=== PATIENT | female | born 1990 | race African-American/Black ===

== ENCOUNTER 2017-10-13 10:03 | Inpatient (IN) | payer OTHER ==
--- NOTE | 2017-10-13 10:44 | RAD ---
CHEST ONE VIEW: History: Dyspnea. Comparison: 03-21-17 FINDINGS: Tracheostomy tube tip is in good position. Heart size is enlarged. Mild pulmonary venous congestion. No acute osseous abnormality. IMPRESSION: Cardiomegaly and mild pulmonary venous congestion. POS: [facility]
[2017-10-13 11:48] LABS: Mean Corpuscular Hemoglobin 28.3 pg (27.0-31.0); Mean Corpuscular Volume 95.9 fl (81.0-99.0); Red Blood Cell (RBC) Count 4.93 mill/uL (4.20-5.40); White Blood Cell (WBC) Count 5.1 thou/uL (4.8-10.8)
[2017-10-13 12:05] LABS: CKMB 1.3 ng/mL (0-6.6); Troponin I 0.022 ng/mL (< 0.028)
[2017-10-13 12:10] LABS: Band 4 % (5-11); Eosinophils 5 % (0-10); Lymphocytes 18 % (21-51); MDiff Complete? YES; Mean Corpuscular HGB CONC 29.5 g/dL (32.0-36.0); Mean Platelet Volume 7.7 fL (7.4-10.4); Monocytes 10 % (0-10); Neutrophil 63 % (42-75); Platelet Count 248 thou/uL (130-400); RBC Distribution Width 16.1 % (11.5-14.5)
[2017-10-13 12:29] LABS: ALT (SGPT) 11 U/L (8-55); AST (SGOT) 26 U/L (5-34); Albumin 2.4 g/dL (3.5-5.0); Alkaline Phosphatase 65 U/L (40-150); Anion Gap 12 mmol/L (10-20); BUN (Urea Nitrogen) 15 mg/dL (7.0-18.7); Bilirubin, Total 0.2 mg/dL (0.2-1.2); CK (CPK) 171 U/L (29-168); Calc. Creatinine Clearance 0 mL/min (70-130); Calcium 8.2 mg/dL (7.8-10.44); Carbon Dioxide 27 mmol/L (22-29); Chloride 104 mmol/L (98-107); Estimated GFR-MDRD 81; Globulin 6.2 g/dL (2.4-3.5); Glucose 97 mg/dL (70-105); Lipase 16 U/L (8-78); Potassium 4.5 mmol/L (3.5-5.1); Protein, Total 8.6 g/dL (6.0-8.3); Sodium 138 mmol/L (136-145)
[2017-10-13 12:53] LABS: Bilirubin Small (Negative); Blood, Urine Trace (Negative); Clarity CLOUDY (Clear); Glucose, Urine (Dipstick) Negative (Negative); Leukocyte Negative (Negative); Nitrite Negative (Negative); Protein, Urine (Dipstick) 300 mg/dL (Neg-Trace); Specific Gravity, Urine 1.031 (1.002-1.036); pH, Urine 5.5 (5.0-9.0)
[2017-10-13 12:58] LABS: Bacteria/HPF None Seen HPF (None Seen); Pathc Cast-AUWi Flag 0.81 (0-2.49); RBC/HPF 0-3 HPF (0-3)
[2017-10-13] MEDS ORDERED: Labetalol HCl 100 MG/20 ML VIAL ONE (13:06)
[2017-10-13] MEDS ORDERED: Furosemide 40 MG/4 ML VIAL ONE (13:07)
[2017-10-13 13:10] LABS: Crystals/HPF 3+ AMORPH URATES HPF (Negative); Hyaline Casts/LPF 0-3 HYALINE CAST LPF (0-3 Hyaline); Other Casts/LPF 0-3 FINELY GRAN LPF (0-3 Hyaline); Renal Epithelial None Seen HPF (0-3); Transitional Epithelial NONE SEEN HPF (0-3)
[2017-10-13 13:20] LABS: pH, Arterial 7.25 (7.35-7.45)
[2017-10-13 13:21] LABS: Actual Bicarbonate (HCO3a) 35.9 mEq/L (22-26); Base Excess (BEa) 5.9 mEq/L (0 (+/-) 2.5); Hematocrit-ABG 45.9 % (36.0-47.0); Hemoglobin (Hb) 12.7 g/dL (12.0-16.0); O2 Tension (PaO2) 52.1 mmHg (80.0-100.0)
[2017-10-13 13:22] LABS: Analyzer IN Cardio ER; Calcium, Ionized 1.2 mmol/L (1.12-1.30); Puncture Site RRA
[2017-10-13] MEDS ORDERED: hydrALAZINE 20 MG/ML VIAL ONE ×2 (13:44→14:39)
--- NOTE | 2017-10-13 14:04 | PDOC.FPRHP ---
- History of Present Illness Chief Complaint: Headache, Abd Pain History of Present Illness: This is a 27 y/o F with a PMHx of morbid obesity, Pickwickian syndrome s/p trach placement, HTN, and medication non-compliance who presented to the ED complaining of a headache and felt that "her body was getting swollen." She says the swelling started about a month ago getting progressively worse and is in her legs and abdomen. She states that she wears CPAP vs BiPAP on her trach at night while she sleeps. She denies SOB. The headache is what pushed her to come into the ED. The pain is on the right side of the skull, it has been constant since last night. She describes it as being "punched in the head." She tried tylenol, but this did not help. Abdominal pain started about 1 week ago. She says she has not been eating well as of late. She denies nausea, vomiting, fevers, vision changes. The patient states she was in the hospital in [place] in July for a week for a "silent seizure." She isn't sure what they found or what they treated her with. She has not been to see a doctor between her last admission here in April and now due to not having insurance anymore. She has been unable to get any of her medications refilled except she has still been able to take her carvedilol she thinks. ED Course: The patient was seen in the ED by Dr. Webb and was treated with 80mg IV lasix, 20mg IV labetalol, and 20mg IV hydralazine. - Allergies/Adverse Reactions Allergies Allergy/AdvReac Type Severity Reaction Status Date / Time tomato Allergy Intermediate Rash Verified 03/17/16 14:09 No Known Drug Allergies Allergy Verified 03/17/16 14:09 - Home Medications Medication Instructions Recorded Confirmed Type Carvedilol [Coreg] 25 mg PO BID 09/06/14 10/13/17 History Amlodipine [Norvasc] 5 mg PO DAILY #0 tab 08/28/15 10/13/17 Rx Etravirine [Intelence] 200 mg PO BID-PC 02/07/17 10/13/17 History Pantoprazole [Protonix] 40 mg PO HS 02/07/17 10/13/17 History Sertraline HCl [Zoloft] 50 mg PO DAILY 02/07/17 10/13/17 History Fluconazole [Diflucan] 100 mg PO DAILY #30 tab 02/09/17 10/13/17 Rx Levothyroxine Sodium [Synthroid] 37.5 mcg PO 0600 #30 tab 02/09/17 10/13/17 Rx AcetaZOLAMIDE [Diamox] 250 mg PO TID #90 tab 03/23/17 10/13/17 Rx Aspirin [Ecotrin Low Strength] 81 mg PO DAILY tab 03/23/17 10/13/17 Rx Atorvastatin Calcium [Lipitor] 40 mg PO HS tab 03/23/17 10/13/17 Rx Ipratropium/Albuterol Sulfate 3 ml NEB [id number] PRN #0 neb 03/23/17 10/13/17 Rx [DuoNeb] Lisinopril [Zestril] 40 mg PO DAILY tab 03/23/17 10/13/17 Rx Lopinavir/Ritonavir [Kaletra Oral 400 mg PO BID ml 03/23/17 10/13/17 Rx Solution] Magnesium Oxide 400 mg PO BID tab 03/23/17 10/13/17 Rx Multivitamin W/ Minerals 1 tab PER TUBE DAILY tab 03/23/17 10/13/17 Rx [Theragran M] Nystatin [Mycostatin Powder] 1 gm TOP BID PRN #0 bot 03/23/17 10/13/17 Rx guaiFENesin ER [Mucinex] 600 mg PO Q12HR tab 03/23/17 10/13/17 Rx lamiVUDine [Epivir] 150 mg PO BID tab 03/23/17 10/13/17 Rx Comments: The patient reports that she has not actually taken any of her medications except Carvedilol since her last hospitalization. - History PMHx: 1. HIV 2. HTN 3. Hypothyroidism 4. JOSE DE JESUS 5. Morbid obesity 6. Obesity hypoventilation syndrome 7. CHF (EF 35-40% in 02/2017) PSHx: Cath, tracheostomy FHx: non-contributory Social: denies tobacco, alcohol, or drug use, lives with her cousin. - Review of Systems General: reports: fever/chills, fatigue Eyes: denies: vision changes ENT: denies: nasal congestion, rhinorrhea Respiratory: denies: cough, shortness of breath Cardiovascular: reports: edema. denies: chest pain Gastrointestinal: reports: abdominal pain. denies: nausea, vomiting, diarrhea, constipation Genitourinary: denies: dysuria, polyuria Skin: denies: rashes, lesions Musculoskeletal: reports: swelling, arthritis/arthralgias Neurological: reports: seizure ("silent seizure" 2/2 pain meds taken care of at OSH). denies: numbness - Vital signs BP: 208/148 HR: 99 RR: 18 Tmax: 99.3 Pox: 99% on BiPAP, was 83% on non- rebreather Wt: 265.22 kg - Physical Exam Constitutional: NAD (resting comfortably on BiPAP via trach), awake, alert and oriented, other (morbidly obese) HEENT: normocephalic and atraumatic, PERRLA, EOMI, conjunctiva clear, grossly normal vision, grossly normal hearing, normal nasal mucosa, MMM Neck: supple, trachea midline (tracheostomy in place), no LAD Heart: RRR, normal S1/S2, no murmurs/rubs/gallops, pulses present, other Lungs: CTAB (distant breath sounds), no respiratory distress, no wheezing Abdomen: soft, non-tender, bowel sounds present, no masses/distention, other Musculoskeletal: normal structure, normal tone Neurological: no focal deficit, CN II-XII intact Skin: good turgor, capillary refill <2 seconds Psychiatric: normal mood and affect, good judgment and insight, intact recent and remote memory FMR H&P: Results - Labs Result Diagrams: 10/14/17 05:50 10/14/17 05:51 Lab results: WBC 5.1 thou/uL (4.8-10.8) 10/13/17 11:31 Hgb 14.0 g/dL (12.0-16.0) 10/13/17 11:31 Hct 47.3 % (36.0-47.0) H 10/13/17 11:31 MCV 95.9 fl (81.0-99.0) 10/13/17 11:31 Plt Count 248 thou/uL (130-400) 10/13/17 11:31 Band Neuts % (Manual) 4 % (5-11) L 10/13/17 11:31 ABG pH 7.25 (7.35-7.45) L* 10/13/17 13:17 ABG pCO2 84.0 mmHg (35.0-45.0) H* 10/13/17 13:17 ABG pO2 52.1 mmHg (80.0-100.0) L 10/13/17 13:17 Sodium 138 mmol/L (136-145) 10/13/17 11:31 Potassium 4.5 mmol/L (3.5-5.1) 10/13/17 11:31 Chloride 104 mmol/L (98-107) 10/13/17 11:31 Carbon Dioxide 27 mmol/L (22-29) 10/13/17 11:31 BUN 15 mg/dL (7.0-18.7) 10/13/17 11:31 Creatinine 1.00 mg/dL (0.6-1.1) 10/13/17 11:31 Glucose 97 mg/dL (70-105) 10/13/17 11:31 Calcium 8.2 mg/dL (7.8-10.44) 10/13/17 11:31 Total Bilirubin 0.2 mg/dL (0.2-1.2) 10/13/17 11:31 AST 26 U/L (5-34) 10/13/17 11:31 ALT 11 U/L (8-55) 10/13/17 11:31 Alkaline Phosphatase 65 U/L (40-150) 10/13/17 11:31 Creatine Kinase 171 U/L (29-168) H 10/13/17 11:31 CK-MB (CK-2) 1.3 ng/mL (0-6.6) 10/13/17 11:31 B-Natriuretic Peptide 195.9 pg/mL (0-100) H 10/13/17 11:31 Serum Total Protein 8.6 g/dL (6.0-8.3) H 10/13/17 11:31 Albumin 2.4 g/dL (3.5-5.0) L 10/13/17 11:31 Lipase 16 U/L (8-78) 10/13/17 11:31 Urine Ketones Negative mg/dL (Negative) 10/13/17 12:34 Urine Blood Trace (Negative) H 10/13/17 12:34 Urine Nitrite Negative (Negative) 03/09/18 12:34 Ur Leukocyte Esterase Negative (Negative) 10/13/17 12:34 Urine RBC 0-3 HPF (0-3) 10/13/17 12:34 Urine WBC 4-6 HPF (0-3) H 10/13/17 12:34 Ur Squamous Epith Cells 7-10 HPF (0-3) H 10/13/17 12:34 Urine Bacteria None Seen HPF (None Seen) 10/13/17 12:34 - Radiology Interpretation Chest x-ray Status: image reviewed by me, report reviewed by me Additional comment: cardiomegaly, mild pulmonary vascular congestion FMR H&P: A/P - Problem List (1) Acute on chronic respiratory failure with hypoxia and hypercapnia Current Visit: Yes Status: Acute Code(s): J96.21 - ACUTE AND CHRONIC RESPIRATORY FAILURE WITH HYPOXIA; J96.22 - ACUTE AND CHRONIC RESPIRATORY FAILURE WITH HYPERCAPNIA (2) Hypertensive urgency Current Visit: Yes Status: Acute Code(s): I16.0 - HYPERTENSIVE URGENCY (3) Heart failure with reduced ejection fraction Current Visit: Yes Status: Acute Code(s): I50.20 - UNSPECIFIED SYSTOLIC ( CONGESTIVE) HEART FAILURE Qualifiers: Heart failure chronicity: unspecified Qualified Code(s): I50.20 - Unspecified systolic (congestive) heart failure (4) Obesity hypoventilation syndrome Current Visit: Yes Status: Chronic Code(s): E66.2 - MORBID (SEVERE) OBESITY WITH ALVEOLAR HYPOVENTILATION (5) HIV disease Current Visit: No Status: Chronic Code(s): B20 - HUMAN IMMUNODEFICIENCY VIRUS [HIV] DISEASE (6) Hypertension Current Visit: No Status: Chronic Code(s): I10 - ESSENTIAL (PRIMARY) HYPERTENSION Qualifiers: Hypertension type: essential hypertension Qualified Code(s): I10 - Essential (primary) hypertension (7) Hypothyroidism Current Visit: No Status: Chronic Code(s): E03.9 - HYPOTHYROIDISM, UNSPECIFIED Qualifiers: Hypothyroidism type: acquired Qualified Code(s): E03.9 - Hypothyroidism, unspecified (8) Obesity, morbid, BMI 50 or higher Current Visit: No Status: Chronic Code(s): E66.01 - MORBID (SEVERE) OBESITY DUE TO EXCESS CALORIES - Plan Acute on Chronic Hypoxic Hypercapnic Respiratory Failure The patient was initially not hypoxic on presentation, but slowly desatted and had to be put on nasal cannula and then non-rebreather, until she was found to by hypoxic to 83% on non-rebreather. She was started on BiPAP at this point via her trach. Her ABG showed pH of 7.25, pCO2 84, pO2 of 52.1. The patient improved significantly on BiPAP. Her [id number] respiratory failure was likely 2/2 her obesity hypoventilation syndrome. There is no signs of infections at this time. Her CXR showed cardiomegaly and mild pulmonary vascular congestion, so she could be a little fluid overloaded with a BNP of 196 , however it is unlikely that acute CHF exacerbation was the only source of her respiratory failure. She is s/p 80mg IV lasix by the ED. -Admit to [facility] -Dr. Hernandez with Pulmonology has been consulted, appreciate recs -Continue BiPAP to keep O2 between 88-90% Hypertensive Urgency The patient was initially normotensive, but had elevated BP as high as 216/109 and 208/148. The patient is s/p 20mg IV hydralazine and 20mg IV labetalol in the ED. She reports non-compliance to her home BP regimen. The patient's BP is difficult to accurately assess due to her morbid obesity, so the cuff has to be on her forearm. This could contribute to inaccurate BP measurements. -Will monitor BP closely -Will start on enalaprilat overnight with a plan to restart home BP meds in the AM -PRN BP meds for BP > 180/110 Headache This could be 2/2 hypoxia vs hypertensive urgency. -Will attempt to control BP and improve hypoxia and if this does not improve her H/A then will give her prn meds HTN -Will control BP with IV meds overnight with a plan to switch to home BP regimen in the AM. Hypothyroidism -Will continue home meds JOSE DE JESUS -Continue BiPAP at night Morbid obesity The patient is currently 265 kg. -Will intellectual property counsel on weight loss as this is contributing to many of her problems. Obesity Hypoventilation Syndrome The patient is a chronic hypoventilator 2/2 her weight. -Continue BiPAP at night CHF (EF 35-40% in 02/2017) The patient had a BNP of 196 and reports increased swelling. There was not any edema appreciated on exam, but due to the patient's weight, this could be difficult to assess. CXR showed cardiomegaly and mild pulmonary vascular congestion. -Will continue lasix 40mg IV for now -Astudillo in place -Strict I/O's -Monitor closely for signs of fluid overload HIV -Continue home meds MDD -Continue home meds Disposition/LOS: Admit to IMCU Length of stay, likely greater than 2 days FMR H&P: Upper Level - Pertinent history 27 year old female with a past medical history of obesity hypoventilation syndrome, HIV, hypertension, and hypothyroidism presents to ED for headache starting 1 day ago. She also reports some general abdominal pain, cough, and shortness of breath. When I evaluated her, she specifically denies fevers, chills, chest pain, nausea, vomiting, and diarrhea. - Pertinent findings Vital signs as listed above Exam: General: Morbidly obesity. Alert, oriented x4. Eyes: PERRLA, EOMI, nonicteric ENT: MMM, oropharynx clear. Tracheostomy in place - on BIPAP CV: Slightly tachycardic. No murmurs, rubs, or gallops. Resp: Lungs clear. Breath sounds distant. Abd: NT, ND, no guarding or rebound Ext: Movements equal bilaterally Skin: No rash or ulcer; no palpable lesions Neuro: CNII - XII intact; no focal deficits Psych: Mood and affect appropriate. Judgement and insight intact - Plan Date/Time: 10/13/17 1402 I, Vimal Cha DO, have evaluated this patient and agree with findings/plan as outlined by chemical engineering intern resident. Pertinent changes/additions are listed here. 1) Acute on chronic hypoxic hypercapneic respiratory failure - Likely 2/2 to obesity hypoventilation syndrome. Admit to [facility]. Dr. Hernandez consulted. Continue BIPAP. Lasix given in ED. No evidence of infection at this time. Flash pulmonary edema mertis consideration in patient with hypertensive urgency but lungs clear and CXR not showing a large amount of fluid. Patient given 80 mg Lasix iv in ED. Monitor strict I&Os - Astudillo catheter in place 2) Hypertensive urgency - While on BIPAP, will attempt to manage with iv meds. Start on Vasotec with hydralazine and labetalol for prn meds. CXR showed mild pulmonary vascular prominence. Chest x-ray and lung exam not consistent with severe pulmonary edema but that merits consideration in a patient with hypoxia. BP up to 208/148 in ED 3) sCHF - Strict I&Os. Reastart home meds 4) HTN - Plan as lsited for HTNive emergency 5) HIV - Would benefit from reestablishing with ID 6) Hypothyroidism - Restart home meds 7) Depression - Restart home meds Attending Addendum - Attending Addendum Date/Time: 10/14/17 7450 I personally evaluated the patient and discussed the management with Dr. Proctor on 10/13/17 at 1600. I agree with the History, Examination, Assessment and Plan documented above with any addition or exceptions noted below. Patient somewhat somnolent on my exam but not hypoxic on BiPap through trach. States she is tired because everyone keeps waking her up. States headache and abd pain resolved. Will treat as mild CHF exacerbation with gentle diuresis and strict I/Os. BP markedly improved after Vasotec - some concerns about the accuracy of her BPs given the need for a wrist cuff in her due to her morbid obesity. However, headache is resolved. Continue IV meds until PO can be resumed once she is fully awake.
[2017-10-13 15:19] LABS: Troponin I 0.032 ng/mL (< 0.028)
[2017-10-13] MEDS ORDERED: Ondansetron HCl/PF 4 MG/2 ML Vial IVP PRN (15:35)
[2017-10-13] MEDS ORDERED: Ondansetron ODT 4 MG TAB SL PRN (15:35)
[2017-10-13] MEDS ORDERED: Ondansetron ODT 4 MG TAB PO PRN (15:40)
[2017-10-13] MEDS ORDERED: Enalaprilat Dihydrate 1.25 MG/ML VIAL SLOW IVP SCH ×2 (16:00→22:00)
[2017-10-13] MEDS: Enalaprilat Dihydrate 1.25 MG/ML VIAL SLOW IVP SCH (18:17)
[2017-10-13 18:35] LABS: Troponin I 0.028 ng/mL (< 0.028)
--- NOTE | 2017-10-13 21:05 | CON ---
DATE OF CONSULTATION: 10/13/2017 HISTORY OF PRESENT ILLNESS: Ms. Bonilla is a 27-year-old female is well known to most of the doctors at this hospital. She presented with complaints of shortness of breath. She has chronic respiratory failure secondary to obesity hypoventilation syndrome. She appears to be gaining weight every time I see her. She is in the hospital March of last year. She had a long hospitalization in March and required nocturnal ventilation. She was discharged on the surprisingly had been back in the hospital, she did have tracheostomy placement. It sounded unclear whether or not she has been seen in the clinic. She still has stitches in her neck, adjacent to her tracheostomy tube. She has a Bivona trach in whi ch is fairly discolored. There is also no cuff bulb. She says that it "broke off." She has now been mechanically ventilated with pressure support without an air leak surprisingly. I d oubt, she was discharged home with inflated cuff, so it may be just her obesity is providing a seal w ith exhalation. In any event, she appears to be stable and she is actually laughing and joking in the emergency room, which is always her personality. PAST MEDICAL HISTORY: Remarkable for: 1. Being HIV positive. 2. Hypertension. 3. Hypothyroidism. 4. Anemia of chronic disease. 5. Lipid disorder. 6. ? Asthma. MEDICATIONS: She is supposed to be on aspirin, Lipitor, nebulizer treatments, lisinopril, magnesium, Mucinex, Diamox, Kaletra, Epivir, Coreg, Norvasc, etravirine, Protonix, Zoloft, Synthroid, and fluco nazole. FAMILY HISTORY: Negative for lung disease in early age. SOCIAL HISTORY: She is nonsmoker, nondrinker. ALLERGIES: She has no drug allergies. REVIEW OF SYSTEMS: Twelve-point review of systems, otherwise negative. PHYSICAL EXAMINATION: GENERAL: She is examined and ventilated in the emergency department. VITAL SIGNS: She is afebrile, heart rate 92, respiratory rates in the 20s, oximetry is 90%. It woul d have risen to 100% with ventilation, I have asked him to turn down her FIO2 with a goal of 88%-90%. HEENT: Her pupils are equal. Sclerae anicteric. NECK: Supple. As mentioned, her tracheostomy is discolored. There is still [address] LUNGS: Remarkable for coarse equal breath sounds. HEART: Regular rhythm. S1 and S2 were distant. ABDOMEN: Soft and massive. EXTREMITIES: Without asymmetry. Her last recorded weight in March of last year was 475. I would guess to make that she weighs at le ast that now. IMPRESSION: 1. Obesity hypoventilation. 2. Underlying cardiomyopathy by last echocardiogram. 3. Human immunodeficiency virus positive. 4. Life-threatening obesity. PLAN: Nebulized treatments, gentle diuresis as tolerated. Chest radiograph suggestive of pulmonary edema, but given her size is probably not an accurate way to assess whether or not she has any volume overload. We will follow along with other physicians caring for her. Critical care time 30 minutes.
[2017-10-14] MEDS: Enalaprilat Dihydrate 1.25 MG/ML VIAL SLOW IVP SCH ×4 (00:07→17:45)
--- NOTE | 2017-10-14 06:19 | PDOC.FM ---
- Subjective Subjective: Pt seen at bedside in NAD, resting comfortably. MIAH overnight. Pt has been tolerating bipap via trach well. - Objective MAR Reviewed: Yes Vital Signs & Weight: Vital Signs (12 hours) Temp Pulse Resp BP BP Pulse Ox 10/14/17 05:41 172/103 H 10/14/17 04:32 96.4 F L 104 H 21 H 114/75 92 L 10/14/17 03:00 99 10/14/17 00:09 107 H 22 H 164/109 H 98 10/14/17 00:07 171/109 H 10/13/17 19:24 96.3 F L 98 17 149/93 H 97 10/13/17 19:00 96.3 F L 98 17 97 I&O: 10/12/17 10/13/17 10/14/17 06:59 06:59 06:59 Intake Total 0.5 Output Total 1525 Balance -1524.5 Result Diagrams: 10/14/17 05:50 10/14/17 05:51 <Nacho Alaniz - Last Filed: 10/14/17 07:46> - Objective Vital Signs & Weight: Vital Signs (12 hours) Temp Pulse Resp BP BP Pulse Ox 10/14/17 11:40 80 18 100 10/14/17 11:39 82 14 99 10/14/17 11:35 96.9 F L 10/14/17 11:00 82 17 90/55 L 94 L 10/14/17 10:40 89 26 H 98/64 10/14/17 09:00 90 108/63 10/14/17 08:11 99 20 97 10/14/17 08:00 99 20 97 10/14/17 07:58 101 H 151/91 H 10/14/17 07:33 98.4 F 112 H 24 H 92 L 10/14/17 07:00 98.4 F 100 17 139/81 90 L 10/14/17 06:00 112 H 133/77 10/14/17 05:41 172/103 H 10/14/17 04:32 96.4 F L 104 H 21 H 114/75 92 L 10/14/17 03:00 99 10/14/17 00:09 107 H 22 H 164/109 H 98 10/14/17 00:07 171/109 H Weight Weight 261.904 kg I&O: 10/13/17 10/14/17 10/15/17 06:59 06:59 07:59 Intake Total 600.5 604 Output Total 2425 Balance -1824.5 604 Result Diagrams: 10/14/17 05:50 10/14/17 05:51 <René Calderon - Last Filed: 10/14/17 11:46> Phys Exam - Physical Examination Constitutional: NAD morbidly obese HEENT: PERRLA, sclera anicteric Neck: supple tracheostomy in place Respiratory: no rales, no rhonchi coarse breath sounds BL Cardiovascular: RRR, no significant murmur Gastrointestinal: soft, positive bowel sounds Neurological: non-focal, moves all 4 limbs Psychiatric: normal affect, A&O x 3 Skin: cap refill <2 seconds <Nacho Alaniz - Last Filed: 10/14/17 07:46> Dx/Plan (1) Acute on chronic respiratory failure with hypoxia and hypercapnia Code(s): J96.21 - ACUTE AND CHRONIC RESPIRATORY FAILURE WITH HYPOXIA; J96.22 - ACUTE AND CHRONIC RESPIRATORY FAILURE WITH HYPERCAPNIA Status: Acute Plan: -pt presented with RENTERIA and found to be hypoxic with pH on abg of 7.25 -long standing hx of chronic hypoxic hypercapneic respiratory failure 2/2 obesity hypoventilation -responding well to bipap via trach in place -pulmonology recommendations greatly appreciated -continue with duonebs (2) Hypertensive urgency Code(s): I16.0 - HYPERTENSIVE URGENCY Status: Acute Plan: -pt has hx of noncompliance with medication and presented with elevated BPs -responding to IV medications as pt initially NPO with bipap -restart home medications with tolerating of PO and continue to monitor (3) Heart failure with reduced ejection fraction Code(s): I50.20 - UNSPECIFIED SYSTOLIC (CONGESTIVE) HEART FAILURE Status: Acute QualifierTitle: Heart failure chronicity: unspecified Qualified Code(s): I50.20 - Unspecified systolic (congestive) heart failure Plan: -CXR with suggestion of pulmonary congestion -does not appear to be in acute exacerbation -pt received IV lasix in ED and has UOP of 1525 since admission -continue with gentle diuresis and monitor output closely -restart home medications (4) HIV disease Code(s): B20 - HUMAN IMMUNODEFICIENCY VIRUS [HIV] DISEASE Status: Chronic Plan: -unclear if pt has been taking medications -will consult ID, recs greatly appreciated (5) Obesity hypoventilation syndrome Code(s): E66.2 - MORBID (SEVERE) OBESITY WITH ALVEOLAR HYPOVENTILATION Status : Chronic - Plan Plan: disposition: Pt stable and doing well. Continue with breathing treatments and gentle diuresis. Specialist recommendations greatly appreciated. Continue to monitor closely. <Nacho Alaniz - Last Filed: 10/14/17 07:46> Attending Addendum - Attending Addendum Date/Time: 10/14/17 1146 I personally evaluated the patient and discussed the management with Dr. Alaniz. I agree with the History, Examination, Assessment and Plan documented above with any addition or exceptions noted below. <René Calderon - Last Filed: 10/14/17 11:46>
[2017-10-14 06:32] LABS: Anion Gap 10 mmol/L (10-20); BUN (Urea Nitrogen) 15 mg/dL (7.0-18.7); Calc. Creatinine Clearance 0 mL/min (70-130); Carbon Dioxide 30 mmol/L (22-29); Chloride 103 mmol/L (98-107); Estimated GFR-MDRD Greater than 90; Glucose 92 mg/dL (70-105); Potassium 5.1 mmol/L (3.5-5.1); Sodium 138 mmol/L (136-145)
[2017-10-14 06:39] LABS: Hemoglobin 13.7 g/dL (12.0-16.0); Mean Corpuscular HGB CONC 29.3 g/dL (32.0-36.0); Mean Corpuscular Hemoglobin 28.7 pg (27.0-31.0); Mean Corpuscular Volume 97.7 fl (81.0-99.0); Mean Platelet Volume 8.5 fL (7.4-10.4); Platelet Count 153 thou/uL (130-400); Red Blood Cell (RBC) Count 4.77 mill/uL (4.20-5.40); White Blood Cell (WBC) Count 4.7 thou/uL (4.8-10.8)
[2017-10-14 06:40] LABS: Band 1 % (5-11); Lymphocytes 24 % (21-51); MDiff Complete? YES; Monocytes 11 % (0-10); Neutrophil 64 % (42-75); Nucleated RBC 1 % (0); PLT Morphology Comment Appears Adequate
[2017-10-14] MEDS: Levothyroxine Sodium 25 MCG TAB PO SCH (07:25)
[2017-10-14] MEDS: Lisinopril 20 MG TAB PO SCH (07:58)
[2017-10-14] MEDS: Amlodipine 5 MG TAB PO SCH (07:58)
[2017-10-14] MEDS: Carvedilol 25 MG TAB PO SCH ×2 (08:00→20:18)
[2017-10-14] MEDS: Enoxaparin Sodium 40 MG/0.4 ML SYRINGE SC SCH (08:01)
[2017-10-14] MEDS ORDERED: Furosemide 40 MG/4 ML VIAL SLOW IVP SCH ×2 (09:00→10:20)
[2017-10-14 10:30] VITALS: BMI 99.1
[2017-10-14] MEDS ORDERED: Furosemide 20 MG/2 ML VIAL SLOW IVP SCH (10:45)
[2017-10-14] MEDS ORDERED: Nystatin Powder 15 GM BOT TOP PRN (11:06)
[2017-10-14] MEDS ORDERED: Acetaminophen 325 MG TAB PO PRN (14:16)
--- NOTE | 2017-10-14 14:52 | PRG ---
DATE OF SERVICE: 10/14/2017 SUBJECTIVE: Merle Bonilla says she is feeling better. Somehow the nurses were able to weigh her. Her weight is 577 pounds. PHYSICAL EXAMINATION: LUNGS: Clear today. HEART: Regular rhythm. ABDOMEN: Soft. IMPRESSION: 1. Acute on chronic respiratory failure. 2. Status post tracheostomy. 3. Life threatening obesity. 4. Systolic heart failure which is most likely the cause of her decompensation combined with her miguelangel ctivity and massive obesity. She continues to take herself on and off pressure support noninvasive v entilation using a tracheostomy. PLAN: Continue current care.
[2017-10-15 05:10] LABS: Anion Gap 8 mmol/L (10-20); BUN (Urea Nitrogen) 17 mg/dL (7.0-18.7); Calc. Creatinine Clearance 375 mL/min (70-130); Carbon Dioxide 34 mmol/L (22-29); Chloride 102 mmol/L (98-107); Estimated GFR-MDRD 87; Glucose 88 mg/dL (70-105); Sodium 139 mmol/L (136-145)
[2017-10-15 05:36] LABS: Band 5 % (5-11); Hemoglobin 13.1 g/dL (12.0-16.0); Lymphocytes 25 % (21-51); MDiff Complete? YES; Mean Corpuscular HGB CONC 29.8 g/dL (32.0-36.0); Mean Corpuscular Hemoglobin 28.7 pg (27.0-31.0); Mean Corpuscular Volume 96.1 fl (81.0-99.0); Monocytes 13 % (0-10); Neutrophil 56 % (42-75); PLT Morphology Comment Appears Adequate; Platelet Count 205 thou/uL (130-400); RBC Distribution Width 15.9 % (11.5-14.5); RBC Morphology Normal; Reactive Lymphocytes 1 % (0-10); Red Blood Cell (RBC) Count 4.57 mill/uL (4.20-5.40); White Blood Cell (WBC) Count 6.5 thou/uL (4.8-10.8)
[2017-10-15] MEDS: Levothyroxine Sodium 25 MCG TAB PO SCH (05:55)
--- NOTE | 2017-10-15 06:28 | PDOC.FM ---
- Subjective Subjective: CC: feels better HPI: Pt seen at bedside in NAD, resting comfortably. MIAH overnight. Pt has been tolerating bipap via trach well and able to ambulate around room without assistance. - Objective MAR Reviewed: Yes Vital Signs & Weight: Vital Signs (12 hours) Temp Pulse Resp BP Pulse Ox 10/15/17 05:06 97.6 F 75 132/89 98 10/15/17 03:24 77 15 97 10/15/17 00:47 97.7 F 77 88 L 10/14/17 21:00 97.8 F 85 135/85 95 10/14/17 19:45 97.8 F 85 16 95 Weight Weight 261.904 kg I&O: 10/13/17 10/14/17 10/15/17 06:59 06:59 07:59 Intake Total 600.5 1084 Output Total 2425 875 Balance -1824.5 209 Result Diagrams: 10/15/17 03:39 10/15/17 03:39 <Nacho Alaniz - Last Filed: 10/15/17 07:27> - Objective Vital Signs & Weight: Vital Signs (12 hours) Temp Pulse Resp BP Pulse Ox 10/15/17 07:58 78 10/15/17 07:42 97.9 F 78 22 H 136/88 99 10/15/17 07:11 97.6 F 72 12 94 L 10/15/17 06:39 72 12 94 L 10/15/17 06:38 72 12 94 L 10/15/17 05:06 97.6 F 75 132/89 98 10/15/17 03:24 77 15 97 10/15/17 00:47 97.7 F 77 88 L Weight Weight 261.723 kg I&O: 10/14/17 10/15/17 10/16/17 05:59 06:59 06:59 Intake Total 364 Output Total Balance 364 Result Diagrams: 10/15/17 03:39 10/15/17 03:39 <René Calderon - Last Filed: 10/15/17 10:12> Phys Exam - Physical Examination Constitutional: NAD morbid obesity HEENT: PERRLA, sclera anicteric Neck: supple trach in place Respiratory: no wheezing, clear to auscultation bilateral Cardiovascular: RRR, no significant murmur Gastrointestinal: soft, positive bowel sounds Neurological: non-focal, moves all 4 limbs Psychiatric: normal affect, A&O x 3 Skin: cap refill <2 seconds <Nacho Alaniz - Last Filed: 10/15/17 07:27> Dx/Plan (1) Acute on chronic respiratory failure with hypoxia and hypercapnia Code(s): J96.21 - ACUTE AND CHRONIC RESPIRATORY FAILURE WITH HYPOXIA; J96.22 - ACUTE AND CHRONIC RESPIRATORY FAILURE WITH HYPERCAPNIA Status: Acute Plan: -pt presented with RENTERIA and found to be hypoxic with pH on abg of 7.25 -long standing hx of chronic hypoxic hypercapneic respiratory failure 2/2 obesity hypoventilation -responding well to bipap via trach in place -pulmonology recommendations greatly appreciated -continue with dujeannie (2) Hypertensive urgency Code(s): I16.0 - HYPERTENSIVE URGENCY Status: Acute Plan: -pt has hx of noncompliance with medication and presented with elevated BPs -responded to IV medications as pt initially NPO with bipap -home medications restarted with good control of BP at goal (3) Heart failure with reduced ejection fraction Code(s): I50.20 - UNSPECIFIED SYSTOLIC (CONGESTIVE) HEART FAILURE Status: Acute QualifierTitle: Heart failure chronicity: unspecified Qualified Code(s): I50.20 - Unspecified systolic (congestive) heart failure Plan: -CXR with suggestion of pulmonary congestion -does not appear to be in acute exacerbation -continue with gentle diuresis and monitor output closely -restart home medications (4) HIV disease Code(s): B20 - HUMAN IMMUNODEFICIENCY VIRUS [HIV] DISEASE Status: Chronic Plan: -unclear if pt has been taking medications -will consult ID, recs greatly appreciated (5) Obesity hypoventilation syndrome Code(s): E66.2 - MORBID (SEVERE) OBESITY WITH ALVEOLAR HYPOVENTILATION Status : Chronic - Plan Plan: disposition: Pt stable and doing well. Continue with breathing treatments and gentle diuresis. Specialist recommendations greatly appreciated. Continue to monitor closely. Pt likely stable for discharge with bipap while sleeping and resumption of home medications, will consider possibility of placement. <Nacho Alaniz - Last Filed: 10/15/17 07:27> Attending Addendum - Attending Addendum Date/Time: 10/15/17 1011 I personally evaluated the patient and discussed the management with Dr. Alaniz. I agree with the History, Examination, Assessment and Plan documented above with any addition or exceptions noted below. Patient is back to clinical baseline. She geovanna like to go home. She is moving to [place] this week. She Declines consideration for inpt rehab placement. <René Calderon - Last Filed: 10/15/17 10:12>
[2017-10-15] MEDS ORDERED: Furosemide 40 MG/4 ML VIAL SLOW IVP SCH (07:30)
[2017-10-15] MEDS: Lisinopril 20 MG TAB PO SCH (07:58)
[2017-10-15] MEDS: Amlodipine 5 MG TAB PO SCH (07:58)
[2017-10-15] MEDS: Enoxaparin Sodium 40 MG/0.4 ML SYRINGE SC SCH (07:58)
[2017-10-15] MEDS: Carvedilol 25 MG TAB PO SCH (07:58)
[2017-10-15] MEDS ORDERED: Furosemide 20 MG/2 ML VIAL SLOW IVP SCH (09:00)
[2017-10-15 11:48] VITALS: BP 115/70; TEMP 98.2
--- NOTE | 2017-10-15 14:49 | CON ---
DATE OF CONSULTATION: 10/14/2017 REASON FOR CONSULTATION: Chronic HIV infection, morbid obesity, respiratory insufficiency, and cardiomyopathy. HISTORY OF PRESENT ILLNESS: Ms. Bonilla is a patient whom I had seen in 2015. At that time, she presented with cough, hemoptysis and purulent sputum associated with fever and newly identified HIV infection positive status. I saw her again in 02/2017 when she presented with a CD4 cell count above 200 and hypoventilation syndrome associated with morbid obesity and cardiomyopathy. Her last CD4 cell count was 220 on 02/2017 and a viral load then was 110,000 copies per mL. At this time, she presents with a previous tracheostomy placement and severe headache and what she described as perception of swelling in her body starting about 4 weeks before admission concentrated in legs and abdomen. She claims that wearing her CPAP/BiPAP at nighttime and denied any dyspnea. The headache is what really forced her to come to the emergency room, localized in the right side of her head. She had some abdominal pain as well. No visual symptoms, sore throat, odynophagia, dysphagia, no vomiting, hematemesis, melena, hematochezia, no diarrhea, no genitourinary symptoms. Apparently, she had been in the hospital in [place] in July because of her seizure activity and since then has not been treated anywhere. She had appointments scheduled in my clinic, but never made to any of those and has not taking any of her medications. The initial findings, blood pressure was 208/148 , heart rate 99, respiratory rate 18, T-max 99.3, pulse ox 99 on BiPAP, 83% on nonrebreathing mask. Weight was 265 kilograms. She appeared comfortable on BiPAP, awake, alert, and oriented. The HEENT exam was not remarkable. Heart exam showed normal findings. Her lungs with distant lung sounds, but no wheezing. Abdomen was soft and nontender. Bowel sounds are present. She was voiding spontaneously. White cell count 5.1, hemoglobin 14, platelets 248. PH of 7.25, pCO2 of 84, pO2 of 52. Sodium 138, creatinine 1.0, bilirubin 0.2, AST 26, ALT 11, alkaline phosphatase 65. CK 171, BNP 195, albumin 2.4, lipase 16. Urinalysis with 4 to 6 wbc's. Chest x-ray demonstrated cardiomegaly and congestion, but no infiltrates. Thus far, microbiology studies include influenza A and B test negative and urine culture no growth at 24 hours. Initial impression was hypoventilation syndrome, CHF, obesity, HIV and hypertension with hypertensive urgency and hypoxic/hypercapnic respiratory failure. Currently, Ms. Bonilla is quite somnolent. She can barely speak and she is attached to the BiPAP machine, seems to be quite sleepy. The headache has resolved. REVIEW OF SYSTEMS: Ten point review of systems is as above. PAST MEDICAL HISTORY: Obesity; HIV infection with last CD4 of 220 a few months ago, not on antiretroviral therapy; hypertension; cardiomyopathy; tracheostomy placement; hypothyroidism; hypoventilation syndrome. FAMILY HISTORY: Noncontributory. SOCIAL HISTORY: Never a smoker. Lives with cousin in town. No alcoholic beverage use. PHYSICAL EXAMINATION: VITAL SIGNS: T-max 98.6, blood pressure 136/88, pulse 78, respirations 12 to 22 , O2 sat 99%. SKIN: She has peripheral IV access. She has a Astudillo catheter in place. She has areas of maceration of the skin in the groin and abdominal fold area. I could not identify any enlarged lymph nodes. HEENT: Ocular movements conjugate. Sclerae are white. Pupils are 2 mm and reactive. Oral cavity: Quite a few teeth in place. Oral mucosa is moist. No thrush. NECK: Hard to examine neck. LUNGS: With distant breath sounds, but no obvious wheezing or crackles. CARDIOVASCULAR: S1, S2. Diminished heart sounds. No obvious murmurs, regular rate. ABDOMEN: Very protuberant, very prominent panniculus. No tenderness on palpation. No obvious organomegaly. The exam is very difficult because of the obesity. No evidence of bladder distention. EXTREMITIES: She has no joint inflammatory activity noted. Pulses are 1+ in dorsalis pedis. She has evidence of lymphedema of lower extremities with stasis dermatitis. She is able to move extremities on command, but she is diffusely weak. She is still very drowsy. She knows her name. She knows where she is. It takes a lot of effort to obtain information from her because of her drowsiness. LABORATORY DATA: White cell count is 4.7, hemoglobin 13, platelets 153 with a fairly normal differential except for lymphocytopenia, total lymphocyte count is about 1200. Chemistry with sodium 139, creatinine 0.94 and the liver profile has been discussed above. Albumin 2.4, globulin 6.2. ASSESSMENT AND PLAN: Morbid obesity with hypoventilation syndrome on admission for carbon dioxide retention due to hypoventilation, possible improper use of BiPAP in the home setting or just inadequacy of the support for maintenance of her needed gas exchange with evidence of headaches, probably secondary to hypercapnia, and vasodilatation of the brain vasculature associated with hypertensive urgency. The patient has improved markedly after admission with measures started, which include inhalers, resumption of Coreg, Lovenox, and Lasix. The poor adherence to the medications for management of hypertension, edema, and hypothyroidism must have an effect in the patient's symptoms as well. Regarding her HIV infection, we will restage the HIV infection, again the initiation of antiretroviral therapy will be essential control for her immunosuppression. Evidently, prognosis seems to be poor and medium term in view of her other problems and then the likely progression of immunosuppression. If her CD4 is less than 200, she will have to be started on pneumocystis prophylaxis. At this point; however, there is no obvious evidence of unfortunate sick process to warrant initiation workup in that regard. MTDD
--- NOTE | 2017-10-15 14:50 | DIS-2 ---
DATE OF ADMISSION: 10/13/2017 DATE OF DISCHARGE: 10/15/2017 RESIDENT: aNcho Alaniz M.D. ADMITTING ATTENDING: Taylor Perez D.O. DISCHARGE ATTENDING: René Calderon M.D. CONSULTATIONS: 1. Pulmonology, Jef Hernandez M.D. 2. Infectious Disease, Vu Villalobos M.D. PROCEDURE PERFORMED: Chest x-ray performed on 10/13/2017 showed mild venous congestion. PRIMARY DIAGNOSES: 1. Acute on chronic hypoxic hypercapnic respiratory failure secondary to obesity hypoventilation syndrome. 2. Hypertensive urgency, resolved. 3. Medication noncompliance. 4. Systolic congestive heart failure with an ejection fraction of 40%. 5. Morbid obesity. 6. Depression. 7. Hypertension. 8. Human immunodeficiency virus. 9. Hypothyroidism. DISCHARGE MEDICATIONS: 1. Carvedilol 25 mg p.o. b.i.d. 2. Amlodipine 5 mg p.o. daily. 3. Intelence 200 mg p.o. b.i.d. 4. Pantoprazole 40 mg p.o. at bedtime. 5. Sertraline 50 mg p.o. daily. 6. Fluconazole 100 mg p.o. daily. 7. Levothyroxine 75 mcg p.o. q.a.m. 8. Aspirin 81 mg p.o. daily. 9. Atorvastatin 40 mg p.o. at bedtime. 10. DuoNebs q.2 hours p.r.n. 11. Lisinopril 40 mg p.o. daily. 12. Magnesium oxide 400 mg p.o. b.i.d. 13. Multivitamin p.o. daily. 14. Nystatin topical p.r.n. 15. Lopinavir/ritonavir 400 mg p.o. b.i.d. 16. Lamivudine 150 mg p.o. b.i.d. HISTORY OF PRESENT ILLNESS AND HOSPITAL COURSE: The patient is a 27-year-old female with a history of morbid obesity and chronic respiratory failure, who initially presented with headache and medication noncompliance and was found to have an acute on chronic hypoxic hypercapnic respiratory failure. The patient was placed on BiPAP via her tracheostomy and responded extremely well. The patient was admitted to the [facility] for further observation. With restarting of her home medications, the patient's blood pressure responded extremely well, ranging in the 110s-130s on the morning of discharge. The patient's laboratory workup revealed a chronic hypercapnia; however, otherwise within normal limits. It is likely that all of the patient's admitting diagnoses were due to medication noncompliance. Prior to discharge, a conversation was had with the patient regarding discharge planning and possible placement in order to ensure continued compliance and ensure good followup. The patient, however, was not interested in any type of placement and then she is soon moving to the [place] area and so would like no further workup here. The patient's hospital course otherwise uncomplicated. DISPOSITION: Guarded. DISCHARGE INSTRUCTIONS: 1. Location: Home. 2. Diet: Heart healthy and calorie restricted diet. 3. Activity: As tolerated. 4. Followup: The patient was instructed to follow up with her primary care physician in [place] for her chronic medical conditions. RHODA
== END 2017-10-15 13:18 | disposition home or self-care (01) | DRG 208 ==
LOC: ERS 10:03 → IMCU/EMU 13:51
PROVIDERS: ADMIT Family Medicine; ATTEND Family Medicine
PROC: 5A1935Z Respiratory Ventilation, Less than 24 Consecutive Hours (ICD-10-PCS; principal; 2017-10-13)
DX: J96.22 Acute and chronic respiratory failure with hypercapnia (principal); B20 Human immunodeficiency virus [HIV] disease; I42.9 Cardiomyopathy, unspecified; Z93.0 Tracheostomy status; E66.2 Morbid (severe) obesity with alveolar hypoventilation; Z68.45 Body mass index [BMI] 70 or greater, adult; I50.20 Unspecified systolic (congestive) heart failure; F32.9 Major depressive disorder, single episode, unspecified; I11.0 Hypertensive heart disease with heart failure; I16.0 Hypertensive urgency; E03.9 Hypothyroidism, unspecified; Z91.14 Patient's other noncompliance with medication regimen; Z91.018 Allergy to other foods; Z79.82 Long term (current) use of aspirin; Z79.899 Other long term (current) drug therapy
CPT/HCPCS: 36415; 36416; 51702; 71045; 80048; 80053; 81003; 81015; 82553; 82805; 83690; 83880; 84484; 85025; 87086; 87804; 93005; 94640; 94660; 96374; 96375; 96376; A4353; G8978-GP-CN; G8979-GP-CL; J0360; J1940; J7620

== ENCOUNTER 2017-10-23 08:26 | Emergency (ER) | payer OTHER ==
[2017-10-23] MEDS ORDERED: Lisinopril 10 MG TAB ONE (09:04)
[2017-10-23] MEDS ORDERED: Furosemide 40 MG TAB ONE (09:27)
[2017-10-23] MEDS ORDERED: Carvedilol 25 MG TAB PO SCH (09:30)
== END 2017-10-23 09:22 | disposition home or self-care (01) ==
LOC: ERS 08:26
DX: R60.1 Generalized edema (principal); Z76.0 Encounter for issue of repeat prescription; B20 Human immunodeficiency virus [HIV] disease; I10 Essential (primary) hypertension; E66.01 Morbid (severe) obesity due to excess calories; Z79.899 Other long term (current) drug therapy
CPT/HCPCS: 99284

== ENCOUNTER 2017-10-28 05:55 | Emergency (ER) | payer OTHER ==
[2017-10-28 07:06] LABS: ALT (SGPT) 13 U/L (8-55); AST (SGOT) 26 U/L (5-34); Albumin 2.6 g/dL (3.5-5.0); Alkaline Phosphatase 57 U/L (40-150); Anion Gap 7 mmol/L (10-20); BUN (Urea Nitrogen) 16 mg/dL (7.0-18.7); Bilirubin, Total 0.3 mg/dL (0.2-1.2); Calc. Creatinine Clearance 0 mL/min (70-130); Calcium 8.4 mg/dL (7.8-10.44); Carbon Dioxide 34 mmol/L (22-29); Chloride 102 mmol/L (98-107); Estimated GFR-MDRD 70; Globulin 6.7 g/dL (2.4-3.5); Glucose 95 mg/dL (70-105); Potassium 4.7 mmol/L (3.5-5.1); Protein, Total 9.3 g/dL (6.0-8.3); Sodium 138 mmol/L (136-145)
[2017-10-28 07:11] LABS: Troponin I 0.012 ng/mL (< 0.028)
[2017-10-28 07:40] LABS: #Eosinphils 0.1 thou/uL (0.0-0.7); #Lymphocytes 1.1 thou/uL (1.20-3.40); #Monocytes 0.7 thou/uL (0.11-0.59); #Neutrophils 3.7 thou/uL (1.40-6.50); %Basophils 0.4 % (0.0-1.0); %Eosinophils 1.5 % (0.0-10.0); %Monocytes 12.4 % (0.0-10.0); %Neutrophils 65.6 % (42.0-75.0); Hemoglobin 13.2 g/dL (12.0-16.0); MDiff Complete? YES; Mean Corpuscular HGB CONC 29.6 g/dL (32.0-36.0); Mean Corpuscular Hemoglobin 28.7 pg (27.0-31.0); Mean Corpuscular Volume 96.7 fl (81.0-99.0); Mean Platelet Volume 7.6 fL (7.4-10.4); PLT Morphology Comment Appears Adequate; Platelet Count 228 thou/uL (130-400); Polychromasia SLIGHT = 2-3 cells (100X) (0-2/hpf); RBC Distribution Width 15.8 % (11.5-14.5); Red Blood Cell (RBC) Count 4.61 mill/uL (4.20-5.40); White Blood Cell (WBC) Count 5.6 thou/uL (4.8-10.8)
[2017-10-28] MEDS ORDERED: Nitroglycerin 0.4 MG TAB (25 Tab Bottle) ONE (08:09)
--- NOTE | 2017-10-28 08:22 | RAD ---
PORTABLE CHEST: Date: 10/28/17 PROVIDED CLINICAL HISTORY: Dyspnea. FINDINGS: Comparison with 10/13/17. Evaluation is limited by patient body habitus. Cardiac silhouette remains enlarged. Tracheostomy appliance is again seen in similar position. No def inite focal consolidation, pleural fluid, or pneumothorax. IMPRESSION: No evidence for an acute cardiopulmonary process with limitations as above. POS: JOHN
[2017-10-28] MEDS ORDERED: Furosemide 40 MG TAB ONE (08:26)
--- NOTE | 2017-11-11 22:58 | EKG ---
Test Reason : Blood Pressure : / mmHG Vent. Rate : 107 BPM Atrial Rate : 107 BPM P-R Int : 142 ms QRS Dur : 086 ms QT Int : 298 ms P-R-T Axes : 055 029 063 degrees QTc Int : 397 ms Sinus tachycardia with occasional Premature ventricular complexes Possible Left atrial enlargement Nonspecific T wave abnormality Abnormal ECG Confirmed by AMENA KEANE, CHELSIE ([id number]), society editor PERLA QURESHI ([id number] on 11/11/2017 10:57:47 PM Referred By: Confirmed By:CHELSIE BECKWITH MD
== END 2017-10-28 10:10 | disposition home or self-care (01) ==
LOC: ERS 05:55
DX: I11.0 Hypertensive heart disease with heart failure (principal); I50.9 Heart failure, unspecified; E03.9 Hypothyroidism, unspecified; B20 Human immunodeficiency virus [HIV] disease; D64.9 Anemia, unspecified; E66.9 Obesity, unspecified; G47.30 Sleep apnea, unspecified; Z79.899 Other long term (current) drug therapy
CPT/HCPCS: 36415; 71045; 80053; 82553; 83880; 84484; 85025; 93005

== ENCOUNTER 2017-11-02 17:00 | Emergency (ER) | payer OTHER ==
[2017-11-02 17:58] LABS: Hemoglobin 13.7 g/dL (12.0-16.0); Mean Corpuscular HGB CONC 29.5 g/dL (32.0-36.0); Mean Corpuscular Hemoglobin 28.3 pg (27.0-31.0); Mean Corpuscular Volume 95.9 fl (81.0-99.0); Mean Platelet Volume 7.6 fL (7.4-10.4); Platelet Count 238 thou/uL (130-400); RBC Distribution Width 15.8 % (11.5-14.5); Red Blood Cell (RBC) Count 4.84 mill/uL (4.20-5.40); White Blood Cell (WBC) Count 4.3 thou/uL (4.8-10.8)
[2017-11-02 18:03] LABS: INR-International Normal Ratio 1.2; PTT 31.8 SEC (22.9-36.1); Prothrombin Time 15.6 SEC (12.0-14.7)
[2017-11-02 18:17] LABS: ALT (SGPT) 10 U/L (8-55); AST (SGOT) 22 U/L (5-34); Albumin 2.5 g/dL (3.5-5.0); Alkaline Phosphatase 51 U/L (40-150); Anion Gap 6 mmol/L (10-20); BUN (Urea Nitrogen) 15 mg/dL (7.0-18.7); Bilirubin, Total 0.4 mg/dL (0.2-1.2); Calc. Creatinine Clearance 0 mL/min (70-130); Calcium 8.2 mg/dL (7.8-10.44); Carbon Dioxide 36 mmol/L (22-29); Chloride 101 mmol/L (98-107); Estimated GFR-MDRD 74; Globulin 6.4 g/dL (2.4-3.5); Glucose 78 mg/dL (70-105); Potassium 4.6 mmol/L (3.5-5.1); Protein, Total 8.9 g/dL (6.0-8.3); Sodium 138 mmol/L (136-145)
[2017-11-02 18:21] LABS: CKMB 1.2 ng/mL (0-6.6); Troponin I 0.013 ng/mL (< 0.028)
[2017-11-02 18:24] LABS: Anisocytosis SLIGHT = 6-15 cells (100X) (0-5/hpf); Band 7 % (5-11); Eosinophils 1 % (0-10); Lymphocytes 27 % (21-51); MDiff Complete? YES; Monocytes 5 % (0-10); Neutrophil 60 % (42-75); Nucleated RBC 2 % (0); PLT Morphology Comment Appears Adequate
[2017-11-02] MEDS ORDERED: Furosemide 40 MG/4 ML VIAL ONE (18:42)
--- NOTE | 2017-11-02 19:27 | RAD ---
SINGLE VIEW OF THE CHEST: 11/02/17 COMPARISON: 10/28/17 HISTORY: Shortness of breath for two days. Edema in her abdomen and chest without relief from Lasix. FINDINGS: Single view of the chest shows an enlarged but stable cardiomediastinal silhouette. The tracheostomy is unchanged in position. There is no evidence of consolidation, mass, or pleural effusion. This exam is limited secondary to the patient's large body habitus. IMPRESSION: Cardiomegaly. POS: JOHN
== END 2017-11-02 23:55 | disposition home or self-care (01) ==
LOC: ERS 17:00
DX: I11.0 Hypertensive heart disease with heart failure (principal); I50.9 Heart failure, unspecified; E66.01 Morbid (severe) obesity due to excess calories; E03.9 Hypothyroidism, unspecified; B20 Human immunodeficiency virus [HIV] disease; G47.30 Sleep apnea, unspecified; Z79.899 Other long term (current) drug therapy
CPT/HCPCS: 36415; 71045; 80053; 82553; 83605; 83880; 84484; 85025; 85610; 85730; 94760; 96374; J1940

== ENCOUNTER 2017-11-13 21:46 | Inpatient (IN) | payer OTHER ==
[2017-11-14] LABS: ALT (SGPT) 11 U/L (8-55); AST (SGOT) 26 U/L (5-34); Albumin 2.4 g/dL (3.5-5.0); Alkaline Phosphatase 55 U/L (40-150); Anion Gap 9 mmol/L (10-20); BUN (Urea Nitrogen) 22 mg/dL (7.0-18.7); Bilirubin, Total 0.6 mg/dL (0.2-1.2); CK (CPK) 104 U/L (29-168); Calc. Creatinine Clearance 0 mL/min (70-130); Calcium 8.4 mg/dL (7.8-10.44); Carbon Dioxide 32 mmol/L (22-29); Chloride 101 mmol/L (98-107); Estimated GFR-MDRD 59; Globulin 6.5 g/dL (2.4-3.5); Glucose 77 mg/dL (70-105); Lipase 7 U/L (8-78); Potassium 5.6 mmol/L (3.5-5.1); Protein, Total 8.9 g/dL (6.0-8.3); Sodium 136 mmol/L (136-145)
[2017-11-14 00:01] LABS: Band 1 % (5-11); Hemoglobin 13.4 g/dL (12.0-16.0); Hypochromia SLIGHT = 6-15 cells (100X) (0-5/hpf); Lymphocytes 29 % (21-51); MDiff Complete? YES; Mean Corpuscular HGB CONC 29.8 g/dL (32.0-36.0); Mean Corpuscular Hemoglobin 28.7 pg (27.0-31.0); Mean Corpuscular Volume 96.3 fl (81.0-99.0); Mean Platelet Volume 8.2 fL (7.4-10.4); Monocytes 15 % (0-10); Neutrophil 54 % (42-75); PLT Morphology Comment Appears Adequate; Platelet Count 184 thou/uL (130-400); RBC Distribution Width 15.7 % (11.5-14.5); Reactive Lymphocytes 1 % (0-10); Red Blood Cell (RBC) Count 4.68 mill/uL (4.20-5.40); White Blood Cell (WBC) Count 4.5 thou/uL (4.8-10.8)
--- NOTE | 2017-11-14 00:01 | RAD ---
FRONTAL VIEW CHEST: INDICATIONS: Dyspnea. Pain. COMPARISON: 11/02/2017 FINDINGS: There is marked enlargement of the cardiac silhouette. There is redemonstration of the tracheostomy. Motion artifact limits detail. The majority of the left lung is obscured by the enlarged cardiac s ilhouette, as well as the medial aspect of the right hemithorax. IMPRESSION: Marked cardiomegaly is redemonstrated. Correlate clinically. POS: [facility]
[2017-11-14 00:04] LABS: CKMB 1.3 ng/mL (0-6.6)
[2017-11-14] MEDS ORDERED: Furosemide 40 MG/4 ML VIAL ONE (00:18)
[2017-11-14] MEDS ORDERED: Nitroglycerin 2% Ointment 1 INCH/1 GM Packet ONE (00:18)
[2017-11-14 00:22] LABS: BHCG - Serum Negative (NEGATIVE); Pregs Control Background? CLEAR/WHITE (CLR/WHITE); Pregs Control Bar Appear? YES (CONTROL BAR)
[2017-11-14] MEDS ORDERED: Nitroglycerin 0.4 MG TAB (25 Tab Bottle) ONE (00:47)
--- NOTE | 2017-11-14 03:33 | PDOC.FPRHP ---
- History of Present Illness Chief Complaint: Leg and abdominal edema History of Present Illness: 27 yo F w/hx of sCHF, chronic hypoxic hypercapnic respiratory failure, morbid obesity, HIV, hypothyroid here with complaint of worsening swelling in her legs and abdomen for the past month. She states that she has been seen multiple times in multiple ERs during this time and has been treated with lasix. This time, however she is requiring more than her normal home O2 of 5 L to maintain oxygenation over 90. She denies symptoms such as chest pain, heart palpitation, fever, abdominal pain. - Allergies/Adverse Reactions Allergies Allergy/AdvReac Type Severity Reaction Status Date / Time tomato Allergy Intermediate Rash Verified 03/17/16 14:09 No Known Drug Allergies Allergy Verified 03/17/16 14:09 - Home Medications Medication Instructions Recorded Confirmed Type Carvedilol [Coreg] 25 mg PO BID 09/06/14 11/14/17 History Amlodipine [Norvasc] 5 mg PO DAILY #0 tab 08/28/15 11/14/17 Rx Etravirine [Intelence] 200 mg PO BID-PC 02/07/17 11/14/17 History Pantoprazole [Protonix] 40 mg PO HS 02/07/17 11/14/17 History Sertraline HCl [Zoloft] 50 mg PO DAILY 02/07/17 11/14/17 History Fluconazole [Diflucan] 100 mg PO DAILY #30 tab 02/09/17 11/14/17 Rx Levothyroxine Sodium [Synthroid] 37.5 mcg PO 0600 #30 tab 02/09/17 11/14/17 Rx AcetaZOLAMIDE [Diamox] 250 mg PO TID #90 tab 03/23/17 11/14/17 Rx Aspirin [Ecotrin Low Strength] 81 mg PO DAILY tab 03/23/17 11/14/17 Rx Atorvastatin Calcium [Lipitor] 40 mg PO HS tab 03/23/17 11/14/17 Rx Ipratropium/Albuterol Sulfate 3 ml NEB [id number] PRN #0 neb 03/23/17 11/14/17 Rx [DuoNeb] Lisinopril [Zestril] 40 mg PO DAILY tab 03/23/17 11/14/17 Rx Lopinavir/Ritonavir [Kaletra Oral 400 mg PO BID ml 03/23/17 11/14/17 Rx Solution] Magnesium Oxide 400 mg PO BID tab 03/23/17 11/14/17 Rx Multivitamin W/ Minerals 1 tab PER TUBE DAILY tab 03/23/17 11/14/17 Rx [Theragran M] Nystatin [Mycostatin Powder] 1 gm TOP BID PRN #0 bot 03/23/17 11/14/17 Rx guaiFENesin ER [Mucinex] 600 mg PO Q12HR tab 03/23/17 11/14/17 Rx lamiVUDine [Epivir] 150 mg PO BID tab 03/23/17 11/14/17 Rx - History PMHx: sCHF chronic hypoxic hypercapnic respiratory failure s/p trach morbid obesity HIV hypothyroid PSHx: Tonsillectomy FHx: Social: Denies etoh, tobacco, recreational drugs - Review of Systems General: denies: fever/chills, weight/appetite/sleep changes Eyes: denies: vision changes ENT: denies: nasal congestion Respiratory: reports: cough, shortness of breath Cardiovascular: reports: edema. denies: chest pain Gastrointestinal: denies: nausea, vomiting, diarrhea, constipation Genitourinary: denies: incontinence, dysuria, polyuria Skin: denies: rashes, lesions Musculoskeletal: denies: pain, tenderness, stiffness Neurological: denies: numbness, syncope, seizure Psychological: denies: anxiety, depression - Vital signs BP: 148/107 HR: 101 RR: 21 Tmax: Pox: 94% on 4L Wt: 260 kg - Physical Exam Constitutional: NAD, awake, alert and oriented, other (Morbid obesity) HEENT: normocephalic and atraumatic, PERRLA FMR H&P: Results - Labs Result Diagrams: 11/13/17 23:26 11/14/17 18:55 Lab results: WBC 4.5 thou/uL (4.8-10.8) L 11/13/17 23:26 Hgb 13.4 g/dL (12.0-16.0) 11/13/17 23:26 Hct 45.0 % (36.0-47.0) 11/13/17 23:26 MCV 96.3 fl (81.0-99.0) 11/13/17 23:26 Plt Count 184 thou/uL (130-400) 11/13/17 23:26 Band Neuts % (Manual) 1 % (5-11) L 11/13/17 23:26 Sodium 136 mmol/L (136-145) 11/13/17 23:26 Potassium 5.6 mmol/L (3.5-5.1) H 11/13/17 23:26 Chloride 101 mmol/L (98-107) 11/13/17 23:26 Carbon Dioxide 32 mmol/L (22-29) H 11/13/17 23:26 BUN 22 mg/dL (7.0-18.7) H 11/13/17 23:26 Creatinine 1.32 mg/dL (0.6-1.1) H 11/13/17 23:26 Glucose 77 mg/dL (70-105) 11/13/17 23:26 Calcium 8.4 mg/dL (7.8-10.44) 11/13/17 23:26 Total Bilirubin 0.6 mg/dL (0.2-1.2) 11/13/17 23:26 AST 26 U/L (5-34) 11/13/17 23:26 ALT 11 U/L (8-55) 11/13/17 23:26 Alkaline Phosphatase 55 U/L (40-150) 11/13/17 23:26 Creatine Kinase 104 U/L (29-168) 11/13/17 23:26 CK-MB (CK-2) 1.3 ng/mL (0-6.6) 11/13/17 23:26 B-Natriuretic Peptide 663.7 pg/mL (0-100) H 11/13/17 23:26 Serum Total Protein 8.9 g/dL (6.0-8.3) H 11/13/17 23:26 Albumin 2.4 g/dL (3.5-5.0) L 11/13/17 23:26 Lipase 7 U/L (8-78) L 11/13/17 23:26 - EKG Interpretation EKG: NSR, No ST or T wave abnormalities - Radiology Interpretation CT scan - chest Status: report reviewed by me (Marked cardiomegally) FMR H&P: A/P - Problem List (1) Acute on chronic respiratory failure with hypoxia and hypercapnia Current Visit: No Status: Acute Code(s): J96.21 - ACUTE AND CHRONIC RESPIRATORY FAILURE WITH HYPOXIA; J96.22 - ACUTE AND CHRONIC RESPIRATORY FAILURE WITH HYPERCAPNIA (2) Obesity Current Visit: No Status: Acute Code(s): E66.9 - OBESITY, UNSPECIFIED (3) Systolic CHF Current Visit: No Status: Acute Code(s): I50.20 - UNSPECIFIED SYSTOLIC ( CONGESTIVE) HEART FAILURE Qualifiers: Heart failure chronicity: chronic Qualified Code(s): I50.22 - Chronic systolic (congestive) heart failure (4) HIV disease Current Visit: No Status: Chronic Code(s): B20 - HUMAN IMMUNODEFICIENCY VIRUS [HIV] DISEASE (5) Hypertension Current Visit: No Status: Chronic Code(s): I10 - ESSENTIAL (PRIMARY) HYPERTENSION Qualifiers: Hypertension type: essential hypertension Qualified Code(s): I10 - Essential (primary) hypertension (6) Hypothyroidism Current Visit: No Status: Chronic Code(s): E03.9 - HYPOTHYROIDISM, UNSPECIFIED Qualifiers: Hypothyroidism type: acquired Qualified Code(s): E03.9 - Hypothyroidism, unspecified (7) MDD (major depressive disorder) Current Visit: Yes Status: Acute Code(s): F32.9 - MAJOR DEPRESSIVE DISORDER , SINGLE EPISODE, UNSPECIFIED (8) Hyperkalemia Current Visit: Yes Status: Acute Code(s): E87.5 - HYPERKALEMIA (9) JESSIE (acute kidney injury) Current Visit: Yes Status: Acute Code(s): N17.9 - ACUTE KIDNEY FAILURE, UNSPECIFIED - Plan Acute hypoxic respiratory failure 2/2 acute CHF exacerbation - Admit to telemetry - IV Lasix - Strict I&Os - O2 supplementation PRN, baseline is 5L Obesity hypoventilation - contributor to hypoxia - counseling case manager on the importance of weight loss Elevated troponin - Indeterminate range, secondary to demand - trend until downward trend Hyperkalemia - lasix as above, repeat bmp in am JESSIE - 2/2 to poor profusion related to poor cardiac output - Repeat BMP in the morning, this should improve as cardiac fxn improves Hypothyroidism - Home meds Hypertension - Home meds HIV - unclear if pt is taking meds, restart known home meds Depression - home meds PPx - SCD Code Full Diet heart healthy Dispo: pt is stable and needs diuresis. Monitor respiratory status and maximize cardiac fxn. Likely LOS 48- 72 hours. FMR H&P: Upper Level - Pertinent history Merle Chad is a 27 year old female with a past medical history of HIV and CHF presented to ED for generalized pain and swelling as well as shortness of breath. She reports increasing dyspnea and orthopnea over the last month. She also reports orthopnea, PND, and cough. She uses 5L O2 at home. She denies fevers, chills, nausea, vomiting, and diarrhea. The patient and her cousin say she has more or less been bouncing from hospital to hospital due to fluid overload lately. - Pertinent findings Vital Signs Temp 99.4 RR 13 HR 101 BP 147/109 Wt ~147 kg Gen: Morbidly obese. NAD. AAOx4. Eyes: EOMI, PERRLA, nonicteric ENT: MMM. Oropharynx clear. Tracheostomy in place CV: RRR, no m/r/g. Pulses equal. Resp: Thao rales. Breathing not labored Abdomen: NT, ND, no guarding or rebound. 2+ pitting edema to diaphragm Ext: No edema. Equal movements bilaterally. Skin: No rash or ulcer. No palpable lesions Neuro: CN II XII intact. No focal deficits Psych: Mood and affect appropriate. Judgement and insight intact - Plan Date/Time: 11/14/17 8325 IVimal DO, have evaluated this patient and agree with findings/plan as outlined by art gallery internship resident. Pertinent changes/additions are listed here. A/P: 27 year old female presents: 1) Acute hypoxic respiratory failure 2/2 acute CHF exacerbation - Admit to telemetry. IV Lasix. Strict I&Os. O2 supplementation. Obesity hypoventilation is certainly a contributing factor. 2) Elevated troponin - Indeterminate range. Likely 2/2 #1. Will trend 3) Hyperkalemia - Continue Lasix. Repeat BMP in the morning 4) JESSIE - Likely due to poor renal perfusion and may improve with diuresis to maximize cardiac function. Repeat BMP in the morning 5) Hypothyroidism - Home meds 6) Hypertension - Home meds 7) HIV - Untreated. Outpatient follow up 8) Depression - Home meds Attending Addendum - Attending Addendum Date/Time: 11/14/17 9142 I personally evaluated the patient and discussed the management with Dr. Machuca and Dr. Cope. I agree with the History, Examination, Assessment and Plan documented above with any addition or exceptions noted below. Merle Bonilla is a 27 year old female who presented to ED for shortness of breath, generalized pain and swelling. She reports increasing dyspnea and orthopnea over the last month, as well as endorsing orthopnea, PND, and non- productive cough. She has been using up to 5L oxygen per nasal canula at home. She denies fever, chills, sweats, nausea, vomiting, or diarrhea. She told the resident team that she has been going from hospital to hospital emrgency room to get treatment for fluid overload lately. Apparently given IV Lasix and released multiple ERs. Her PMHx is positive for HTN, HIV/Aids not on therapy, Depression, and Morbid Obesity with systolic CHF, and JOSE DE JESUS. Her PSHx is positive for Tonsillectomy and Tracheostomy. - Pertinent findings Vital Signs Temp 99.4 RR 13 HR 101 BP 147/109 Wt ~147 kg (324 lbs) Gen: Morbidly obese female with tracheostomy who awakens from sleep to converse normally and appears in no distress. She is alert and oriented x 4. Eyes: PERRLA, nonicteric ENT: MMM. Oropharynx clear. Tracheostomy in place CV: RRR, no murmur, gallop, click or rub.. Pulses difficult to palpate due to obesity. Resp: Shallow respirations. Faint breath sounds. No rales. Breathing not labored Abdomen: Morbidly obese. Malodorous intergrigenous rash beneath the breasts and panniculus. Soft non-tender. no guarding or rebound. 2+ pitting edema up to the level of the diaphragm. Ext: 2+ edema. Equal movements bilaterally. Skin: Chronic venous stasis changes of both lower extremities. No ulcers or palpable lesions. Neuro: CN II XII intact. No focal deficits Psych: Mood and affect appropriate. Judgement and insight intact A; Acute exacerbation of systolc CHF, BNP 663 Obstructive Sleep Apnea, Obesity Hypoventilation Syndrome Acute Hypoxic & Hypercapneic Respiratory Failure Morbid obesity Acute Kidney Injury - Creat 1.32 Hyperkalemia, K+ 5.6 Intertrigo Elevated Total serum protein and Globulins Hypoalbuminemia Hypothyroidism Untreated HIV/Aids, CD4 count pending. Elevated Troponins. History of medical self neglect and non-compliance. Plan as per orders. MD Shavonne
[2017-11-14] MEDS ORDERED: Ondansetron ODT 4 MG TAB SL PRN (04:19)
[2017-11-14] MEDS ORDERED: Ondansetron HCl/PF 4 MG/2 ML Vial IVP PRN (04:19)
[2017-11-14] MEDS: Nitroglycerin 2% Ointment 1 INCH/1 GM Packet TOP SCH ×2 (05:26→12:16)
[2017-11-14 05:53] LABS: CKMB 1.4 ng/mL (0-6.6); Troponin I 0.088 ng/mL (< 0.028)
[2017-11-14 08:49] LABS: CKMB 1.5 ng/mL (0-6.6)
[2017-11-14] MEDS: Furosemide 100 MG/10 ML VIAL SLOW IVP SCH (09:41)
[2017-11-14 12:06] LABS: Reference Lab Name LABCORP
[2017-11-14 12:07] LABS: Ref Lab Test Ordered HELPER T-LYMPH CD4
[2017-11-14] MEDS: AcetaZOLAMIDE 250 MG TAB PO SCH ×2 (18:34→20:45)
[2017-11-14 19:23] LABS: Anion Gap 12 mmol/L (10-20); BUN (Urea Nitrogen) 24 mg/dL (7.0-18.7); Calc. Creatinine Clearance 270 mL/min (70-130); Calcium 8.4 mg/dL (7.8-10.44); Carbon Dioxide 32 mmol/L (22-29); Chloride 101 mmol/L (98-107); Estimated GFR-MDRD 60; Glucose 77 mg/dL (70-105); Potassium 5.9 mmol/L (3.5-5.1); Sodium 139 mmol/L (136-145)
[2017-11-14] MEDS ORDERED: Furosemide 40 MG/4 ML VIAL SLOW IVP SCH (19:30)
[2017-11-14] MEDS: Carvedilol 25 MG TAB PO SCH (20:45)
[2017-11-14] MEDS: Enoxaparin Sodium 40 MG/0.4 ML SYRINGE SC SCH (20:46)
[2017-11-14] MEDS: guaiFENesin ER 600 MG TAB PO SCH (20:46)
[2017-11-14] MEDS: Magnesium Oxide 400 MG TAB PO SCH (20:47)
[2017-11-14] MEDS: Lopinavir/Ritonavir 80 MG/20 MG per ML Oral Solution PO SCH (22:27)
[2017-11-14 23:59] LABS: BUN (Urea Nitrogen) 24 mg/dL (7.0-18.7); Calc. Creatinine Clearance 267 mL/min (70-130); Calcium 8.4 mg/dL (7.8-10.44); Estimated GFR-MDRD 59; Glucose 116 mg/dL (70-105)
[2017-11-15 00:09] LABS: Anion Gap 11 mmol/L (10-20); Carbon Dioxide 35 mmol/L (22-29); Chloride 100 mmol/L (98-107); Potassium 5.6 mmol/L (3.5-5.1); Sodium 140 mmol/L (136-145)
[2017-11-15] MEDS: Levothyroxine Sodium 25 MCG TAB PO SCH (06:35)
[2017-11-15] MEDS ORDERED: Lisinopril 20 MG TAB PO SCH (09:00)
[2017-11-15 09:38] LABS: Anion Gap 5 mmol/L (10-20); BUN (Urea Nitrogen) 24 mg/dL (7.0-18.7); Calc. Creatinine Clearance 263 mL/min (70-130); Calcium 8.5 mg/dL (7.8-10.44); Carbon Dioxide 37 mmol/L (22-29); Chloride 100 mmol/L (98-107); Estimated GFR-MDRD 58; Glucose 101 mg/dL (70-105); Potassium 5.6 mmol/L (3.5-5.1); Sodium 136 mmol/L (136-145)
[2017-11-15] MEDS: Furosemide 100 MG/10 ML VIAL SLOW IVP SCH (09:57)
--- NOTE | 2017-11-15 10:24 | PDOC.FM ---
- Subjective Subjective: MIAH overnight, family in room this AM. No improvement in resp function since admission per patient. Down approx. 2L. Unable to get daily weights 2/2 bed being broken. - Objective MAR Reviewed: Yes Vital Signs & Weight: Vital Signs (12 hours) Temp Pulse Resp BP BP Pulse Ox 11/15/17 08:00 97.4 F L 75 20 118/58 L 95 11/15/17 07:52 74 18 11/15/17 05:48 82 20 94 L 11/15/17 05:45 18 94 L 11/15/17 04:10 85 L 11/15/17 04:00 97.4 F L 76 16 123/68 11/15/17 00:00 97.7 F 77 20 97/56 L 90 L Weight Weight 260.362 kg I&O: 11/14/17 11/15/17 11/16/17 06:59 06:59 06:59 Intake Total 480 Output Total 2550 Balance Result Diagrams: 11/13/17 23:26 11/15/17 09:12 <José Miguel Ashby - Last Filed: 11/15/17 10:44> - Objective Vital Signs & Weight: Vital Signs (12 hours) Temp Pulse Resp BP BP Pulse Ox 11/15/17 11:02 80 18 11/15/17 08:00 97.4 F L 75 20 118/58 L 95 11/15/17 07:52 74 18 11/15/17 05:48 82 20 94 L 11/15/17 05:45 18 94 L 11/15/17 04:10 85 L 11/15/17 04:00 97.4 F L 76 16 123/68 11/15/17 00:00 97.7 F 77 20 97/56 L 90 L Weight Weight 260.362 kg I&O: 11/14/17 11/15/17 11/16/17 06:59 06:59 06:59 Intake Total 480 Output Total 2550 Balance Result Diagrams: 11/13/17 23:26 11/15/17 09:12 <Manish Aguirre - Last Filed: 11/15/17 11:14> Phys Exam - Physical Examination Constitutional: NAD HEENT: PERRLA, moist MMs trach in place faint wheezes b/l Cardiovascular: RRR, no significant murmur Gastrointestinal: soft, non-tender, no distention, positive bowel sounds Musculoskeletal: pulses present 1+ edema LE b/l Neurological: moves all 4 limbs Psychiatric: A&O x 3 Skin: cap refill <2 seconds <José Miguel Ashby - Last Filed: 11/15/17 10:44> Dx/Plan (1) Chronic respiratory failure with hypoxia Code(s): J96.11 - CHRONIC RESPIRATORY FAILURE WITH HYPOXIA Status: Chronic Plan: Pt w/ desaturations to mid 80's while asleep Will resolve to low 90's on trach collar when awake Plan to consult pulm this Am for further reccomendations Pt w/ coughing episodes upon bedside evaluations w/ improvement in O2 sats afterwards W/ patient having high nursing utilization and trach care feel she would be better candidate for IMCU (2) Heart failure with reduced ejection fraction Code(s): I50.20 - UNSPECIFIED SYSTOLIC (CONGESTIVE) HEART FAILURE Status: Acute QualifierTitle: Heart failure chronicity: acute on chronic Qualified Code (s): I50.23 - Acute on chronic systolic (congestive) heart failure Plan: Elevated BNP Cont. w/ IV lasix for diuresis w/ strict I/O's and daily weights (3) Hyperkalemia Code(s): E87.5 - HYPERKALEMIA Status: Acute Plan: S/p insulin administration x2 Repeat still >5 Will give kayexalate this AM W/ repeat bmp this afternoon (4) Sleep apnea Code(s): G47.30 - SLEEP APNEA, UNSPECIFIED Status: Acute Plan: Pt w/ desaturations to mid 80's while asleep Will resolve to low 90's on trach collar when awake Plan to consult pulm this Am for further reccomendations W/ patient having high nursing utilization and trach care feel she would be better candidate for IMCU (5) HIV disease Code(s): B20 - HUMAN IMMUNODEFICIENCY VIRUS [HIV] DISEASE Status: Chronic Plan: Cont. w/ outpatient regimen (6) Hypertension Code(s): I10 - ESSENTIAL (PRIMARY) HYPERTENSION Status: Chronic QualifierTitle: Hypertension type: essential hypertension Qualified Code( s): I10 - Essential (primary) hypertension Plan: Stable on home BP meds Will hold lisinpril in the setting of hyperkalemia and switch to metolazone to aid w/ diuresis (7) Obesity hypoventilation syndrome Code(s): E66.2 - MORBID (SEVERE) OBESITY WITH ALVEOLAR HYPOVENTILATION Status : Chronic Plan: See sleep apnea and chronic hypoxic resp failure above (8) Systolic CHF, acute on chronic Code(s): I50.23 - ACUTE ON CHRONIC SYSTOLIC (CONGESTIVE) HEART FAILURE Status : Chronic Plan: Cont. IV diuresis Down approx. 2L Resp issues likely multifactorial w/ CHF exacerbation and underlying pickwickian disease Will cont. to diuresis w/ strict I/O's and daily weights <José Miguel Ashby - Last Filed: 11/15/17 10:44> (1) Acute on chronic respiratory failure with hypoxia and hypercapnia Code(s): J96.21 - ACUTE AND CHRONIC RESPIRATORY FAILURE WITH HYPOXIA; J96.22 - ACUTE AND CHRONIC RESPIRATORY FAILURE WITH HYPERCAPNIA Status: Acute (2) Obesity Code(s): E66.9 - OBESITY, UNSPECIFIED Status: Acute (3) Systolic CHF Code(s): I50.20 - UNSPECIFIED SYSTOLIC (CONGESTIVE) HEART FAILURE Status: Acute Qualifiers: Heart failure chronicity: chronic Qualified Code(s): I50.22 - Chronic systolic (congestive) heart failure (4) HIV disease Code(s): B20 - HUMAN IMMUNODEFICIENCY VIRUS [HIV] DISEASE Status: Chronic (5) Hypertension Code(s): I10 - ESSENTIAL (PRIMARY) HYPERTENSION Status: Chronic Qualifiers: Hypertension type: essential hypertension Qualified Code(s): I10 - Essential (primary) hypertension (6) Hypothyroidism Code(s): E03.9 - HYPOTHYROIDISM, UNSPECIFIED Status: Chronic Qualifiers: Hypothyroidism type: acquired Qualified Code(s): E03.9 - Hypothyroidism, unspecified (7) MDD (major depressive disorder) Code(s): F32.9 - MAJOR DEPRESSIVE DISORDER, SINGLE EPISODE, UNSPECIFIED Status : Acute (8) Hyperkalemia Code(s): E87.5 - HYPERKALEMIA Status: Acute (9) JESSIE (acute kidney injury) Code(s): N17.9 - ACUTE KIDNEY FAILURE, UNSPECIFIED Status: Acute <Manish Aguirre - Last Filed: 11/15/17 11:14> Attending Addendum - Attending Addendum Date/Time: 11/15/17 1111 I personally evaluated the patient and discussed the management with Dr. Claudy Ashby. I agree with the History, Examination, Assessment and Plan documented above with any addition or exceptions noted below. Drifts of to sleep after awakened. SaO2 88% when asleep during my exam. States she's about the same. Hyperkalemia >5, so we will D/C lisinopril and add Metolazone 3 times a week to promote diuresis. Prognosis is guarded. <Manish Aguirre - Last Filed: 11/15/17 11:14>
[2017-11-15] MEDS: Carvedilol 25 MG TAB PO SCH ×2 (11:55→22:48)
[2017-11-15] MEDS: Fluconazole 100 MG TAB PO SCH ×2 (11:55→15:26)
[2017-11-15] MEDS: guaiFENesin ER 600 MG TAB PO SCH ×2 (11:55→22:48)
[2017-11-15] MEDS: AcetaZOLAMIDE 250 MG TAB PO SCH ×3 (11:55→22:48)
[2017-11-15] MEDS: Aspirin 81 mg Enteric Coated Tablet PO SCH ×2 (11:55→15:26)
[2017-11-15] MEDS: Amlodipine 5 MG TAB PO SCH ×2 (11:55→15:27)
[2017-11-15] MEDS: Magnesium Oxide 400 MG TAB PO SCH ×2 (11:56→22:48)
[2017-11-15] MEDS: Multivitamin W/ Minerals 1 TAB PER TUBE SCH ×2 (11:56→15:25)
[2017-11-15] MEDS: Lopinavir/Ritonavir 80 MG/20 MG per ML Oral Solution PO SCH ×2 (11:56→22:49)
[2017-11-15 19:31] LABS: Anion Gap 8 mmol/L (10-20); BUN (Urea Nitrogen) 26 mg/dL (7.0-18.7); Calc. Creatinine Clearance 276 mL/min (70-130); Calcium 8.6 mg/dL (7.8-10.44); Carbon Dioxide 36 mmol/L (22-29); Chloride 101 mmol/L (98-107); Estimated GFR-MDRD 62; Glucose 106 mg/dL (70-105); Potassium 6.1 mmol/L (3.5-5.1); Sodium 139 mmol/L (136-145)
[2017-11-15] MEDS ORDERED: Furosemide 40 MG/4 ML VIAL SLOW IVP SCH (20:30)
--- NOTE | 2017-11-15 20:31 | PDOC.EVN ---
Event Note - Event Note Event Note: Called to bedside to answer family questions, all questions answered family satisfied Potassium up to 6.1 ordered mag, EKG repeat BMP in 4 hours Kayexalate 15mg q6 hours, lasix 40mg IVP x1 <Gustavo Ceron - Last Filed: 11/15/17 20:28> Attending Addendum - Attending Addendum Date/Time: 11/15/17 7375 Case reviewed. Recheck in 4 hours. Consider pulm consult in AM. <José Miguel Robert - Last Filed: 11/15/17 23:30>
[2017-11-15] MEDS: Enoxaparin Sodium 40 MG/0.4 ML SYRINGE SC SCH (22:49)
--- NOTE | 2017-11-15 23:32 | PDOC.EVN ---
Event Note - Event Note Event Note: Paged for episode of hypoxia to high 60s Boyfriend had fed her diced peaches earlier in the night RT came and suctioned patient, satting back to normal in high 80s NPO, CXR, ST consult
[2017-11-16 00:24] LABS: BUN (Urea Nitrogen) 25 mg/dL (7.0-18.7); Calc. Creatinine Clearance 299 mL/min (70-130); Calcium 8.3 mg/dL (7.8-10.44); Estimated GFR-MDRD 68; Glucose 101 mg/dL (70-105)
[2017-11-16 00:34] LABS: Anion Gap 13 mmol/L (10-20); Carbon Dioxide 31 mmol/L (22-29); Chloride 100 mmol/L (98-107); Potassium 4.7 mmol/L (3.5-5.1); Sodium 139 mmol/L (136-145)
[2017-11-16] MEDS: Levothyroxine Sodium 25 MCG TAB PO SCH (06:04)
--- NOTE | 2017-11-16 06:23 | EKG ---
Test Reason : Blood Pressure : / mmHG Vent. Rate : 098 BPM Atrial Rate : 098 BPM P-R Int : 148 ms QRS Dur : 074 ms QT Int : 312 ms P-R-T Axes : 061 036 006 degrees QTc Int : 398 ms Normal sinus rhythm Low voltage QRS Nonspecific T wave abnormality Abnormal ECG When compared with ECG of 13-NOV-2017 23:25, (Unconfirmed) Criteria for Septal infarct are no longer Present QT has shortened Confirmed by GIDEON HILL ([id number]) on 11/16/2017 6:15:19 AM Referred By: Confirmed By:GIDEON HILL
--- NOTE | 2017-11-16 07:37 | RAD ---
SINGLE VIE WOF THE CHEST: COMPARISON: 11/13/17. HISTORY: Hypoxia and possible aspiration. FINDINGS: A single view of the chest shows an enlarged but stable cardiomediastinal silhouette. Low lung volum es are seen. The tracheostomy is unchanged in position. No obvious consolidation, or mass are seen o n this limited exam. IMPRESSION: Cardiomegaly. POS: [facility]
[2017-11-16 07:59] LABS: Magnesium 1.8 mg/dL (1.6-2.6); Phosphorus 4.9 mg/dL (2.3-4.7)
[2017-11-16] MEDS: Furosemide 100 MG/10 ML VIAL SLOW IVP SCH (08:50)
--- NOTE | 2017-11-16 09:11 | PRG ---
DATE OF SERVICE: 11/16/2017 Merle is somnolent most of the time. She was able to wake up and she did recognize me. She does no t appear to be in any acute respiratory distress, but she has been chronically hypoxemic. PHYSICAL EXAMINATION: VITAL SIGNS: Temperature 97.3, pulse 75, respirations 20, O2 sat 85% on room air via trach collar, b lood pressure 129/74. GENERAL: She is morbidly obese, weighing 574 pounds. This is much larger than I can ever remember h er being. HEENT: Remarkable for a cushingoid appearance. NECK: Trach in place. LUNGS: Diminished breath sounds throughout. CARDIAC: S1 and S2 regular. ABDOMEN: Soft, obese, nontender. EXTREMITIES: Edematous throughout. LABORATORY DATA: No new labs were done today. ASSESSMENT: 1. Obesity hypoventilation syndrome. 2. Obstructive sleep apnea. 3. Morbid obesity. 4. Human immunodeficiency virus. 5. Systolic heart failure. PLAN: 1. Try her on a T-piece. 2. Needs to continue aggressive diuresis. 3. Would recommend monitoring her electrolytes daily while she is on high dose diuretics. 4. Prognosis in her case is quite poor given her HIV, morbid obesity, noncompliance with medical the rapy.
[2017-11-16] MEDS: Metolazone 5 MG TAB PO SCH (09:18)
[2017-11-16] MEDS: Amlodipine 5 MG TAB PO SCH (09:18)
[2017-11-16] MEDS: AcetaZOLAMIDE 250 MG TAB PO SCH ×2 (09:18→21:17)
[2017-11-16] MEDS: Aspirin 81 mg Enteric Coated Tablet PO SCH (09:18)
[2017-11-16] MEDS: Fluconazole 100 MG TAB PO SCH (09:19)
[2017-11-16] MEDS: Multivitamin W/ Minerals 1 TAB PER TUBE SCH (09:19)
[2017-11-16] MEDS: Magnesium Oxide 400 MG TAB PO SCH ×2 (09:19→21:18)
[2017-11-16] MEDS: Lopinavir/Ritonavir 80 MG/20 MG per ML Oral Solution PO SCH ×2 (09:19→21:18)
[2017-11-16] MEDS: Carvedilol 25 MG TAB PO SCH ×2 (09:19→21:17)
[2017-11-16] MEDS: guaiFENesin ER 600 MG TAB PO SCH ×2 (09:19→21:17)
--- NOTE | 2017-11-16 09:37 | PDOC.FM ---
- Subjective Subjective: Pt w/ episode of hypoxia overnight s/p boyfriend feeding her some fruit. Pt w/ return of baseline O2 saturation after difficulty w/ swallowing. Otherwise MIAH overnight and stable vitals. No change in resp status according to patient this AM. Being seen by pulm who changed her over to a T-peice to aid in trach care/ suction. - Objective MAR Reviewed: Yes Vital Signs & Weight: Vital Signs (12 hours) Temp Pulse Resp BP Pulse Ox 11/16/17 09:18 75 11/16/17 07:45 97.3 F L 75 20 129/74 85 L 11/16/17 06:00 88 L 11/15/17 23:31 98.4 F 79 16 131/73 90 L Weight Weight 260.362 kg I&O: 11/15/17 11/16/17 11/17/17 06:59 06:59 06:59 Intake Total 480 1107 Output Total 2550 1025 Balance -2069 82 Result Diagrams: 11/13/17 23:26 11/15/17 23:59 <José Miguel Ashby - Last Filed: 11/16/17 09:35> - Objective Vital Signs & Weight: Vital Signs (12 hours) Temp Pulse Pulse Resp BP BP Pulse Ox 11/16/17 09:18 75 11/16/17 08:56 65 119/51 L 11/16/17 07:45 97.3 F L 75 20 129/74 85 L 11/16/17 06:00 88 L 11/15/17 23:31 98.4 F 79 16 131/73 90 L Pulse Ox Pulse Ox 11/16/17 09:18 11/16/17 08:56 90 L 92 L 11/16/17 07:45 11/16/17 06:00 11/15/17 23:31 Weight Weight 260.362 kg I&O: 11/15/17 11/16/17 11/17/17 06:59 06:59 06:59 Intake Total 480 1107 Output Total 2550 1025 Balance -2069 82 Result Diagrams: 11/13/17 23:26 11/16/17 06:30 <Manish Aguirre - Last Filed: 11/16/17 10:36> Phys Exam - Physical Examination Constitutional: NAD trach in place w/ T-peice Respiratory: clear to auscultation bilateral Cardiovascular: RRR, no significant murmur Gastrointestinal: soft, non-tender Musculoskeletal: edema present 2+ LE b/l Neurological: non-focal, moves all 4 limbs Psychiatric: normal affect, A&O x 3 Skin: cap refill <2 seconds <José Miguel Ashby - Last Filed: 11/16/17 09:35> Dx/Plan (1) Chronic respiratory failure with hypoxia Code(s): J96.11 - CHRONIC RESPIRATORY FAILURE WITH HYPOXIA Status: Chronic Plan: Pt w/ desaturations overnight after attempting PO Speech to eval today as this may be confounded by dysphagia Will resolve to low 90's on trach collar when awake and swallow of food bolus per nursing staff Pulm on board, appreciate recs Cont. w/ aggressive diuresis Dietary consulted to aid in daily calorie goal for aggressive weight loss to improve overall pulmonary status 2/2 pickwickian syndrome (2) Heart failure with reduced ejection fraction Code(s): I50.20 - UNSPECIFIED SYSTOLIC (CONGESTIVE) HEART FAILURE Status: Acute QualifierTitle: Heart failure chronicity: acute on chronic Qualified Code (s): I50.23 - Acute on chronic systolic (congestive) heart failure Plan: Elevated BNP Cont. w/ IV lasix for diuresis w/ strict I/O's and daily weights Will monitor electrolytes daily (3) Hyperkalemia Code(s): E87.5 - HYPERKALEMIA Status: Resolved Plan: Resolved s/p administration of kayexalate Will cont. to monitor daily (4) Sleep apnea Code(s): G47.30 - SLEEP APNEA, UNSPECIFIED Status: Acute Plan: Pt w/ desaturations to mid-upper 80's while asleep Will resolve to low 90's on trach collar when awake Pulm on board, appreciate reccomendations Cont. w/ T-peice and supplemental O2 (5) HIV disease Code(s): B20 - HUMAN IMMUNODEFICIENCY VIRUS [HIV] DISEASE Status: Chronic Plan: Cont. w/ outpatient regimen (6) Hypertension Code(s): I10 - ESSENTIAL (PRIMARY) HYPERTENSION Status: Chronic QualifierTitle: Hypertension type: essential hypertension Qualified Code( s): I10 - Essential (primary) hypertension Plan: Stable on home BP meds Will hold lisinpril in the setting of hyperkalemia and switch to metolazone to aid w/ diuresis (7) Obesity hypoventilation syndrome Code(s): E66.2 - MORBID (SEVERE) OBESITY WITH ALVEOLAR HYPOVENTILATION Status : Chronic Plan: See sleep apnea and chronic hypoxic resp failure above Pending dietary recs for aggressive weight loss daily calorie goal (8) Systolic CHF, acute on chronic Code(s): I50.23 - ACUTE ON CHRONIC SYSTOLIC (CONGESTIVE) HEART FAILURE Status : Chronic Plan: Cont. IV diuresis Down approx. 4L since admission Resp issues likely multifactorial w/ CHF exacerbation and underlying pickwickian disease Will cont. to diuresis w/ strict I/O's and daily weights Will attempt aggressive weight loss w/ dietary consulted to aid w/ daily calorie goals <José Miguel Ashby - Last Filed: 11/16/17 09:35> (1) Acute on chronic respiratory failure with hypoxia and hypercapnia Code(s): J96.21 - ACUTE AND CHRONIC RESPIRATORY FAILURE WITH HYPOXIA; J96.22 - ACUTE AND CHRONIC RESPIRATORY FAILURE WITH HYPERCAPNIA Status: Acute (2) Obesity Code(s): E66.9 - OBESITY, UNSPECIFIED Status: Acute (3) Systolic CHF Code(s): I50.20 - UNSPECIFIED SYSTOLIC (CONGESTIVE) HEART FAILURE Status: Acute Qualifiers: Heart failure chronicity: chronic Qualified Code(s): I50.22 - Chronic systolic (congestive) heart failure (4) HIV disease Code(s): B20 - HUMAN IMMUNODEFICIENCY VIRUS [HIV] DISEASE Status: Chronic (5) Hypertension Code(s): I10 - ESSENTIAL (PRIMARY) HYPERTENSION Status: Chronic Qualifiers: Hypertension type: essential hypertension Qualified Code(s): I10 - Essential (primary) hypertension (6) Hypothyroidism Code(s): E03.9 - HYPOTHYROIDISM, UNSPECIFIED Status: Chronic Qualifiers: Hypothyroidism type: acquired Qualified Code(s): E03.9 - Hypothyroidism, unspecified (7) MDD (major depressive disorder) Code(s): F32.9 - MAJOR DEPRESSIVE DISORDER, SINGLE EPISODE, UNSPECIFIED Status : Acute (8) Hyperkalemia Code(s): E87.5 - HYPERKALEMIA Status: Resolved (9) JESSIE (acute kidney injury) Code(s): N17.9 - ACUTE KIDNEY FAILURE, UNSPECIFIED Status: Acute <Manish Aguirre - Last Filed: 11/16/17 10:36> Attending Addendum - Attending Addendum Date/Time: 11/16/17 1026 I personally evaluated the patient and discussed the management with Dr. SHANICE Ashby. I agree with the History, Examination, Assessment and Plan documented above with any addition or exceptions noted below. Somnolent. Does not appear motivated to wake up and interact. T-piece has been placed. O2 Sats have ranged 85%-92%. Last night had an episode of desaturating into the low 60's after boyfriend fed her peaches. Lungs: distant breath sounds and scattered rhonchi. Heart sounds muffled. K+ down to 4.7 from 6.1 after Kayexelate last evening. Creat down to 1.17. from 1.32 A: Obstructive Sleep Apnea, Morbid obesity Obesity Hypoventilation Syndrome Acute Hypoxic & Hypercapneic Respiratory Failure Acute Kidney Injury - improving Hyperkalemia, resolved Intertrigo Elevated Total serum protein and Globulins Hypoalbuminemia Hypothyroidism Untreated HIV/Aids, CD4 -486. Elevated Troponins. History of medical self-neglect and non-compliance. Concern for probable aspiration. P: Speech Swallow consult Bar Welder consult. <Manish Aguirre - Last Filed: 11/16/17 10:36>
[2017-11-16 09:43] LABS: Anion Gap 9 mmol/L (10-20); BUN (Urea Nitrogen) 25 mg/dL (7.0-18.7); Calc. Creatinine Clearance 299 mL/min (70-130); Calcium 8.6 mg/dL (7.8-10.44); Carbon Dioxide 37 mmol/L (22-29); Chloride 99 mmol/L (98-107); Estimated GFR-MDRD 68; Glucose 95 mg/dL (70-105); Potassium 4.7 mmol/L (3.5-5.1); Sodium 140 mmol/L (136-145)
--- NOTE | 2017-11-16 13:15 | PRG ---
DATE OF SERVICE: 11/16/2017 This is 35 minutes critical care time. In essence, the patient was transferred to the CCU earlier because the floor she was on did not feel that they can take care of her. She is continuing to display intermittent hypoxemia which is probabl y not different from baseline. In the CCU I noticed that her tracheostomy still had sutures in place, indicating this is probably th e original tracheostomy that was placed in March. I took the suture out and changed out the trach f or cuffless 7.0 Biv[place] tracheostomy without difficulty. I then placed her on mechanical ventilation. She will need to undergo mechanical ventilation for a couple of days and hopefully this will help p otentiate the effects of the diuretics. The patient's prognosis is quite poor for the aforementioned reasons in my previous note today.
--- NOTE | 2017-11-16 14:48 | CON ---
DATE OF CONSULTATION: 11/15/2017 SERVICE: Pulmonary Medicine. REASON FOR CONSULTATION: Respiratory failure. HISTORY OF PRESENT ILLNESS: The patient is a 27-year-old morbidly obese female with past medical history significant for tracheostomy and morbid obesity. She has chronic respiratory failure. She has severe medical noncompliance. Over the last couple of months, she has managed to put on a little bit more weight. She had increasing work of breathing and episodes of confusion and sleepiness. Ultimately, she was brought to the emergency department. She was found to be a little volume overloaded. She got a dose of Lasix and this improved some of her oxygen requirements. That being said, whenever she would go to bed, she would have saturations that dip down to the 70s. On waking her up, she did fairly well. Her breathing would improve, she would breathe comfortably, and her saturations would pop up to the low 90s. During her hypoxemic events, however, staff was turning up oxygen. This resulted in increasing episodes of sleepiness. We have subsequently backed off from that and allowed the patient to be mildly hypoxemic. With this, she is having increasing alertness. She denies any current shortness of breath, nausea, vomiting, or chest discomfort. She is coughing. She is not bringing up any significant sputum. She is diuresing well and is not having any conservational dyspnea. PAST MEDICAL HISTORY: 1. Chronic hypoxic and hypercapnic respiratory failure. 2. Morbid obesity. 3. Obesity hypoventilation syndrome. 4. Obstructive sleep apnea, status post tracheostomy. 5. Hypothyroidism. 6. HIV. 7. Medical noncompliance, severe. PAST SURGICAL HISTORY: 1. Tonsillectomy. 2. Tracheostomy. FAMILY HISTORY: Noncontributory. SOCIAL HISTORY: The patient denies alcohol, tobacco, or illicit drug use, but does have a history of these things. She is currently in a relationship with her boyfriend. They are planning on moving into with each other. She has no exposure to chemicals, asbestos, or tuberculosis. ALLERGIES: TOMATO. MEDICATIONS: List of her inpatient medications were reviewed. Multiple small updates were made. REVIEW OF SYSTEMS: General, head, ears, eyes, nose, throat, cardiovascular, respiratory, GI, , musculoskeletal, neurologic, and skin is negative except as mentioned in the HPI. PHYSICAL EXAMINATION: VITAL SIGNS: Afebrile, pulse 80, blood pressure 111/72, respirations 18, saturation 92% on 28% FiO2. This is being delivered via trach collar. GENERAL: The patient is awake and alert. She is in no apparent distress. The room smells of yeast. HEENT: Normocephalic, atraumatic. Sclerae white. Conjunctivae pink. Oral and nasal mucosa is moist without lesions. The tracheostomy site is foul smelling. That being said, there is no overt purulence noted. LUNGS: Decent air entry. There is no prolonged expiratory phase. I cannot hear enough air movement or appreciate whether or not adventitious sounds are present. HEART: Normal rate and regular. ABDOMEN: Soft, nontender, nondistended. Bowel sounds are positive. MUSCULOSKELETAL: No cyanosis or clubbing. There is 1+ pitting in the bilateral lower extremities. NEUROLOGIC: Grossly nonfocal. She has minimal asterixis of the bilateral upper extremities. LABORATORY DATA: WBC 4.5, hemoglobin 13.4, platelets 184,000. Monocyte count is 15. Neutrophil count falls within the normal limits. INR 1.2. PH 7.25, pCO2 of 84, pO2 of 52 on 10/07. She was breathing 100% FiO2 at that time. Creatinine 1.33 and at baseline, BUN 24, potassium 5.6, bicarb 37. Urine culture is negative. Influenza A and B is unremarkable. IMAGING: Chest x-ray demonstrates significant soft tissue attenuation. There are low lung volumes. Tracheostomy is in good position. Cardiomegaly is evident. This is an AP film, however. ASSESSMENT: 1. Acute on chronic hypoxic and hypercapnic respiratory failure. 2. Obesity hypoventilation syndrome, exacerbated by too much oxygen. 3. Acute on chronic systolic heart failure. 4. Acute kidney injury. 5. Status post tracheostomy. DISCUSSION AND PLAN: We will do routine tracheostomy care. At this point, the patient does not require transition to the ICU or the IMCU. We are going to allow for oxygen saturations when she is awake to drop down between 84% and 86% . We want to make certain that we do not give her too much oxygen. We do not want to treat her sleeping hypoxemia. If she wakes up comfortably, when she is hypoxemic to the mid 80s, that is OK. If she perks up to the mid 80s, that low oxygen saturation while sleeping does not need to be treated. She might be a candidate for noninvasive ventilation in the outpatient setting, as I do think that she is getting to the point where she is not strong enough to breathe anymore. We have counseled her many times throughout the years. She does understand that if she continues to gain weight, she will likely be placed on a ventilator and will never be able to wean without weight loss in time. I will restrict her calories moving forward. Pulmonary critical care will continue to follow, but Dr. Ramirez will assume care in the morning. 70 minutes have been devoted to this patient in various activities. I personally reviewed all imaging studies and laboratory data noted within this document. For fifty percent of this time, I was interacting with the patient at the bedside or coordinating care with the care team. For the remainder of the time I was immediately available to the patient in the hospital unit. RHODA
[2017-11-16] MEDS: Enoxaparin Sodium 40 MG/0.4 ML SYRINGE SC SCH (21:17)
[2017-11-17 05:32] LABS: Anion Gap 13 mmol/L (10-20); BUN (Urea Nitrogen) 26 mg/dL (7.0-18.7); Calc. Creatinine Clearance 340 mL/min (70-130); Calcium 8.6 mg/dL (7.8-10.44); Carbon Dioxide 33 mmol/L (22-29); Chloride 103 mmol/L (98-107); Estimated GFR-MDRD 78; Glucose 67 mg/dL (70-105); Magnesium 1.7 mg/dL (1.6-2.6); Phosphorus 4.5 mg/dL (2.3-4.7); Potassium 5.6 mmol/L (3.5-5.1); Sodium 143 mmol/L (136-145)
--- NOTE | 2017-11-17 05:59 | PDOC.FM ---
- Subjective Subjective: Comfortable on ventilator this morning. She denies any chest or abdominal pain. She does not respond when asked if she has seen a doctor or picked up prescriptions outpatient. - Objective MAR Reviewed: Yes Vital Signs & Weight: Vital Signs (12 hours) Temp Pulse Resp Pulse Ox 11/17/17 03:00 10 L 90 L 11/17/17 02:45 69 11/17/17 02:00 10 L 91 L 11/17/17 01:00 97.6 F 10 L 93 L 11/17/17 00:30 97.6 F 68 10 L 92 L 11/17/17 00:00 12 93 L 11/16/17 23:00 10 L 91 L 11/16/17 22:39 64 11/16/17 22:00 12 96 11/16/17 21:00 12 92 L 11/16/17 20:00 97.7 F 67 12 93 L 11/16/17 19:00 10 L 89 L 11/16/17 18:38 71 11/16/17 18:00 10 L Weight Weight 260.362 kg Most Recent Monitor Data Heart Rate from ECG 70 NIBP 124/48 NIBP BP-Mean 83 Respiration from ECG 12 SpO2 91 I&O: 11/15/17 11/16/17 11/17/17 06:59 06:59 06:59 Intake Total 480 1107 Output Total 2550 1025 2370 Balance -2070 82 -2370 Result Diagrams: 11/13/17 23:26 11/17/17 04:07 <Sarai Cope - Last Filed: 11/17/17 09:24> - Objective Vital Signs & Weight: Vital Signs (12 hours) Temp Pulse Resp BP Pulse Ox 11/17/17 16:00 97.7 F 10 L 91 L 11/17/17 15:03 62 104/55 L 11/17/17 15:00 13 98 11/17/17 14:00 15 89 L 11/17/17 13:00 97.8 F 16 91 L 11/17/17 12:00 14 93 L 11/17/17 11:00 16 94 L 11/17/17 10:00 12 11/17/17 09:47 75 145/68 H 11/17/17 09:00 10 L 93 L 11/17/17 08:00 97.8 F 75 17 96 11/17/17 07:00 14 95 11/17/17 06:41 75 145/68 H 11/17/17 06:00 12 89 L 11/17/17 05:00 97.8 F 10 L 88 L Weight Admit Weight 260.362 kg Weight 260.362 kg Most Recent Monitor Data Heart Rate from ECG 61 NIBP 113/58 NIBP BP-Mean 81 Respiration from ECG 0 SpO2 92 I&O: 11/16/17 11/17/17 11/18/17 06:59 06:59 06:59 Intake Total 1107 570 Output Total 1025 2595 2525 Balance 82 -2595 -1955 Result Diagrams: 11/13/17 23:26 11/17/17 12:02 <Manish Aguirre - Last Filed: 11/17/17 16:25> Phys Exam - Physical Examination Constitutional: NAD HEENT: PERRLA, sclera anicteric new tracheostomy in place Respiratory: no wheezing, clear to auscultation bilateral breath sounds distant Cardiovascular: RRR, no significant murmur Gastrointestinal: soft, non-tender Musculoskeletal: no edema Neurological: non-focal, moves all 4 limbs Psychiatric: normal affect, A&O x 3 Deviation from normal: chronic venous stasis changes in BLE and intertrigo in abdominal folds <Sarai Cope - Last Filed: 11/17/17 09:24> Dx/Plan (1) Acute on chronic respiratory failure with hypoxia and hypercapnia Code(s): J96.21 - ACUTE AND CHRONIC RESPIRATORY FAILURE WITH HYPOXIA; J96.22 - ACUTE AND CHRONIC RESPIRATORY FAILURE WITH HYPERCAPNIA Status: Acute (2) Sleep apnea Code(s): G47.30 - SLEEP APNEA, UNSPECIFIED Status: Acute (3) Chronic respiratory failure with hypoxia Code(s): J96.11 - CHRONIC RESPIRATORY FAILURE WITH HYPOXIA Status: Chronic (4) Systolic CHF, acute on chronic Code(s): I50.23 - ACUTE ON CHRONIC SYSTOLIC (CONGESTIVE) HEART FAILURE Status : Chronic - Plan Plan: 1. Acute on Chronic Respiratory Failure 2/2 Obesity Hypoventilation Syndrome and sCHF - Greatly appreciate Dr. Ramirez's assistance - Patient on ventilator for 1-2 days with hopes it will aid in diuresis - Per Dr. Ramirez, may require longer term ventilation - Appreciate ST recs - PT/OT 2. Acute on Chronic sCHF - BNP elevated on admission - Lasix, metalozone and diamox - Continue agressive diuresis, down 4.5L since admission - Coreg - Atorvastatin - ASA 3. Sleep apnea - Will need OP follow-up if willing to be compliant 4. HIV - Continue HAART: lamivudine, etravirine, kaletra - PPX fluconazole - Multivitamin, magnesium - We have stressed importance of follow-up with Dr. Villalobos OP - Will try to determine if she is taking medications OP as she is not responding to questions this morning - If non-compliant outpatient, likely not indicated to continue HAART while inpatient 5. Morbid Obesity - Dietary consulted to aid in daily calorie goal for aggressive weight loss to improve overall pulmonary status 6. Acute Kidney Injury - Resolved 7. Hyperkalemia - s/p Kayexelate 2d ago - Will treat again today with lasix, repeat BMP at noon if still elevated will need repeat dose Kayexelate - Asked pharmacy to review medications and consider d/c of any that may be contributing to this if patient noncompliant outpatient 8. HTN - Home: amlodipine, diamox 9. Intertrigo - Nystatin poweder 10. Hypothyroidism - Levothyroxine 11. Depression - Sertraline PPX: Lovenox, protonix Dispo: Appreciate palliative and pulm assistance in determining patients goals of care. Per stepfather, patient lives with boyfriend who is primary caregiver but no one can get in touch with him. If patient is non-compliant by choice, need to consider discontinuing medications she will not plan to take outpatient. <Sarai Cope - Last Filed: 11/17/17 09:24> (1) Acute on chronic respiratory failure with hypoxia and hypercapnia Code(s): J96.21 - ACUTE AND CHRONIC RESPIRATORY FAILURE WITH HYPOXIA; J96.22 - ACUTE AND CHRONIC RESPIRATORY FAILURE WITH HYPERCAPNIA Status: Acute (2) Obesity Code(s): E66.9 - OBESITY, UNSPECIFIED Status: Acute (3) Systolic CHF Code(s): I50.20 - UNSPECIFIED SYSTOLIC (CONGESTIVE) HEART FAILURE Status: Acute Qualifiers: Heart failure chronicity: chronic Qualified Code(s): I50.22 - Chronic systolic (congestive) heart failure (4) HIV disease Code(s): B20 - HUMAN IMMUNODEFICIENCY VIRUS [HIV] DISEASE Status: Chronic (5) Hypertension Code(s): I10 - ESSENTIAL (PRIMARY) HYPERTENSION Status: Chronic Qualifiers: Hypertension type: essential hypertension Qualified Code(s): I10 - Essential (primary) hypertension (6) Hypothyroidism Code(s): E03.9 - HYPOTHYROIDISM, UNSPECIFIED Status: Chronic Qualifiers: Hypothyroidism type: acquired Qualified Code(s): E03.9 - Hypothyroidism, unspecified (7) MDD (major depressive disorder) Code(s): F32.9 - MAJOR DEPRESSIVE DISORDER, SINGLE EPISODE, UNSPECIFIED Status : Acute (8) Hyperkalemia Code(s): E87.5 - HYPERKALEMIA Status: Resolved (9) JESSIE (acute kidney injury) Code(s): N17.9 - ACUTE KIDNEY FAILURE, UNSPECIFIED Status: Acute <Manish Aguirre - Last Filed: 11/17/17 16:25> Attending Addendum - Attending Addendum Date/Time: 11/17/17 0490 I personally evaluated the patient and discussed the management with Dr. Cope. I agree with the History, Examination, Assessment and Plan documented above with any addition or exceptions noted below. She feels ok and denies pain. O2 sats in the 88-92 range on SIMV Vent. Coarse breath sounds and Cor: rrr, no murmur. Abdomen soft obese. Ext 2+ edema. Urine clear yellow in harrison. A: CHF exacerbation. Morbid obesity with hypoventilation syndrome, JOSE DE JESUS and hypoxic, hypercapneic resp. failure. P: Continue vent, diuresis. Appreciate construction area manager, pulmonary medicine and palliative medicine inputs. Shavonne <Manish Aguirre - Last Filed: 11/17/17 16:25>
--- NOTE | 2017-11-17 07:07 | EKG ---
Test Reason : Blood Pressure : / mmHG Vent. Rate : 086 BPM Atrial Rate : 086 BPM P-R Int : 148 ms QRS Dur : 082 ms QT Int : 320 ms P-R-T Axes : 074 038 065 degrees QTc Int : 382 ms Normal sinus rhythm Low voltage QRS Septal infarct , age undetermined /Doubtful Abnormal ECG When compared with ECG of 14-NOV-2017 19:56, Septal infarct is now Present Confirmed by GIDEON HILL ([id number]) on 11/17/2017 7:07:16 AM Referred By: Confirmed By:GIDEON HILL
--- NOTE | 2017-11-17 07:42 | PRG ---
DATE OF SERVICE: 11/17/2017 Thirty five minutes critical care time. The patient remains on mechanical ventilation. She will wake up. PHYSICAL EXAMINATION: VITAL SIGNS: Temperature is 97.8, pulse 70, blood pressure 145/68. Total intake for 24 hours 1107, output 1095. The last weight was 574 pounds. HEENT: Unremarkable. NECK: No JVD. LUNGS: Distant breath sounds. CARDIAC: Barely audible secondary to her weight. ABDOMEN: Soft, nontender. EXTREMITIES: Edematous throughout. LABORATORY DATA: Sodium 143, potassium 5.6, chloride 103, CO2 33, BUN 26, creatinine 1.0, glucose 67 . ASSESSMENT: 1. Obesity hypoventilation syndrome - the patient is probably gained 100 pounds of weight since last time I saw her several months ago. 2. Morbid obesity. 3. Human immunodeficiency virus. 4. Chronic respiratory failure. 5. Systolic heart failure. PLAN: Continue mechanical ventilation - hopefully she will continue to diuresis over the weekend. I am not sure what the endpoint is in her situation. She may end up requiring chronic mechanical vent ilation as an outpatient. I agree with palliative care consult. I would be interested to see if the y make any headway with the patient and her family.
[2017-11-17] MEDS: Levothyroxine Sodium 25 MCG TAB PO SCH (08:15)
[2017-11-17] MEDS: Furosemide 100 MG/10 ML VIAL SLOW IVP SCH (09:12)
[2017-11-17] MEDS: Metolazone 5 MG TAB PO SCH ×2 (09:19→10:32)
[2017-11-17] MEDS: Fluconazole 100 MG TAB PO SCH (09:19)
[2017-11-17] MEDS: AcetaZOLAMIDE 250 MG TAB PO SCH ×2 (09:46→20:06)
[2017-11-17] MEDS: Amlodipine 5 MG TAB PO SCH (09:47)
[2017-11-17] MEDS: Aspirin 81 mg Enteric Coated Tablet PO SCH (09:47)
[2017-11-17] MEDS: Carvedilol 25 MG TAB PO SCH ×2 (09:47→20:07)
[2017-11-17] MEDS: guaiFENesin ER 600 MG TAB PO SCH ×2 (10:23→20:09)
[2017-11-17] MEDS: Multivitamin W/ Minerals 1 TAB PER TUBE SCH (11:06)
[2017-11-17] MEDS: Lopinavir/Ritonavir 80 MG/20 MG per ML Oral Solution PO SCH ×2 (11:06→20:04)
[2017-11-17] MEDS: Magnesium Oxide 400 MG TAB PO SCH ×2 (11:06→20:09)
[2017-11-17 12:22] LABS: Anion Gap 9 mmol/L (10-20); BUN (Urea Nitrogen) 23 mg/dL (7.0-18.7); Calc. Creatinine Clearance 354 mL/min (70-130); Calcium 8.3 mg/dL (7.8-10.44); Carbon Dioxide 35 mmol/L (22-29); Chloride 104 mmol/L (98-107); Estimated GFR-MDRD 82; Potassium 5.1 mmol/L (3.5-5.1); Sodium 143 mmol/L (136-145)
[2017-11-17 12:25] LABS: Glucose 54 mg/dL (70-105)
[2017-11-17] MEDS: Nystatin Powder 15 GM BOT TOP PRN (15:03)
[2017-11-17] MEDS: Aquaphor 30 GM 99 GM, Cholestyramine/Aspartame 4 GM TOP SCH ×2 (15:04→20:11)
[2017-11-17] MEDS: Enoxaparin Sodium 40 MG/0.4 ML SYRINGE SC SCH (20:03)
[2017-11-18 05:56] LABS: BUN (Urea Nitrogen) 21 mg/dL (7.0-18.7); Calc. Creatinine Clearance 381 mL/min (70-130); Calcium 8.2 mg/dL (7.8-10.44); Estimated GFR-MDRD 89; Glucose 76 mg/dL (70-105); Magnesium 1.6 mg/dL (1.6-2.6)
[2017-11-18 06:04] LABS: Anion Gap 11 mmol/L (10-20); Carbon Dioxide 36 mmol/L (22-29); Chloride 98 mmol/L (98-107); Potassium 3.8 mmol/L (3.5-5.1); Sodium 141 mmol/L (136-145)
--- NOTE | 2017-11-18 06:29 | PDOC.FM ---
- Subjective Subjective: Patient did well overnight. She continues to produce a lot of secretions and required suctioning multiple times last night. Otherwise, no adverse events. - Objective MAR Reviewed: Yes Vital Signs & Weight: Vital Signs (12 hours) Temp Pulse Resp BP Pulse Ox 11/18/17 04:00 97.7 F 10 L 90 L 11/18/17 03:00 10 L 91 L 11/18/17 02:00 10 L 94 L 11/18/17 01:00 10 L 95 11/18/17 00:50 63 113/53 L 11/18/17 00:00 97.8 F 12 94 L 11/17/17 23:00 12 93 L 11/17/17 22:00 12 92 L 11/17/17 21:38 97.6 F 66 12 93 L 11/17/17 21:00 12 93 L 11/17/17 20:00 97.6 F 11 L 92 L 11/17/17 19:49 61 11/17/17 19:00 12 93 L 11/17/17 18:40 97.7 F 62 14 90 L Weight Admit Weight 260.362 kg Weight 260.362 kg Most Recent Monitor Data Heart Rate from ECG 61 NIBP 111/56 NIBP BP-Mean 70 Respiration from ECG 10 SpO2 93 I&O: 11/16/17 11/17/17 11/18/17 06:59 06:59 06:59 Intake Total 1107 570 Output Total 1026 6896 3775 Balance 82 -4254 -7508 Result Diagrams: 11/13/17 23:26 11/18/17 05:00 <Barbara Emery - Last Filed: 11/18/17 07:49> - Objective Vital Signs & Weight: Vital Signs (12 hours) Temp Pulse Resp BP Pulse Ox 11/18/17 15:00 14 89 L 11/18/17 14:00 18 90 L 11/18/17 13:00 98.2 F 16 91 L 11/18/17 12:00 19 94 L 11/18/17 11:00 14 93 L 11/18/17 10:00 13 11/18/17 09:46 98.8 F 66 12 92 L 11/18/17 09:00 98.8 F 12 93 L 11/18/17 08:44 63 119/56 L 11/18/17 08:00 12 90 L 11/18/17 07:19 93 118/59 L 11/18/17 07:00 12 95 11/18/17 06:00 12 93 L 11/18/17 05:00 12 94 L 11/18/17 04:00 97.7 F 10 L 90 L Weight Admit Weight 260.362 kg Weight 260.362 kg Most Recent Monitor Data Heart Rate from ECG 65 NIBP 112/52 NIBP BP-Mean 67 Respiration from ECG 16 SpO2 89 I&O: 11/17/17 11/18/17 11/19/17 06:59 06:59 06:59 Intake Total 570 200 Output Total 4082 2659 7711 Balance -7507 -6464 -8860 Result Diagrams: 11/13/17 23:26 11/18/17 05:00 <Manish Aguirre - Last Filed: 11/18/17 15:48> Phys Exam - Physical Examination Constitutional: NAD HEENT: PERRLA Respiratory: clear to auscultation bilateral Cardiovascular: RRR Gastrointestinal: soft, non-tender Musculoskeletal: edema present Neurological: moves all 4 limbs Psychiatric: normal affect <Barbara Emery - Last Filed: 11/18/17 07:49> Dx/Plan (1) Acute on chronic respiratory failure with hypoxia and hypercapnia Code(s): J96.21 - ACUTE AND CHRONIC RESPIRATORY FAILURE WITH HYPOXIA; J96.22 - ACUTE AND CHRONIC RESPIRATORY FAILURE WITH HYPERCAPNIA Status: Acute (2) Sleep apnea Code(s): G47.30 - SLEEP APNEA, UNSPECIFIED Status: Acute (3) Chronic respiratory failure with hypoxia Code(s): J96.11 - CHRONIC RESPIRATORY FAILURE WITH HYPOXIA Status: Chronic (4) Obesity hypoventilation syndrome Code(s): E66.2 - MORBID (SEVERE) OBESITY WITH ALVEOLAR HYPOVENTILATION Status : Chronic (5) HIV disease Code(s): B20 - HUMAN IMMUNODEFICIENCY VIRUS [HIV] DISEASE Status: Chronic - Plan Plan: 1. Acute on chronic respiratory failure secondary to obesity hypoventilation syndrome and HF with reduced EF. - Pt currently on ventilator to aid with diuresis. Vent management per Pulm. - outpatient vent discussed. - PT/OT 2. Acute on chronic HF with reduced EF - Continue Diuresis with daily Lasix, Metalozone MWF, and Acetazolamide - HH diet with 1800 ml/day fluid restriction, 8L down since admission. - continue betablocker therapy. LAWRENCE held for hyperkalemia 3. Sleep Apnea - pt will need outpatient workup 4. HIV - continue antiretroviral therapy with Epivir and Kaletra - daily Fluconazole for prophylaxis 5. Hypertension - continue Carvedilol - Lisinopril held for hyperkalemia, consider restarting outpatient 6. Morbid Obesity 7. Hyperkalemia - resolved 8. Intertrigo - topical Nystatin 9. Depression - continue Sertraline 10. Hypothyroidism - continue Levothyroxine <YulyBarbara C - Last Filed: 11/18/17 07:49> (1) Acute on chronic respiratory failure with hypoxia and hypercapnia Code(s): J96.21 - ACUTE AND CHRONIC RESPIRATORY FAILURE WITH HYPOXIA; J96.22 - ACUTE AND CHRONIC RESPIRATORY FAILURE WITH HYPERCAPNIA Status: Acute (2) Obesity Code(s): E66.9 - OBESITY, UNSPECIFIED Status: Acute (3) Systolic CHF Code(s): I50.20 - UNSPECIFIED SYSTOLIC (CONGESTIVE) HEART FAILURE Status: Acute Qualifiers: Heart failure chronicity: chronic Qualified Code(s): I50.22 - Chronic systolic (congestive) heart failure (4) HIV disease Code(s): B20 - HUMAN IMMUNODEFICIENCY VIRUS [HIV] DISEASE Status: Chronic (5) Hypertension Code(s): I10 - ESSENTIAL (PRIMARY) HYPERTENSION Status: Chronic Qualifiers: Hypertension type: essential hypertension Qualified Code(s): I10 - Essential (primary) hypertension (6) Hypothyroidism Code(s): E03.9 - HYPOTHYROIDISM, UNSPECIFIED Status: Chronic Qualifiers: Hypothyroidism type: acquired Qualified Code(s): E03.9 - Hypothyroidism, unspecified (7) MDD (major depressive disorder) Code(s): F32.9 - MAJOR DEPRESSIVE DISORDER, SINGLE EPISODE, UNSPECIFIED Status : Acute (8) Hyperkalemia Code(s): E87.5 - HYPERKALEMIA Status: Resolved (9) JESSIE (acute kidney injury) Code(s): N17.9 - ACUTE KIDNEY FAILURE, UNSPECIFIED Status: Acute <Manish Aguirre - Last Filed: 11/18/17 15:48> Attending Addendum - Attending Addendum Date/Time: 11/18/17 7930 I personally evaluated the patient and discussed the management with Dr. Hebert Emery. I agree with the History, Examination, Assessment and Plan documented above with any addition or exceptions noted below. Somnolent. Awakens to answer by mouthing, noding. Weight 260.3 Kg (572 lbs). On Vent SIMV. V/S: Stable. T97.7, P63, R 10 on vent, SaO2 90 (at desired for resp drive), BP 113/53. Lungs: coarse breath sounds. Clear. Cor: distant RRR, no murmur. Edema still present. I/O net loss of 60 ml. A: Diagnoses as listed above by Dr. Emery. P: Continue Vent or as recommended by Pulmonary medicine and diuresis . MD Shavonne <Manish Aguirre - Last Filed: 11/18/17 15:48>
[2017-11-18] MEDS: Levothyroxine Sodium 25 MCG TAB PO SCH (06:31)
[2017-11-18] MEDS: Furosemide 100 MG/10 ML VIAL SLOW IVP SCH (08:43)
[2017-11-18] MEDS: Magnesium Oxide 400 MG TAB PO SCH ×2 (08:44→20:46)
[2017-11-18] MEDS: Fluconazole 100 MG TAB PO SCH (08:44)
[2017-11-18] MEDS: AcetaZOLAMIDE 250 MG TAB PO SCH ×2 (08:44→20:46)
[2017-11-18] MEDS: guaiFENesin ER 600 MG TAB PO SCH ×2 (08:44→20:46)
[2017-11-18] MEDS: Carvedilol 25 MG TAB PO SCH ×2 (08:44→20:46)
[2017-11-18] MEDS: Amlodipine 5 MG TAB PO SCH (08:44)
[2017-11-18] MEDS: Multivitamin W/ Minerals 1 TAB PER TUBE SCH (08:44)
[2017-11-18] MEDS: Aspirin 81 mg Enteric Coated Tablet PO SCH (08:44)
[2017-11-18] MEDS: Lopinavir/Ritonavir 80 MG/20 MG per ML Oral Solution PO SCH ×2 (09:15→20:46)
[2017-11-18] MEDS: Aquaphor 30 GM 99 GM, Cholestyramine/Aspartame 4 GM TOP SCH ×2 (09:15→20:48)
[2017-11-18] MEDS: Scopolamine 1.5 mg/72 hour Patch TD SCH (11:44)
[2017-11-18] MEDS: Aquaphor 30 GM 99 GM, Cholestyramine/Aspartame 4 GM TOP PRN (14:39)
[2017-11-18] MEDS: Nystatin Powder 15 GM BOT TOP PRN (14:39)
[2017-11-18] MEDS: Enoxaparin Sodium 40 MG/0.4 ML SYRINGE SC SCH (20:46)
--- NOTE | 2017-11-18 20:53 | PRG ---
DATE OF SERVICE: 11/18/2017 SUBJECTIVE: Ms. Bonilla is afebrile. OBJECTIVE: VITAL SIGNS: Blood pressure 130/69, heart rate is in the 70s. She has taken off ventilation today a nd placed on trach collar, sats were 89% which is perfect. LUNGS: Clear. HEART: Regular rhythm. ABDOMEN: Soft. LABORATORY DATA: No new labs except for electrolytes, sodium 141, potassium 3.8, chloride 98, bicarb natalio 36, BUN 21, creatinine 0.9. IMPRESSION: 1. Acute on chronic respiratory failure. 2. Massive obesity with respiratory failure secondary to her size. 3. Noncompliance with medical followup. 4. Human immunodeficiency virus positive. PLAN: I am told that the consult was placed for home ventilation. I really have serious reservation s about the idea of her having being managed with ventilator in her house. If she requires home vent ilation superintendent terminal, this would probably be better done in a fulltime care environment, but ultimately this fluid will need to be discussed with Dr. Ramirez, who is more familiar with her. Her massive we ight gain over the last year will increase her mortality significantly. We will attempt to ventilator at night and deliberately wear off the ventilator during the day. CRITICAL CARE TIME: Thirty minutes.
[2017-11-19 05:07] LABS: BUN (Urea Nitrogen) 18 mg/dL (7.0-18.7); Calc. Creatinine Clearance 422 mL/min (70-130); Calcium 8.4 mg/dL (7.8-10.44); Estimated GFR-MDRD Greater than 90; Glucose 81 mg/dL (70-105); Magnesium 1.7 mg/dL (1.6-2.6); Phosphorus 4.5 mg/dL (2.3-4.7)
[2017-11-19 05:19] LABS: Chloride 96 mmol/L (98-107); Potassium 3.7 mmol/L (3.5-5.1); Sodium 142 mmol/L (136-145)
[2017-11-19 05:22] LABS: Anion Gap 9 mmol/L (10-20)
[2017-11-19 05:26] LABS: Carbon Dioxide 41 mmol/L (22-29)
[2017-11-19] MEDS: Levothyroxine Sodium 25 MCG TAB PO SCH (05:32)
--- NOTE | 2017-11-19 07:15 | PDOC.FM ---
- Subjective Subjective: Patient was extubated yesterday. No events overnight per Nurse. Pt has no complaints this morning. - Objective MAR Reviewed: Yes Vital Signs & Weight: Vital Signs (12 hours) Temp Pulse Resp Pulse Ox 11/19/17 06:54 91 L 11/19/17 04:00 97.6 F 11/19/17 00:00 97.7 F 11/18/17 23:00 10 L 92 L 11/18/17 22:00 12 92 L 11/18/17 21:00 17 92 L 11/18/17 20:00 14 90 L 11/18/17 19:30 97.6 F 61 12 88 L Weight Admit Weight 260.362 kg Weight 260.362 kg Most Recent Monitor Data Heart Rate from ECG 61 NIBP 93/56 NIBP BP-Mean 76 Respiration from ECG 12 SpO2 89 I&O: 11/18/17 11/19/17 11/20/17 06:59 06:59 06:59 Intake Total 570 1160 Output Total 3995 4105 [id number] Result Diagrams: 11/13/17 23:26 11/19/17 03:19 <Barbara Emery - Last Filed: 11/19/17 10:30> - Objective Vital Signs & Weight: Vital Signs (12 hours) Temp Pulse Pulse Ox 11/19/17 12:00 97.9 F 11/19/17 09:41 61 11/19/17 08:00 98.0 F 11/19/17 06:54 91 L 11/19/17 04:00 97.6 F Weight Admit Weight 260.362 kg Weight 260.362 kg Most Recent Monitor Data Heart Rate from ECG 58 NIBP 101/43 NIBP BP-Mean 79 Respiration from ECG 11 SpO2 88 I&O: 11/18/17 11/19/17 11/20/17 06:59 06:59 06:59 Intake Total 570 1160 510 Output Total 3995 410 605 [facility] [employer] -0920 -4775 -95 Result Diagrams: 11/13/17 23:26 11/19/17 12:13 <Manish Aguirre - Last Filed: 11/19/17 15:07> Phys Exam - Physical Examination Constitutional: NAD Respiratory: clear to auscultation bilateral Gastrointestinal: soft, non-tender Musculoskeletal: edema present Neurological: moves all 4 limbs Psychiatric: normal affect, A&O x 3 <Barbara Emery - Last Filed: 11/19/17 10:30> Dx/Plan (1) Acute on chronic respiratory failure with hypoxia and hypercapnia Code(s): J96.21 - ACUTE AND CHRONIC RESPIRATORY FAILURE WITH HYPOXIA; J96.22 - ACUTE AND CHRONIC RESPIRATORY FAILURE WITH HYPERCAPNIA Status: Acute (2) Sleep apnea Code(s): G47.30 - SLEEP APNEA, UNSPECIFIED Status: Acute (3) Chronic respiratory failure with hypoxia Code(s): J96.11 - CHRONIC RESPIRATORY FAILURE WITH HYPOXIA Status: Chronic (4) Obesity hypoventilation syndrome Code(s): E66.2 - MORBID (SEVERE) OBESITY WITH ALVEOLAR HYPOVENTILATION Status : Chronic (5) HIV disease Code(s): B20 - HUMAN IMMUNODEFICIENCY VIRUS [HIV] DISEASE Status: Chronic - Plan Plan: Acute on chronic respiratory failure secondary to obesity hypoventilation syndrome vs. CHF exacerbation - Pt now currently on Trach collar. - Will discuss with Dr. Ramirez Home Vent vs. eventual placement at skilled nursing vent care facility. Metabolic Alkalosis - likely compensation from respiratory acidosis 2/2 to Obesity hypoventilation - will repeat BMP @ noon Acute on heart failure with reduced EF - continue diuresis, fluid restriction. - negative fluid balance of almost 3 L. Sleep apnea - May benefit from CPAP at night HIV - continue HAART therapy Hypertension - BP stable. c Morbid Obesity - Dietary consult Intertrigo - Continue topical nystatin Depression - Continue Sertraline Hypothyroidism - Continue Levothyroxine <Barbara Emery - Last Filed: 11/19/17 10:30> (1) Acute on chronic respiratory failure with hypoxia and hypercapnia Code(s): J96.21 - ACUTE AND CHRONIC RESPIRATORY FAILURE WITH HYPOXIA; J96.22 - ACUTE AND CHRONIC RESPIRATORY FAILURE WITH HYPERCAPNIA Status: Acute (2) Obesity Code(s): E66.9 - OBESITY, UNSPECIFIED Status: Acute (3) Systolic CHF Code(s): I50.20 - UNSPECIFIED SYSTOLIC (CONGESTIVE) HEART FAILURE Status: Acute Qualifiers: Heart failure chronicity: chronic Qualified Code(s): I50.22 - Chronic systolic (congestive) heart failure (4) HIV disease Code(s): B20 - HUMAN IMMUNODEFICIENCY VIRUS [HIV] DISEASE Status: Chronic (5) Hypertension Code(s): I10 - ESSENTIAL (PRIMARY) HYPERTENSION Status: Chronic Qualifiers: Hypertension type: essential hypertension Qualified Code(s): I10 - Essential (primary) hypertension (6) Hypothyroidism Code(s): E03.9 - HYPOTHYROIDISM, UNSPECIFIED Status: Chronic Qualifiers: Hypothyroidism type: acquired Qualified Code(s): E03.9 - Hypothyroidism, unspecified (7) MDD (major depressive disorder) Code(s): F32.9 - MAJOR DEPRESSIVE DISORDER, SINGLE EPISODE, UNSPECIFIED Status : Acute (8) Hyperkalemia Code(s): E87.5 - HYPERKALEMIA Status: Resolved (9) JESSIE (acute kidney injury) Code(s): N17.9 - ACUTE KIDNEY FAILURE, UNSPECIFIED Status: Acute <Manish Aguirre - Last Filed: 11/19/17 15:07> Attending Addendum - Attending Addendum Date/Time: 11/19/17 6380 I personally evaluated the patient and discussed the management with Dr. Hebert Emery. I agree with the History, Examination, Assessment and Plan documented above with any addition or exceptions noted below. She was not extubated (still has tracheostomy), but was taken off vent yesterday and on Trach Collar overnight. SaO2 91%. Denies pain. Breathing is "ok." Lungs: Upper airway sounds. Distant breath sounds. Cor: Distant heart sounds, no murmur. Diuresed 3 Liters over last 24 hours. A: CHF, JOSE DE JESUS, Obesity hypoventilation syndrome. Improving with diuresis. Needs significant wt loss if there is any hope for improving her prognosis. P: Observe in ICU until pulmonary feels she is stable for transfer to floor. Change Lasix from IV to oral at 80 mg /day. Shavonne< <Manish Aguirre - Last Filed: 11/19/17 15:07>
[2017-11-19] MEDS: Fluconazole 100 MG TAB PO SCH (08:38)
[2017-11-19] MEDS: Multivitamin W/ Minerals 1 TAB PER TUBE SCH (08:39)
[2017-11-19] MEDS: Aspirin 81 mg Enteric Coated Tablet PO SCH (08:39)
[2017-11-19] MEDS: Carvedilol 25 MG TAB PO SCH ×2 (08:39→20:02)
[2017-11-19] MEDS: Magnesium Oxide 400 MG TAB PO SCH ×2 (08:39→20:01)
[2017-11-19] MEDS: guaiFENesin ER 600 MG TAB PO SCH ×2 (08:40→20:00)
[2017-11-19] MEDS: Furosemide 100 MG/10 ML VIAL SLOW IVP SCH (08:57)
[2017-11-19] MEDS: AcetaZOLAMIDE 250 MG TAB PO SCH ×2 (09:06→20:01)
[2017-11-19] MEDS: Amlodipine 5 MG TAB PO SCH (09:41)
[2017-11-19] MEDS: Lopinavir/Ritonavir 80 MG/20 MG per ML Oral Solution PO SCH ×2 (10:24→20:00)
[2017-11-19 12:44] LABS: BUN (Urea Nitrogen) 17 mg/dL (7.0-18.7); Calc. Creatinine Clearance 422 mL/min (70-130); Calcium 8.5 mg/dL (7.8-10.44); Estimated GFR-MDRD Greater than 90; Glucose 83 mg/dL (70-105)
[2017-11-19 12:53] LABS: Anion Gap 10 mmol/L (10-20); Carbon Dioxide 38 mmol/L (22-29); Chloride 97 mmol/L (98-107); Potassium 3.8 mmol/L (3.5-5.1); Sodium 141 mmol/L (136-145)
--- NOTE | 2017-11-19 14:55 | PRG ---
DATE OF SERVICE: 11/19/2017 SUBJECTIVE: Ms. Bonilla is off the ventilator. She is still sleeping on mechanical ventilator. OBJECTIVE: VITAL SIGNS: Blood pressure is 118/55, heart rate is 62, respiratory rate is 14, oximetry is 92. LUNGS: Clear. CARDIOVASCULAR: Heart regular rhythm. ABDOMEN: Soft. EXTREMITIES: Without any change. LABORATORY DATA: There is no new lab other than electrolytes, which are remarkable for bicarbonate o f 41. IMPRESSION: Elevated bicarbonate from Lasix combined with her hypoventilation. PLAN: Her Lasix should be held. She can continue on Diamox, although sometimes people develop Diamo x tolerance after 3 days. Her weight is almost 600 pounds and it has reached the life threatening point. As I have explained t o her, she says she is willing to undergo calorie restriction. I placed on 800 calorie diet and see if she really tolerate the calorie restriction. If she does not start losing 2-5 pounds a week, she is not going to be alive much longer. Home ventilation I do not think is a very good alternative. She has never documented that she can be compliant with any type of medical followup. If she is unable to wean from mechanical ventilation, a long-term [facility] hospital or a long-term acute care center may be the best option, although long-term acute care hospitals [place] do not take Medicaid.
[2017-11-19] MEDS: Aquaphor 30 GM 99 GM, Cholestyramine/Aspartame 4 GM TOP SCH ×2 (15:08→20:01)
[2017-11-19] MEDS: Enoxaparin Sodium 40 MG/0.4 ML SYRINGE SC SCH (20:00)
[2017-11-20 05:00] LABS: BUN (Urea Nitrogen) 15 mg/dL (7.0-18.7); Calc. Creatinine Clearance 438 mL/min (70-130); Calcium 8.7 mg/dL (7.8-10.44); Estimated GFR-MDRD Greater than 90; Glucose 92 mg/dL (70-105); Magnesium 1.8 mg/dL (1.6-2.6); Phosphorus 4.5 mg/dL (2.3-4.7)
[2017-11-20 05:09] LABS: Anion Gap 12 mmol/L (10-20); Carbon Dioxide 33 mmol/L (22-29); Chloride 97 mmol/L (98-107); Potassium 4.1 mmol/L (3.5-5.1); Sodium 138 mmol/L (136-145)
[2017-11-20] MEDS: Levothyroxine Sodium 25 MCG TAB PO SCH (05:26)
--- NOTE | 2017-11-20 06:43 | PDOC.FM ---
- Subjective Subjective: No adverse events overnight. She continues to produces copious thick secretions. Pt has no complaints. - Objective MAR Reviewed: Yes Vital Signs & Weight: Vital Signs (12 hours) Temp Pulse Resp Pulse Ox 11/20/17 05:00 91 L 11/20/17 04:00 97.5 F L 11/20/17 03:00 93 L 11/20/17 02:00 94 L 11/20/17 01:00 93 L 11/20/17 00:00 97.4 F L 11/19/17 20:00 98.0 F 57 L 18 92 L 11/19/17 19:00 92 L 11/19/17 18:59 89 L Weight Admit Weight 260.362 kg Weight 260.362 kg Most Recent Monitor Data Heart Rate from ECG 58 NIBP 111/58 NIBP BP-Mean 78 Respiration from ECG 14 SpO2 94 I&O: 11/18/17 11/19/17 11/20/17 06:59 06:59 06:59 Intake Total 570 1160 806 Output Total 3995 4105 1786 Balance -1775 -2945 -980 Result Diagrams: 11/13/17 23:26 11/20/17 04:21 <Barbara Emery - Last Filed: 11/20/17 10:46> - Objective Vital Signs & Weight: Vital Signs (12 hours) Temp Pulse Resp Pulse Ox 11/20/17 11:00 92 L 11/20/17 10:00 93 L 11/20/17 09:00 94 L 11/20/17 08:08 57 L 11/20/17 08:00 97.9 F 57 L 20 94 L 11/20/17 05:00 91 L 11/20/17 04:00 97.5 F L 11/20/17 03:00 93 L 11/20/17 02:00 94 L 11/20/17 01:00 93 L 11/20/17 00:00 97.4 F L Weight Admit Weight 260.362 kg Weight 260.362 kg Most Recent Monitor Data Heart Rate from ECG 56 NIBP 126/61 NIBP BP-Mean 93 Respiration from ECG 16 SpO2 92 I&O: 11/19/17 11/20/17 11/21/17 06:59 06:59 06:59 Intake Total 1160 806 350 Output Total 4105 1786 210 Balance -2940 -980 140 Result Diagrams: 11/13/17 23:26 11/20/17 04:21 <James Myers - Last Filed: 11/20/17 11:50> Phys Exam - Physical Examination Constitutional: NAD Respiratory: clear to auscultation bilateral Cardiovascular: RRR Gastrointestinal: soft, non-tender Musculoskeletal: edema present Psychiatric: normal affect, A&O x 3 <Barbara Emery - Last Filed: 11/20/17 10:46> Dx/Plan (1) Chronic respiratory failure with hypoxia Code(s): J96.11 - CHRONIC RESPIRATORY FAILURE WITH HYPOXIA Status: Chronic (2) Sleep apnea Code(s): G47.30 - SLEEP APNEA, UNSPECIFIED Status: Acute (3) Obesity hypoventilation syndrome Code(s): E66.2 - MORBID (SEVERE) OBESITY WITH ALVEOLAR HYPOVENTILATION Status : Chronic (4) HIV disease Code(s): B20 - HUMAN IMMUNODEFICIENCY VIRUS [HIV] DISEASE Status: Chronic - Plan Plan: Chronic Hypoxic Respiratory failure - pt currently on trach collar. - continues to produce thick secretions. - Pt has scopolamine patch, and Augmentin added today Acute on chronic heart failure with reduced EF - Lasix held yesterday due to alkalosis. - Will consider restarting tomorrow. - fluid restriction, I/O HIV - continue home medications. Hypertension - BP stable. Morbid obesity - Pt currently on calorie restricted diet. - awaiting dietary recommendations. Depression - continue Sertraline Hypothyroidism - continue Levothyroxine Disposition: stable, will transfer out of ICU. Will discuss with pt and family goals of care/placement when family is available. <Barbara Emery - Last Filed: 11/20/17 10:46> Attending Addendum - Attending Addendum Date/Time: 11/20/17 6064 I personally evaluated the patient and discussed the management with Dr. Emery. I agree with the History, Examination, Assessment and Plan documented above with any addition or exceptions noted below. Patient improved. Will transition to IMCU today. Continue trach collar as needed , and will need to discuss with patient and family the potential for canine service teacher placement due to her medical conditions and noncompliance. Will resume baseline diuresis tomorrow. Labs stable. <James Myers - Last Filed: 11/20/17 11:50>
[2017-11-20] MEDS ORDERED: Furosemide 80 MG TAB PO SCH (07:30)
[2017-11-20] MEDS: Fluconazole 100 MG TAB PO SCH (08:07)
[2017-11-20] MEDS: Multivitamin W/ Minerals 1 TAB PER TUBE SCH (08:07)
[2017-11-20] MEDS: guaiFENesin ER 600 MG TAB PO SCH ×2 (08:07→21:58)
[2017-11-20] MEDS: Metolazone 5 MG TAB PO SCH (08:07)
[2017-11-20] MEDS: Carvedilol 25 MG TAB PO SCH ×2 (08:08→21:59)
[2017-11-20] MEDS: Aspirin 81 mg Enteric Coated Tablet PO SCH (08:08)
[2017-11-20] MEDS: Amoxicillin/Potassium Clav 875 MG TAB PO SCH ×2 (08:08→21:59)
[2017-11-20] MEDS: Magnesium Oxide 400 MG TAB PO SCH ×2 (08:08→21:59)
[2017-11-20] MEDS: Amlodipine 5 MG TAB PO SCH (08:08)
--- NOTE | 2017-11-20 08:14 | PRG ---
DATE OF SERVICE: 11/20/2017 She was weaned off mechanical ventilation this weekend. PHYSICAL EXAMINATION: VITAL SIGNS: She is currently on a T-piece with O2 sats about 97%, pulse 55, blood pressure 120/57, respiratory rate 22. HEENT: Unremarkable. NECK: She has a T-piece in place with dirty tracheal secretions. LUNGS: Distant breath sounds. CARDIAC: S1 and S2 regular. ABDOMEN: Soft. EXTREMITIES: Brawny edema. LABORATORY: Sodium 138, potassium 4.1, chloride 97, CO2 33, BUN 15, creatinine 0.8, glucose 92. ASSESSMENT: 1. Obesity hypoventilation syndrome. 2. Status post tracheostomy placement. 3. Status post acute respiratory failure. 4. Likely some component of tracheitis. 5. Human immunodeficiency virus. PLAN: 1. Continue diuresis. 2. Add Augmentin to see if that will help with secretions. 3. Can likely transfer at the very least to the [facility]. 4. Placement.
[2017-11-20] MEDS: AcetaZOLAMIDE 250 MG TAB PO SCH ×2 (09:01→21:59)
[2017-11-20] MEDS: Aquaphor 30 GM 99 GM, Cholestyramine/Aspartame 4 GM TOP PRN ×2 (09:02→09:27)
[2017-11-20] MEDS: Lopinavir/Ritonavir 80 MG/20 MG per ML Oral Solution PO SCH ×2 (09:19→21:58)
[2017-11-20] MEDS: Aquaphor 30 GM 99 GM, Cholestyramine/Aspartame 4 GM TOP SCH ×2 (09:27→21:57)
[2017-11-20] MEDS: Enoxaparin Sodium 40 MG/0.4 ML SYRINGE SC SCH (21:59)
[2017-11-21 05:12] LABS: BUN (Urea Nitrogen) 15 mg/dL (7.0-18.7); Calc. Creatinine Clearance 449 mL/min (70-130); Calcium 8.7 mg/dL (7.8-10.44); Estimated GFR-MDRD Greater than 90; Glucose 82 mg/dL (70-105); Magnesium 1.9 mg/dL (1.6-2.6); Phosphorus 4.3 mg/dL (2.3-4.7)
[2017-11-21 05:22] LABS: Anion Gap 12 mmol/L (10-20); Carbon Dioxide 35 mmol/L (22-29); Chloride 96 mmol/L (98-107); Potassium 4.1 mmol/L (3.5-5.1); Sodium 139 mmol/L (136-145)
[2017-11-21] MEDS: Levothyroxine Sodium 25 MCG TAB PO SCH (06:01)
[2017-11-21] MEDS: AcetaZOLAMIDE 250 MG TAB PO SCH ×2 (08:27→20:40)
[2017-11-21] MEDS: Furosemide 40 MG TAB PO SCH ×2 (08:27→15:13)
[2017-11-21] MEDS: Amlodipine 5 MG TAB PO SCH (08:27)
[2017-11-21] MEDS: Magnesium Oxide 400 MG TAB PO SCH ×2 (08:28→20:40)
[2017-11-21] MEDS: Multivitamin W/ Minerals 1 TAB PER TUBE SCH (08:28)
[2017-11-21] MEDS: Aspirin 81 mg Enteric Coated Tablet PO SCH (08:28)
[2017-11-21] MEDS: Fluconazole 100 MG TAB PO SCH (08:28)
[2017-11-21] MEDS: guaiFENesin ER 600 MG TAB PO SCH ×2 (08:28→20:40)
[2017-11-21] MEDS: Amoxicillin/Potassium Clav 875 MG TAB PO SCH ×2 (08:28→20:40)
[2017-11-21] MEDS: Carvedilol 25 MG TAB PO SCH ×2 (08:28→20:40)
[2017-11-21] MEDS: Lopinavir/Ritonavir 80 MG/20 MG per ML Oral Solution PO SCH ×2 (08:38→20:40)
[2017-11-21] MEDS: Aquaphor 30 GM 99 GM, Cholestyramine/Aspartame 4 GM TOP SCH ×2 (08:55→20:39)
[2017-11-21] MEDS ORDERED: Furosemide 20 MG TAB PO SCH (09:00)
--- NOTE | 2017-11-21 09:06 | PRG ---
DATE OF SERVICE: 11/21/2017 She appears stable. She did not get up yesterday. PHYSICAL EXAMINATION: VITAL SIGNS: Temperature 96.3, pulse 68, blood pressure 110/61, O2 sat 92% on trach collar. HEENT: Unremarkable. NECK: Trach in good position. LUNGS: Clear with distant breath sounds. CARDIAC: S1 and S2 regular. ABDOMEN: Morbidly obese. LABORATORY DATA: Sodium 139, potassium 4.1, chloride 96, CO2 35, BUN 15, creatinine 0.7, glucose 82. ASSESSMENT: 1. Obesity hypoventilation syndrome. 2. Status post mechanical ventilation. 3. Acute on chronic respiratory failure. 4. Human immunodeficiency virus. PLAN: 1. If we can locate a cuffless trach I will replace that today. 2. Discharge planning.
--- NOTE | 2017-11-21 11:17 | PDOC.FM ---
- Subjective Subjective: Patient doing well this morning with no complaints. No adverse events overnight. - Objective MAR Reviewed: Yes Vital Signs & Weight: Vital Signs (12 hours) Temp Pulse Resp BP BP Pulse Ox 11/21/17 09:30 96.3 F L 68 11 L 92 L 11/21/17 08:27 68 125/61 11/21/17 07:21 96.3 F L 68 11 L 101/62 92 L 11/21/17 00:00 97.1 F L 56 L 16 94/64 93 L Weight Admit Weight 260.362 kg Weight 260.362 kg Most Recent Monitor Data Heart Rate from ECG 56 NIBP 126/61 NIBP BP-Mean 93 Respiration from ECG 16 SpO2 92 I&O: 11/20/17 11/21/17 11/22/17 06:59 06:59 06:59 Intake Total 806 350 120 Output Total 1786 560 Balance -980 -210 120 Result Diagrams: 11/13/17 23:26 11/21/17 04:25 <Barbara Emery - Last Filed: 11/21/17 11:12> - Objective Vital Signs & Weight: Vital Signs (12 hours) Temp Pulse Pulse Pulse Pulse Resp BP 11/21/17 11:29 96.3 F L 60 7 L 11/21/17 11:13 61 56 L 59 L 11/21/17 09:30 96.3 F L 68 11 L 11/21/17 08:27 68 125/61 11/21/17 07:21 96.3 F L 68 11 L BP BP BP BP Pulse Ox Pulse Ox 11/21/17 11:29 110/48 L 90 L 11/21/17 11:13 101/61 113/56 L 93/58 L 94 L 11/21/17 09:30 92 L 11/21/17 08:27 11/21/17 07:21 101/62 92 L Weight Admit Weight 260.362 kg Weight 260.362 kg Most Recent Monitor Data Heart Rate from ECG 56 NIBP 126/61 NIBP BP-Mean 93 Respiration from ECG 16 SpO2 92 I&O: 11/20/17 11/21/17 11/22/17 06:59 06:59 06:59 Intake Total 806 350 120 Output Total 1786 560 Balance -980 -210 120 Result Diagrams: 11/13/17 23:26 11/21/17 04:25 <James Myers R - Last Filed: 11/21/17 13:49> Phys Exam - Physical Examination Constitutional: NAD Respiratory: clear to auscultation bilateral Cardiovascular: RRR Gastrointestinal: soft, non-tender Musculoskeletal: edema present Neurological: moves all 4 limbs Psychiatric: normal affect <Barbara Emery - Last Filed: 11/21/17 11:12> Dx/Plan (1) Chronic respiratory failure with hypoxia Code(s): J96.11 - CHRONIC RESPIRATORY FAILURE WITH HYPOXIA Status: Chronic (2) Sleep apnea Code(s): G47.30 - SLEEP APNEA, UNSPECIFIED Status: Acute (3) Obesity hypoventilation syndrome Code(s): E66.2 - MORBID (SEVERE) OBESITY WITH ALVEOLAR HYPOVENTILATION Status : Chronic (4) HIV disease Code(s): B20 - HUMAN IMMUNODEFICIENCY VIRUS [HIV] DISEASE Status: Chronic - Plan Plan: Chronic Hypoxic Respiratory Failure - Changed to cuffless trach today - will consult speech today Obesity Hypoventilation Syndrome - Same as above. Morbid Obesity - Pt on 800 kcal diet - PT ordered to assist pt with deconditioning Heart Failure with Reduced EF - Lasix restarted today. Will continue to monitor electrolytes. - I/Os, fluid restriction HIV - Continue HAART Depression - continue Sertraline Hypothyroidism - continue Synthroid Disposition: - Stable, Palliative care to arrange family discussion to address long-term goals of care. Pt will most likely benefit from long-term care at [facility]. <Barbara Emery C - Last Filed: 11/21/17 11:12> Attending Addendum - Attending Addendum Date/Time: 11/21/17 5436 I personally evaluated the patient and discussed the management with Dr. Emery. I agree with the History, Examination, Assessment and Plan documented above with any addition or exceptions noted below. Patient with no changes in health status. She underwent trach exchange successfully this morning and we will consult speech to see if they can train patient for PM speaking valve. Resuming mild diuretic due to her history of sCHF. Continue to monitor I/O. On calorie restriction. 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 <James Myers R - Last Filed: 11/21/17 13:49>
[2017-11-21] MEDS: Scopolamine 1.5 mg/72 hour Patch TD SCH (12:30)
[2017-11-21] MEDS: Nystatin Powder 15 GM BOT TOP PRN (20:39)
[2017-11-21] MEDS: Enoxaparin Sodium 40 MG/0.4 ML SYRINGE SC SCH (20:40)
[2017-11-22 04:26] LABS: BUN (Urea Nitrogen) 15 mg/dL (7.0-18.7); Calc. Creatinine Clearance 444 mL/min (70-130); Calcium 9.2 mg/dL (7.8-10.44); Estimated GFR-MDRD Greater than 90; Glucose 75 mg/dL (70-105); Magnesium 1.9 mg/dL (1.6-2.6); Phosphorus 4.1 mg/dL (2.3-4.7)
[2017-11-22 04:35] LABS: Anion Gap 10 mmol/L (10-20); Carbon Dioxide 37 mmol/L (22-29); Chloride 96 mmol/L (98-107); Potassium 3.8 mmol/L (3.5-5.1); Sodium 139 mmol/L (136-145)
[2017-11-22] MEDS: Levothyroxine Sodium 25 MCG TAB PO SCH (05:32)
--- NOTE | 2017-11-22 06:39 | PDOC.FM ---
- Subjective Subjective: Patient doing well this morning with no complaints. No adverse events overnight. - Objective MAR Reviewed: Yes Vital Signs & Weight: Vital Signs (12 hours) Temp Pulse Resp BP Pulse Ox 11/22/17 03:45 97.3 F L 69 18 130/63 93 L 11/22/17 00:02 97.4 F L 60 17 122/56 L 94 L 11/21/17 20:00 97.7 F 61 16 94 L 11/21/17 19:26 97.7 F 61 16 121/59 L 94 L Weight Admit Weight 260.362 kg Weight 260.362 kg Most Recent Monitor Data Heart Rate from ECG 56 NIBP 126/61 NIBP BP-Mean 93 Respiration from ECG 16 SpO2 92 I&O: 11/20/17 11/21/17 11/22/17 06:59 06:59 06:59 Intake Total 806 350 780 Output Total 9416 643 9101 Balance -980 210 0 Result Diagrams: 11/13/17 23:26 11/22/17 03:33 <Barbara Emery C - Last Filed: 11/22/17 08:41> - Objective Vital Signs & Weight: Vital Signs (12 hours) Temp Pulse Resp BP BP Pulse Ox 11/22/17 08:57 102/54 L 11/22/17 07:45 97 11/22/17 07:20 96.4 F L 57 L 7 L 106/43 L 92 L 11/22/17 03:45 97.3 F L 69 18 130/63 93 L 11/22/17 00:02 97.4 F L 60 17 122/56 L 94 L Weight Admit Weight 260.362 kg Weight 260.362 kg Most Recent Monitor Data Heart Rate from ECG 56 NIBP 126/61 NIBP BP-Mean 93 Respiration from ECG 16 SpO2 92 I&O: 11/21/17 11/22/17 11/23/17 06:59 06:59 06:59 Intake Total 350 780 Output Total 560 2600 Balance -210 -1820 Result Diagrams: 11/13/17 23:26 11/22/17 03:33 <James Myers R - Last Filed: 11/22/17 10:51> Phys Exam - Physical Examination Constitutional: NAD scattered wheezes Cardiovascular: RRR Gastrointestinal: soft, non-tender, no distention Musculoskeletal: edema present Neurological: moves all 4 limbs Psychiatric: normal affect <Barbara Emery - Last Filed: 11/22/17 08:41> Dx/Plan (1) Chronic respiratory failure with hypoxia Code(s): J96.11 - CHRONIC RESPIRATORY FAILURE WITH HYPOXIA Status: Chronic (2) Sleep apnea Code(s): G47.30 - SLEEP APNEA, UNSPECIFIED Status: Acute (3) Obesity hypoventilation syndrome Code(s): E66.2 - MORBID (SEVERE) OBESITY WITH ALVEOLAR HYPOVENTILATION Status : Chronic (4) HIV disease Code(s): B20 - HUMAN IMMUNODEFICIENCY VIRUS [HIV] DISEASE Status: Chronic - Plan Plan: Chronic Hypoxic Respiratory failure 2/2 obesity hypoventilation syndrome - cuffless trach placed yesterday. - pt currently on trach collar. - passey-maldonado valve placed by speech. - duonebs - Day 3 of Augmentin for thick secretions; scopolamine patch in place as well Morbid Obesity - continue calorie restricted diet. - PT Deconditioning - PT on board Systolic Congestive Heart Failure - continue diuresis - -1820 ml fluid balance - continue strict i/o fluid restriction HIV - continue Antiretroviral therapy Hypothyroidism - continue levothyroxine Depression - Continue Sertraline Disposition: stable. Pt is profoundly deconditioned. Family failed to show up for family meeting yesterday. CM spoke with pt and pt's mother over the phone and both decline NH placement, and would like pt to return home. We will continue PT with the goal of pt being able to ambulate with assistance. We will revisit NH conversation if pt does not make improvements in reasonable amount of time. <Barbara Emery - Last Filed: 11/22/17 08:41> Attending Addendum - Attending Addendum Date/Time: 11/22/17 3168 I personally evaluated the patient and discussed the management with Dr. Emery. I agree with the History, Examination, Assessment and Plan documented above with any addition or exceptions noted below. Patient without complaint this morning. She has been able to use PM speaking valve now that cuff has been exchanged. She is severely deconditioned and not safe to return home at the moment. Will have therapy work with patient, but will need to continue conversations with family about at least short term placement at SNF for further therapy services. Continue abx for her tracheal secretions. Will back off diuresis today and see how she does on a once daily regimen of Lasix. <James Myers - Last Filed: 11/22/17 10:51>
--- NOTE | 2017-11-22 08:04 | PRG ---
DATE OF SERVICE: 11/22/2017 The patient is somnolent, but easily arousable. Appears to be in no distress. PHYSICAL EXAMINATION: VITAL SIGNS: Temperature 96.4, pulse 57, respirations 18, O2 sat 97% on trach collar, blood pressure 106/43. HEENT: Unremarkable. NECK: Trach in good position. LUNGS: Clear. CARDIOVASCULAR: S1, S2 regular. ABDOMEN: Obese, soft. EXTREMITIES: Edematous. LABORATORY DATA: Sodium 139, potassium 3.8, chloride 96, CO2 37, BUN 15, creatinine 0.7, glucose 75. ASSESSMENT: 1. Obesity hypoventilation syndrome. 2. Chronic respiratory failure. PLAN: This is essentially her baseline. It is clear that she is not getting good care at home. She is also incapable of making good decisions regarding her health. My bias would be to try to get her in a senior care, but apparently the patient and the patient's family is not agreeable. Based on t hat, I think we have done just about everything that we can and would anticipate her being discharged to home soon.
[2017-11-22] MEDS: Amoxicillin/Potassium Clav 875 MG TAB PO SCH ×2 (08:55→20:51)
[2017-11-22] MEDS: Fluconazole 100 MG TAB PO SCH (08:55)
[2017-11-22] MEDS: Magnesium Oxide 400 MG TAB PO SCH ×2 (08:56→20:52)
[2017-11-22] MEDS: Aspirin 81 mg Enteric Coated Tablet PO SCH (08:56)
[2017-11-22] MEDS: Metolazone 5 MG TAB PO SCH (08:56)
[2017-11-22] MEDS: AcetaZOLAMIDE 250 MG TAB PO SCH ×2 (08:56→20:51)
[2017-11-22] MEDS: guaiFENesin ER 600 MG TAB PO SCH ×2 (08:56→20:52)
[2017-11-22] MEDS: Carvedilol 25 MG TAB PO SCH ×2 (08:56→20:51)
[2017-11-22] MEDS: Furosemide 40 MG TAB PO SCH (08:56)
[2017-11-22] MEDS: Aquaphor 30 GM 99 GM, Cholestyramine/Aspartame 4 GM TOP SCH ×2 (08:57→20:55)
[2017-11-22] MEDS: Multivitamin W/ Minerals 1 TAB PER TUBE SCH (08:57)
[2017-11-22] MEDS: Amlodipine 5 MG TAB PO SCH (08:57)
--- NOTE | 2017-11-22 10:22 | PDOC.EVN ---
Event Note - Event Note Event Note: I spoke with patient's Mom (Venice Meyer [phone]) and informed her of patient's current status. She is very weak and may not progress in a reasonable amount with PT in the hospital. Pt's Mom is still adamantly opposed to long- term NH care, however she would like to discuss the possibility of SNF with her other daughters.
[2017-11-22] MEDS: Lopinavir/Ritonavir 80 MG/20 MG per ML Oral Solution PO SCH ×2 (16:59→20:52)
[2017-11-22] MEDS: Enoxaparin Sodium 40 MG/0.4 ML SYRINGE SC SCH (20:52)
[2017-11-23 04:09] LABS: BUN (Urea Nitrogen) 16 mg/dL (7.0-18.7); Calc. Creatinine Clearance 438 mL/min (70-130); Calcium 9.2 mg/dL (7.8-10.44); Estimated GFR-MDRD Greater than 90; Glucose 76 mg/dL (70-105); Magnesium 2.1 mg/dL (1.6-2.6); Phosphorus 4.6 mg/dL (2.3-4.7)
[2017-11-23 04:11] LABS: Anion Gap 8 mmol/L (10-20); Carbon Dioxide 39 mmol/L (22-29); Chloride 94 mmol/L (98-107); Potassium 4.4 mmol/L (3.5-5.1); Sodium 137 mmol/L (136-145)
[2017-11-23] MEDS: Levothyroxine Sodium 25 MCG TAB PO SCH (05:54)
[2017-11-23] MEDS: Fluconazole 100 MG TAB PO SCH (07:58)
[2017-11-23] MEDS: Aspirin 81 mg Enteric Coated Tablet PO SCH (07:58)
[2017-11-23] MEDS: AcetaZOLAMIDE 250 MG TAB PO SCH ×2 (07:58→23:01)
[2017-11-23] MEDS: Magnesium Oxide 400 MG TAB PO SCH ×2 (07:59→23:02)
[2017-11-23] MEDS: guaiFENesin ER 600 MG TAB PO SCH ×2 (07:59→23:02)
[2017-11-23] MEDS: Amlodipine 5 MG TAB PO SCH (07:59)
[2017-11-23] MEDS: Multivitamin W/ Minerals 1 TAB PER TUBE SCH (07:59)
[2017-11-23] MEDS: Metolazone 5 MG TAB PO SCH (07:59)
[2017-11-23] MEDS: Carvedilol 25 MG TAB PO SCH ×2 (08:00→23:02)
[2017-11-23] MEDS: Lopinavir/Ritonavir 80 MG/20 MG per ML Oral Solution PO SCH ×2 (08:00→23:02)
[2017-11-23] MEDS: Amoxicillin/Potassium Clav 875 MG TAB PO SCH ×2 (08:03→23:01)
[2017-11-23] MEDS: Aquaphor 30 GM 99 GM, Cholestyramine/Aspartame 4 GM TOP SCH ×2 (08:03→23:02)
--- NOTE | 2017-11-23 08:11 | PDOC.FM ---
- Subjective Subjective: Patient doing well this morning with no adverse events overnight. - Objective MAR Reviewed: Yes Vital Signs & Weight: Vital Signs (12 hours) Temp Pulse Resp BP BP Pulse Ox 11/23/17 07:59 67 119/59 L 11/23/17 07:00 97.7 F 67 22 H 119/59 L 90 L 11/23/17 05:16 93 L 11/23/17 04:02 97.6 F 72 20 124/55 L 90 L 11/23/17 00:02 97.7 F 57 L 19 109/50 L 90 L Weight Admit Weight 260.362 kg Weight 260.362 kg Most Recent Monitor Data Heart Rate from ECG 56 NIBP 126/61 NIBP BP-Mean 93 Respiration from ECG 16 SpO2 92 I&O: 11/22/17 11/23/17 11/24/17 06:59 06:59 06:59 Intake Total 780 725 Output Total 2600 2300 Balance -1820 -1575 Result Diagrams: 11/13/17 23:26 11/23/17 03:34 <Barbara Emery C - Last Filed: 11/23/17 08:10> - Objective Vital Signs & Weight: Vital Signs (12 hours) Temp Pulse Resp BP BP Pulse Ox 11/23/17 07:59 67 119/59 L 11/23/17 07:00 97.7 F 67 22 H 119/59 L 90 L 11/23/17 05:16 93 L 11/23/17 04:02 97.6 F 72 20 124/55 L 90 L 11/23/17 00:02 97.7 F 57 L 19 109/50 L 90 L Weight Admit Weight 260.362 kg Weight 260.362 kg Most Recent Monitor Data Heart Rate from ECG 56 NIBP 126/61 NIBP BP-Mean 93 Respiration from ECG 16 SpO2 92 I&O: 11/22/17 11/23/17 11/24/17 06:59 06:59 06:59 Intake Total 780 725 Output Total 2600 2300 Balance -1820 -1575 Result Diagrams: 11/13/17 23:26 11/23/17 03:34 <James Myers R - Last Filed: 11/23/17 10:47> Phys Exam - Physical Examination Constitutional: NAD scattered wheezes and rhonchi Cardiovascular: RRR Gastrointestinal: soft, non-tender Musculoskeletal: edema present Neurological: moves all 4 limbs Psychiatric: normal affect <Barbara Emery - Last Filed: 11/23/17 08:10> Dx/Plan (1) Chronic respiratory failure with hypoxia Code(s): J96.11 - CHRONIC RESPIRATORY FAILURE WITH HYPOXIA Status: Chronic (2) Sleep apnea Code(s): G47.30 - SLEEP APNEA, UNSPECIFIED Status: Acute (3) Obesity hypoventilation syndrome Code(s): E66.2 - MORBID (SEVERE) OBESITY WITH ALVEOLAR HYPOVENTILATION Status : Chronic (4) HIV disease Code(s): B20 - HUMAN IMMUNODEFICIENCY VIRUS [HIV] DISEASE Status: Chronic - Plan Plan: Chronic hypoxic respiratory failure 2/2 obesity hypoventilation syndrome - trach collar. Heart failure with reduced EF - Diuresis with Lasix - I/O, fluid restriction Morbid Obesity - calorie restricted diet. HIV - continue HAART Depression - continue sertraline Hypothyroidism - continue Levothyroxine Disposition: Pt is stable; will attempt to work with pt's family and CM regarding possible placement to SNF. <Barbara Emery - Last Filed: 11/23/17 08:10> Attending Addendum - Attending Addendum Date/Time: 11/23/17 1045 I personally evaluated the patient and discussed the management with Dr. Emery. I agree with the History, Examination, Assessment and Plan documented above with any addition or exceptions noted below. Patient stable. We have got her back to her baseline and she is doing well. She is overall stable for discharge from a medical standpoint. She still requires max assist to do any activity, and will discuss with family again today about sending her to SNF as this would be beneficial to her. However, if family does not want to pursue this, she can be discharged home, though I highly doubt the family has the capability to care for her. <James Myers - Last Filed: 11/23/17 10:47>
[2017-11-23] MEDS ORDERED: Furosemide 40 MG TAB PO SCH (09:00)
--- NOTE | 2017-11-23 10:17 | PRG ---
DATE OF SERVICE: 11/23/2017 The patient is about the same. PHYSICAL EXAMINATION: VITAL SIGNS: Temperature 97.7, pulse 87, blood pressure 119/59, O2 sat 90% on trach collar. HEENT: Unremarkable. NECK: Copious tracheal secretions. CARDIAC: S1 and S2 regular. ABDOMEN: Soft, nontender. EXTREMITIES: Edematous. LABORATORY DATA: Sodium 137, potassium 3.4, chloride 94, CO2 39, BUN 16, creatinine 0.8, glucose 76. ASSESSMENT: 1. Obesity hypoventilation syndrome. 2. Thick tracheal secretions. PLAN: 1. Stop the scopolamine as this is probably thickening secretions. 2. Continue the Mucinex. 3. Continue antibiotics. 4. Placement.
--- NOTE | 2017-11-23 15:26 | RAD ---
CHEST 1 VIEW: HISTORY: Hypoxia. Aspiration, cough. COMPARISON: Chest radiograph dated 11/16/17. FINDINGS: Tracheostomy tube tip at the level of the clavicles. Heart size is markedly enlarged. Marked dilata tion of the pulmonary arteries. There appears to be motion through the hilum bilaterally. IMPRESSION: 1. Marked cardiomegaly and pulmonary arterial hypertension. 2. Likely motion and less likely consolidation along the hilum bilaterally. POS: C
[2017-11-23] MEDS: Enoxaparin Sodium 40 MG/0.4 ML SYRINGE SC SCH (23:02)
[2017-11-24 04:27] LABS: BUN (Urea Nitrogen) 16 mg/dL (7.0-18.7); Calc. Creatinine Clearance 438 mL/min (70-130); Calcium 9.2 mg/dL (7.8-10.44); Estimated GFR-MDRD Greater than 90; Glucose 69 mg/dL (70-105); Magnesium 1.9 mg/dL (1.6-2.6); Phosphorus 4.1 mg/dL (2.3-4.7)
[2017-11-24 04:37] LABS: Anion Gap 11 mmol/L (10-20); Carbon Dioxide 39 mmol/L (22-29); Chloride 94 mmol/L (98-107); Potassium 3.9 mmol/L (3.5-5.1); Sodium 140 mmol/L (136-145)
[2017-11-24] MEDS: Levothyroxine Sodium 25 MCG TAB PO SCH (07:22)
--- NOTE | 2017-11-24 08:22 | PDOC.FM ---
- Subjective Subjective: Patient continues to refuse to eat most of her food because of the taste. She refuses to answer questions this morning. - Objective MAR Reviewed: Yes Vital Signs & Weight: Vital Signs (12 hours) Temp Pulse Resp BP Pulse Ox 11/24/17 07:00 97.0 F L 68 24 H 116/71 90 L 11/24/17 04:00 98.4 F 70 20 122/62 90 L 11/24/17 00:00 97.4 F L 74 18 120/66 92 L Weight Admit Weight 260.362 kg Weight 260.362 kg Most Recent Monitor Data Heart Rate from ECG 56 NIBP 126/61 NIBP BP-Mean 93 Respiration from ECG 16 SpO2 92 I&O: 11/23/17 11/24/17 11/25/17 06:59 06:59 06:59 Intake Total 725 150 Output Total 2300 2950 Balance -1573 -9747 Result Diagrams: 11/13/17 23:26 11/24/17 03:44 <Barbara Emery C - Last Filed: 11/24/17 11:19> - Objective Vital Signs & Weight: Vital Signs (12 hours) Temp Pulse Resp BP BP Pulse Ox 11/24/17 11:00 97.1 F L 64 22 H 116/56 L 92 L 11/24/17 08:48 68 133/64 11/24/17 07:00 97.0 F L 68 24 H 116/71 90 L 11/24/17 04:00 98.4 F 70 20 122/62 90 L 11/24/17 00:00 97.4 F L 74 18 120/66 92 L Weight Admit Weight 260.362 kg Weight 260.362 kg Most Recent Monitor Data Heart Rate from ECG 56 NIBP 126/61 NIBP BP-Mean 93 Respiration from ECG 16 SpO2 92 I&O: 11/23/17 11/24/17 11/25/17 06:59 06:59 06:59 Intake Total 725 150 Output Total 2300 2950 Balance -1575 -2800 Result Diagrams: 11/13/17 23:26 11/24/17 03:44 <James Myers R - Last Filed: 11/24/17 11:39> Phys Exam - Physical Examination Constitutional: NAD Respiratory: clear to auscultation bilateral Cardiovascular: RRR Gastrointestinal: soft, non-tender Musculoskeletal: edema present Neurological: moves all 4 limbs Psychiatric: A&O x 3 <Barbara Emery - Last Filed: 11/24/17 11:19> Dx/Plan (1) Chronic respiratory failure with hypoxia Code(s): J96.11 - CHRONIC RESPIRATORY FAILURE WITH HYPOXIA Status: Chronic (2) Sleep apnea Code(s): G47.30 - SLEEP APNEA, UNSPECIFIED Status: Acute (3) Obesity hypoventilation syndrome Code(s): E66.2 - MORBID (SEVERE) OBESITY WITH ALVEOLAR HYPOVENTILATION Status : Chronic (4) HIV disease Code(s): B20 - HUMAN IMMUNODEFICIENCY VIRUS [HIV] DISEASE Status: Chronic - Plan Plan: Chronic hypoxic respiratory failure secondary to obesity hypoventilation syndrome - stable on trach collar Chronic metabolic alkalosis - chronically elevated; continue Diamox HIV - continue HAART Morbid obesity - continue PT Depression - continue Sertraline Disposition: stable, placement pending. [facility] evaluating pt' s case today. <Barbara Emery - Last Filed: 11/24/17 11:19> Attending Addendum - Attending Addendum Date/Time: 11/24/17 7739 I personally evaluated the patient and discussed the management with Dr. Emery. I agree with the History, Examination, Assessment and Plan documented above with any addition or exceptions noted below. Patient with no active issues. She is stable for discharge and is awaiting potential NH placement. If denied, will move to discharge home. <James Myers - Last Filed: 11/24/17 11:39>
[2017-11-24] MEDS: Amoxicillin/Potassium Clav 875 MG TAB PO SCH ×2 (08:47→22:51)
[2017-11-24] MEDS: Fluconazole 100 MG TAB PO SCH (08:47)
[2017-11-24] MEDS: AcetaZOLAMIDE 250 MG TAB PO SCH ×2 (08:48→22:52)
[2017-11-24] MEDS: Furosemide 20 MG TAB PO SCH (08:48)
[2017-11-24] MEDS: Amlodipine 5 MG TAB PO SCH (08:48)
[2017-11-24] MEDS: Carvedilol 25 MG TAB PO SCH ×2 (08:48→22:52)
[2017-11-24] MEDS: Multivitamin W/ Minerals 1 TAB PER TUBE SCH (08:48)
[2017-11-24] MEDS: Aspirin 81 mg Enteric Coated Tablet PO SCH (08:49)
[2017-11-24] MEDS: guaiFENesin ER 600 MG TAB PO SCH ×2 (08:49→22:52)
[2017-11-24] MEDS: Lopinavir/Ritonavir 80 MG/20 MG per ML Oral Solution PO SCH ×2 (08:49→22:52)
[2017-11-24] MEDS: Magnesium Oxide 400 MG TAB PO SCH ×2 (08:49→22:52)
[2017-11-24] MEDS: Aquaphor 30 GM 99 GM, Cholestyramine/Aspartame 4 GM TOP SCH ×2 (08:50→22:53)
--- NOTE | 2017-11-24 09:06 | PRG ---
DATE OF SERVICE: 11/24/2017 Merle remains in Intermediate Care. Does not look much different from yesterday. PHYSICAL EXAMINATION: VITAL SIGNS: Temperature 97.0, pulse 68, respirations 24, O2 sat 90% on a trach collar, blood pressu re 116/71. HEENT: Unremarkable. NECK: Tracheostomy continues to have copious secretions. LUNGS: Distant breath sounds. CARDIAC: S1 and S2 regular. ABDOMEN: Soft, obese. EXTREMITIES: Edematous. LABORATORY DATA: Sodium 140, potassium 3.9, chloride 94, CO2 39, BUN 16, creatinine 0.8, glucose 69. ASSESSMENT: 1. Obesity hypoventilation syndrome. 2. Status post acute on chronic respiratory failure. 3. Morbid obesity. 4. Human immunodeficiency virus. PLAN: The patient is probably near her baseline. I do not think she will do well at home for reason s that have been discussed previously. Yesterday her scopolamine patch was stopped because she was h aving too thick secretions. She is continuing on antibiotics, though it does not look like they have had much effect up to this point. Prognosis is extremely poor.
--- NOTE | 2017-11-24 17:26 | PDOC.FM ---
- Subjective Subjective: This is a Transition of Care document Reflecting - Objective Vital Signs & Weight: Vital Signs (12 hours) Temp Pulse Pulse Pulse Resp BP BP 11/24/17 15:00 97.2 F L 64 22 H 11/24/17 13:22 59 L 67 127/64 11/24/17 11:00 97.1 F L 64 22 H 11/24/17 08:48 68 133/64 11/24/17 08:00 97.1 F L 64 22 H 11/24/17 07:00 97.0 F L 68 24 H BP BP Pulse Ox Pulse Ox Pulse Ox 11/24/17 15:00 125/62 93 L 11/24/17 13:22 130/64 92 L 95 11/24/17 11:00 116/56 L 92 L 11/24/17 08:48 11/24/17 08:00 92 L 11/24/17 07:00 116/71 90 L Weight Admit Weight 260.362 kg Weight 260.362 kg Most Recent Monitor Data Heart Rate from ECG 56 NIBP 126/61 NIBP BP-Mean 93 Respiration from ECG 16 SpO2 92 I&O: 11/23/17 11/24/17 11/25/17 06:59 06:59 06:59 Intake Total 725 150 Output Total 2300 2950 Balance -1575 -2800 Result Diagrams: 11/13/17 23:26 11/24/17 03:44 Dx/Plan (1) Chronic respiratory failure with hypoxia Code(s): J96.11 - CHRONIC RESPIRATORY FAILURE WITH HYPOXIA Status: Chronic (2) Sleep apnea Code(s): G47.30 - SLEEP APNEA, UNSPECIFIED Status: Acute (3) Obesity hypoventilation syndrome Code(s): E66.2 - MORBID (SEVERE) OBESITY WITH ALVEOLAR HYPOVENTILATION Status : Chronic (4) HIV disease Code(s): B20 - HUMAN IMMUNODEFICIENCY VIRUS [HIV] DISEASE Status: Chronic
--- NOTE | 2017-11-24 17:28 | PDOC.EVN ---
Event Note - Event Note Event Note: This is a transition of care document reflecting patient's hospitalization from 11/14 - 11/24. Admission date: 11/14/2017 Resident: Barbara Emery MD PGY-2 Admitting Attending: José Miguel Robert MD Consults: Brandon Ramirez MD Procedures: Mechanical Ventilation (11/16-11/18) Primary Diagnoses: 1. Chronic Hypoxic Respiratory failure secondary to obesity hypoventilation syndrome 2. Exacerbation of heart failure with reduced ejection fraction Secondary Diagnoses: 1. Morbid Obesity 2. HIV 3. Depression 4. Hypothyroidism 5. Chronically elevated bicarbonate 6. Hyperkalemia, resolved 7. Medication noncompliance Hospital Course: Patient is a 27 year female with the above history who presented to the ED with a chief complaint of abdominal swelling and bilateral lower extremity edema. Patient was initially admitted to telemetry. Diuresis with Lasix was initiated. Pt was transferred to the ICU due to concerns for hypoxia. She was placed on mechanical ventilation to potentiate the effects of diuresis. She was weaned off of mechanical ventilation after about 48 hours and placed back on trach collar. She has been able to maintain saturations. Patient became hyperkalemic. She received appropriate treatment for this. Her Lisinopril has been held in order to prevent future episodes. During this hospitalization, she has been profoundly deconditioned and has had a difficult time working with physical therapy. It was recommended to her and her family that they consider placement at a fpc, at least temporarily , because at this point in time it would not be safe for her to return directly home. She needs further assistance. Case management is working to assist with placement.
[2017-11-24] MEDS: Enoxaparin Sodium 40 MG/0.4 ML SYRINGE SC SCH (22:52)
[2017-11-25 05:16] LABS: BUN (Urea Nitrogen) 13 mg/dL (7.0-18.7); Calc. Creatinine Clearance 474 mL/min (70-130); Calcium 8.8 mg/dL (7.8-10.44); Estimated GFR-MDRD Greater than 90; Glucose 77 mg/dL (70-105); Magnesium 1.7 mg/dL (1.6-2.6); Phosphorus 3.8 mg/dL (2.3-4.7)
[2017-11-25 05:26] LABS: Anion Gap 10 mmol/L (10-20); Carbon Dioxide 40 mmol/L (22-29); Chloride 92 mmol/L (98-107); Potassium 3.8 mmol/L (3.5-5.1); Sodium 138 mmol/L (136-145)
[2017-11-25] MEDS: Levothyroxine Sodium 25 MCG TAB PO SCH (06:04)
--- NOTE | 2017-11-25 07:54 | PDOC.FM ---
- Subjective Subjective: This morning the patient states that she is not in any pain. She is feeling thirsty this morning. Patient nods that she understands why she needs to go to [place] although she would prefer to be at home. - Objective Vital Signs & Weight: Vital Signs (12 hours) Temp Pulse Resp BP Pulse Ox 11/25/17 06:00 98.4 F 65 20 104/57 L 95 11/25/17 00:11 91 L 11/24/17 21:10 98.7 F 65 24 H 98 Weight Admit Weight 260.362 kg Weight 260.362 kg Most Recent Monitor Data Heart Rate from ECG 56 NIBP 126/61 NIBP BP-Mean 93 Respiration from ECG 16 SpO2 92 I&O: 11/24/17 11/25/17 11/26/17 06:59 06:59 06:59 Intake Total 150 200 Output Total 2950 2500 Balance -2800 -2300 Result Diagrams: 11/13/17 23:26 11/25/17 04:37 <Gustavo Ceron - Last Filed: 11/25/17 07:54> - Objective Vital Signs & Weight: Vital Signs (12 hours) Temp Pulse Resp BP Pulse Ox 11/25/17 08:55 68 11/25/17 08:00 98.8 F 68 22 H 95/38 L 88 L 11/25/17 07:54 90 L 11/25/17 06:00 98.4 F 65 20 104/57 L 95 11/25/17 00:11 91 L Weight Admit Weight 260.362 kg Weight 260.362 kg Most Recent Monitor Data Heart Rate from ECG 56 NIBP 126/61 NIBP BP-Mean 93 Respiration from ECG 16 SpO2 92 I&O: 11/24/17 11/25/17 11/26/17 06:59 06:59 06:59 Intake Total 150 200 Output Total 2950 2500 Balance -2800 -2300 Result Diagrams: 11/13/17 23:26 11/25/17 04:37 <Saskia Chung - Last Filed: 11/25/17 10:40> Phys Exam - Physical Examination Constitutional: NAD Neck: no nodes, full ROM expiratory wheeze, air movement improving Cardiovascular: RRR, no significant murmur Gastrointestinal: soft, non-tender, no distention, positive bowel sounds morbid obesity Musculoskeletal: no edema Neurological: non-focal, moves all 4 limbs Psychiatric: A&O x 3 Deviation from normal: depressed Skin: no rash, cap refill <2 seconds <Gustavo Ceron - Last Filed: 11/25/17 07:54> Dx/Plan (1) MDD (major depressive disorder) Code(s): F32.9 - MAJOR DEPRESSIVE DISORDER, SINGLE EPISODE, UNSPECIFIED Status : Acute (2) Hyperkalemia Code(s): E87.5 - HYPERKALEMIA Status: Resolved (3) Acute on chronic respiratory failure with hypoxia and hypercapnia Code(s): J96.21 - ACUTE AND CHRONIC RESPIRATORY FAILURE WITH HYPOXIA; J96.22 - ACUTE AND CHRONIC RESPIRATORY FAILURE WITH HYPERCAPNIA Status: Acute (4) Acute respiratory failure with hypercapnia Code(s): J96.02 - ACUTE RESPIRATORY FAILURE WITH HYPERCAPNIA Status: Acute (5) Metabolic alkalosis Code(s): E87.3 - ALKALOSIS Status: Acute (6) Obesity Code(s): E66.9 - OBESITY, UNSPECIFIED Status: Acute (7) Sleep apnea Code(s): G47.30 - SLEEP APNEA, UNSPECIFIED Status: Acute (8) Chronic respiratory failure with hypoxia Code(s): J96.11 - CHRONIC RESPIRATORY FAILURE WITH HYPOXIA Status: Chronic (9) HIV disease Code(s): B20 - HUMAN IMMUNODEFICIENCY VIRUS [HIV] DISEASE Status: Chronic - Plan Plan: # Chronic hypoxic respiratory failure 2/2 obesity hypoventilation syndrome - stable on trach collar ovenright # Chronic metabolic alkalosis - chronically elevated; continue Diamox - bicarb 40 today # HIV - continue HAART # Morbid obesity - continue PT # Depression - continue Sertraline Disposition: stable, guarded prognosis, awaiting placement, may need to expand search radius if [facility] does not accept, following closely along with CM <Gustavo Ceron - Last Filed: 11/25/17 07:54> Attending Addendum - Attending Addendum Date/Time: 11/25/17 1039 I personally evaluated the patient and discussed the management with Dr. Ceron I agree with the History, Examination, Assessment and Plan documented above with any addition or exceptions noted below. The patient is back to baseline. Waiting on placement at a SNF. <Saskia Chung - Last Filed: 11/25/17 10:40>
[2017-11-25] MEDS: Multivitamin W/ Minerals 1 TAB PER TUBE SCH (08:55)
[2017-11-25] MEDS: AcetaZOLAMIDE 250 MG TAB PO SCH ×2 (08:55→13:11)
[2017-11-25] MEDS: Fluconazole 100 MG TAB PO SCH (08:55)
[2017-11-25] MEDS: Aspirin 81 mg Enteric Coated Tablet PO SCH (08:55)
[2017-11-25] MEDS: guaiFENesin ER 600 MG TAB PO SCH ×2 (08:55→20:49)
[2017-11-25] MEDS: Amlodipine 5 MG TAB PO SCH (08:55)
[2017-11-25] MEDS: Carvedilol 25 MG TAB PO SCH ×3 (08:55→21:01)
[2017-11-25] MEDS: Amoxicillin/Potassium Clav 875 MG TAB PO SCH ×2 (08:55→20:51)
[2017-11-25] MEDS: Furosemide 20 MG TAB PO SCH (08:55)
[2017-11-25] MEDS: Magnesium Oxide 400 MG TAB PO SCH ×2 (08:55→20:50)
[2017-11-25] MEDS: Nystatin Powder 15 GM BOT TOP PRN ×2 (08:56→20:53)
[2017-11-25] MEDS: Aquaphor 30 GM 99 GM, Cholestyramine/Aspartame 4 GM TOP SCH ×2 (08:57→20:53)
[2017-11-25] MEDS: Lopinavir/Ritonavir 80 MG/20 MG per ML Oral Solution PO SCH ×2 (11:02→21:36)
--- NOTE | 2017-11-25 11:17 | PRG ---
DATE OF SERVICE: 11/25/2017 SUBJECTIVE: The patient is sleeping. She will wake up with stimulation. OBJECTIVE: VITAL SIGNS: Temperature is 98.8, pulse 68, respirations 22, O2 sat 88%, blood pressure 95/38. GENERAL: She is in no acute distress. HEENT: Unremarkable. NECK: Trach in good position. LUNGS: Distant breath sounds. CARDIAC: S1 and S2 regular. ABDOMEN: Morbidly obese. LABORATORY DATA: Sodium 138, potassium 3.8, chloride 92, CO2 of 40, BUN 13, creatinine 0.7, glucose 77. ASSESSMENT: 1. Obesity hypoventilation syndrome. 2. Sleep apnea. 3. Morbid obesity. RECOMMENDATIONS: I would go ahead and stop the Lasix and just continue with the Diamox, but increase the dose to 500 twice a day. She needs to continue on calorie restriction. intermediate placement.
[2017-11-25] MEDS: Enoxaparin Sodium 40 MG/0.4 ML SYRINGE SC SCH (20:51)
[2017-11-26] MEDS: AcetaZOLAMIDE 250 MG TAB PO SCH ×3 (00:41→23:22)
--- NOTE | 2017-11-26 05:22 | PDOC.FM ---
- Subjective Subjective: This morning the patient states she is feeling about the same as yesterday. She denies any shortness of breath or cough. She denies any pain at the time of exam. She states she has no questions and would like to sleep now and visit later in the day. - Objective Vital Signs & Weight: Vital Signs (12 hours) Temp Pulse Resp BP Pulse Ox 11/26/17 04:01 97.6 F 74 22 H 118/72 90 L 11/26/17 00:31 97.4 F L 72 21 H 106/41 L 91 L 11/25/17 20:00 97.4 F L 64 22 H 90 L 11/25/17 19:29 97.4 F L 64 22 H 110/54 L 90 L Weight Admit Weight 260.362 kg Weight 260.362 kg Most Recent Monitor Data Heart Rate from ECG 56 NIBP 126/61 NIBP BP-Mean 93 Respiration from ECG 16 SpO2 92 I&O: 11/24/17 11/25/17 11/26/17 06:59 06:59 06:59 Intake Total 150 200 Output Total 2950 2500 950 Balance -2800 -2300 -950 Result Diagrams: 11/13/17 23:26 11/26/17 04:51 <Gustavo Ceron - Last Filed: 11/26/17 07:01> - Objective Vital Signs & Weight: Vital Signs (12 hours) Temp Pulse Resp BP Pulse Ox 11/26/17 11:06 97.5 F L 78 22 H 124/62 98 11/26/17 10:19 73 11/26/17 07:48 97.8 F 73 24 H 92 L 11/26/17 07:20 97.8 F 73 24 H 118/72 96 11/26/17 04:01 97.6 F 74 22 H 118/72 90 L Weight Admit Weight 260.362 kg Weight 260.362 kg Most Recent Monitor Data Heart Rate from ECG 56 NIBP 126/61 NIBP BP-Mean 93 Respiration from ECG 16 SpO2 92 I&O: 11/25/17 11/26/17 11/27/17 06:59 06:59 06:59 Intake Total 200 150 Output Total 2500 1950 Balance -2300 -1800 Result Diagrams: 11/13/17 23:26 11/26/17 04:51 <Saskia Chung - Last Filed: 11/26/17 12:32> Phys Exam - Physical Examination Constitutional: NAD HEENT: moist MMs Respiratory: wheezing present (expiratory wheezes bilaterally) distant breath sounds, moving air at her baseline Cardiovascular: RRR, no significant murmur Gastrointestinal: soft, non-tender, positive bowel sounds morbidly obese Musculoskeletal: edema present trace edema Neurological: non-focal, moves all 4 limbs Psychiatric: A&O x 3 Deviation from normal: flat affect Skin: no rash, cap refill <2 seconds <Gustavo Ceron - Last Filed: 11/26/17 07:01> Dx/Plan (1) MDD (major depressive disorder) Code(s): F32.9 - MAJOR DEPRESSIVE DISORDER, SINGLE EPISODE, UNSPECIFIED Status : Acute (2) Hyperkalemia Code(s): E87.5 - HYPERKALEMIA Status: Resolved (3) Acute on chronic respiratory failure with hypoxia and hypercapnia Code(s): J96.21 - ACUTE AND CHRONIC RESPIRATORY FAILURE WITH HYPOXIA; J96.22 - ACUTE AND CHRONIC RESPIRATORY FAILURE WITH HYPERCAPNIA Status: Acute (4) Acute respiratory failure with hypercapnia Code(s): J96.02 - ACUTE RESPIRATORY FAILURE WITH HYPERCAPNIA Status: Acute (5) Metabolic alkalosis Code(s): E87.3 - ALKALOSIS Status: Acute (6) Obesity Code(s): E66.9 - OBESITY, UNSPECIFIED Status: Acute (7) Sleep apnea Code(s): G47.30 - SLEEP APNEA, UNSPECIFIED Status: Acute (8) Chronic respiratory failure with hypoxia Code(s): J96.11 - CHRONIC RESPIRATORY FAILURE WITH HYPOXIA Status: Chronic (9) HIV disease Code(s): B20 - HUMAN IMMUNODEFICIENCY VIRUS [HIV] DISEASE Status: Chronic - Plan Plan: # Chronic hypoxic respiratory failure 2/2 obesity hypoventilation syndrome - stable on trach collar ovenright - sats in mid 90s on exam # Chronic metabolic alkalosis - chronically elevated; Diamox increased to 500 BID - continue to monitor bicarb # Chronic CHF - Diamox - lasix held # HIV - continue HAART # Morbid obesity - continue PT # Depression - continue Sertraline # Hyperkalemia - resolved - conitinue to monitor Disposition: stable, guarded prognosis, awaiting placement, may need to expand search radius if [place] does not accept, following closely along with CM <Gustavo Ceron - Last Filed: 11/26/17 07:01> Attending Addendum - Attending Addendum Date/Time: 11/26/17 1232 I personally evaluated the patient and discussed the management with Dr. Ceron. I agree with the History, Examination, Assessment and Plan documented above with any addition or exceptions noted below. The patient is stable with trach. She is waiting on acceptance at a snf. <Saskia Chung - Last Filed: 11/26/17 12:32>
[2017-11-26 05:24] LABS: BUN (Urea Nitrogen) 12 mg/dL (7.0-18.7); Calc. Creatinine Clearance 487 mL/min (70-130); Calcium 9.3 mg/dL (7.8-10.44); Estimated GFR-MDRD Greater than 90; Glucose 70 mg/dL (70-105); Magnesium 1.8 mg/dL (1.6-2.6); Phosphorus 4.1 mg/dL (2.3-4.7)
[2017-11-26] MEDS: Levothyroxine Sodium 25 MCG TAB PO SCH (05:51)
[2017-11-26 05:53] LABS: Anion Gap 11 mmol/L (10-20); Carbon Dioxide 38 mmol/L (22-29); Chloride 93 mmol/L (98-107); Potassium 3.9 mmol/L (3.5-5.1); Sodium 138 mmol/L (136-145)
[2017-11-26] MEDS: Multivitamin W/ Minerals 1 TAB PER TUBE SCH (10:18)
[2017-11-26] MEDS: Lopinavir/Ritonavir 80 MG/20 MG per ML Oral Solution PO SCH ×2 (10:19→22:00)
[2017-11-26] MEDS: guaiFENesin ER 600 MG TAB PO SCH ×2 (10:19→22:00)
[2017-11-26] MEDS: Magnesium Oxide 400 MG TAB PO SCH ×2 (10:19→22:00)
[2017-11-26] MEDS: Amlodipine 5 MG TAB PO SCH (10:19)
[2017-11-26] MEDS: Amoxicillin/Potassium Clav 875 MG TAB PO SCH ×2 (10:19→21:59)
[2017-11-26] MEDS: Aspirin 81 mg Enteric Coated Tablet PO SCH (10:19)
[2017-11-26] MEDS: Carvedilol 25 MG TAB PO SCH ×2 (10:19→21:59)
[2017-11-26] MEDS: Aquaphor 30 GM 99 GM, Cholestyramine/Aspartame 4 GM TOP SCH ×2 (10:20→22:01)
--- NOTE | 2017-11-26 12:38 | PRG ---
DATE OF SERVICE: 11/26/2017 SUBJECTIVE: The patient seems to be doing well, had no acute complaints. OBJECTIVE: VITAL SIGNS: Temperature 97.8, pulse 73, respiration 24, O2 sat 92% trach collar, blood pressure 118 /72. HEENT: Unremarkable. NECK: Tracheostomy with copious secretions. CARDIAC: S1 and S2 regular. LUNGS: Distant but clear breath sounds. ABDOMEN: Soft. EXTREMITIES: No edema. LABORATORY DATA: Sodium 130, potassium 3.8, chloride 93, CO2 38, BUN 12, creatinine 0.7, glucose 70. ASSESSMENT: 1. Obstructive sleep apnea/pickwickian syndrome. 2. Human immunodeficiency virus. 3. Chronic respiratory failure, requiring tracheostomy. PLAN: The main issue now is placement. I adjusted her diuretics yesterday. HIV care per Dr. Villalobos.
--- NOTE | 2017-11-26 21:49 | PDOC.EVN ---
Event Note - Event Note Event Note: Residents were paged at approximately 21:30 for patient desaturation. Nurses report she has been acting more lethargic and having desaturations down to as low as 80%. Nurses report copious secretions that she was able to clear through coughing previously, but has since become tired. She has had increasing oxygen requirements from FIO2 and flow rates. S: Patient is laying in bed. Patient responds and arousable, but not conversing. O: Gen: Morbidly obese patient in no acute distress HEENT: Trach in place CV: RRR, no murmurs Resp: Diminished breath sounds throughout, Wheezing present throughout. A/P: 1. Acute Hypoxic Respiratory Failure 2/2 Pickwickian Syndrome vs. Bacterial Pneumonia - Will transfer to CCU and place on ventilator support - Will schedule nebulizer treatments - Continue mucolytics - CXR pending - Will initiate antibiotic therapy. Disposition: Guarded, Will transfer to CCU <Michael Hand - Last Filed: 11/26/17 21:44> - Event Note Event Note: Patient seen and examined with Dr. Yen and Dr. Barbosa on 11/26/17. On initial exam, patient was plethoric, hypoxic, and hypercapnic, with poor air movement on auscultation and poor cough reflex. ABG pH 7.1, pCO2 149, pO2 51. Had been slowly decompensating for past 2-3 hours. Discussed with family and care team, decided to move to ICU for ventilation. Once in ICU, CXR shows possible mild increase in interstitial markings c/w CHF exacerbation. After a few minutes on ventilation patient appeared markedly improved and hypoxia resolved. Single dose of Lasix IV ordered once nursing staff able to place IV. Likely caused by obesity hypoventilation syndrome and severe sleep apnea, but will treat for possible fluid overload. If she decompensates while ventilated will consider VAP or PE, but those are less likely at this time, particularly in the setting of rapid improvement with ventilation. 60 minutes critical care time spent. <Taylor Perez - Last Filed: 11/26/17 22:56>
[2017-11-26 22:30] LABS: Actual Bicarbonate (HCO3a) 52.8 mEq/L (22-26); Base Excess (BEa) 18.8 mEq/L (0 (+/-) 2.5); CO2 Tension 148.9 mmHg (35.0-45.0); Hematocrit-ABG 44.5 % (36.0-47.0); Hemoglobin (Hb) 11.5 g/dL (12.0-16.0); O2 Tension (PaO2) 51.4 mmHg (80.0-100.0); pH, Arterial 7.17 (7.35-7.45)
[2017-11-26] MEDS ORDERED: Furosemide 100 MG/10 ML VIAL SLOW IVP SCH (22:30)
[2017-11-26 22:31] LABS: Calcium, Ionized 1.2 mmol/L (1.12-1.30)
[2017-11-26 22:32] LABS: ALV-art Gradient 190.275 (0-20); Puncture Site R RADIAL
[2017-11-26] MEDS: Enoxaparin Sodium 40 MG/0.4 ML SYRINGE SC SCH (22:32)
--- NOTE | 2017-11-26 22:37 | RAD ---
PORTABLE SUPINE AP CHEST X-RAY: 11/26/2017 HISTORY: Hypoxia. COMPARISON: 11/23/2017 FINDINGS: A tracheostomy device is again noted in place. The cardiac silhouette is markedly enlarged. There d oes appear to be prominence in the region of the main pulmonary artery, which may represent pulmonary artery hypertension. While there is motion on this examination, there are increased interstitial an d alveolar opacities within the perihilar regions, which may be related to pulmonary edema. No other interval change. IMPRESSION: 1. Marked cardiomegaly with findings likely related to pulmonary edema. 2. Prominence in the region of the main pulmonary artery, stable from prior studies, and this may be due to an element of pulmonary artery hypertension. POS: JOHN
[2017-11-26 23:39] LABS: pH, Arterial 7.25 (7.35-7.45)
[2017-11-26 23:40] LABS: Actual Bicarbonate (HCO3a) 51.1 mEq/L (22-26); Base Excess (BEa) 19.1 mEq/L (0 (+/-) 2.5); CO2 Tension 119.6 mmHg (35.0-45.0); Hematocrit-ABG 43.4 % (36.0-47.0); Hemoglobin (Hb) 11.2 g/dL (12.0-16.0); O2 Tension (PaO2) 77.6 mmHg (80.0-100.0)
[2017-11-26 23:41] LABS: Calcium, Ionized 1.2 mmol/L (1.12-1.30); Puncture Site RRA
[2017-11-27 03:50] LABS: Hemoglobin 12.3 g/dL (12.0-16.0); Mean Corpuscular HGB CONC 29.8 g/dL (32.0-36.0); Mean Corpuscular Hemoglobin 29.8 pg (27.0-31.0); Mean Corpuscular Volume 99.8 fl (81.0-99.0); Mean Platelet Volume 9.9 fL (7.4-10.4); Platelet Count 103 thou/uL (130-400); RBC Distribution Width 16.2 % (11.5-14.5); Red Blood Cell (RBC) Count 4.13 mill/uL (4.20-5.40); White Blood Cell (WBC) Count 4.9 thou/uL (4.8-10.8)
[2017-11-27 04:01] LABS: BUN (Urea Nitrogen) 13 mg/dL (7.0-18.7); Calc. Creatinine Clearance 438 mL/min (70-130); Calcium 9.6 mg/dL (7.8-10.44); Estimated GFR-MDRD Greater than 90; Glucose 61 mg/dL (70-105); Phosphorus 2.9 mg/dL (2.3-4.7)
[2017-11-27 04:10] LABS: Anion Gap 13 mmol/L (10-20); Carbon Dioxide 38 mmol/L (22-29); Chloride 91 mmol/L (98-107); Potassium 4.2 mmol/L (3.5-5.1); Sodium 138 mmol/L (136-145)
[2017-11-27] MEDS: Levothyroxine Sodium 25 MCG TAB PO SCH (05:17)
--- NOTE | 2017-11-27 09:04 | PRG ---
DATE OF SERVICE: 11/27/2017 Thirty-five minutes critical care time. Merle had to be moved back to the CCU last night with severe CO2 retention. She was placed on mecha nical ventilation after tracheostomy was switched out. She is more awake and alert this morning. PHYSICAL EXAMINATION: VITAL SIGNS: Temperature is 99, pulse 71, blood pressure 154/74, 24-hour intake not quantitated well , up at 2425. HEENT: Unchanged. NECK: No JVD. CHEST: Distant breath sounds. CARDIAC: S1 and S2 regular. ABDOMEN: Morbidly obese. LABORATORY DATA: White blood cell count 4.9, hematocrit 41.2, platelet count 103. Sodium 130, potas sium 4.2, chloride 91, CO2 38, BUN 13, creatinine 0.8, glucose 61. ASSESSMENT: 1. Obesity hypoventilation syndrome. 2. Acute on chronic respiratory failure. PLAN: Changed her 6.0 trach to an 8.0 sliding [place] tracheostomy tube. I have switched her to a pr essure support ventilation. I think she needs to be ventilated for several days. This is a difficul t situation in terms of placement in the future.
--- NOTE | 2017-11-27 09:04 | PDOC.FM ---
- Subjective Subjective: Pt seen at bedside in NAD. No family in room. Pt was noted to be more somnolent overnight and was hypoxic with O2 in 80s. Therefore required transfer to CCU for mechanical ventilation. - Objective MAR Reviewed: Yes Vital Signs & Weight: Vital Signs (12 hours) Temp Pulse Resp BP Pulse Ox 11/27/17 08:01 76 165/83 H 98 11/27/17 07:00 99 F 11/27/17 06:00 20 11/27/17 04:00 98.8 F 20 11/27/17 02:37 74 158/78 H 11/27/17 00:00 98.7 F 79 20 97 11/26/17 23:14 70 133/64 11/26/17 23:00 98.7 F Weight Admit Weight 260.362 kg Weight 260.362 kg Most Recent Monitor Data Heart Rate from ECG 71 NIBP 154/74 NIBP BP-Mean 102 Respiration from ECG 18 SpO2 96 I&O: 11/26/17 11/27/17 11/28/17 06:59 06:59 06:59 Intake Total 150 Output Total 7265 5795 450 Balance -1800 -2425 -450 Result Diagrams: 11/27/17 03:24 11/27/17 03:24 <Nacho Alaniz - Last Filed: 11/27/17 09:13> - Objective Vital Signs & Weight: Vital Signs (12 hours) Temp Pulse Resp BP Pulse Ox 11/27/17 09:19 76 139/78 11/27/17 09:09 76 139/78 11/27/17 08:01 76 165/83 H 98 11/27/17 08:00 14 11/27/17 07:00 99 F 11/27/17 06:00 20 11/27/17 04:00 98.8 F 20 11/27/17 02:37 74 158/78 H 11/27/17 00:00 98.7 F 79 20 97 11/26/17 23:14 70 133/64 11/26/17 23:00 98.7 F Weight Admit Weight 260.362 kg Weight 260.362 kg Most Recent Monitor Data Heart Rate from ECG 79 NIBP 139/78 NIBP BP-Mean 93 Respiration from ECG 12 SpO2 99 I&O: 04/22/18 04/23/18 04/24/18 06:59 06:59 06:59 Intake Total 150 150 Output Total 8389 1025 720 Balance -1800 -2425 -570 Result Diagrams: 11/27/17 03:24 11/27/17 03:24 <Regla Muñoz - Last Filed: 11/27/17 10:30> Phys Exam - Physical Examination Constitutional: NAD morbidly obese HEENT: sclera anicteric trach in place distant breath sounds, good effort, mild BL wheezing Cardiovascular: RRR, no significant murmur distant Gastrointestinal: soft, non-tender morbidly obese Musculoskeletal: edema present trace edema BL LE Neurological: non-focal, moves all 4 limbs Psychiatric: normal affect <Nacho Alaniz - Last Filed: 11/27/17 09:13> Dx/Plan (1) Acute on chronic respiratory failure with hypoxia and hypercapnia Code(s): J96.21 - ACUTE AND CHRONIC RESPIRATORY FAILURE WITH HYPOXIA; J96.22 - ACUTE AND CHRONIC RESPIRATORY FAILURE WITH HYPERCAPNIA Status: Acute (2) HIV disease Code(s): B20 - HUMAN IMMUNODEFICIENCY VIRUS [HIV] DISEASE Status: Chronic (3) Hypothyroidism Code(s): E03.9 - HYPOTHYROIDISM, UNSPECIFIED Status: Chronic QualifierTitle: Hypothyroidism type: acquired Qualified Code(s): E03.9 - Hypothyroidism, unspecified - Plan Plan: 1. Acute on chronic hypoxic hypercapneic respiratory failure 2/2 obesity hypoventilation -pt required transition to CCU with need for mechanical ventilation overnight -ABG showed worsening CO2 retention and mixed acid base status -trach switched to larger trach this AM -pt transitioned to CPAP this AM and tolerating well thus far -pulmonology on board, recs greatly appreciated 2. HIV -continue meds per ID -recs greatly appreciated 3. HTN -continue amlodipine and coreg 4. MDD -continue sertraline 5. Hypothyroidism -continue levothyroxine disposition: Pt stable. Pt decompensated yesterday requiring mechanical ventilation but has been transitioned to CPAP and tolerating well. Continue ventilatory support as necessary. Pulmonology recs greatly appreciated. CM assistance greatly appreciated in finding placement. Continue to monitor closely. <Nacho Alaniz - Last Filed: 11/27/17 09:13> Attending Addendum - Attending Addendum Date/Time: 11/27/17 1028 I personally evaluated the patient and discussed the management with Dr. Alaniz I agree with the History, Examination, Assessment and Plan documented above with any addition or exceptions noted below. Chronic respiratory failure with acute hypercapnic and hypoxic resp failure- continue ventilator/CPAP per pulmonology. Obesity Hypoventilation Syndrome Morbid Obesity Continue ICU care. <Regla Muñoz - Last Filed: 11/27/17 10:30>
[2017-11-27] MEDS: Amlodipine 5 MG TAB PO SCH (09:19)
[2017-11-27] MEDS: Amoxicillin/Potassium Clav 875 MG TAB PO SCH ×2 (09:19→20:54)
[2017-11-27] MEDS: Aspirin 81 mg Enteric Coated Tablet PO SCH (09:19)
[2017-11-27] MEDS: Carvedilol 25 MG TAB PO SCH ×2 (09:19→20:54)
[2017-11-27] MEDS: Magnesium Oxide 400 MG TAB PO SCH ×2 (09:19→20:56)
[2017-11-27] MEDS: guaiFENesin ER 600 MG TAB PO SCH ×2 (09:19→20:55)
[2017-11-27] MEDS: Multivitamin W/ Minerals 1 TAB PER TUBE SCH (09:20)
[2017-11-27] MEDS: Lopinavir/Ritonavir 80 MG/20 MG per ML Oral Solution PO SCH ×2 (09:39→20:56)
[2017-11-27] MEDS: Aquaphor 30 GM 99 GM, Cholestyramine/Aspartame 4 GM TOP SCH ×2 (09:39→21:18)
[2017-11-27] MEDS: AcetaZOLAMIDE 250 MG TAB PO SCH ×2 (12:22→23:43)
[2017-11-27] MEDS ORDERED: Dextrose 50% Abboject 50 ML SYRINGE ONE (18:48)
[2017-11-27] MEDS ORDERED: Dextrose 5% in Water 1,000 ML IV PRN (19:15)
[2017-11-27] MEDS ORDERED: Dextrose 50% Abboject 50 ML SYRINGE IVP PRN (19:15)
[2017-11-27] MEDS: Enoxaparin Sodium 40 MG/0.4 ML SYRINGE SC SCH (20:54)
[2017-11-28] MEDS: Levothyroxine Sodium 25 MCG TAB PO SCH (05:29)
[2017-11-28] MEDS: Amlodipine 5 MG TAB PO SCH (08:03)
[2017-11-28] MEDS: Carvedilol 25 MG TAB PO SCH ×2 (08:04→20:53)
[2017-11-28] MEDS: guaiFENesin ER 600 MG TAB PO SCH ×2 (08:04→20:54)
[2017-11-28] MEDS: Magnesium Oxide 400 MG TAB PO SCH ×2 (08:04→20:54)
[2017-11-28] MEDS: Aspirin 81 mg Enteric Coated Tablet PO SCH (08:05)
[2017-11-28] MEDS: Multivitamin W/ Minerals 1 TAB PER TUBE SCH (08:05)
--- NOTE | 2017-11-28 08:15 | PDOC.FM ---
- Subjective Subjective: Pt seen at bedside in NADRobert DOOLEY overnight. Pt notes she feels well, denies CP, SOB, NVD. - Objective MAR Reviewed: Yes Vital Signs & Weight: Vital Signs (12 hours) Temp Pulse Resp BP 11/28/17 08:03 68 145/74 H 11/28/17 07:31 66 11/28/17 07:00 98.4 F 11/28/17 05:56 16 11/28/17 04:00 98.7 F 16 11/28/17 02:00 64 149/76 H 11/28/17 01:54 16 11/28/17 00:00 98.8 F 16 11/27/17 22:18 67 148/76 H 11/27/17 22:00 16 Weight Admit Weight 260.362 kg Weight 260.362 kg Most Recent Monitor Data Heart Rate from ECG 66 NIBP 143/68 NIBP BP-Mean 86 Respiration from ECG 8 SpO2 99 I&O: 11/27/17 11/28/17 11/29/17 06:59 06:59 06:59 Intake Total 150 Output Total 9227 4723 440 Balance -2425 -4575 -440 Result Diagrams: 11/27/17 03:24 11/27/17 03:24 <Nacho Alaniz - Last Filed: 11/28/17 08:13> - Objective Vital Signs & Weight: Vital Signs (12 hours) Temp Pulse Resp BP Pulse Ox 11/28/17 20:00 98 F 70 17 96 11/28/17 19:00 98 F 11/28/17 18:26 63 170/79 H 11/28/17 18:00 17 11/28/17 16:00 16 11/28/17 15:55 97.9 F 11/28/17 14:56 71 11/28/17 14:00 15 11/28/17 12:00 98.4 F 21 H 11/28/17 11:03 68 11/28/17 10:00 19 Weight Admit Weight 260.362 kg Weight 260.362 kg Most Recent Monitor Data Heart Rate from ECG 61 NIBP 163/73 NIBP BP-Mean 99 Respiration from ECG 23 SpO2 93 I&O: 11/27/17 11/28/17 11/29/17 06:59 06:59 06:59 Intake Total 150 120 Output Total 2422 5504 3061 Balance -1270 -1693 -2942 Result Diagrams: 11/27/17 03:24 11/27/17 03:24 <Regla Muñoz - Last Filed: 11/28/17 21:54> Phys Exam - Physical Examination Constitutional: NAD morbidly obese HEENT: PERRLA, sclera anicteric trach in place Respiratory: no rhonchi distant breath sounds, good effort, mild BL wheezing Cardiovascular: RRR, no significant murmur distant heart sounds Gastrointestinal: soft, non-tender morbidly obese Musculoskeletal: edema present trace edema BL LE Neurological: non-focal, moves all 4 limbs <Nacho Alaniz - Last Filed: 11/28/17 08:13> Dx/Plan (1) Acute on chronic respiratory failure with hypoxia and hypercapnia Code(s): J96.21 - ACUTE AND CHRONIC RESPIRATORY FAILURE WITH HYPOXIA; J96.22 - ACUTE AND CHRONIC RESPIRATORY FAILURE WITH HYPERCAPNIA Status: Acute (2) HIV disease Code(s): B20 - HUMAN IMMUNODEFICIENCY VIRUS [HIV] DISEASE Status: Chronic (3) Hypothyroidism Code(s): E03.9 - HYPOTHYROIDISM, UNSPECIFIED Status: Chronic QualifierTitle: Hypothyroidism type: acquired Qualified Code(s): E03.9 - Hypothyroidism, unspecified - Plan Plan: 1. Acute on chronic hypoxic hypercapneic respiratory failure 2/2 obesity hypoventilation -pt required transition to CCU with need for mechanical ventilation 11/27 -ABG showed worsening CO2 retention and mixed acid base status -trach switched to larger trach 11/27 -pulmonology on board, recs greatly appreciated -Augmentin discontinued this AM 2. HIV -continue meds per ID -recs greatly appreciated 3. HTN -continue amlodipine and coreg 4. MDD -continue sertraline 5. Hypothyroidism -continue levothyroxine disposition: Pt stable. Continue ventilatory support as necessary. Pulmonology recs greatly appreciated. CM assistance greatly appreciated in finding placement. Continue to monitor closely. <Nacho Alaniz - Last Filed: 11/28/17 08:13> Attending Addendum - Attending Addendum Date/Time: 11/28/17 5142 I personally evaluated the patient and discussed the management with Dr. Alaniz I agree with the History, Examination, Assessment and Plan documented above with any addition or exceptions noted below. Acute on chronic hypoxic and hypercapnic respiratory failure- continue ventilation per pulmonology [facility] HIV Morbid Obesity -Need to work on long-term placement issues. <Regla Muñoz - Last Filed: 11/28/17 21:54>
--- NOTE | 2017-11-28 08:21 | PRG ---
DATE OF SERVICE: 11/28/2017 Thirty minutes critical care time. The patient remains on mechanical ventilation through a tracheostomy tube. She is more awake and rafita rt. PHYSICAL EXAMINATION: VITAL SIGNS: Temperature is 98.7, pulse 65, blood pressure 131/67, O2 saturation 99%, 24-hour intake not quantitated, output 4725. HEENT: Unremarkable. NECK: No JVD. Trach appears clean. CARDIAC: S1 and S2 regular. LUNGS: Distant breath sounds. ABDOMEN: Soft. EXTREMITIES: No edema. ASSESSMENT: 1. Chronic respiratory failure secondary to obesity hypoventilation syndrome. 2. Morbid obesity. 3. Human immunodeficiency virus. PLAN: I will try to half her respiratory rate today. She will need to have her chemistry checked to braden. I think we can go ahead and stop antibiotics.
[2017-11-28] MEDS: Lopinavir/Ritonavir 80 MG/20 MG per ML Oral Solution PO SCH ×2 (09:34→20:54)
[2017-11-28] MEDS: Aquaphor 30 GM 99 GM, Cholestyramine/Aspartame 4 GM TOP SCH ×2 (09:36→22:02)
[2017-11-28] MEDS: AcetaZOLAMIDE 250 MG TAB PO SCH ×2 (12:18→22:02)
[2017-11-28] MEDS: Enoxaparin Sodium 40 MG/0.4 ML SYRINGE SC SCH (20:53)
[2017-11-29] MEDS: Levothyroxine Sodium 25 MCG TAB PO SCH (06:11)
[2017-11-29 06:19] LABS: Anion Gap 8 mmol/L (10-20); BUN (Urea Nitrogen) 8 mg/dL (7.0-18.7); Calc. Creatinine Clearance 531 mL/min (70-130); Calcium 8.3 mg/dL (7.8-10.44); Carbon Dioxide 34 mmol/L (22-29); Chloride 97 mmol/L (98-107); Estimated GFR-MDRD Greater than 90; Glucose 68 mg/dL (70-105); Potassium 3.4 mmol/L (3.5-5.1); Sodium 136 mmol/L (136-145)
[2017-11-29] MEDS ORDERED: Potassium Chloride 20 MEQ TAB PO SCH (07:15)
[2017-11-29] MEDS: Carvedilol 25 MG TAB PO SCH ×2 (08:01→21:29)
[2017-11-29] MEDS: guaiFENesin ER 600 MG TAB PO SCH ×2 (08:01→21:29)
[2017-11-29] MEDS: Aspirin 81 mg Enteric Coated Tablet PO SCH (08:01)
[2017-11-29] MEDS: Magnesium Oxide 400 MG TAB PO SCH ×2 (08:02→21:30)
[2017-11-29] MEDS: Multivitamin W/ Minerals 1 TAB PER TUBE SCH (08:02)
[2017-11-29] MEDS: Amlodipine 5 MG TAB PO SCH (08:02)
[2017-11-29] MEDS: Lopinavir/Ritonavir 80 MG/20 MG per ML Oral Solution PO SCH ×2 (08:03→21:40)
--- NOTE | 2017-11-29 08:03 | PRG ---
DATE OF SERVICE: 11/29/2017 A 35 minutes critical care time. SUBJECTIVE: The patient remains on mechanical ventilation through her tracheostomy. She is much mor e awake and alert. PHYSICAL EXAMINATION: VITAL SIGNS: Temperature is 98.2, pulse 69, blood pressure 144/80. A 24-hour intake 620, output 536 5. HEENT: Unremarkable. NECK: No JVD. LUNGS: Clear, but distant. CARDIAC: S1 and S2 regular. ABDOMEN: Soft, obese. EXTREMITIES: Edematous. LABORATORY DATA: Sodium 136, potassium 3.4, chloride 97, CO2 34, BUN 8, creatinine 0.6, glucose 68. White blood cell count 4.9, hematocrit 41.2, platelet count 103. ASSESSMENT: 1. Acute on chronic respiratory failure. 2. Obesity hypoventilation syndrome. 3. Human immunodeficiency virus. 4. Slowly improving metabolic alkalosis which may be helping with her ventilation. Of note, the pat ient is currently on no diuretics except Diamox. RECOMMENDATIONS: 1. Continue the Diamox. 2. Continue mechanical ventilation, we will change her CPAP. It may be that she needs nocturnal fidel tilation for a while. We will just have to see how that goes.
--- NOTE | 2017-11-29 08:06 | PDOC.FM ---
- Subjective Subjective: Pt seen at bedside in NADRobert DOOLEY overnight. Pt notes she feels well, denies CP, SOB, NVD. - Objective MAR Reviewed: Yes Vital Signs & Weight: Vital Signs (12 hours) Temp Pulse Resp BP 11/29/17 07:43 73 11/29/17 06:00 16 11/29/17 04:00 98.2 F 15 11/29/17 02:18 67 152/74 H 11/29/17 02:00 16 11/29/17 00:00 98.2 F 16 11/28/17 22:15 70 143/71 H 11/28/17 22:00 17 Weight Admit Weight 260.362 kg Weight 260.498 kg Most Recent Monitor Data Heart Rate from ECG 69 NIBP 144/80 NIBP BP-Mean 117 Respiration from ECG 16 SpO2 99 I&O: 11/28/17 11/29/17 11/30/17 06:59 06:59 06:59 Intake Total 150 620 Output Total 1272 4132 [id number] -6942 Result Diagrams: 11/27/17 03:24 11/29/17 04:30 <Nacho Alaniz - Last Filed: 11/29/17 08:05> - Objective Vital Signs & Weight: Vital Signs (12 hours) Temp Pulse Resp BP Pulse Ox 11/29/17 13:25 70 11/29/17 12:00 13 11/29/17 11:54 98.7 F 11/29/17 10:37 71 11/29/17 10:00 21 H 11/29/17 08:02 73 166/79 H 11/29/17 08:00 98.6 F 73 20 96 11/29/17 07:43 73 11/29/17 06:00 16 11/29/17 04:00 98.2 F 15 11/29/17 02:18 67 152/74 H 11/29/17 02:00 16 Weight Admit Weight 260.362 kg Weight 260.498 kg Most Recent Monitor Data Heart Rate from ECG 69 NIBP 129/61 NIBP BP-Mean 81 Respiration from ECG 18 SpO2 97 I&O: 11/28/17 11/29/17 11/30/17 06:59 06:59 06:59 Intake Total 150 620 120 Output Total 4788 6949 1475 [id number] -1605 -1355 Result Diagrams: 11/27/17 03:24 11/29/17 04:30 <René Calderon - Last Filed: 11/29/17 13:51> Phys Exam - Physical Examination Constitutional: NAD morbidly obese HEENT: PERRLA, sclera anicteric trach in place Respiratory: no rales distant breath sounds, good effort, mild BL wheezing Cardiovascular: RRR, no significant murmur distant heart sounds Gastrointestinal: soft, non-tender morbidly obese Musculoskeletal: edema present trace edema BL LE Neurological: non-focal, moves all 4 limbs Psychiatric: A&O x 3 <Nacho Alaniz - Last Filed: 11/29/17 08:05> Dx/Plan (1) Acute on chronic respiratory failure with hypoxia and hypercapnia Code(s): J96.21 - ACUTE AND CHRONIC RESPIRATORY FAILURE WITH HYPOXIA; J96.22 - ACUTE AND CHRONIC RESPIRATORY FAILURE WITH HYPERCAPNIA Status: Acute (2) HIV disease Code(s): B20 - HUMAN IMMUNODEFICIENCY VIRUS [HIV] DISEASE Status: Chronic (3) Hypothyroidism Code(s): E03.9 - HYPOTHYROIDISM, UNSPECIFIED Status: Chronic QualifierTitle: Hypothyroidism type: acquired Qualified Code(s): E03.9 - Hypothyroidism, unspecified - Plan Plan: 1. Acute on chronic hypoxic hypercapneic respiratory failure 2/2 obesity hypoventilation -pt required transition to CCU with need for mechanical ventilation 11/27 -ABG showed worsening CO2 retention and mixed acid base status -trach switched to larger trach 11/27 -pulmonology on board, recs greatly appreciated -Augmentin discontinued 11/28 -BMP shows CO2 at baseline -mild hypokalemia, replete PO 2. HIV -continue meds per ID -recs greatly appreciated 3. HTN -continue amlodipine and coreg 4. MDD -continue sertraline 5. Hypothyroidism -continue levothyroxine disposition: Pt stable. Continue ventilatory support as necessary. Pulmonology recommendations greatly appreciated. CM assistance greatly appreciated in finding placement. Continue to monitor closely. <Nacho Alaniz - Last Filed: 11/29/17 08:05> Attending Addendum - Attending Addendum Date/Time: 11/29/17 9280 I personally evaluated the patient and discussed the management with Drs. Alaniz and Karin. I agree with the History, Examination, Assessment and Plan documented above with any addition or exceptions noted below. <René Calderon - Last Filed: 11/29/17 13:51>
[2017-11-29] MEDS: Aquaphor 30 GM 99 GM, Cholestyramine/Aspartame 4 GM TOP SCH ×2 (08:10→23:51)
[2017-11-29] MEDS: AcetaZOLAMIDE 250 MG TAB PO SCH ×2 (11:54→23:57)
[2017-11-29] MEDS: Enoxaparin Sodium 40 MG/0.4 ML SYRINGE SC SCH (21:29)
[2017-11-30 05:03] LABS: Anion Gap 6 mmol/L (10-20); BUN (Urea Nitrogen) 7 mg/dL (7.0-18.7); Calc. Creatinine Clearance 494 mL/min (70-130); Calcium 8.2 mg/dL (7.8-10.44); Carbon Dioxide 32 mmol/L (22-29); Chloride 101 mmol/L (98-107); Estimated GFR-MDRD Greater than 90; Glucose 77 mg/dL (70-105); Potassium 3.6 mmol/L (3.5-5.1); Sodium 135 mmol/L (136-145)
[2017-11-30] MEDS: Levothyroxine Sodium 25 MCG TAB PO SCH (05:55)
--- NOTE | 2017-11-30 07:37 | PDOC.FM ---
- Subjective Subjective: Pt seen at bedside in NAD. MIAH overnight. Pt denies RENTERIA, CP, SOB, abd pain, NVD. - Objective MAR Reviewed: Yes Vital Signs & Weight: Vital Signs (12 hours) Temp Pulse Resp BP Pulse Ox 11/30/17 04:00 99 F 20 11/30/17 03:27 95 11/30/17 02:53 71 131/74 11/30/17 02:00 21 H 11/30/17 00:06 71 130/65 11/30/17 00:00 20 97 11/29/17 23:00 99.2 F 11/29/17 22:00 17 11/29/17 21:50 72 109/55 L 11/29/17 20:20 19 11/29/17 20:00 99 F 70 20 96 Weight Admit Weight 260.362 kg Weight 260.362 kg Most Recent Monitor Data Heart Rate from ECG 74 NIBP 158/85 NIBP BP-Mean 115 Respiration from ECG 17 SpO2 93 I&O: 11/29/17 11/30/17 12/01/17 06:59 06:59 06:59 Intake Total 620 470 Output Total 5365 3480 [employer] -3010 Result Diagrams: 11/27/17 03:24 11/30/17 04:00 <Nacho Alaniz - Last Filed: 11/30/17 07:38> - Objective Vital Signs & Weight: Vital Signs (12 hours) Temp Pulse Resp BP Pulse Ox 11/30/17 07:51 88 154/82 H 11/30/17 04:00 99 F 20 11/30/17 03:27 95 11/30/17 02:53 71 131/74 11/30/17 02:00 21 H 11/30/17 00:06 71 130/65 11/30/17 00:00 20 97 11/29/17 23:00 99.2 F Weight Admit Weight 260.362 kg Weight 260.362 kg Most Recent Monitor Data Heart Rate from ECG 74 NIBP 158/85 NIBP BP-Mean 115 Respiration from ECG 17 SpO2 93 I&O: 11/29/17 11/30/17 12/01/17 06:59 06:59 06:59 Intake Total 620 470 Output Total 5365 3480 [employer]4745 -3010 Result Diagrams: 11/27/17 03:24 11/30/17 04:00 <MartinoKd Sunita - Last Filed: 11/30/17 10:40> Phys Exam - Physical Examination Constitutional: NAD morbidly obese HEENT: PERRLA, sclera anicteric trach in place Respiratory: no rales, clear to auscultation bilateral distant, good effort Cardiovascular: RRR, no significant murmur distant heart sounds Gastrointestinal: soft, non-tender morbidly obese Musculoskeletal: edema present trace edema BL LE Neurological: non-focal, moves all 4 limbs <Nacho Alaniz - Last Filed: 11/30/17 07:38> Dx/Plan (1) Acute on chronic respiratory failure with hypoxia and hypercapnia Code(s): J96.21 - ACUTE AND CHRONIC RESPIRATORY FAILURE WITH HYPOXIA; J96.22 - ACUTE AND CHRONIC RESPIRATORY FAILURE WITH HYPERCAPNIA Status: Acute (2) HIV disease Code(s): B20 - HUMAN IMMUNODEFICIENCY VIRUS [HIV] DISEASE Status: Chronic (3) Hypothyroidism Code(s): E03.9 - HYPOTHYROIDISM, UNSPECIFIED Status: Chronic QualifierTitle: Hypothyroidism type: acquired Qualified Code(s): E03.9 - Hypothyroidism, unspecified - Plan Plan: 1. Acute on chronic hypoxic hypercapneic respiratory failure 2/2 obesity hypoventilation -pt required transition to CCU with need for mechanical ventilation 11/27 -ABG showed worsening CO2 retention -trach switched to larger trach 11/27 -pulmonology on board, recs greatly appreciated -Augmentin discontinued 11/28 -BMP shows CO2 at baseline with improving alkalosis 2. HIV -continue meds per ID -recs greatly appreciated 3. HTN -continue amlodipine and coreg 4. MDD -continue sertraline 5. Hypothyroidism -continue levothyroxine disposition: Pt stable. Continue ventilatory support as necessary. Pulmonology recommendations greatly appreciated. CM assistance greatly appreciated in finding placement. Continue to monitor closely. <Nacho Alaniz - Last Filed: 11/30/17 07:38> Attending Addendum - Attending Addendum Date/Time: 11/30/17 0644 I personally evaluated the patient and discussed the management with Dr. Alaniz. I agree with the History, Examination, Assessment and Plan documented above with any addition or exceptions noted below. 27 yo F with PMH of HIV, cardiomyopathy and obesity hypoventilation. Continue ventilatory support per pulmonology, recommendations and management greatly appreciated. CM assistance also appreciated, consider eventual transfer to facility in [facility] as patient wishes to move there. <Kd Martino - Last Filed: 11/30/17 10:40>
--- NOTE | 2017-11-30 09:54 | PRG ---
DATE OF SERVICE: 11/30/2017 Thirty-five minutes critical care time. SUBJECTIVE: The patient remains ventilated through tracheostomy tube. PHYSICAL EXAMINATION: VITAL SIGNS: On exam, temperature is 99, pulse 74, blood pressure 158/85. A 24-hour intake 470 and output 3480. HEENT EXAM: Unremarkable. NECK: No JVD. LUNGS: Clear. CARDIOVASCULAR: S1 and S2, regular. ABDOMEN: Soft, obese. EXTREMITIES: Edematous. LABORATORY DATA: Sodium 135, potassium 3.6, chloride 101, CO2 of 32, BUN 7, creatinine 0.7, glucose 77. ASSESSMENT: 1. Obesity hypoventilation syndrome. 2. Acute on chronic respiratory failure. 3. Morbid obesity. 4. Human immunodeficiency virus. 5. Improved metabolic alkalosis. PLAN: We are trying to determine an accurate weight. It is clear that the patient is not 574 pounds - this is the value that has been recorded in the chart since 11/14. I am slowly turning down the p ressure support on the ventilator. I think this makes diuresing a little easier.
[2017-11-30] MEDS: Aspirin 81 mg Enteric Coated Tablet PO SCH (10:44)
[2017-11-30] MEDS: guaiFENesin ER 600 MG TAB PO SCH ×2 (10:44→22:14)
[2017-11-30] MEDS: Carvedilol 25 MG TAB PO SCH ×2 (10:44→22:14)
[2017-11-30] MEDS: AcetaZOLAMIDE 250 MG TAB PO SCH (10:44)
[2017-11-30] MEDS: Magnesium Oxide 400 MG TAB PO SCH ×2 (10:45→22:14)
[2017-11-30] MEDS: Amlodipine 5 MG TAB PO SCH (10:46)
[2017-11-30] MEDS: Multivitamin W/ Minerals 1 TAB PER TUBE SCH (10:46)
[2017-11-30] MEDS: Aquaphor 30 GM 99 GM, Cholestyramine/Aspartame 4 GM TOP PRN ×2 (10:48→11:34)
[2017-11-30] MEDS: Lopinavir/Ritonavir 80 MG/20 MG per ML Oral Solution PO SCH ×2 (11:33→22:15)
[2017-11-30] MEDS: Aquaphor 30 GM 99 GM, Cholestyramine/Aspartame 4 GM TOP SCH ×2 (11:35→23:18)
[2017-11-30] MEDS: Enoxaparin Sodium 40 MG/0.4 ML SYRINGE SC SCH (22:13)
[2017-12-01] MEDS: AcetaZOLAMIDE 250 MG TAB PO SCH ×3 (00:06→22:11)
[2017-12-01 05:05] LABS: Anion Gap 8 mmol/L (10-20); BUN (Urea Nitrogen) 8 mg/dL (7.0-18.7); Calc. Creatinine Clearance 487 mL/min (70-130); Calcium 8.4 mg/dL (7.8-10.44); Carbon Dioxide 28 mmol/L (22-29); Chloride 103 mmol/L (98-107); Estimated GFR-MDRD Greater than 90; Glucose 80 mg/dL (70-105); Potassium 3.7 mmol/L (3.5-5.1); Sodium 135 mmol/L (136-145)
--- NOTE | 2017-12-01 07:54 | PDOC.FM ---
Addendum entered and electronically signed by Nacho Alaniz MD 12/01/17 08:03 : We are still unable to get an accurate weight on pt as bed scale is not functional. Pt has consistently had net negative output, about 3L per day. Original Note: - Subjective Subjective: Pt seen at bedside in NAD. MIAH overnight. Pt denies RENTERIA, CP, SOB, abd pain, NVD. - Objective MAR Reviewed: Yes Vital Signs & Weight: Vital Signs (12 hours) Temp Pulse Resp BP Pulse Ox 12/01/17 06:50 74 120/67 12/01/17 06:00 20 12/01/17 04:00 98.5 F 21 H 12/01/17 02:11 74 133/71 12/01/17 02:00 20 12/01/17 00:00 98.4 F 10 L 11/30/17 22:10 79 107/55 L 11/30/17 22:00 98.7 F 22 H 11/30/17 20:00 98.4 F 76 21 H 93 L Weight Admit Weight 260.362 kg Weight 260.362 kg Most Recent Monitor Data Heart Rate from ECG 74 NIBP 120/67 NIBP BP-Mean 89 Respiration from ECG 26 SpO2 72 I&O: 11/30/17 12/01/17 12/02/17 06:59 06:59 06:59 Intake Total 470 700 Output Total 3480 1750 Balance -3010 -1050 Result Diagrams: 11/27/17 03:24 12/01/17 04:22 <Nacho Alaniz - Last Filed: 12/01/17 08:01> - Objective Vital Signs & Weight: Vital Signs (12 hours) Temp Pulse Resp BP Pulse Ox 12/01/17 12:30 78 115/61 12/01/17 10:26 75 130/68 12/01/17 08:00 98.9 F 75 15 97 12/01/17 06:50 74 120/67 12/01/17 06:00 20 12/01/17 04:00 98.5 F 21 H 12/01/17 02:11 74 133/71 12/01/17 02:00 20 Weight Admit Weight 260.362 kg Weight 260.362 kg Most Recent Monitor Data Heart Rate from ECG 76 NIBP 130/68 NIBP BP-Mean 97 Respiration from ECG 15 SpO2 93 I&O: 11/30/17 12/01/17 12/02/17 06:59 06:59 06:59 Intake Total 470 700 Output Total 3480 1750 300 Balance -3010 -1050 -300 Result Diagrams: 11/27/17 03:24 12/01/17 04:22 <Regla Muñoz - Last Filed: 12/01/17 13:41> Phys Exam - Physical Examination Constitutional: NAD morbidly obese HEENT: PERRLA, sclera anicteric trach in place Respiratory: no wheezing, no rales mild rhonchi BL Cardiovascular: RRR, no significant murmur distant heart sounds Gastrointestinal: soft, non-tender Musculoskeletal: edema present trace edema BL Neurological: moves all 4 limbs Psychiatric: A&O x 3 <Nacho Alaniz - Last Filed: 12/01/17 08:01> Dx/Plan (1) Acute on chronic respiratory failure with hypoxia and hypercapnia Code(s): J96.21 - ACUTE AND CHRONIC RESPIRATORY FAILURE WITH HYPOXIA; J96.22 - ACUTE AND CHRONIC RESPIRATORY FAILURE WITH HYPERCAPNIA Status: Acute (2) HIV disease Code(s): B20 - HUMAN IMMUNODEFICIENCY VIRUS [HIV] DISEASE Status: Chronic (3) Hypothyroidism Code(s): E03.9 - HYPOTHYROIDISM, UNSPECIFIED Status: Chronic QualifierTitle: Hypothyroidism type: acquired Qualified Code(s): E03.9 - Hypothyroidism, unspecified - Plan Plan: 1. Acute on chronic hypoxic hypercapneic respiratory failure 2/2 obesity hypoventilation -pt required transition to CCU with need for mechanical ventilation 11/27 -ABG showed worsening CO2 retention -trach switched to larger trach 11/27 -pulmonology on board, recs greatly appreciated -Augmentin discontinued 11/28 -BMP shows improving alkalosis with normal CO2 2. HIV -continue meds per ID -recs greatly appreciated 3. HTN -continue amlodipine and coreg 4. MDD -continue sertraline 5. Hypothyroidism -continue levothyroxine disposition: Pt stable. Continue ventilatory support as necessary. Pulmonology recommendations greatly appreciated. CM assistance greatly appreciated in finding placement, consider broadening search to [place] area where pt wishes to move. Continue to monitor closely. <Nacho Alaniz - Last Filed: 12/01/17 08:01> Attending Addendum - Attending Addendum Date/Time: 12/01/17 0792 I personally evaluated the patient and discussed the management with Dr. Alaniz. I agree with the History, Examination, Assessment and Plan documented above with any addition or exceptions noted below. Acute on chronic hypoxic resp failure JOSE DE JESUS/OHS Morbid Obesity -Continue to wean ventilator per pulm. Patient prognosis is guarded. Will continue to look for placement either LTAC or SNF. <Regla Muñoz - Last Filed: 12/01/17 13:41>
[2017-12-01] MEDS: Levothyroxine Sodium 25 MCG TAB PO SCH (08:00)
--- NOTE | 2017-12-01 08:33 | PRG ---
DATE OF SERVICE: 12/01/2017 Merle is about the same as she has been. She is awake. She follows commands. PHYSICAL EXAMINATION: VITAL SIGNS: Temperature 98.5, pulse 84, blood pressure 120/67. 24 hour intake 700, output 1750. HEENT: Unremarkable. Trach in good position, has thin secretions. CARDIAC: S1 and S2 regular. LUNGS: Distant breath sounds. ABDOMEN: Obese. EXTREMITIES: Brawny edema. LABORATORY DATA: Sodium 135, potassium 3.7, chloride 103, CO2 28, BUN 8, creatinine 0.7, glucose 80. ASSESSMENT: 1. Obesity hypoventilation syndrome. 2. Chronic respiratory failure requiring tracheostomy. PLAN: I spoke with RT. We are trying to wean her pressure support. I think she will require nightt shabbir ventilation for some time. I have kept on the Diamox trying to induce a mild relative acidosis f or her, so that hopefully it will stimulate her respiratory rate and hopefully prevent so many episod es of hypercapnia. Continue HIV meds.
[2017-12-01] MEDS: Lopinavir/Ritonavir 80 MG/20 MG per ML Oral Solution PO SCH ×2 (09:00→21:11)
[2017-12-01] MEDS: guaiFENesin ER 600 MG TAB PO SCH ×2 (12:28→20:49)
[2017-12-01] MEDS: Carvedilol 25 MG TAB PO SCH ×2 (12:29→20:49)
[2017-12-01] MEDS: Amlodipine 5 MG TAB PO SCH (12:30)
[2017-12-01] MEDS: Multivitamin W/ Minerals 1 TAB PER TUBE SCH (12:30)
[2017-12-01] MEDS: Magnesium Oxide 400 MG TAB PO SCH ×2 (12:30→20:49)
[2017-12-01] MEDS: Aspirin 81 mg Enteric Coated Tablet PO SCH (12:30)
[2017-12-01] MEDS: Aquaphor 30 GM 99 GM, Cholestyramine/Aspartame 4 GM TOP SCH ×2 (12:33→21:11)
[2017-12-01] MEDS: Enoxaparin Sodium 40 MG/0.4 ML SYRINGE SC SCH (20:49)
[2017-12-01] MEDS: Aquaphor 30 GM 99 GM, Cholestyramine/Aspartame 4 GM TOP PRN (20:49)
[2017-12-02 05:16] LABS: Anion Gap 5 mmol/L (10-20); BUN (Urea Nitrogen) 8 mg/dL (7.0-18.7); Calc. Creatinine Clearance 474 mL/min (70-130); Calcium 8.5 mg/dL (7.8-10.44); Carbon Dioxide 32 mmol/L (22-29); Chloride 104 mmol/L (98-107); Estimated GFR-MDRD Greater than 90; Glucose 84 mg/dL (70-105); Potassium 3.6 mmol/L (3.5-5.1); Sodium 137 mmol/L (136-145)
[2017-12-02] MEDS: Levothyroxine Sodium 25 MCG TAB PO SCH (05:32)
--- NOTE | 2017-12-02 06:41 | PDOC.FM ---
- Subjective Subjective: Patient had a quiet night in the ICU but was on CPAP during the night. She had PEEP of 5 this AM. No symptoms developed overnight. she had no complaints and denied pain, NV, diarrhea. - Objective MAR Reviewed: Yes Vital Signs & Weight: Vital Signs (12 hours) Temp Pulse Resp Pulse Ox 12/02/17 06:00 16 12/02/17 04:47 70 12/02/17 04:00 18 12/02/17 03:00 98.3 F 12/02/17 02:49 74 12/02/17 02:00 18 12/02/17 00:18 74 12/02/17 00:00 16 12/01/17 23:00 98.7 F 12/01/17 22:00 23 H 12/01/17 21:18 75 12/01/17 21:17 93 L 12/01/17 20:00 99.1 F 73 20 94 L 12/01/17 19:49 73 12/01/17 19:00 99.1 F Weight Admit Weight 260.362 kg Weight 260.362 kg Most Recent Monitor Data Heart Rate from ECG 72 NIBP 120/67 NIBP BP-Mean 82 Respiration from ECG 29 SpO2 94 I&O: 11/30/17 12/01/17 12/02/17 06:59 06:59 06:59 Intake Total 470 700 670 Output Total 6667 1750 1677 [facility] -3010 -1050 -1007 Result Diagrams: 11/27/17 03:24 12/02/17 04:20 EKG Reviewed by me: Yes Radiology Reviewed by me: Yes <Mikel Rojas - Last Filed: 12/02/17 07:49> - Objective Vital Signs & Weight: Vital Signs (12 hours) Temp Pulse Resp BP Pulse Ox 12/02/17 08:33 73 125/54 L 12/02/17 07:57 98.7 F 73 18 98 12/02/17 07:00 98.7 F 12/02/17 06:00 16 12/02/17 04:47 70 12/02/17 04:00 18 12/02/17 03:00 98.3 F 12/02/17 02:49 74 12/02/17 02:00 18 12/02/17 00:18 74 Weight Admit Weight 260.362 kg Weight 226.116 kg Most Recent Monitor Data Heart Rate from ECG 71 NIBP 119/76 NIBP BP-Mean 100 Respiration from ECG 17 SpO2 99 I&O: 12/01/17 12/02/17 12/03/17 06:59 06:59 06:59 Intake Total 700 670 120 Output Total 7913 1677 355 [facility] -1050 -1007 -235 Result Diagrams: 11/27/17 03:24 12/02/17 04:20 <Waqar Carrizales - Last Filed: 12/02/17 12:08> Phys Exam - Physical Examination Constitutional: NAD Super morbidly obese, resting comfortably HEENT: PERRLA tracheostomy in place with tube ventilator tube connected. Neck: no JVD Respiratory: no rales, no rhonchi, clear to auscultation bilateral auscultation limited by mobility and body habitus Cardiovascular: RRR, no significant murmur, no rub Gastrointestinal: soft, non-tender, no distention Musculoskeletal: no edema, pulses present Neurological: non-focal, normal sensation, moves all 4 limbs Psychiatric: normal affect, A&O x 3 Skin: no rash <Mikel Rojas - Last Filed: 12/02/17 07:49> Dx/Plan (1) Acute on chronic respiratory failure with hypoxia and hypercapnia Code(s): J96.21 - ACUTE AND CHRONIC RESPIRATORY FAILURE WITH HYPOXIA; J96.22 - ACUTE AND CHRONIC RESPIRATORY FAILURE WITH HYPERCAPNIA Status: Acute (2) HIV disease Code(s): B20 - HUMAN IMMUNODEFICIENCY VIRUS [HIV] DISEASE Status: Chronic (3) Chronic respiratory acidosis Code(s): E87.2 - ACIDOSIS Status: Chronic (4) Hypothyroidism Code(s): E03.9 - HYPOTHYROIDISM, UNSPECIFIED Status: Chronic QualifierTitle: Hypothyroidism type: acquired Qualified Code(s): E03.9 - Hypothyroidism, unspecified - Plan Plan: Plan: 1. Acute on chronic hypoxic hypercapneic respiratory failure 2/2 obesity hypoventilation -pt required transition to CCU with need for mechanical ventilation 11/27 -ABG showed worsening CO2 retention -trach switched to larger trach 11/27 -pulmonology on board -BMP shows improving alkalosis with mildly elevated CO2 Overall, patient still requiring almost constant CPAP through trach and intermittent ventilation for her hypoventilation. Working on decreasing need and placement to possible LTACH, maybe early next week, but patient has not decided if she would choose to go to Ltach. 2. HIV -continue meds per Outpatient ID consultation 3. HTN -continue amlodipine and coreg 4. MDD -continue sertraline 5. Hypothyroidism -continue levothyroxine disposition: Pt stable. Continue ventilatory support as necessary. Pulmonology recommendations greatly appreciated. CM assistance greatly appreciated in finding placement, consider broadening search to [place] area where pt wishes to move. Continue to monitor closely. <Mikel Rojas - Last Filed: 12/02/17 07:49> Attending Addendum - Attending Addendum Date/Time: 12/02/17 1440 I personally evaluated the patient and discussed the management with Dr. Rojas I agree with the History, Examination, Assessment and Plan documented above with any addition or exceptions noted below. as above looking into outpatient transition options Home not a group home viable option at present would benefit from extended rehab. <Waqar Carrizales - Last Filed: 12/02/17 12:08>
[2017-12-02] MEDS: Magnesium Oxide 400 MG TAB PO SCH ×2 (08:33→20:10)
[2017-12-02] MEDS: Lopinavir/Ritonavir 80 MG/20 MG per ML Oral Solution PO SCH ×2 (08:33→20:14)
[2017-12-02] MEDS: Aspirin 81 mg Enteric Coated Tablet PO SCH (08:33)
[2017-12-02] MEDS: Carvedilol 25 MG TAB PO SCH ×2 (08:33→20:09)
[2017-12-02] MEDS: Amlodipine 5 MG TAB PO SCH (08:33)
[2017-12-02] MEDS: guaiFENesin ER 600 MG TAB PO SCH ×2 (08:33→20:09)
[2017-12-02] MEDS: Multivitamin W/ Minerals 1 TAB PER TUBE SCH (08:33)
[2017-12-02] MEDS: Aquaphor 30 GM 99 GM, Cholestyramine/Aspartame 4 GM TOP PRN (08:35)
[2017-12-02] MEDS: Aquaphor 30 GM 99 GM, Cholestyramine/Aspartame 4 GM TOP SCH ×2 (08:36→20:10)
--- NOTE | 2017-12-02 10:35 | PRG ---
DATE OF SERVICE: 12/02/2017 SERVICE: Pulmonary Medicine. INTERVAL HISTORY: Patient is doing fine from a respiratory standpoint. There has been no interval c hange to her condition. She denies any chest pain, shortness of breath, fevers, or chills. She was on mechanical ventilation last night, but has once again on T-collar. Otherwise, there has been no i nterval change to her condition. PHYSICAL EXAMINATION: VITAL SIGNS: Afebrile. Pulse 73, blood pressure 125/54, respirations 18, and saturation 98% on T-co llar. GENERAL: The patient is awake, alert, in no apparent distress. LUNGS: Decent air entry bilaterally. There is no prolonged expiratory phase. I cannot hear adventi tious sounds. HEART: Normal rate, regular. ABDOMEN: Soft, nontender, nondistended. Bowel sounds are positive. MUSCULOSKELETAL: No cyanosis or clubbing. There is no pitting in the bilateral lower extremities. NEUROLOGIC: Grossly nonfocal. LABORATORY DATA: Basic metabolic profile is essentially unremarkable except for bicarbonate of 32. ASSESSMENT: 1. Chronic hypoxic and hypercapnic respiratory failure. 2. Obesity hypoventilation syndrome. 3. Human immunodeficiency virus. PLAN: We will continue our current course of action. She will be on mechanical ventilation at night . T-collar trial as long as tolerated during the daytime. We will work with physical therapy in ord er to become more mobile. Pulmonary Critical Care will continue to follow along. Our plan for a lab oratory holiday in the morning.
[2017-12-02] MEDS: Enoxaparin Sodium 40 MG/0.4 ML SYRINGE SC SCH (20:09)
[2017-12-03 04:32] LABS: #Lymphocytes 0.9 thou/uL (1.20-3.40); #Monocytes 0.5 thou/uL (0.11-0.59); #Neutrophils 2.3 thou/uL (1.40-6.50); %Basophils 0.6 % (0.0-1.0); %Eosinophils 0.6 % (0.0-10.0); %Lymphocytes 23.5 % (21.0-51.0); %Monocytes 12.2 % (0.0-10.0); %Neutrophils 63.1 % (42.0-75.0); Hemoglobin 11.3 g/dL (12.0-16.0); Mean Corpuscular HGB CONC 30.9 g/dL (32.0-36.0); Mean Corpuscular Hemoglobin 29.4 pg (27.0-31.0); Platelet Count 127 thou/uL (130-400); RBC Distribution Width 16.9 % (11.5-14.5); Red Blood Cell (RBC) Count 3.84 mill/uL (4.20-5.40); White Blood Cell (WBC) Count 3.7 thou/uL (4.8-10.8)
[2017-12-03] MEDS: Levothyroxine Sodium 25 MCG TAB PO SCH (06:10)
[2017-12-03] MEDS: AcetaZOLAMIDE 250 MG TAB PO SCH (09:38)
[2017-12-03] MEDS: Amlodipine 5 MG TAB PO SCH (09:38)
[2017-12-03] MEDS: Aspirin 81 mg Enteric Coated Tablet PO SCH (09:39)
[2017-12-03] MEDS: guaiFENesin ER 600 MG TAB PO SCH ×2 (09:39→21:31)
[2017-12-03] MEDS: Magnesium Oxide 400 MG TAB PO SCH ×2 (09:39→21:31)
[2017-12-03] MEDS: Carvedilol 25 MG TAB PO SCH ×2 (09:40→21:32)
[2017-12-03] MEDS: Multivitamin W/ Minerals 1 TAB PER TUBE SCH (09:40)
[2017-12-03] MEDS: Aquaphor 30 GM 99 GM, Cholestyramine/Aspartame 4 GM TOP SCH ×2 (09:41→21:49)
[2017-12-03] MEDS: Lopinavir/Ritonavir 80 MG/20 MG per ML Oral Solution PO SCH ×2 (10:00→21:31)
--- NOTE | 2017-12-03 11:44 | PDOC.FM ---
- Subjective Subjective: Patient is sitting up out of bed, and talking well with trach adapter. maintaining saturations while on blow by trach collar. - Objective MAR Reviewed: Yes Vital Signs & Weight: Vital Signs (12 hours) Temp Pulse Resp BP 12/03/17 09:38 71 152/77 H 12/03/17 08:00 98.5 F 12/03/17 06:00 16 12/03/17 04:00 16 12/03/17 03:26 71 115/62 12/03/17 03:00 97.6 F 12/03/17 02:00 21 H 12/03/17 00:00 20 Weight Admit Weight 260.362 kg Weight 226.116 kg Most Recent Monitor Data Heart Rate from ECG 79 NIBP 150/84 NIBP BP-Mean 103 Respiration from ECG 20 SpO2 99 I&O: 12/02/17 12/03/17 12/04/17 06:59 06:59 06:59 Intake Total 670 460 460 Output Total 1679 1101 70 Belly Ballot -063 390 Result Diagrams: 12/03/17 04:09 12/02/17 04:20 EKG Reviewed by me: Yes Radiology Reviewed by me: Yes <Mikel Rojas - Last Filed: 12/03/17 12:12> - Objective Vital Signs & Weight: Vital Signs (12 hours) Temp Pulse Resp BP Pulse Ox 12/03/17 12:00 97.7 F 12/03/17 09:38 71 152/77 H 12/03/17 08:00 97.7 F 72 20 100 12/03/17 06:00 16 12/03/17 04:00 16 12/03/17 03:26 71 115/62 12/03/17 03:00 97.6 F Weight Admit Weight 260.362 kg Weight 226.116 kg Most Recent Monitor Data Heart Rate from ECG 71 NIBP 143/76 NIBP BP-Mean 94 Respiration from ECG 22 SpO2 100 I&O: 12/02/17 12/03/17 12/04/17 06:59 06:59 06:59 Intake Total 670 460 580 Output Total 1677 1101 179 Belly Ballot 649 401 Result Diagrams: 12/03/17 04:09 12/02/17 04:20 <Waqar Carrizales - Last Filed: 12/03/17 14:39> Phys Exam - Physical Examination Obese, sitting up in chair with trach collar, speaking easily HEENT: PERRLA, moist MMs Neck: no nodes Respiratory: no wheezing, no rales, no rhonchi, clear to auscultation bilateral distant heart sounds Cardiovascular: RRR, no significant murmur Gastrointestinal: soft, non-tender, no distention Musculoskeletal: no edema, pulses present large limbs Neurological: non-focal, normal sensation, moves all 4 limbs Psychiatric: normal affect, A&O x 3 Skin: no rash, normal turgor <Mikel Rojas - Last Filed: 12/03/17 12:12> Dx/Plan (1) Acute on chronic respiratory failure with hypoxia and hypercapnia Code(s): J96.21 - ACUTE AND CHRONIC RESPIRATORY FAILURE WITH HYPOXIA; J96.22 - ACUTE AND CHRONIC RESPIRATORY FAILURE WITH HYPERCAPNIA Status: Acute (2) HIV disease Code(s): B20 - HUMAN IMMUNODEFICIENCY VIRUS [HIV] DISEASE Status: Chronic (3) Chronic respiratory acidosis Code(s): E87.2 - ACIDOSIS Status: Chronic (4) Hypothyroidism Code(s): E03.9 - HYPOTHYROIDISM, UNSPECIFIED Status: Chronic QualifierTitle: Hypothyroidism type: acquired Qualified Code(s): E03.9 - Hypothyroidism, unspecified - Plan Plan: 1. Acute on chronic hypoxic hypercapneic respiratory failure 2/2 obesity hypoventilation -pt required transition to CCU with need for mechanical ventilation 11/27 -ABG showed worsening CO2 retention -trach switched to larger trach 11/27 -pulmonology on board -BMP shows improving alkalosis with mildly elevated CO2 Transitioned to CPAP overnight with trach collar only during the day. Will likely need CPAP at night for the foreseeable future. 2. HIV -continue meds per Outpatient ID consultation 3. HTN -continue amlodipine and coreg 4. MDD -continue sertraline 5. Hypothyroidism -continue levothyroxine disposition:Patient is starting to say that she is amenable for a SNF placement for short term rehab. she has not walked in the hospital so she needs some PT here but longer PT at SNF. She will likely need CPAP at night for at the rehab. <Mikel Rojas - Last Filed: 12/03/17 12:12> Attending Addendum - Attending Addendum Date/Time: 12/03/17 6531 I personally evaluated the patient and discussed the management with Dr. Rojas I agree with the History, Examination, Assessment and Plan documented above with any addition or exceptions noted below. Candid discussion with patient regard need for continued out patient rehab and need for continued weight loss. <Waqar Carrizales - Last Filed: 12/03/17 14:39>
[2017-12-03] MEDS: Enoxaparin Sodium 40 MG/0.4 ML SYRINGE SC SCH (21:31)
[2017-12-03] MEDS: Aquaphor 30 GM 99 GM, Cholestyramine/Aspartame 4 GM TOP PRN ×2 (21:32→21:49)
[2017-12-04] MEDS: Levothyroxine Sodium 25 MCG TAB PO SCH (05:49)
--- NOTE | 2017-12-04 08:30 | PDOC.FM ---
- Subjective Subjective: Pt seen at bedside in NAD. MIAH overnight. Pt has been out of bed last 2 days. Tolerating daytime trach collar well. No complaints this AM. - Objective MAR Reviewed: Yes Vital Signs & Weight: Vital Signs (12 hours) Temp Pulse Resp BP Pulse Ox 12/04/17 07:01 74 130/60 12/04/17 05:43 18 12/04/17 04:00 98.0 F 20 12/04/17 02:37 76 126/63 12/04/17 02:00 16 12/04/17 00:00 98.3 F 18 94 L 12/03/17 22:35 71 128/59 L 12/03/17 22:00 17 12/03/17 21:20 75 95/59 L Weight Admit Weight 260.362 kg Weight 234.054 kg Most Recent Monitor Data Heart Rate from ECG 74 NIBP 130/60 NIBP BP-Mean 88 Respiration from ECG 20 SpO2 97 I&O: 12/03/17 12/04/17 12/05/17 06:59 06:59 06:59 Intake Total 460 630 Output Total 1101 869 135 Balance -641 -239 -135 Result Diagrams: 12/03/17 04:09 12/02/17 04:20 <Nacho Alaniz - Last Filed: 12/04/17 08:27> - Objective Vital Signs & Weight: Vital Signs (12 hours) Temp Pulse Resp BP Pulse Ox 12/04/17 09:06 74 137/76 12/04/17 08:00 98.9 F 79 18 100 12/04/17 07:01 74 130/60 12/04/17 05:43 18 12/04/17 04:00 98.0 F 20 12/04/17 02:37 76 126/63 12/04/17 02:00 16 12/04/17 00:00 98.3 F 18 94 L Weight Admit Weight 260.362 kg Weight 233.345 kg Most Recent Monitor Data Heart Rate from ECG 77 NIBP 136/80 NIBP BP-Mean 100 Respiration from ECG 15 SpO2 100 I&O: 12/03/17 12/04/17 12/05/17 06:59 06:59 06:59 Intake Total 460 630 Output Total 1101 869 415 Balance -641 -239 -415 Result Diagrams: 12/03/17 04:09 12/02/17 04:20 <YoelTaylor cook - Last Filed: 12/04/17 11:28> Phys Exam - Physical Examination Constitutional: NAD morbidly obese HEENT: PERRLA, sclera anicteric trach in place Respiratory: no wheezing, clear to auscultation bilateral Cardiovascular: RRR distant heart sounds Gastrointestinal: soft, non-tender Musculoskeletal: edema present trace edema BL LE Neurological: moves all 4 limbs Skin: cap refill <2 seconds <Nacho Alaniz - Last Filed: 12/04/17 08:27> Dx/Plan (1) Acute on chronic respiratory failure with hypoxia and hypercapnia Code(s): J96.21 - ACUTE AND CHRONIC RESPIRATORY FAILURE WITH HYPOXIA; J96.22 - ACUTE AND CHRONIC RESPIRATORY FAILURE WITH HYPERCAPNIA Status: Acute (2) HIV disease Code(s): B20 - HUMAN IMMUNODEFICIENCY VIRUS [HIV] DISEASE Status: Chronic (3) Hypothyroidism Code(s): E03.9 - HYPOTHYROIDISM, UNSPECIFIED Status: Chronic QualifierTitle: Hypothyroidism type: acquired Qualified Code(s): E03.9 - Hypothyroidism, unspecified - Plan Plan: 1. Acute on chronic hypoxic hypercapneic respiratory failure 2/2 obesity hypoventilation -pt required transition to CCU with need for mechanical ventilation 11/27 -ABG showed worsening CO2 retention -trach switched to larger trach 11/27 -pulmonology on board -BMP shows improving alkalosis with mildly elevated CO2 -transitioned to trach collar during day with CPAP overnight 2. HIV -continue meds per Outpatient ID consultation 3. HTN -continue amlodipine and coreg 4. MDD -continue sertraline 5. Hypothyroidism -continue levothyroxine disposition: Pt able to get out of bed and tolerate trach collar well. Pulmonary recommendations greatly appreciated. CM assistance appreciated, consider SNF vs NH placement for continued rehab. Continue to monitor. <Nacho Alaniz - Last Filed: 12/04/17 08:27> Attending Addendum - Attending Addendum Date/Time: 12/04/17 1127 I personally evaluated the patient and discussed the management with Dr. Alaniz on 12/04/17. I agree with the History, Examination, Assessment and Plan documented above with any addition or exceptions noted below. Patient up in chair next to bed, appearing well, smiling. Able to speak with PMV. Working with PT. Continue CPAP at night. CM continues to work on SNF placement. <Taylor Perez - Last Filed: 12/04/17 11:28>
[2017-12-04] MEDS: Aspirin 81 mg Enteric Coated Tablet PO SCH (09:05)
[2017-12-04] MEDS: Magnesium Oxide 400 MG TAB PO SCH ×2 (09:06→21:58)
[2017-12-04] MEDS: Multivitamin W/ Minerals 1 TAB PER TUBE SCH (09:06)
[2017-12-04] MEDS: guaiFENesin ER 600 MG TAB PO SCH ×2 (09:06→21:58)
[2017-12-04] MEDS: Amlodipine 5 MG TAB PO SCH (09:06)
[2017-12-04] MEDS: Carvedilol 25 MG TAB PO SCH ×2 (09:06→22:03)
[2017-12-04] MEDS: AcetaZOLAMIDE 250 MG TAB PO SCH (09:07)
[2017-12-04] MEDS: Lopinavir/Ritonavir 80 MG/20 MG per ML Oral Solution PO SCH ×2 (09:08→22:00)
[2017-12-04] MEDS: Aquaphor 30 GM 99 GM, Cholestyramine/Aspartame 4 GM TOP SCH ×2 (09:08→22:06)
--- NOTE | 2017-12-04 12:44 | PRG ---
DATE OF SERVICE: 12/04/2017. SUBJECTIVE: She is sleeping in bed, had an uneventful weekend and actually has been able to get up a nd get to a scale. PHYSICAL EXAMINATION: VITAL SIGNS: Temperature 98.0, pulse 80, blood pressure 128/69, O2 sat 97%. A 24-hour intake 630, o utput 869, weight 516 pounds. HEENT: Unremarkable. NECK: Trach in good position. LUNGS: Distant, but clear breath sounds. CARDIOVASCULAR: S1, S2 regular. ABDOMEN: Soft. EXTREMITIES: No edema. LABORATORY DATA: No labs were obtained today. ASSESSMENT: 1. Obesity hypoventilation syndrome. 2. Chronic respiratory failure. 3. Human immunodeficiency virus. PLAN: 1. Continue nocturnal ventilation. 2. Up in the day as tolerated. 3. May have to think about home BiPAP versus BiPAP in a [facility] at night.
[2017-12-04] MEDS: Enoxaparin Sodium 40 MG/0.4 ML SYRINGE SC SCH (21:40)
[2017-12-04] MEDS: Aquaphor 30 GM 99 GM, Cholestyramine/Aspartame 4 GM TOP PRN (22:04)
--- NOTE | 2017-12-05 02:25 | PRG ---
DATE OF SERVICE: 12/03/2017 SERVICE: Pulmonary Medicine. INTERVAL HISTORY: The patient is doing fantastic from a cardiovascular respiratory standpoint. She denies any current chest pain. This morning, she is . She is very excited. She has a very positive outlook on how things are going. Otherwise, there has been no interval change to her condition. PHYSICAL EXAMINATION: VITAL SIGNS: Afebrile. Pulse 74, blood pressure 126/69, respirations 21, saturation 99% on 28% FiO2. GENERAL: Patient is awake and alert, in no apparent distress. LUNGS: Decent air entry. There is no prolonged expiratory phase. I do not appreciate crackles today. HEART: Normal rate, regular. ABDOMEN: Soft, nontender, nondistended. Bowel sounds are positive. MUSCULOSKELETAL: No cyanosis or clubbing. There is trace pitting in the bilateral lower extremities, but there is drastically improved. GENITOURINARY: No [place]. NEUROLOGIC: Grossly nonfocal. LABORATORY AND DIAGNOSTIC DATA: WBC 3.7, hemoglobin 11.3, platelets 127,000. Previous basic metabolic profile was unremarkable. Respiratory culture is negative to date. ASSESSMENT 1. Acute on chronic hypoxic and hypercapnic respiratory failure, resolved to baseline. 2. Obesity hypoventilation syndrome. 3. Human immunodeficiency virus. PLAN: We will continue supportive care. I will give her another lab holiday. Pulmonary critical care will continue to follow along while she remains in the ICU. From my perspective,it would be reasonable to transition out of the hospital if we had a safe environment for her to go to. RHODA
[2017-12-05] MEDS: Levothyroxine Sodium 25 MCG TAB PO SCH (05:43)
[2017-12-05 05:46] LABS: Anion Gap 8 mmol/L (10-20); BUN (Urea Nitrogen) 10 mg/dL (7.0-18.7); Calc. Creatinine Clearance 476 mL/min (70-130); Calcium 8.5 mg/dL (7.8-10.44); Carbon Dioxide 25 mmol/L (22-29); Chloride 106 mmol/L (98-107); Estimated GFR-MDRD Greater than 90; Glucose 78 mg/dL (70-105); Sodium 135 mmol/L (136-145)
--- NOTE | 2017-12-05 07:47 | PDOC.FM ---
- Subjective Subjective: Pt seen at bedside in NAD. MIAH overnight. Pt spent most of yesterday out of bed in bedside chair and tolerated well. - Objective MAR Reviewed: Yes Vital Signs & Weight: Vital Signs (12 hours) Temp Pulse Resp BP Pulse Ox 12/05/17 05:44 22 H 12/05/17 04:00 98.3 F 12 12/05/17 02:44 73 113/54 L 12/05/17 02:00 12 12/05/17 00:03 68 111/59 L 12/05/17 00:00 98.0 F 16 12/04/17 22:11 69 117/63 12/04/17 22:00 24 H 12/04/17 20:00 98.1 F 68 14 100 Weight Admit Weight 260.362 kg Weight 233.345 kg Most Recent Monitor Data Heart Rate from ECG 73 NIBP 123/65 NIBP BP-Mean 98 Respiration from ECG 21 SpO2 93 I&O: 12/04/17 12/05/17 12/06/17 06:59 06:59 06:59 Intake Total 630 650 Output Total 869 1370 Balance -239 -476 Result Diagrams: 12/03/17 04:09 12/05/17 04:50 <Nacho Alaniz - Last Filed: 12/05/17 07:47> - Objective Vital Signs & Weight: Vital Signs (12 hours) Temp Pulse Resp BP Pulse Ox 12/06/17 06:58 67 113/67 12/06/17 06:00 23 H 12/06/17 04:00 98.6 F 23 H 12/06/17 02:16 68 12/06/17 02:00 23 H 12/06/17 00:00 98.6 F 23 H 12/05/17 22:31 68 126/69 12/05/17 22:00 23 H 12/05/17 19:52 98.6 F 158 H 15 92 L Weight Admit Weight 260.362 kg Weight 231.814 kg Most Recent Monitor Data Heart Rate from ECG 67 NIBP 113/67 NIBP BP-Mean 82 Respiration from ECG 23 SpO2 93 I&O: 12/05/17 12/06/17 12/07/17 06:59 06:59 06:59 Intake Total 650 480 Output Total 1370 1137 Balance -720 -567 Result Diagrams: 12/03/17 04:09 05/01/18 04:50 <Taylor Perez - Last Filed: 12/06/17 07:23> Phys Exam - Physical Examination Constitutional: NAD morbidly obese HEENT: sclera anicteric trach in place Respiratory: no wheezing Cardiovascular: RRR distant heart sounds Gastrointestinal: soft, non-tender Neurological: moves all 4 limbs Psychiatric: normal affect, A&O x 3 <Nacho Alaniz - Last Filed: 12/05/17 07:47> Dx/Plan (1) Acute on chronic respiratory failure with hypoxia and hypercapnia Code(s): J96.21 - ACUTE AND CHRONIC RESPIRATORY FAILURE WITH HYPOXIA; J96.22 - ACUTE AND CHRONIC RESPIRATORY FAILURE WITH HYPERCAPNIA Status: Acute (2) HIV disease Code(s): B20 - HUMAN IMMUNODEFICIENCY VIRUS [HIV] DISEASE Status: Chronic (3) Hypothyroidism Code(s): E03.9 - HYPOTHYROIDISM, UNSPECIFIED Status: Chronic QualifierTitle: Hypothyroidism type: acquired Qualified Code(s): E03.9 - Hypothyroidism, unspecified - Plan Plan: 1. Acute on chronic hypoxic hypercapneic respiratory failure 2/2 obesity hypoventilation -pt required transition to CCU with need for mechanical ventilation 11/27 -ABG showed worsening CO2 retention -trach switched to larger trach 11/27 -pulmonology on board -BMP shows improving alkalosis with mildly elevated CO2 -transitioned to trach collar during day with CPAP overnight -tolerating out of bed well during day with trach collar 2. HIV -continue meds per Outpatient ID consultation 3. HTN -continue amlodipine and coreg 4. MDD -continue sertraline 5. Hypothyroidism -continue levothyroxine disposition: Pt able to get out of bed and tolerate trach collar well. Pulmonary recommendations greatly appreciated. CM assistance appreciated in finding placement for continued rehab. Continue to monitor. <Nacho Alaniz - Last Filed: 12/05/17 07:47> Attending Addendum - Attending Addendum I personally evaluated the patient and discussed the management with Dr. Alaniz on 12/05/17. I agree with the History, Examination, Assessment and Plan documented above with any addition or exceptions noted below. Patient up in chair, speaking with valve. Speech present during our exam, would like to try a more advanced diet. Continue with dispo plan per Dr. Ramirez. <Taylor Perez - Last Filed: 12/06/17 07:23>
--- NOTE | 2017-12-05 08:19 | PRG ---
DATE OF SERVICE: 12/05/2017 Thirty-five minutes critical care time. Merle is still requiring nocturnal mechanical ventilation. PHYSICAL EXAMINATION: VITAL SIGNS: Temperature is 98.5, pulse 78, blood pressure 114/68, 24 intake 650, output 1370. HEENT: Unremarkable. NECK: Trach in good position. LUNGS: Clear with distant breath sounds. CARDIOVASCULAR: S1, S2 regular. ABDOMEN: Soft, obese. EXTREMITIES: Edematous. LABORATORY DATA: Sodium 135, potassium 4.0, chloride 106, CO2 25, BUN 10, creatinine 0.6, glucose 78 . ASSESSMENT: 1. Obesity hypoventilation syndrome. 2. Chronic respiratory failure requiring mechanical ventilation. 3. Underlying severe obstructive sleep apnea. PLAN: I want to go ahead and see if we can get a Trilogy ventilator ordered for her, so that she can continue nocturnal ventilation at home. I would like to initiate that kind of treatment while she i s still in the hospital to see how she does. This may be difficult with her being on Medicaid, but i t is worth a try.
[2017-12-05] MEDS: Magnesium Oxide 400 MG TAB PO SCH ×2 (10:15→21:35)
[2017-12-05] MEDS: guaiFENesin ER 600 MG TAB PO SCH ×2 (10:15→21:35)
[2017-12-05] MEDS: Aspirin 81 mg Enteric Coated Tablet PO SCH (10:15)
[2017-12-05] MEDS: Carvedilol 25 MG TAB PO SCH ×2 (10:15→21:35)
[2017-12-05] MEDS: Amlodipine 5 MG TAB PO SCH (10:16)
[2017-12-05] MEDS: Multivitamin W/ Minerals 1 TAB PER TUBE SCH (10:17)
[2017-12-05] MEDS: Aquaphor 30 GM 99 GM, Cholestyramine/Aspartame 4 GM TOP SCH ×2 (10:18→21:36)
[2017-12-05] MEDS: AcetaZOLAMIDE 250 MG TAB PO SCH (10:20)
[2017-12-05] MEDS: Lopinavir/Ritonavir 80 MG/20 MG per ML Oral Solution PO SCH ×2 (11:07→21:36)
[2017-12-05] MEDS: Enoxaparin Sodium 40 MG/0.4 ML SYRINGE SC SCH (21:36)
[2017-12-06] MEDS: Levothyroxine Sodium 25 MCG TAB PO SCH (06:00)
--- NOTE | 2017-12-06 07:33 | PDOC.FM ---
- Subjective Subjective: Pt seen at bedside in NAD. MIAH overnight. Pt spent most of yesterday out of bed in bedside chair and tolerated well. - Objective MAR Reviewed: Yes Vital Signs & Weight: Vital Signs (12 hours) Temp Pulse Resp BP Pulse Ox 12/06/17 06:58 67 113/67 12/06/17 06:00 23 H 12/06/17 04:00 98.6 F 23 H 12/06/17 02:16 68 12/06/17 02:00 23 H 12/06/17 00:00 98.6 F 23 H 12/05/17 22:31 68 126/69 12/05/17 22:00 23 H 12/05/17 19:52 98.6 F 158 H 15 92 L Weight Admit Weight 260.362 kg Weight 231.814 kg Most Recent Monitor Data Heart Rate from ECG 67 NIBP 113/67 NIBP BP-Mean 82 Respiration from ECG 23 SpO2 93 I&O: 12/05/17 12/06/17 12/07/17 06:59 06:59 06:59 Intake Total 650 480 Output Total 1370 1137 Balance -720 -657 Result Diagrams: 12/03/17 04:09 12/05/17 04:50 <Nacho Alaniz - Last Filed: 12/06/17 07:31> - Objective Vital Signs & Weight: Vital Signs (12 hours) Temp Pulse Resp BP Pulse Ox 12/06/17 09:29 69 137/79 12/06/17 08:00 97.8 F 69 13 94 L 12/06/17 07:00 97.8 F 12/06/17 06:58 67 113/67 12/06/17 06:00 23 H 12/06/17 04:00 98.6 F 23 H 12/06/17 02:16 68 12/06/17 02:00 23 H 12/06/17 00:00 98.6 F 23 H 12/05/17 22:31 68 126/69 Weight Admit Weight 260.362 kg Weight 231.814 kg Most Recent Monitor Data Heart Rate from ECG 72 NIBP 123/73 NIBP BP-Mean 92 Respiration from ECG 22 SpO2 77 I&O: 12/05/17 12/06/17 12/07/17 06:59 06:59 06:59 Intake Total 650 480 0 Output Total 1370 1137 45 Balance -720 -657 -45 Result Diagrams: 12/03/17 04:09 12/05/17 04:50 <Taylor Perez - Last Filed: 12/06/17 10:17> Phys Exam - Physical Examination Constitutional: NAD morbidly obese HEENT: sclera anicteric Respiratory: no wheezing, no rales distant breath sounds Cardiovascular: RRR, no significant murmur distant heart sounds Gastrointestinal: soft, non-tender Musculoskeletal: edema present trace edema BL LE Neurological: non-focal, moves all 4 limbs Psychiatric: A&O x 3 <Nacho Alaniz - Last Filed: 12/06/17 07:31> Dx/Plan (1) Acute on chronic respiratory failure with hypoxia and hypercapnia Code(s): J96.21 - ACUTE AND CHRONIC RESPIRATORY FAILURE WITH HYPOXIA; J96.22 - ACUTE AND CHRONIC RESPIRATORY FAILURE WITH HYPERCAPNIA Status: Acute (2) HIV disease Code(s): B20 - HUMAN IMMUNODEFICIENCY VIRUS [HIV] DISEASE Status: Chronic (3) Hypothyroidism Code(s): E03.9 - HYPOTHYROIDISM, UNSPECIFIED Status: Chronic QualifierTitle: Hypothyroidism type: acquired Qualified Code(s): E03.9 - Hypothyroidism, unspecified - Plan Plan: 1. Acute on chronic hypoxic hypercapneic respiratory failure 2/2 obesity hypoventilation -pt required transition to CCU with need for mechanical ventilation 11/27 -ABG showed worsening CO2 retention -trach switched to larger trach 11/27 -pulmonology on board -BMP shows improving alkalosis with mildly elevated CO2 -transitioned to trach collar during day with CPAP overnight -tolerating out of bed well during day with trach collar 2. HIV -continue meds per Outpatient ID consultation 3. HTN -continue amlodipine and coreg 4. MDD -continue sertraline 5. Hypothyroidism -continue levothyroxine disposition: Pt able to get out of bed and tolerate trach collar well. Pulmonary recommendations greatly appreciated. CM assistance appreciated in finding placement for continued rehab. Continue to monitor. <Nacho Alaniz - Last Filed: 12/06/17 07:31> Attending Addendum - Attending Addendum Date/Time: 12/06/17 1017 I personally evaluated the patient and discussed the management with Dr. Alaniz on 12/06/17. I agree with the History, Examination, Assessment and Plan documented above with any addition or exceptions noted below. Patient up in chair. Working with PT. Doing well with advanced diet. Continue working with PT. CM working on placement. <Taylor Perez - Last Filed: 12/06/17 10:17>
--- NOTE | 2017-12-06 07:51 | PRG ---
DATE OF SERVICE: 12/06/2017 She is just waking up this morning. She was on the ventilator last night as was prescribed. She has no complaints. PHYSICAL EXAMINATION: VITAL SIGNS: Temperature is 98.6, pulse 67, blood pressure 113/67, O2 sat 93%. Total intake 480, ou tput 1137, weight measured 511 pounds. HEENT: Unremarkable. NECK: Trach clean. LUNGS: Coarse breath sounds. CARDIAC: S1 and S2 regular. ABDOMEN: Soft, obese. EXTREMITIES: Edematous. LABORATORY DATA: No new labs were done today. ASSESSMENT: 1. Obesity hypoventilation syndrome with chronic respiratory failure. 2. Morbid obesity. PLAN: The plan is to continue nocturnal ventilation. We are trying to arrange a Trilogy ventilator or BiPAP that she can use through the trach. Would anticipate this being a protracted process given she has Medicaid. I have reviewed her orders. She is currently off all antibiotics and is on a low dose of Diamox daily. We will check a chemistry tomorrow.
[2017-12-06] MEDS: guaiFENesin ER 600 MG TAB PO SCH ×2 (09:29→20:56)
[2017-12-06] MEDS: AcetaZOLAMIDE 250 MG TAB PO SCH (09:29)
[2017-12-06] MEDS: Amlodipine 5 MG TAB PO SCH (09:29)
[2017-12-06] MEDS: Carvedilol 25 MG TAB PO SCH ×2 (09:29→20:56)
[2017-12-06] MEDS: Aspirin 81 mg Enteric Coated Tablet PO SCH (09:29)
[2017-12-06] MEDS: Magnesium Oxide 400 MG TAB PO SCH ×2 (09:30→20:56)
[2017-12-06] MEDS: Multivitamin W/ Minerals 1 TAB PER TUBE SCH (09:30)
[2017-12-06] MEDS: Lopinavir/Ritonavir 80 MG/20 MG per ML Oral Solution PO SCH ×2 (09:30→20:56)
[2017-12-06] MEDS: Aquaphor 30 GM 99 GM, Cholestyramine/Aspartame 4 GM TOP SCH (10:56)
[2017-12-06] MEDS: Enoxaparin Sodium 40 MG/0.4 ML SYRINGE SC SCH (20:56)
[2017-12-07] MEDS: Aquaphor 30 GM 99 GM, Cholestyramine/Aspartame 4 GM TOP SCH ×3 (00:13→21:02)
[2017-12-07] MEDS: Levothyroxine Sodium 25 MCG TAB PO SCH (05:49)
[2017-12-07 06:14] LABS: Anion Gap 3 mmol/L (10-20); BUN (Urea Nitrogen) 10 mg/dL (7.0-18.7); Calc. Creatinine Clearance 466 mL/min (70-130); Calcium 8.5 mg/dL (7.8-10.44); Carbon Dioxide 31 mmol/L (22-29); Chloride 106 mmol/L (98-107); Estimated GFR-MDRD Greater than 90; Glucose 90 mg/dL (70-105); Potassium 3.7 mmol/L (3.5-5.1); Sodium 136 mmol/L (136-145)
--- NOTE | 2017-12-07 08:01 | PRG ---
DATE OF SERVICE: 12/07/2017 The patient continues on nocturnal mechanical ventilation. She seems to be doing well, relatively sp eaking. PHYSICAL EXAMINATION: VITAL SIGNS: Temperature is 98, pulse 80, blood pressure 106/53, O2 sat 91% on a trach collar. Tota l intake 2416, output 855, weight last measured at 511.. HEENT: Unremarkable. NECK: No JVD. Trach in good position with clear mucoid secretions. LUNGS: Distant but clear breath sounds. CARDIOVASCULAR: S1, S2 regular. ABDOMEN: Morbidly obese. EXTREMITIES: Edematous throughout. LABORATORY DATA: Sodium 136, potassium 3.7, chloride 106, CO2 31, BUN 10, creatinine 0.6, glucose 90 . ASSESSMENT: No change in status. RECOMMENDATIONS: 1. Still waiting a home ventilator that we can do mechanical ventilation with at night, whether it be a Trilogy or BiPAP, still have not heard back from the patient's insurance company as to what they will allow. 2. Continue getting up in chair during the day and trach collar trials during the day.
--- NOTE | 2017-12-07 08:22 | PDOC.FM ---
- Subjective Subjective: Pt seen at bedside in NAD. MIAH overnight. Pt spent most of yesterday out of bed in bedside chair and tolerated well. - Objective MAR Reviewed: Yes Vital Signs & Weight: Vital Signs (12 hours) Temp Pulse Resp Pulse Ox 12/07/17 07:48 98 F 83 16 92 L 12/07/17 06:00 16 12/07/17 04:00 98 F 18 12/07/17 02:00 18 12/07/17 00:10 19 12/07/17 00:00 98.6 F 99 Weight Admit Weight 260.362 kg Weight 232.1 kg Most Recent Monitor Data Heart Rate from ECG 73 NIBP 106/53 NIBP BP-Mean 71 Respiration from ECG 20 SpO2 91 I&O: 12/06/17 12/07/17 12/08/17 06:59 06:59 06:59 Intake Total 480 610 Output Total 1137 855 Balance -657 -154 Result Diagrams: 12/03/17 04:09 12/07/17 05:56 <Nacho Alaniz - Last Filed: 12/07/17 08:19> - Objective Vital Signs & Weight: Vital Signs (12 hours) Temp Pulse Resp BP Pulse Ox 12/07/17 08:31 83 125/77 12/07/17 08:00 91 L 12/07/17 07:48 98 F 83 16 92 L 12/07/17 07:00 98 F 12/07/17 06:00 16 12/07/17 04:00 98 F 18 12/07/17 02:00 18 12/07/17 00:10 19 12/07/17 00:00 98.6 F 99 Weight Admit Weight 260.362 kg Weight 232.1 kg Most Recent Monitor Data Heart Rate from ECG 76 NIBP 147/84 NIBP BP-Mean 108 Respiration from ECG 20 SpO2 92 I&O: 12/06/17 12/07/17 12/08/17 06:59 06:59 06:59 Intake Total 480 610 250 Output Total 1137 855 98 Balance -657 -183 152 Result Diagrams: 12/03/17 04:09 12/07/17 05:56 <Taylor Perez - Last Filed: 12/07/17 10:22> Phys Exam - Physical Examination Constitutional: NAD morbidly obese HEENT: sclera anicteric trach in place Respiratory: no wheezing, no rales, clear to auscultation bilateral distant breath sounds Cardiovascular: RRR, no significant murmur distant heart sounds Gastrointestinal: soft, non-tender Musculoskeletal: edema present Neurological: moves all 4 limbs Psychiatric: A&O x 3 <Nacho Alaniz - Last Filed: 12/07/17 08:19> Dx/Plan (1) Acute on chronic respiratory failure with hypoxia and hypercapnia Code(s): J96.21 - ACUTE AND CHRONIC RESPIRATORY FAILURE WITH HYPOXIA; J96.22 - ACUTE AND CHRONIC RESPIRATORY FAILURE WITH HYPERCAPNIA Status: Acute (2) HIV disease Code(s): B20 - HUMAN IMMUNODEFICIENCY VIRUS [HIV] DISEASE Status: Chronic (3) Hypothyroidism Code(s): E03.9 - HYPOTHYROIDISM, UNSPECIFIED Status: Chronic QualifierTitle: Hypothyroidism type: acquired Qualified Code(s): E03.9 - Hypothyroidism, unspecified - Plan Plan: 1. Acute on chronic hypoxic hypercapneic respiratory failure 2/2 obesity hypoventilation -pt required transition to CCU with need for mechanical ventilation 11/27 -trach switched to larger trach 11/27 -pulmonology on board -transitioned to trach collar during day with CPAP overnight -tolerating out of bed well during day with trach collar 2. HIV -continue meds per Outpatient ID consultation 3. HTN -continue amlodipine and coreg 4. MDD -continue sertraline 5. Hypothyroidism -continue levothyroxine disposition: Pt able to get out of bed and tolerate trach collar well. Pulmonary recommendations greatly appreciated. CM assistance appreciated in finding placement for continued rehab and/or home ventilator equipment. Continue to monitor. <Nacho Alaniz - Last Filed: 12/07/17 08:19> Attending Addendum - Attending Addendum Date/Time: 12/07/17 1020 I personally evaluated the patient and discussed the management with Dr. Alaniz on 12/07/17. I agree with the History, Examination, Assessment and Plan documented above with any addition or exceptions noted below. Patient continues to do well. Continue aggressive PT, dietary restrictions to help with weight loss. Waiting on insurance to approve a home vent/BiPap before dispo can be arranged. <Taylor Perez - Last Filed: 12/07/17 10:22>
[2017-12-07] MEDS: Amlodipine 5 MG TAB PO SCH (08:31)
[2017-12-07] MEDS: Aspirin 81 mg Enteric Coated Tablet PO SCH (08:32)
[2017-12-07] MEDS: Multivitamin W/ Minerals 1 TAB PER TUBE SCH (08:32)
[2017-12-07] MEDS: Carvedilol 25 MG TAB PO SCH ×2 (08:32→21:00)
[2017-12-07] MEDS: guaiFENesin ER 600 MG TAB PO SCH ×2 (08:32→21:00)
[2017-12-07] MEDS: Magnesium Oxide 400 MG TAB PO SCH ×2 (08:32→21:00)
[2017-12-07] MEDS: AcetaZOLAMIDE 250 MG TAB PO SCH (08:40)
[2017-12-07] MEDS: Lopinavir/Ritonavir 80 MG/20 MG per ML Oral Solution PO SCH ×2 (08:40→21:22)
[2017-12-07] MEDS: Enoxaparin Sodium 40 MG/0.4 ML SYRINGE SC SCH (21:00)
[2017-12-07] MEDS: Aquaphor 30 GM 99 GM, Cholestyramine/Aspartame 4 GM TOP PRN (21:02)
[2017-12-08] MEDS: Levothyroxine Sodium 25 MCG TAB PO SCH (08:31)
[2017-12-08] MEDS: Aquaphor 30 GM 99 GM, Cholestyramine/Aspartame 4 GM TOP SCH ×2 (08:32→21:18)
[2017-12-08] MEDS: Aspirin 81 mg Enteric Coated Tablet PO SCH (08:32)
[2017-12-08] MEDS: Multivitamin W/ Minerals 1 TAB PER TUBE SCH (08:32)
[2017-12-08] MEDS: Magnesium Oxide 400 MG TAB PO SCH ×2 (08:32→21:14)
[2017-12-08] MEDS: guaiFENesin ER 600 MG TAB PO SCH ×2 (08:32→21:13)
[2017-12-08] MEDS: Amlodipine 5 MG TAB PO SCH (08:32)
[2017-12-08] MEDS: Carvedilol 25 MG TAB PO SCH ×2 (08:32→21:12)
--- NOTE | 2017-12-08 08:34 | PDOC.FM ---
- Subjective Subjective: Pt seen at bedside in NAD. MIAH overnight. Pt spent most of yesterday out of bed in bedside chair and tolerated well. Pt denies RENTERIA, CP, SOB, NVD. - Objective MAR Reviewed: Yes Vital Signs & Weight: Vital Signs (12 hours) Temp Pulse Resp Pulse Ox 12/08/17 07:26 98.3 F 70 20 93 L 12/08/17 06:00 14 12/08/17 04:00 16 12/08/17 02:00 16 12/08/17 00:00 98.0 F 18 90 L 12/07/17 22:00 16 Weight Admit Weight 260.362 kg Weight 230.5 kg Most Recent Monitor Data Heart Rate from ECG 71 NIBP 127/75 NIBP BP-Mean 93 Respiration from ECG 21 SpO2 92 I&O: 12/07/17 12/08/17 12/09/17 06:59 06:59 06:59 Intake Total 610 715 Output Total 855 1016 100 Balance -245 -301 -100 Result Diagrams: 12/03/17 04:09 12/07/17 05:56 <Nacho Alaniz - Last Filed: 12/08/17 08:35> - Objective Vital Signs & Weight: Vital Signs (12 hours) Temp Pulse Resp BP Pulse Ox 12/08/17 08:32 70 127/75 12/08/17 07:26 98.3 F 70 20 93 L 12/08/17 06:00 14 12/08/17 04:00 16 12/08/17 02:00 16 12/08/17 00:00 98.0 F 18 90 L Weight Admit Weight 260.362 kg Weight 230.5 kg Most Recent Monitor Data Heart Rate from ECG 75 NIBP 134/82 NIBP BP-Mean 107 Respiration from ECG 20 SpO2 90 I&O: 12/07/17 12/08/17 12/09/17 06:59 06:59 06:59 Intake Total 610 715 240 Output Total 855 1016 150 Balance -245 -301 90 Result Diagrams: 12/03/17 04:09 12/07/17 05:56 <Taylor Perez - Last Filed: 12/08/17 10:38> Phys Exam - Physical Examination Constitutional: NAD morbidly obese HEENT: sclera anicteric trach in place Respiratory: no wheezing, clear to auscultation bilateral distant breath sounds Cardiovascular: RRR, no significant murmur distant heart sounds Gastrointestinal: soft, non-tender Musculoskeletal: edema present Neurological: moves all 4 limbs Psychiatric: A&O x 3 <Nacho Alaniz - Last Filed: 12/08/17 08:35> Dx/Plan (1) Acute on chronic respiratory failure with hypoxia and hypercapnia Code(s): J96.21 - ACUTE AND CHRONIC RESPIRATORY FAILURE WITH HYPOXIA; J96.22 - ACUTE AND CHRONIC RESPIRATORY FAILURE WITH HYPERCAPNIA Status: Acute (2) HIV disease Code(s): B20 - HUMAN IMMUNODEFICIENCY VIRUS [HIV] DISEASE Status: Chronic (3) Hypothyroidism Code(s): E03.9 - HYPOTHYROIDISM, UNSPECIFIED Status: Chronic QualifierTitle: Hypothyroidism type: acquired Qualified Code(s): E03.9 - Hypothyroidism, unspecified - Plan Plan: 1. Acute on chronic hypoxic hypercapneic respiratory failure 2/2 obesity hypoventilation -pt required transition to CCU with need for mechanical ventilation 11/27 -trach switched to larger trach 11/27 -pulmonology on board -transitioned to trach collar during day with CPAP overnight -tolerating out of bed well during day with trach collar 2. HIV -continue meds per Outpatient ID consultation 3. HTN -continue amlodipine and coreg 4. MDD -continue sertraline 5. Hypothyroidism -continue levothyroxine disposition: Pt able to get out of bed and tolerate trach collar well. Pulmonary recommendations greatly appreciated. CM assistance appreciated in finding placement for continued rehab and/or home ventilator equipment. Continue to monitor. <Nacho Alaniz - Last Filed: 12/08/17 08:35> Attending Addendum - Attending Addendum Date/Time: 12/08/17 1038 I personally evaluated the patient and discussed the management with Dr. Alaniz on 12/08/17. I agree with the History, Examination, Assessment and Plan documented above with any addition or exceptions noted below. Patient comfortable, stable. Awaiting insurance approval of home vent/Bipap. Continue working with PT/ST. Needs to stay in ICU as she is ventilator dependent at night. <Taylor Perez - Last Filed: 12/08/17 10:38>
--- NOTE | 2017-12-08 08:34 | PRG ---
DATE OF SERVICE: 12/08/2017 The patient is doing fairly well. She slept on the ventilator last night. She will be taken off and put on trach collar today. PHYSICAL EXAMINATION: VITAL SIGNS: Temperature is 98.3, pulse 80, blood pressure 139/81, 24 hour intake 715, output 1016. HEENT: Unremarkable. NECK: No JVD. CHEST: Clear. CARDIAC: S1 and S2 regular. ABDOMEN: Soft. EXTREMITIES: No edema. LABORATORY DATA: No new labs were obtained today. ASSESSMENT: 1. Obesity hypoventilation syndrome. 2. Morbid obesity. PLAN: 1. We are trying to acquire a Trilogy or BiPAP for use at night with her trach. I will check with c ase design project manager to see where they are on that. 2. Continue getting up in a chair during the day and trach collar trials during the day.
[2017-12-08] MEDS: AcetaZOLAMIDE 250 MG TAB PO SCH (08:39)
[2017-12-08] MEDS: Lopinavir/Ritonavir 80 MG/20 MG per ML Oral Solution PO SCH ×2 (08:40→21:13)
[2017-12-08 18:58] LABS: Actual Bicarbonate (HCO3a) 26.5 mEq/L (22-26); CO2 Tension 67.8 mmHg (35.0-45.0); O2 Tension (PaO2) 343.4 mmHg (80.0-100.0); pH, Arterial 7.21 (7.35-7.45)
[2017-12-08 18:59] LABS: Base Excess (BEa) -2.6 mEq/L (0 (+/-) 2.5); Hematocrit-ABG 47.2 % (36.0-47.0); Hemoglobin (Hb) 12.5 g/dL (12.0-16.0)
[2017-12-08 19:00] LABS: Calcium, Ionized 1.4 mmol/L (1.12-1.30); Puncture Site LR
[2017-12-08] MEDS ORDERED: Ventilator Sedation Protocol FS SCH (19:30)
[2017-12-08] MEDS: Propofol 1,000 MG/100 ML VIAL IV PRN ×2 (19:30→22:12)
[2017-12-08] MEDS ORDERED: Fentanyl BOLUS 250 ML IVPB PRN (19:36)
[2017-12-08] MEDS ORDERED: fentaNYL Citrate/PF 2,000 MCG in Sodium Chloride 0.9% 60 ML IV SCH (19:36)
[2017-12-08] MEDS ORDERED: Propofol BOLUS 1,000 MG/100 ML VIAL IV PRN (19:36)
[2017-12-08] MEDS ORDERED: Lorazepam 2 MG/ML VIAL SLOW IVP PRN (19:36)
[2017-12-08] MEDS ORDERED: DISCONTINUE PREVIOUS NARCOTIC PAIN MEDICATIONS AND BENZODIAZEPINES FS SCH (19:36)
[2017-12-08] MEDS ORDERED: Morphine 4 MG/ML VIAL SLOW IVP PRN (19:36)
[2017-12-08 20:02] LABS: ALT (SGPT) 8 U/L (8-55); AST (SGOT) 17 U/L (5-34); Albumin 3.1 g/dL (3.5-5.0); Alkaline Phosphatase 49 U/L (40-150); Anion Gap 9 mmol/L (10-20); BUN (Urea Nitrogen) 10 mg/dL (7.0-18.7); Bilirubin, Total 0.7 mg/dL (0.2-1.2); Calc. Creatinine Clearance 378 mL/min (70-130); Calcium 9.9 mg/dL (7.8-10.44); Carbon Dioxide 24 mmol/L (22-29); Chloride 105 mmol/L (98-107); Estimated GFR-MDRD Greater than 90; Globulin 7.6 g/dL (2.4-3.5); Glucose 148 mg/dL (70-105); Potassium 4.3 mmol/L (3.5-5.1); Protein, Total 10.7 g/dL (6.0-8.3); Sodium 134 mmol/L (136-145)
[2017-12-08] MEDS ORDERED: Lorazepam 2 MG/ML VIAL SLOW IVP SCH (20:45)
[2017-12-08] MEDS: levETIRAcetam In NaCl (Iso-Os) 1,500 MG in Premix Bag 1 BAG IVPB SCH (21:13)
[2017-12-08] MEDS: Aquaphor 30 GM 99 GM, Cholestyramine/Aspartame 4 GM TOP PRN (21:14)
[2017-12-08] MEDS: Enoxaparin Sodium 40 MG/0.4 ML SYRINGE SC SCH (21:17)
[2017-12-09] MEDS: Propofol 1,000 MG/100 ML VIAL IV PRN (02:16)
[2017-12-09] MEDS ORDERED: Calcium Chloride 1 GM/10 ML Abboject SYRINGE ONE (04:00)
[2017-12-09] MEDS ORDERED: EPINEPHrine 1 MG/10 ML Abboject SYRINGE ONE (04:00)
--- NOTE | 2017-12-09 06:55 | PDOC.FM ---
- Subjective Subjective: Pt seen at bedside in NAD. Late yesterday afternoon, code zulma called with pt lost pulse and stopped breathing. CPR initiated and pt achieved ROSC after 1 round of epinephrine. Most likely cause of arrest thought to be mucus plug of tracheostomy. Pt also reported to have seizure like activity and family reports history of seizures. Pt was subsequently placed back on mechanical ventilation and sedation overnight. - Objective MAR Reviewed: Yes Vital Signs & Weight: Vital Signs (12 hours) Temp Pulse Resp Pulse Ox 12/09/17 04:00 98.3 F 12/09/17 02:00 98.1 F 12/09/17 00:00 18 12/08/17 22:00 21 H 12/08/17 20:00 99.1 F 79 20 97 Weight Admit Weight 260.362 kg Weight 230.056 kg Most Recent Monitor Data Heart Rate from ECG 73 NIBP 131/66 NIBP BP-Mean 83 Respiration from ECG 18 SpO2 95 I&O: 12/07/17 12/08/17 12/09/17 06:59 06:59 06:59 Intake Total 267 716 7957 Output Total 856 1016 1565 Balance -245 -301 -198 Result Diagrams: 12/03/17 04:09 12/08/17 18:49 <Nacho Alaniz - Last Filed: 12/09/17 07:33> - Objective Vital Signs & Weight: Vital Signs (12 hours) Temp Pulse Pulse Pulse Resp BP BP 12/09/17 10:00 21 H 12/09/17 09:42 81 78 131/73 12/09/17 08:00 98.7 F 75 27 H 12/09/17 06:56 74 131/66 12/09/17 06:00 18 12/09/17 04:00 98.3 F 18 12/09/17 02:00 98.1 F 18 12/09/17 00:00 98.1 F 74 18 BP Pulse Ox Pulse Ox 12/09/17 10:00 12/09/17 09:42 120/65 98 12/09/17 08:00 95 12/09/17 06:56 12/09/17 06:00 12/09/17 04:00 12/09/17 02:00 12/09/17 00:00 94 L Weight Admit Weight 574 lb Weight 507 lb 3 oz Most Recent Monitor Data Heart Rate from ECG 79 NIBP 135/66 NIBP BP-Mean 86 Respiration from ECG 21 SpO2 96 I&O: 12/08/17 12/09/17 12/10/17 06:59 06:59 06:59 Intake Total 715 1367 28.2 Output Total 1016 1565 410 Balance -301 -198 -381.8 Result Diagrams: 12/03/17 04:09 12/08/17 18:49 <Alex Morales - Last Filed: 12/09/17 10:19> Phys Exam - Physical Examination Constitutional: NAD intubated and sedated, morbidly obese HEENT: PERRLA trach in place Respiratory: no wheezing, clear to auscultation bilateral Cardiovascular: RRR, no significant murmur Gastrointestinal: soft, non-tender morbidly obese Musculoskeletal: pulses present Neurological: moves all 4 limbs opens eyes and follows commands <Nacho Alaniz - Last Filed: 12/09/17 07:33> Dx/Plan (1) Acute on chronic respiratory failure with hypoxia and hypercapnia Code(s): J96.21 - ACUTE AND CHRONIC RESPIRATORY FAILURE WITH HYPOXIA; J96.22 - ACUTE AND CHRONIC RESPIRATORY FAILURE WITH HYPERCAPNIA Status: Acute (2) Seizure Code(s): R56.9 - UNSPECIFIED CONVULSIONS Status: Acute (3) HIV disease Code(s): B20 - HUMAN IMMUNODEFICIENCY VIRUS [HIV] DISEASE Status: Chronic (4) Hypothyroidism Code(s): E03.9 - HYPOTHYROIDISM, UNSPECIFIED Status: Chronic QualifierTitle: Hypothyroidism type: acquired Qualified Code(s): E03.9 - Hypothyroidism, unspecified - Plan Plan: 1. Acute on chronic hypoxic hypercapneic respiratory failure 2/2 obesity hypoventilation -pt required transition to CCU with need for mechanical ventilation 11/27 -trach switched to larger trach 11/27 -pulmonology on board, recommendations greatly appreciated -code blue called 12/08 evening. thought to be secondary to mucus plug of tracheostomy. 2. Seizure activity -pt reportedly had seizure activity during/after code event. family reports history of seizure disorder but pt was not on any medication. -pt loaded with keppra with ativan PRN, no further seizure like activity -elevated prolactin and seizure acitivity possibly secondary to code event, but with pt's multiple comorbidities, will consult neurology this AM 3. HIV -continue meds per Outpatient ID consultation when pt able to take PO 4. HTN -continue amlodipine and coreg when pt able 5. MDD -continue sertraline when pt able 6. Hypothyroidism -continue levothyroxine when pt able disposition: Pt now stable s/p code blue and 1 round of compressions and epinephrine on 12/08. Specialist recommendations greatly appreciated. Consult neurology for seizure activity. Wean sedation and ventilation as tolerated. Continue to monitor closely. <Nacho Alaniz - Last Filed: 12/09/17 07:33> Attending Addendum - Attending Addendum Date/Time: 12/09/17 1018 I personally evaluated the patient and discussed the management with Dr. Alaniz. I agree with the History, Examination, Assessment and Plan documented above with any addition or exceptions noted below. Follow pulmonology recommendations regarding respiratory status. Neurology input appreciated regarding seizure activity. Continue to monitor. <Alex Morales - Last Filed: 12/09/17 10:19>
[2017-12-09 07:14] LABS: Actual Bicarbonate (HCO3a) 29.9 mEq/L (22-26); Base Excess (BEa) 4.6 mEq/L (0 (+/-) 2.5); Hematocrit-ABG 33.2 % (36.0-47.0); Hemoglobin (Hb) 8.8 g/dL (12.0-16.0); O2 Tension (PaO2) 67.7 mmHg (80.0-100.0); pH, Arterial 7.41 (7.35-7.45)
[2017-12-09 07:15] LABS: Calcium, Ionized 1.2 mmol/L (1.12-1.30); Puncture Site RRA
[2017-12-09] MEDS: Levothyroxine Sodium 25 MCG TAB PO SCH (07:47)
[2017-12-09] MEDS: Amlodipine 5 MG TAB PO SCH (09:23)
[2017-12-09] MEDS: AcetaZOLAMIDE 250 MG TAB PO SCH (09:23)
[2017-12-09] MEDS: Magnesium Oxide 400 MG TAB PO SCH ×2 (09:24→20:33)
[2017-12-09] MEDS: Lopinavir/Ritonavir 80 MG/20 MG per ML Oral Solution PO SCH ×2 (09:24→20:33)
[2017-12-09] MEDS: Carvedilol 25 MG TAB PO SCH ×2 (09:24→20:33)
[2017-12-09] MEDS: Aspirin 81 mg Enteric Coated Tablet PO SCH (09:24)
[2017-12-09] MEDS: guaiFENesin ER 600 MG TAB PO SCH ×2 (09:24→20:34)
[2017-12-09] MEDS: Multivitamin W/ Minerals 1 TAB PER TUBE SCH (09:25)
--- NOTE | 2017-12-09 09:36 | PRG ---
DATE OF SERVICE: 12/09/2017 SUBJECTIVE: Morbidly obese female, BMI 84, 507 pounds, 5 feet 4. Yesterday about 6:00 or so, as per the nurse's notes, she does have asystole. She was resuscitated right away. CPAP was initiated. A pparently, her trach got plugged. Prior to that, she was doing well. She is only on nocturnal venti lation. This morning, she is sedated on Diprivan with a respiratory rate of 18. Otherwise, this morning, she is intubated, unresponsive, sedated. OBJECTIVE: VITAL SIGNS: Blood pressure 131/67, sats are 98%, pulse 74, respiration rate 18. She is afebrile. CHEST: Reveals decreased breath sounds, no wheezing. CARDIAC: Normal S1, S2, no gallops. ABDOMEN: Massive. EXTREMITIES: No edema. NEUROLOGIC: She is sedated. LABORATORY DATA: PO2 is 67, pCO2 of , pH 7.41, on 31% FIO2, rate of 18. At the time of her car diac arrest where she was placed back on the vent, her pO2 was 343, pCO2 of 67, pH 7.21. Electrolyte s are normal. Bicarbonate is 24. IMPRESSION: 1. Acute on chronic respiratory failure. 2. Recent mucous plugging of the trach causing asystole. 3. Possibly seizure disorder. PLAN: Patient apparently was started on Keppra for seizure disorders. My suggestion at this time is to try and discontinue the sedation and go back on nocturnal ventilatio n, aggressive PT, supportive care. Still on multiple medications including Diamox and neb treatments. We will follow. One-half hour critical care time.
[2017-12-09] MEDS: levETIRAcetam In NaCl (Iso-Os) 1,500 MG in Premix Bag 1 BAG IVPB SCH ×2 (09:43→20:34)
[2017-12-09] MEDS: Aquaphor 30 GM 99 GM, Cholestyramine/Aspartame 4 GM TOP PRN (09:44)
[2017-12-09] MEDS: Aquaphor 30 GM 99 GM, Cholestyramine/Aspartame 4 GM TOP SCH ×2 (09:59→20:36)
--- NOTE | 2017-12-09 18:19 | CON ---
DATE OF CONSULTATION: 12/09/2017 NEUROLOGY CONSULTATION CONSULTING PHYSICIAN: [facility]. IMPRESSION: 1. Seizure disorder. 2. Morbid obesity. 3. Human immunodeficiency virus positive. 4. Respiratory failure. PLAN: 1. Continue Keppra 500 mg twice a day. 2. Monitor clinical course. HISTORY OF PRESENT ILLNESS: Ms. Bonilla is a 27-year-old black female with a reported history of seiz ures. She was apparently witnessed to have some generalized tonic clonic activity last night. She h as not been receiving her anticonvulsant. The family is uncertain as to what brand she is on. She h as been in respiratory failure secondary to mucus plugging. She was started on Keppra. She has done well today and no further seizure activity has been witnessed. PAST MEDICAL HISTORY: As listed above. ALLERGIES: None. SOCIAL HISTORY: She was at home with her family. No tobacco or illicit drug use reported. FAMILY HISTORY: Noncontributory. REVIEW OF SYSTEMS: No complaints of any lateralized weakness or numbness. PHYSICAL EXAMINATION: GENERAL: She is a morbidly obese young woman lying in bed with trach. VITAL SIGNS: Blood pressure 111/66, pulse 86, and respirations 12. HEENT: Notable for bilateral bruising of her tongue. NECK: Supple. EXTREMITIES: No cyanosis. NEUROLOGIC: She was alert and cooperative. Her speech is fluent and clear. Her exam is nonfocal. No abnormal movements seen. SUMMARY: Young woman with a reported history of seizures. She apparently had recurrent event last n ight and has some injury to her tongue. I agree with your current management.
[2017-12-09] MEDS: Enoxaparin Sodium 40 MG/0.4 ML SYRINGE SC SCH (20:33)
[2017-12-10] MEDS: Levothyroxine Sodium 25 MCG TAB PO SCH (06:07)
--- NOTE | 2017-12-10 07:03 | PDOC.FM ---
- Subjective Subjective: Pt seen at bedside in NAD. MIAH overnight. No family at bedside. Pt transitioned back to trach collar during the day yesterday and CPAP overnight and tolerated well. Pt back to baseline and tolerating PO. - Objective MAR Reviewed: Yes Vital Signs & Weight: Vital Signs (12 hours) Temp Pulse Resp Pulse Ox 12/10/17 06:00 21 H 12/10/17 04:00 98.5 F 18 12/10/17 02:00 21 H 12/10/17 00:00 98.5 F 16 12/09/17 20:00 98.5 F 12/09/17 19:47 98.5 F 79 19 97 Weight Admit Weight 260.362 kg Weight 230.056 kg Most Recent Monitor Data Heart Rate from ECG 72 NIBP 112/52 NIBP BP-Mean 66 Respiration from ECG 23 SpO2 94 I&O: 12/09/17 12/10/17 12/11/17 06:59 06:59 06:59 Intake Total 1367 699.2 Output Total 1565 1835 Balance -198 -1135.8 Result Diagrams: 12/03/17 04:09 12/08/17 18:49 <Nacho Alaniz - Last Filed: 12/10/17 07:01> - Objective Vital Signs & Weight: Vital Signs (12 hours) Temp Resp Pulse Ox 12/10/17 07:54 95 12/10/17 06:00 21 H 12/10/17 04:00 98.5 F 18 12/10/17 02:00 21 H 12/10/17 00:00 98.5 F 16 Weight Admit Weight 574 lb Weight 507 lb 3 oz Most Recent Monitor Data Heart Rate from ECG 72 NIBP 112/52 NIBP BP-Mean 66 Respiration from ECG 23 SpO2 94 I&O: 12/09/17 12/10/17 12/11/17 06:59 06:59 06:59 Intake Total 1367 699.2 Output Total 1565 1835 Balance -198 -1135.8 Result Diagrams: 12/03/17 04:09 12/08/17 18:49 <Alex Morales - Last Filed: 12/10/17 09:46> Phys Exam - Physical Examination Constitutional: NAD morbidly obese HEENT: PERRLA trach in place Respiratory: no wheezing, clear to auscultation bilateral Cardiovascular: RRR, no significant murmur Gastrointestinal: soft, non-tender morbidly obese Musculoskeletal: pulses present Neurological: non-focal, moves all 4 limbs Psychiatric: A&O x 3 <Nacho Alaniz - Last Filed: 12/10/17 07:01> Dx/Plan (1) Acute on chronic respiratory failure with hypoxia and hypercapnia Code(s): J96.21 - ACUTE AND CHRONIC RESPIRATORY FAILURE WITH HYPOXIA; J96.22 - ACUTE AND CHRONIC RESPIRATORY FAILURE WITH HYPERCAPNIA Status: Acute (2) Seizure Code(s): R56.9 - UNSPECIFIED CONVULSIONS Status: Acute (3) HIV disease Code(s): B20 - HUMAN IMMUNODEFICIENCY VIRUS [HIV] DISEASE Status: Chronic (4) Hypothyroidism Code(s): E03.9 - HYPOTHYROIDISM, UNSPECIFIED Status: Chronic QualifierTitle: Hypothyroidism type: acquired Qualified Code(s): E03.9 - Hypothyroidism, unspecified - Plan Plan: 1. Acute on chronic hypoxic hypercapneic respiratory failure 2/2 obesity hypoventilation -pt required transition to CCU with need for mechanical ventilation 11/27 -trach switched to larger trach 11/27 -pulmonology on board, recommendations greatly appreciated -code blue called 12/08 evening. thought to be secondary to mucus plug of tracheostomy. -pt is back to baseline and able to tolerate trach collar during day and CPAP overnight 2. Seizure activity -pt reportedly had seizure activity during/after code event on 12/08. family reports history of seizure disorder but pt was not on any medication. -pt loaded with keppra with ativan PRN, no further seizure like activity -elevated prolactin and seizure acitivity possibly secondary to code event, but with pt's multiple comorbidities, neurology consulted, recs greatly appreciated -continue keppra 3. HIV -continue meds per Outpatient ID consultation 4. HTN -continue amlodipine and coreg 5. MDD -continue sertraline 6. Hypothyroidism -continue levothyroxine disposition: Pt stable. Pt able to get out of bed and tolerate trach collar and PO intake well. Specialist recommendations greatly appreciated. CM assistance appreciated in finding placement for continued rehab and/or home ventilator equipment. Continue to monitor. <Nacho Alaniz - Last Filed: 12/10/17 07:01> Attending Addendum - Attending Addendum Date/Time: 12/10/17 0946 I personally evaluated the patient and discussed the management with Dr. Alaniz. I agree with the History, Examination, Assessment and Plan documented above with any addition or exceptions noted below. Pulmonary recommendations appreciated. Follow up with case management regarding discharge planning. <Alex Morales - Last Filed: 12/10/17 09:46>
--- NOTE | 2017-12-10 09:37 | PRG ---
DATE OF SERVICE: 12/10/2017 SUBJECTIVE: This morning, she is on a trach collar, better. No longer jerking or shaking. OBJECTIVE: VITAL SIGNS: Sats are 95%, blood pressure is 112/52, respirations 21, she is afebrile, sats are 95. CHEST: She has anterior rhonchi. CARDIAC: Normal S1, S2, no gallops. ABDOMEN: Soft, no masses. IMPRESSION: 1. Metabolic encephalopathy. 2. Respiratory failure, chronic obstructive pulmonary disease, obstructive sleep apnea. 3. Morbid obesity. PLAN: At this stage, continue nocturnal ventilation, nebulizer treatments, supportive care, PT, even tually placement. Vgt-[id number]-ghte critical care time.
[2017-12-10] MEDS: AcetaZOLAMIDE 250 MG TAB PO SCH (10:45)
[2017-12-10] MEDS: Carvedilol 25 MG TAB PO SCH ×2 (10:46→21:03)
[2017-12-10] MEDS: Amlodipine 5 MG TAB PO SCH (10:46)
[2017-12-10] MEDS: Aspirin 81 mg Enteric Coated Tablet PO SCH (10:46)
[2017-12-10] MEDS: levETIRAcetam In NaCl (Iso-Os) 1,500 MG in Premix Bag 1 BAG IVPB SCH ×2 (10:47→21:02)
[2017-12-10] MEDS: guaiFENesin ER 600 MG TAB PO SCH ×2 (10:47→21:03)
[2017-12-10] MEDS: Multivitamin W/ Minerals 1 TAB PER TUBE SCH (10:48)
[2017-12-10] MEDS: Magnesium Oxide 400 MG TAB PO SCH ×2 (10:48→21:03)
[2017-12-10] MEDS: Aquaphor 30 GM 99 GM, Cholestyramine/Aspartame 4 GM TOP SCH ×2 (10:49→21:05)
[2017-12-10] MEDS: Lopinavir/Ritonavir 80 MG/20 MG per ML Oral Solution PO SCH ×2 (12:12→21:04)
[2017-12-10] MEDS: Enoxaparin Sodium 40 MG/0.4 ML SYRINGE SC SCH (21:02)
[2017-12-11 04:43] LABS: Anion Gap 8 mmol/L (10-20); BUN (Urea Nitrogen) 7 mg/dL (7.0-18.7); Calc. Creatinine Clearance 491 mL/min (70-130); Calcium 8.5 mg/dL (7.8-10.44); Carbon Dioxide 29 mmol/L (22-29); Chloride 105 mmol/L (98-107); Estimated GFR-MDRD Greater than 90; Glucose 78 mg/dL (70-105); Potassium 3.5 mmol/L (3.5-5.1); Sodium 138 mmol/L (136-145)
[2017-12-11] MEDS: Levothyroxine Sodium 25 MCG TAB PO SCH (06:35)
--- NOTE | 2017-12-11 07:04 | PDOC.FM ---
- Subjective Subjective: CC: None offered HPI: Patient states she had a good night. Has no concerns. States she plans to go home at time of d/c. CM currently working on home ventilator. Nursing states no events overnight. - Objective MAR Reviewed: Yes Vital Signs & Weight: Vital Signs (12 hours) Temp Pulse Resp Pulse Ox 12/11/17 04:00 98.1 F 22 H 12/11/17 02:00 20 12/11/17 00:00 98.1 F 21 H 12/10/17 20:00 97.9 F 12/10/17 19:46 97.9 F 77 16 95 Weight Admit Weight 260.362 kg Weight 230.056 kg Most Recent Monitor Data Heart Rate from ECG 69 NIBP 99/40 NIBP BP-Mean 58 Respiration from ECG 20 SpO2 88 I&O: 12/10/17 12/11/17 12/12/17 06:59 06:59 06:59 Intake Total 699.2 779 Output Total 1835 1678 Balance -1135.8 -899 Result Diagrams: 12/03/17 04:09 12/11/17 03:39 <Antonio Martins - Last Filed: 12/11/17 07:02> - Objective Vital Signs & Weight: Vital Signs (12 hours) Temp Pulse Resp 12/11/17 09:02 77 12/11/17 08:00 98.2 F 12/11/17 06:00 20 12/11/17 04:00 98.1 F 22 H 12/11/17 02:00 20 12/11/17 00:00 98.1 F 21 H Weight Admit Weight 260.362 kg Weight 230.056 kg Most Recent Monitor Data Heart Rate from ECG 79 NIBP 98/68 NIBP BP-Mean 89 Respiration from ECG 21 SpO2 92 I&O: 12/10/17 12/11/17 12/12/17 06:59 06:59 06:59 Intake Total 699.2 1103 Output Total 1835 1828 180 Balance -1135.8 -725 -180 Result Diagrams: 12/03/17 04:09 12/11/17 03:39 <Allison Álvarez - Last Filed: 12/11/17 10:59> Phys Exam - Physical Examination Constitutional: NAD HEENT: moist MMs, sclera anicteric Respiratory: no wheezing, clear to auscultation bilateral resting on CPAP Cardiovascular: RRR, no significant murmur distant heart sounds. Musculoskeletal: edema present (non-pitting ) Neurological: non-focal, moves all 4 limbs Psychiatric: normal affect, A&O x 3 <Antonio Martins - Last Filed: 12/11/17 07:02> Dx/Plan (1) Seizure Code(s): R56.9 - UNSPECIFIED CONVULSIONS Status: Acute (2) Acute on chronic respiratory failure with hypoxia and hypercapnia Code(s): J96.21 - ACUTE AND CHRONIC RESPIRATORY FAILURE WITH HYPOXIA; J96.22 - ACUTE AND CHRONIC RESPIRATORY FAILURE WITH HYPERCAPNIA Status: Acute (3) Depression Code(s): F32.9 - MAJOR DEPRESSIVE DISORDER, SINGLE EPISODE, UNSPECIFIED Status : Acute QualifierTitle: Depression Type: major depressive disorder Major depression recurrence: recurrent Active/Remission status: remission status unspecified Qualified Code(s): F33.9 - Major depressive disorder, recurrent, unspecified (4) Obesity Code(s): E66.9 - OBESITY, UNSPECIFIED Status: Acute QualifierTitle: Obesity type: due to excess calories Obesity classification: adult class 3 (BMI >= 40) Serious obesity comorbidity presence : with serious comorbidity Body mass index: BMI 70 or greater Qualified Code (s): E66.01 - Morbid (severe) obesity due to excess calories; Z68.45 - Body mass index (BMI) 70 or greater, adult; Z68.45 - Body mass index (BMI) 70 or greater, adult; Z68.45 - Body mass index (BMI) 70 or greater, adult; Z68.45 - Body mass index (BMI) 70 or greater, adult (5) HIV disease Code(s): B20 - HUMAN IMMUNODEFICIENCY VIRUS [HIV] DISEASE Status: Chronic (6) Hypertension Code(s): I10 - ESSENTIAL (PRIMARY) HYPERTENSION Status: Chronic QualifierTitle: Hypertension type: essential hypertension Qualified Code( s): I10 - Essential (primary) hypertension - Plan Plan: 1. Acute on chronic hypoxic hypercapneic respiratory failure 2/2 obesity hypoventilation - Stable overnight - Required transition to CCU with need for mechanical ventilation 11/27 - Trach switched to larger trach 11/27 - Code blue called 12/08 evening. thought to be secondary to mucus plug of tracheostomy. - At baseline. Trach collar during day, CPAP at night. - CM working on placement vs. Home vent. - Contine Diamox to assist with bicarb level. Repeat WNL. 2. Seizure activity - Switched from IV to PO Keppra 1500 mg BID. - Reportedly had seizure activity during/after code event on 12/08. family reports history of seizure disorder but pt was not on any medication. 3. HIV -continue meds per Outpatient ID consultation 4. HTN - continue amlodipine and coreg - BP lower end of normal range, consider decreasing some medications if she become symptomatic. 5. MDD -continue sertraline 6. Hypothyroidism -continue levothyroxine disposition: Pt stable. Pt able to get out of bed and tolerate trach collar and PO intake well. Specialist recommendations greatly appreciated. CM assistance appreciated in finding placement for continued rehab and/or home ventilator equipment. Continue to monitor. <Antonio Martins - Last Filed: 12/11/17 07:02> Attending Addendum - Attending Addendum Date/Time: 12/11/17 3286 I personally evaluated the patient and discussed the management with Dr. Martins I agree with the History, Examination, Assessment and Plan documented above with any addition or exceptions noted below- Patient denies any complaints. Afebrile VSS. A/P: 1) Acute on chronic respiratory failure with hypoxia and hypercapnia- continue CPAP at night. Awaiting insurance decision on home ventilator. 2) Severe JOSE DE JESUS- continue CPAP via trach. 3) HIV- continue current regimen. <Allison Álvarez - Last Filed: 12/11/17 10:59>
--- NOTE | 2017-12-11 08:59 | PRG-2 ---
DATE OF SERVICE: 12/10/2017 TRANSITION OF CARE NOTE RESIDENT: Dr. Nacho Alaniz. DATES OF SERVICE: 11/27/2017 through 12/10/2017 BRIEF HOSPITAL COURSE: Upon initiation of care, the patient had been transferred to the critical care unit the night prior to my first encounter for nocturnal ventilation after being found to be more obtunded and hypercapnic. The patient was quickly transitioned to assist control and eventually spontaneous breathing via CPAP during the day on 11/27/2017. The patient also had her tracheostomy tube replaced at that time. The patient responded well to this and was eventually successfully transitioned to trach collar during the day with intermittent ventilation and eventually only CPAP overnight over the last 2 weeks. Of note, the patient did have a code blue called on 12/08/2017. The patient was noted by a nurse to have stopped breathing and not have a pulse. Code blue was initiated and the patient was given 1 round of compressions and epinephrine with ROSC. It was thought that this was all secondary to a mucus plug preventing the patient from being able to breathe and subsequently going to cardiac arrest. The patient also reportedly had seizure-like activity following the code event. Per the family, the patient has a history of seizure disorder and was previously inconsistently on medications. At this time, the patient was loaded with and started on Keppra. Neurology was also consulted, who agreed with continuing the patient on Keppra with no further need for intervention. Due to the patient's chronic hypercapnic state, BMPs were intermittently checked over the last 2 weeks, especially with the patient being on Diamox daily. The patient's metabolic panel has been within normal range. Pulmonology has been following the patient throughout her stay in the CCU and their recommendations were greatly appreciated. RHODA
[2017-12-11] MEDS: Magnesium Oxide 400 MG TAB PO SCH ×2 (09:01→21:11)
[2017-12-11] MEDS: guaiFENesin ER 600 MG TAB PO SCH ×2 (09:01→21:10)
[2017-12-11] MEDS: Aspirin 81 mg Enteric Coated Tablet PO SCH (09:02)
[2017-12-11] MEDS: Multivitamin W/ Minerals 1 TAB PER TUBE SCH (09:02)
[2017-12-11] MEDS: Carvedilol 25 MG TAB PO SCH ×2 (09:02→21:10)
[2017-12-11] MEDS: Amlodipine 5 MG TAB PO SCH (09:02)
[2017-12-11] MEDS: Lopinavir/Ritonavir 80 MG/20 MG per ML Oral Solution PO SCH ×2 (09:03→21:11)
--- NOTE | 2017-12-11 09:09 | PRG ---
DATE OF SERVICE: 12/11/2017 SUBJECTIVE: The patient is awake, alert, does not appear to be in any distress. OBJECTIVE: VITAL SIGNS: On exam, temperature is 98.1, pulse 67, blood pressure 138/51, 24-hour intake 1103 and output 1828. HEENT: Unremarkable. NECK: Trach in good position. LUNGS: Clear with distant breath sounds. CARDIAC: S1 and S2 regular. ABDOMEN: Soft. EXTREMITIES: No edema. LABORATORY DATA: Sodium 138, potassium 3.5, chloride 105, CO2 of 29, BUN 7, creatinine 0.6, glucose 78. White blood cell count 3.7, hematocrit 36.5, platelet count 127. ASSESSMENT: 1. Obesity hypoventilation syndrome. 2. Chronic respiratory failure. 3. Seizure. PLAN: 1. Still awaiting word on nocturnal ventilation. Hopefully, insurance will agree to that. Otherwis e, we are looking at placement at a chronic ventilatory unit. 2. Continue HIV medications. 3 Can discontinue propofol, fentanyl, etc., off OCT.
[2017-12-11] MEDS: levETIRAcetam 500 MG TAB PO SCH ×2 (09:11→21:10)
[2017-12-11] MEDS: AcetaZOLAMIDE 250 MG TAB PO SCH (09:12)
[2017-12-11] MEDS: Aquaphor 30 GM 99 GM, Cholestyramine/Aspartame 4 GM TOP SCH ×2 (10:13→21:13)
[2017-12-11] MEDS: Enoxaparin Sodium 40 MG/0.4 ML SYRINGE SC SCH (21:10)
[2017-12-12] MEDS: Levothyroxine Sodium 25 MCG TAB PO SCH (06:31)
--- NOTE | 2017-12-12 07:11 | PDOC.FM ---
- Subjective Subjective: CC: None offered HPI: Patient has no complaints. No new notes from CM. Nursing states no events overnight. - Objective MAR Reviewed: Yes Vital Signs & Weight: Vital Signs (12 hours) Temp Pulse Resp Pulse Ox 12/12/17 07:00 98.9 F 12/12/17 06:00 23 H 12/12/17 04:00 98.4 F 22 H 12/12/17 02:00 13 12/12/17 00:12 70 12/12/17 00:00 98.4 F 13 94 L 12/11/17 20:00 98 F 77 16 95 Weight Admit Weight 260.362 kg Weight 230.056 kg Most Recent Monitor Data Heart Rate from ECG 76 NIBP 146/64 NIBP BP-Mean 84 Respiration from ECG 15 SpO2 97 I&O: 12/11/17 12/12/17 12/13/17 06:59 06:59 06:59 Intake Total 1103 672 Output Total 1828 1875 35 Balance -725 -1203 -35 Result Diagrams: 12/03/17 04:09 12/11/17 03:39 <Antonio Martins - Last Filed: 12/12/17 07:16> - Objective Vital Signs & Weight: Vital Signs (12 hours) Temp Pulse Resp Pulse Ox 12/12/17 11:00 98.3 F 12/12/17 09:19 71 12/12/17 08:15 90 L 12/12/17 08:07 71 12/12/17 08:00 98.9 F 71 23 H 98 12/12/17 07:00 98.9 F 12/12/17 06:00 23 H 12/12/17 04:00 98.4 F 22 H 12/12/17 02:00 13 12/12/17 00:12 70 Weight Admit Weight 260.362 kg Weight 230.056 kg Most Recent Monitor Data Heart Rate from ECG 74 NIBP 158/79 NIBP BP-Mean 96 Respiration from ECG 13 SpO2 100 I&O: 12/11/17 12/12/17 12/13/17 06:59 06:59 06:59 Intake Total 1103 672 Output Total 1828 1875 320 Balance -725 -1203 -320 Result Diagrams: 12/03/17 04:09 12/11/17 03:39 <Allison Álvarez - Last Filed: 12/12/17 12:10> Phys Exam - Physical Examination Constitutional: NAD Respiratory: no wheezing, clear to auscultation bilateral Cardiovascular: RRR, no significant murmur Neurological: non-focal, moves all 4 limbs <Antonio Martins - Last Filed: 12/12/17 07:16> Dx/Plan (1) Seizure Code(s): R56.9 - UNSPECIFIED CONVULSIONS Status: Acute (2) Acute on chronic respiratory failure with hypoxia and hypercapnia Code(s): J96.21 - ACUTE AND CHRONIC RESPIRATORY FAILURE WITH HYPOXIA; J96.22 - ACUTE AND CHRONIC RESPIRATORY FAILURE WITH HYPERCAPNIA Status: Acute (3) Depression Code(s): F32.9 - MAJOR DEPRESSIVE DISORDER, SINGLE EPISODE, UNSPECIFIED Status : Acute QualifierTitle: Depression Type: major depressive disorder Major depression recurrence: recurrent Active/Remission status: remission status unspecified Qualified Code(s): F33.9 - Major depressive disorder, recurrent, unspecified (4) Obesity Code(s): E66.9 - OBESITY, UNSPECIFIED Status: Acute QualifierTitle: Obesity type: due to excess calories Obesity classification: adult class 3 (BMI >= 40) Serious obesity comorbidity presence : with serious comorbidity Body mass index: BMI 70 or greater Qualified Code (s): E66.01 - Morbid (severe) obesity due to excess calories; Z68.45 - Body mass index (BMI) 70 or greater, adult; Z68.45 - Body mass index (BMI) 70 or greater, adult; Z68.45 - Body mass index (BMI) 70 or greater, adult; Z68.45 - Body mass index (BMI) 70 or greater, adult (5) HIV disease Code(s): B20 - HUMAN IMMUNODEFICIENCY VIRUS [HIV] DISEASE Status: Chronic (6) Hypertension Code(s): I10 - ESSENTIAL (PRIMARY) HYPERTENSION Status: Chronic QualifierTitle: Hypertension type: essential hypertension Qualified Code( s): I10 - Essential (primary) hypertension - Plan Plan: 1. Acute on chronic hypoxic hypercapneic respiratory failure 2/2 obesity hypoventilation - Stable overnight - Required transition to CCU with need for mechanical ventilation 11/27 - Trach switched to larger trach 11/27 - Code blue called 12/08 evening. thought to be secondary to mucus plug of tracheostomy. - At baseline. Trach collar during day, CPAP at night. - CM working on placement vs. Home vent. - Contine Diamox to assist with bicarb level. - Q3 day BMP 2. Seizure activity - Keppra 1500 mg BID PO - Reportedly had seizure activity during/after code event on 12/08. family reports history of seizure disorder but pt was not on any medication. 3. HIV -continue meds per Outpatient ID consultation 4. HTN - continue amlodipine and coreg - BP elevated overnight. Likely due to sleep apnea. Will monitor and consider increasing amlodipine if consistently elevated. 5. MDD -continue sertraline 6. Hypothyroidism -continue levothyroxine disposition: Pt stable. Safe for PT to treat. Requires CPAP at night and T- collar during the day. Still awaiting Home ventilator vs. placement at shelter. Is ready for d/c once one of these options has been approved. <Antonio Martins - Last Filed: 12/12/17 07:16> Attending Addendum - Attending Addendum Date/Time: 12/12/17 [id number] I personally evaluated the patient and discussed the management with Dr. Martins I agree with the History, Examination, Assessment and Plan documented above with any addition or exceptions noted below- Patient awake in bed; denies any complaints. Afebrile VSS. A/P: 1) Acute on chronic hypoxic/hypercapneic respiratory failure- continue CPAP at night. Awaiting arrangements for home ventilator. 2) HIV- continue retrovirals. 3) Seizure d/o - no further seizures; continue keppra. <Allison Álvarez - Last Filed: 12/12/17 12:10>
--- NOTE | 2017-12-12 08:01 | PDOC.PULPN ---
Progress Note: Subj/Obj - Subjective Date: 12/12/17 Time: 07:59 Narrative: Sleeping - Objective Allergies/Adverse Reactions: Allergies Allergy/AdvReac Type Severity Reaction Status Date / Time tomato Allergy Intermediate Rash Verified 03/17/16 14:09 No Known Drug Allergies Allergy Verified 03/17/16 14:09 MAR Reviewed: Yes Vital Signs: Vital Signs Temp 98.9 F 12/12/17 07:00 Pulse 70 12/12/17 00:12 Resp 23 H 12/12/17 06:00 BP 145/81 H 12/11/17 10:27 Pulse Ox 94 L 12/12/17 00:00 Intake & Output 12/11/17 12/12/17 12/12/17 18:59 06:59 18:59 Intake Total 432 240 Output Total 1025 850 35 Balance -593 -610 -35 Intake: Intake, IV Amount 192 Sodium Chloride 0.9% 10 192 ml IVF PRN PRN Rx#: [id number] Oral 240 240 Output: Output, [place] 1025 850 35 Other: Voiding Method Indwelling Catheter Indwelling Catheter # Bowel Movements 1 0 Progress Note: Exam - Physical Exam Constitutional: NAD Neck: no JVD Cardiovascular: RRR Focused Respiratory Location: decreased breath sounds: Right, Left Deviation from normal: morbidly obese Musculoskeletal: edema present Progress Note: Data - Labs Result Diagrams: 12/03/17 04:09 12/11/17 03:39 Progress Note: A/P - Problems (1) Seizure Current Visit: Yes Status: Acute Code(s): R56.9 - UNSPECIFIED CONVULSIONS (2) Acute on chronic respiratory failure with hypoxia and hypercapnia Current Visit: No Status: Acute Code(s): J96.21 - ACUTE AND CHRONIC RESPIRATORY FAILURE WITH HYPOXIA; J96.22 - ACUTE AND CHRONIC RESPIRATORY FAILURE WITH HYPERCAPNIA (3) HIV disease Current Visit: No Status: Chronic Code(s): B20 - HUMAN IMMUNODEFICIENCY VIRUS [HIV] DISEASE (4) Obesity hypoventilation syndrome Current Visit: No Status: Chronic Code(s): E66.2 - MORBID (SEVERE) OBESITY WITH ALVEOLAR HYPOVENTILATION - Plan Plan: Awaiting placement - perhaps ventilator intermediate Only other option is a home ventilator for use at night continue trach collar during day
[2017-12-12] MEDS: Aspirin 81 mg Enteric Coated Tablet PO SCH (09:19)
[2017-12-12] MEDS: Amlodipine 5 MG TAB PO SCH (09:19)
[2017-12-12] MEDS: Carvedilol 25 MG TAB PO SCH ×2 (09:19→20:45)
[2017-12-12] MEDS: Lopinavir/Ritonavir 80 MG/20 MG per ML Oral Solution PO SCH ×2 (09:19→20:46)
[2017-12-12] MEDS: guaiFENesin ER 600 MG TAB PO SCH ×2 (09:20→20:45)
[2017-12-12] MEDS: Multivitamin W/ Minerals 1 TAB PER TUBE SCH (09:20)
[2017-12-12] MEDS: Magnesium Oxide 400 MG TAB PO SCH ×2 (09:21→20:45)
[2017-12-12] MEDS: AcetaZOLAMIDE 250 MG TAB PO SCH (09:22)
[2017-12-12] MEDS: levETIRAcetam 500 MG TAB PO SCH ×2 (09:36→20:49)
[2017-12-12] MEDS: Aquaphor 30 GM 99 GM, Cholestyramine/Aspartame 4 GM TOP SCH ×2 (09:55→20:47)
[2017-12-12] MEDS: Enoxaparin Sodium 40 MG/0.4 ML SYRINGE SC SCH (20:45)
[2017-12-13] MEDS: Levothyroxine Sodium 25 MCG TAB PO SCH (05:27)
--- NOTE | 2017-12-13 07:17 | PDOC.FM ---
- Subjective Subjective: CC: None offered. Patient sleeping HPI: Patient resting comfortably. Nursing reports no acute events overnight. Spoke with case management yesterday who informed provider that patient had been denied at every facility she had sent her file to for review. Still waiting on a few more facilities to review her file. CM also working on home vent placement. Patient wants to go home but patient's mother states she cannot manage her home ventilator. Plan for family meeting today. - Objective MAR Reviewed: Yes Vital Signs & Weight: Vital Signs (12 hours) Temp Pulse Resp BP Pulse Ox 12/13/17 07:03 70 141/57 H 12/13/17 06:00 18 12/13/17 04:00 98.6 F 22 H 12/13/17 02:00 22 H 12/13/17 00:00 98.2 F 12/12/17 20:00 98.0 F 12/12/17 19:33 98.5 F 72 17 98 Weight Admit Weight 260.362 kg Weight 230.056 kg Most Recent Monitor Data Heart Rate from ECG 74 NIBP 162/78 NIBP BP-Mean 116 Respiration from ECG 24 SpO2 98 I&O: 12/12/17 12/13/17 12/14/17 06:59 06:59 06:59 Intake Total 672 180 Output Total 1875 1590 Balance -1203 -1410 Result Diagrams: 12/03/17 04:09 12/11/17 03:39 <Antonio Martins W - Last Filed: 12/13/17 07:18> - Objective Vital Signs & Weight: Vital Signs (12 hours) Temp Pulse Resp BP Pulse Ox 12/14/17 09:39 74 148/71 H 12/14/17 08:00 98.4 F 74 18 100 12/14/17 07:00 98.4 F 12/14/17 03:15 100 12/14/17 03:00 98.6 F 12/14/17 01:00 98.9 F 12/14/17 00:00 24 H 90 L Weight Admit Weight 260.362 kg Weight 218.688 kg Most Recent Monitor Data Heart Rate from ECG 73 NIBP 126/58 NIBP BP-Mean 79 Respiration from ECG 24 SpO2 86 I&O: 12/13/17 12/14/17 12/15/17 06:59 06:59 06:59 Intake Total 180 1280 Output Total 1590 1920 50 Balance -1410 -640 -50 Result Diagrams: 12/03/17 04:09 12/14/17 04:20 <Allison Álvarez - Last Filed: 12/14/17 10:18> Phys Exam - Physical Examination Constitutional: NAD Respiratory: no wheezing, clear to auscultation bilateral Cardiovascular: RRR, no significant murmur distant heart sounds Gastrointestinal: soft, non-tender obese Musculoskeletal: edema present (1+ bilaterally ) <Antonio Martins - Last Filed: 12/13/17 07:18> Dx/Plan (1) Seizure Code(s): R56.9 - UNSPECIFIED CONVULSIONS Status: Acute (2) Acute on chronic respiratory failure with hypoxia and hypercapnia Code(s): J96.21 - ACUTE AND CHRONIC RESPIRATORY FAILURE WITH HYPOXIA; J96.22 - ACUTE AND CHRONIC RESPIRATORY FAILURE WITH HYPERCAPNIA Status: Acute (3) Depression Code(s): F32.9 - MAJOR DEPRESSIVE DISORDER, SINGLE EPISODE, UNSPECIFIED Status : Acute QualifierTitle: Depression Type: major depressive disorder Major depression recurrence: recurrent Active/Remission status: remission status unspecified Qualified Code(s): F33.9 - Major depressive disorder, recurrent, unspecified (4) Obesity Code(s): E66.9 - OBESITY, UNSPECIFIED Status: Acute QualifierTitle: Obesity type: due to excess calories Obesity classification: adult class 3 (BMI >= 40) Serious obesity comorbidity presence : with serious comorbidity Body mass index: BMI 70 or greater Qualified Code (s): E66.01 - Morbid (severe) obesity due to excess calories; Z68.45 - Body mass index (BMI) 70 or greater, adult; Z68.45 - Body mass index (BMI) 70 or greater, adult; Z68.45 - Body mass index (BMI) 70 or greater, adult; Z68.45 - Body mass index (BMI) 70 or greater, adult (5) HIV disease Code(s): B20 - HUMAN IMMUNODEFICIENCY VIRUS [HIV] DISEASE Status: Chronic (6) Hypertension Code(s): I10 - ESSENTIAL (PRIMARY) HYPERTENSION Status: Chronic QualifierTitle: Hypertension type: essential hypertension Qualified Code( s): I10 - Essential (primary) hypertension - Plan Plan: 1. Acute on chronic hypoxic hypercapneic respiratory failure 2/2 obesity hypoventilation - Stable overnight - Required transition to CCU with need for mechanical ventilation 11/27 - Trach switched to larger trach 11/27 - Code blue called 12/08 evening. thought to be secondary to mucus plug of tracheostomy. - At baseline. Trach collar during day, CPAP at night. - CM working on placement vs. Home vent. - Diamox to reduce bicarbonate. - Q3 day BMP due tomorrow. 2. Seizure activity - Keppra 1500 mg BID PO - Reportedly had seizure activity during/after code event on 12/08. family reports history of seizure disorder but pt was not on any medication. 3. HIV -continue meds per Outpatient ID consultation 4. HTN - continue amlodipine and coreg - BP elevated overnight. Likely due to sleep apnea. Will monitor and consider increasing amlodipine if consistently elevated. 5. MDD -continue sertraline 6. Hypothyroidism -continue levothyroxine disposition: Pt stable. Safe for PT to treat. Requires CPAP at night and T- collar during the day. Still [facility] Is ready for d/c once one of these options has been approved. <Antonio Martins - Last Filed: 12/13/17 07:18> Attending Addendum - Attending Addendum Date/Time: 12/14/17 1017 I personally evaluated the patient and discussed the management with Dr. Martins on 12/13/2017 I agree with the History, Examination, Assessment and Plan documented above with any addition or exceptions noted below- Patient without complaints. Afebrile VSS. 1) Obesity-hypoventilation symdrome- continue CPAP/vent at night. Awaiting placement. 2) Seizure d/o- continue Keppra <Allison Álvarez - Last Filed: 12/14/17 10:18>
--- NOTE | 2017-12-13 07:55 | PDOC.PULPN ---
Progress Note: Subj/Obj - Subjective Date: 12/13/17 Time: 07:53 Narrative: sleeping on vent. awakens. appropriate - Objective Allergies/Adverse Reactions: Allergies Allergy/AdvReac Type Severity Reaction Status Date / Time tomato Allergy Intermediate Rash Verified 03/17/16 14:09 No Known Drug Allergies Allergy Verified 03/17/16 14:09 MAR Reviewed: Yes Vital Signs: Vital Signs Temp 98.6 F 12/13/17 04:00 Pulse 70 12/13/17 07:03 Resp 18 12/13/17 06:00 BP 141/57 H 12/13/17 07:03 Pulse Ox 98 12/12/17 19:33 Intake & Output 12/12/17 12/13/17 12/13/17 18:59 06:59 18:59 Intake Total 180 Output Total 615 975 Balance -615 -795 Weight 507 lb 3 oz Intake: Oral 180 Output: Output, [place] 615 975 Other: Voiding Method Indwelling Catheter Indwelling Catheter # Bowel Movements 1 Progress Note: Exam - Physical Exam Constitutional: NAD Neck: no JVD Cardiovascular: RRR Focused Respiratory Location: decreased breath sounds: Right, Left Progress Note: Data - Labs Result Diagrams: 12/03/17 04:09 12/11/17 03:39 Progress Note: A/P - Problems (1) Seizure Current Visit: Yes Status: Acute Code(s): R56.9 - UNSPECIFIED CONVULSIONS (2) Acute on chronic respiratory failure with hypoxia and hypercapnia Current Visit: No Status: Acute Code(s): J96.21 - ACUTE AND CHRONIC RESPIRATORY FAILURE WITH HYPOXIA; J96.22 - ACUTE AND CHRONIC RESPIRATORY FAILURE WITH HYPERCAPNIA (3) HIV disease Current Visit: No Status: Chronic Code(s): B20 - HUMAN IMMUNODEFICIENCY VIRUS [HIV] DISEASE (4) Obesity hypoventilation syndrome Current Visit: No Status: Chronic Code(s): E66.2 - MORBID (SEVERE) OBESITY WITH ALVEOLAR HYPOVENTILATION - Plan Plan: Awaiting placement - perhaps ventilator assisted Only other option is a home ventilator for use at night continue trach collar during day. I do not think she can go without nocturnal ventilation.
[2017-12-13] MEDS: Amlodipine 5 MG TAB PO SCH (08:49)
[2017-12-13] MEDS: Multivitamin W/ Minerals 1 TAB PER TUBE SCH (08:49)
[2017-12-13] MEDS: Magnesium Oxide 400 MG TAB PO SCH ×2 (08:49→21:00)
[2017-12-13] MEDS: Carvedilol 25 MG TAB PO SCH ×2 (08:50→21:00)
[2017-12-13] MEDS: guaiFENesin ER 600 MG TAB PO SCH ×2 (08:50→21:00)
[2017-12-13] MEDS: Aspirin 81 mg Enteric Coated Tablet PO SCH (08:51)
[2017-12-13] MEDS: Lopinavir/Ritonavir 80 MG/20 MG per ML Oral Solution PO SCH ×2 (09:00→21:01)
[2017-12-13] MEDS: levETIRAcetam 500 MG TAB PO SCH ×2 (09:03→21:30)
[2017-12-13] MEDS: Aquaphor 30 GM 99 GM, Cholestyramine/Aspartame 4 GM TOP SCH ×2 (09:05→21:01)
[2017-12-13] MEDS: AcetaZOLAMIDE 250 MG TAB PO SCH (09:07)
[2017-12-13] MEDS: Aquaphor 30 GM 99 GM, Cholestyramine/Aspartame 4 GM TOP PRN (09:10)
[2017-12-13] MEDS: Enoxaparin Sodium 40 MG/0.4 ML SYRINGE SC SCH (21:00)
[2017-12-14] MEDS: Levothyroxine Sodium 25 MCG TAB PO SCH (05:47)
[2017-12-14 06:21] LABS: Anion Gap 8 mmol/L (10-20); BUN (Urea Nitrogen) 6 mg/dL (7.0-18.7); Calc. Creatinine Clearance 1 mL/min (70-130); Calcium 8.8 mg/dL (7.8-10.44); Carbon Dioxide 29 mmol/L (22-29); Chloride 103 mmol/L (98-107); Estimated GFR-MDRD Greater than 90; Glucose 70 mg/dL (70-105); Potassium 3.6 mmol/L (3.5-5.1); Sodium 136 mmol/L (136-145)
--- NOTE | 2017-12-14 07:37 | PDOC.FM ---
- Subjective Subjective: CC: Feeling well HPI: No events overnight. Patient denies complaints. Wants to know where she would be place. Informed her it depends where her insurance allows her to be placed but her options have increased since she is now under 500 lbs. - Objective MAR Reviewed: Yes Vital Signs & Weight: Vital Signs (12 hours) Temp Pulse Resp Pulse Ox 12/14/17 03:15 100 12/14/17 03:00 98.6 F 12/14/17 01:00 98.9 F 12/14/17 00:00 24 H 90 L 12/13/17 22:00 98.3 F 12/13/17 20:00 98.3 F 76 2 L 100 Weight Admit Weight 260.362 kg Weight 482.2 kg Most Recent Monitor Data Heart Rate from ECG 71 NIBP 127/56 NIBP BP-Mean 83 Respiration from ECG 23 SpO2 89 I&O: 12/13/17 12/14/17 12/15/17 06:59 06:59 06:59 Intake Total 180 1280 Output Total 1590 1920 Balance -1410 -640 Result Diagrams: 12/03/17 04:09 12/14/17 04:20 <Antonio Martins - Last Filed: 12/14/17 07:35> - Objective Vital Signs & Weight: Vital Signs (12 hours) Temp Pulse Resp BP Pulse Ox 12/14/17 09:39 74 148/71 H 12/14/17 08:00 98.4 F 74 18 100 12/14/17 07:00 98.4 F 12/14/17 03:15 100 12/14/17 03:00 98.6 F 12/14/17 01:00 98.9 F 12/14/17 00:00 24 H 90 L Weight Admit Weight 260.362 kg Weight 218.688 kg Most Recent Monitor Data Heart Rate from ECG 73 NIBP 126/58 NIBP BP-Mean 79 Respiration from ECG 24 SpO2 86 I&O: 12/13/17 12/14/17 12/15/17 06:59 06:59 06:59 Intake Total 180 1280 Output Total 1590 1920 50 Balance -1410 -640 -50 Result Diagrams: 12/03/17 04:09 12/14/17 04:20 <Allison Álvarez - Last Filed: 12/14/17 10:16> Phys Exam - Physical Examination Constitutional: NAD Respiratory: no wheezing, clear to auscultation bilateral Cardiovascular: RRR, no significant murmur Musculoskeletal: edema present Neurological: non-focal, moves all 4 limbs Psychiatric: normal affect, A&O x 3 <Antonio Martins - Last Filed: 12/14/17 07:35> Dx/Plan (1) Seizure Code(s): R56.9 - UNSPECIFIED CONVULSIONS Status: Acute (2) Acute on chronic respiratory failure with hypoxia and hypercapnia Code(s): J96.21 - ACUTE AND CHRONIC RESPIRATORY FAILURE WITH HYPOXIA; J96.22 - ACUTE AND CHRONIC RESPIRATORY FAILURE WITH HYPERCAPNIA Status: Acute (3) Depression Code(s): F32.9 - MAJOR DEPRESSIVE DISORDER, SINGLE EPISODE, UNSPECIFIED Status : Acute QualifierTitle: Depression Type: major depressive disorder Major depression recurrence: recurrent Active/Remission status: remission status unspecified Qualified Code(s): F33.9 - Major depressive disorder, recurrent, unspecified (4) Obesity Code(s): E66.9 - OBESITY, UNSPECIFIED Status: Acute QualifierTitle: Obesity type: due to excess calories Obesity classification: adult class 3 (BMI >= 40) Serious obesity comorbidity presence : with serious comorbidity Body mass index: BMI 70 or greater Qualified Code (s): E66.01 - Morbid (severe) obesity due to excess calories; Z68.45 - Body mass index (BMI) 70 or greater, adult; Z68.45 - Body mass index (BMI) 70 or greater, adult; Z68.45 - Body mass index (BMI) 70 or greater, adult; Z68.45 - Body mass index (BMI) 70 or greater, adult (5) HIV disease Code(s): B20 - HUMAN IMMUNODEFICIENCY VIRUS [HIV] DISEASE Status: Chronic (6) Hypertension Code(s): I10 - ESSENTIAL (PRIMARY) HYPERTENSION Status: Chronic QualifierTitle: Hypertension type: essential hypertension Qualified Code( s): I10 - Essential (primary) hypertension - Plan Plan: 1. Acute on chronic hypoxic hypercapneic respiratory failure 2/2 obesity hypoventilation - Stable overnight - Required transition to CCU with need for mechanical ventilation 11/27 - Trach switched to larger trach 11/27 - Code blue called 12/08 evening. thought to be secondary to mucus plug of tracheostomy. - At baseline. Trach collar during day, CPAP at night. - CM working on placement vs. Home vent. - Diamox to reduce bicarbonate. - Q3 day BMP. Normal results today. 2. Seizure activity - Keppra 1500 mg BID PO - Reportedly had seizure activity during/after code event on 12/08. family reports history of seizure disorder but pt was not on any medication. 3. HIV -continue meds per Outpatient ID consultation 4. HTN - continue amlodipine and coreg - BP elevated overnight. Likely due to sleep apnea. Will monitor and consider increasing amlodipine if consistently elevated. 5. MDD -continue sertraline 6. Hypothyroidism -continue levothyroxine 7. Obesity - continues to lose weight in hospital. Now under 500 lbs - placement per CM. Appreciate their help with placement. disposition: Pt stable. Safe for PT to treat. Requires CPAP at night and T- collar during the day. Still awaiting Home ventilator vs. placement at [facility]. Is ready for d/c once one of these options has been approved. <Antonio Martins - Last Filed: 12/14/17 07:35> Attending Addendum - Attending Addendum Date/Time: 12/14/17 1009 I personally evaluated the patient and discussed the management with Dr. Martins I agree with the History, Examination, Assessment and Plan documented above with any addition or exceptions noted below- Patient without complaints. Sleeping. Afebrile VSS. A/P: 1) Obesity-hypoventilation syndrome- continue CPAP at night. Awaiting placement. 2) Obesity- weight steadily declining; continue current management. 3) Seizure d/o- no further seizures; continue Keppra. 4) Hypothyroidism- continue current meds. <Allison Álvarez - Last Filed: 12/14/17 10:16>
--- NOTE | 2017-12-14 08:09 | PDOC.PULPN ---
Progress Note: Subj/Obj - Subjective Date: 12/14/17 Time: 08:07 Narrative: about the same - Objective Allergies/Adverse Reactions: Allergies Allergy/AdvReac Type Severity Reaction Status Date / Time tomato Allergy Intermediate Rash Verified 03/17/16 14:09 No Known Drug Allergies Allergy Verified 03/17/16 14:09 MAR Reviewed: Yes Vital Signs: Vital Signs Temp 98.4 F 12/14/17 07:00 Pulse 76 12/13/17 20:00 Resp 24 H 12/14/17 00:00 BP 136/91 H 12/13/17 08:56 Pulse Ox 100 12/14/17 03:15 Intake & Output 12/13/17 12/14/17 12/14/17 18:59 06:59 18:59 Intake Total 1140 140 Output Total 1200 720 50 Balance -60 -580 -50 Weight 482 lb 1.992 oz Intake: Oral 1140 140 Output: Output, [place] 1200 720 50 Other: Voiding Method Indwelling Catheter Indwelling Catheter # Bowel Movements 1 1 Progress Note: Exam - Physical Exam Constitutional: NAD HEENT: PERRLA Neck: no nodes, no JVD Cardiovascular: RRR Respiratory: clear to auscultation bilaterally Gastrointestinal: soft Musculoskeletal: edema present Progress Note: Data - Labs Result Diagrams: 12/03/17 04:09 12/14/17 04:20 Progress Note: A/P - Problems (1) Seizure Current Visit: Yes Status: Acute Code(s): R56.9 - UNSPECIFIED CONVULSIONS (2) Acute on chronic respiratory failure with hypoxia and hypercapnia Current Visit: No Status: Acute Code(s): J96.21 - ACUTE AND CHRONIC RESPIRATORY FAILURE WITH HYPOXIA; J96.22 - ACUTE AND CHRONIC RESPIRATORY FAILURE WITH HYPERCAPNIA (3) HIV disease Current Visit: No Status: Chronic Code(s): B20 - HUMAN IMMUNODEFICIENCY VIRUS [HIV] DISEASE (4) Obesity hypoventilation syndrome Current Visit: No Status: Chronic Code(s): E66.2 - MORBID (SEVERE) OBESITY WITH ALVEOLAR HYPOVENTILATION - Plan Plan: Continue night time mechanical ventilation Need to eliminate family from bringing outside food
[2017-12-14] MEDS: Lopinavir/Ritonavir 80 MG/20 MG per ML Oral Solution PO SCH ×2 (09:15→21:32)
[2017-12-14] MEDS: Aquaphor 30 GM 99 GM, Cholestyramine/Aspartame 4 GM TOP SCH ×2 (09:22→21:32)
[2017-12-14] MEDS: levETIRAcetam 500 MG TAB PO SCH ×2 (09:38→21:31)
[2017-12-14] MEDS: AcetaZOLAMIDE 250 MG TAB PO SCH (09:38)
[2017-12-14] MEDS: Multivitamin W/ Minerals 1 TAB PER TUBE SCH (09:38)
[2017-12-14] MEDS: Magnesium Oxide 400 MG TAB PO SCH ×2 (09:39→21:30)
[2017-12-14] MEDS: Amlodipine 5 MG TAB PO SCH (09:39)
[2017-12-14] MEDS: guaiFENesin ER 600 MG TAB PO SCH ×2 (09:47→21:30)
[2017-12-14] MEDS: Carvedilol 25 MG TAB PO SCH ×2 (09:48→21:31)
[2017-12-14] MEDS: Aspirin 81 mg Enteric Coated Tablet PO SCH (09:48)
[2017-12-14] MEDS: Enoxaparin Sodium 40 MG/0.4 ML SYRINGE SC SCH (21:31)
[2017-12-15] MEDS: Levothyroxine Sodium 25 MCG TAB PO SCH (05:43)
--- NOTE | 2017-12-15 06:55 | PDOC.FM ---
- Subjective Subjective: CC: None offered HPI: Resting comfortably. no concerns. No events overnight. - Objective MAR Reviewed: Yes Vital Signs & Weight: Vital Signs (12 hours) Temp Pulse Resp BP Pulse Ox 12/15/17 06:08 70 154/66 H 12/15/17 04:00 97.8 F 12/15/17 00:00 98.3 F 12/14/17 20:00 98.7 F 73 12 97 Weight Admit Weight 260.362 kg Weight 218.688 kg Most Recent Monitor Data Heart Rate from ECG 68 NIBP 154/66 NIBP BP-Mean 93 Respiration from ECG 24 SpO2 89 I&O: 12/13/17 12/14/17 12/15/17 06:59 06:59 06:59 Intake Total 180 1280 1370 Output Total 1590 1920 1457 [employer] -1410 -640 -87 Result Diagrams: 12/03/17 04:09 12/14/17 04:20 <Antonio Martins - Last Filed: 12/15/17 07:16> - Objective Vital Signs & Weight: Vital Signs (12 hours) Temp Pulse BP 12/15/17 08:35 71 155/75 H 12/15/17 08:00 98.3 F 12/15/17 06:08 70 154/66 H 12/15/17 04:00 97.8 F 12/15/17 00:00 98.3 F Weight Admit Weight 260.362 kg Weight 218.688 kg Most Recent Monitor Data Heart Rate from ECG 69 NIBP 162/75 NIBP BP-Mean 107 Respiration from ECG 21 SpO2 90 I&O: 12/14/17 12/15/17 12/16/17 06:59 06:59 06:59 Intake Total 1280 1370 Output Total 1920 1457 250 [employer]640 -87 -250 Result Diagrams: 12/03/17 04:09 12/14/17 04:20 <Allison Álvarez - Last Filed: 12/15/17 11:11> Phys Exam - Physical Examination Constitutional: NAD Neck: no JVD Respiratory: no wheezing, clear to auscultation bilateral Musculoskeletal: edema present (trace) <Antonio Martins - Last Filed: 12/15/17 07:16> Dx/Plan (1) Seizure Code(s): R56.9 - UNSPECIFIED CONVULSIONS Status: Acute (2) Acute on chronic respiratory failure with hypoxia and hypercapnia Code(s): J96.21 - ACUTE AND CHRONIC RESPIRATORY FAILURE WITH HYPOXIA; J96.22 - ACUTE AND CHRONIC RESPIRATORY FAILURE WITH HYPERCAPNIA Status: Acute (3) Depression Code(s): F32.9 - MAJOR DEPRESSIVE DISORDER, SINGLE EPISODE, UNSPECIFIED Status : Acute QualifierTitle: Depression Type: major depressive disorder Major depression recurrence: recurrent Active/Remission status: remission status unspecified Qualified Code(s): F33.9 - Major depressive disorder, recurrent, unspecified (4) Obesity Code(s): E66.9 - OBESITY, UNSPECIFIED Status: Acute QualifierTitle: Obesity type: due to excess calories Obesity classification: adult class 3 (BMI >= 40) Serious obesity comorbidity presence : with serious comorbidity Body mass index: BMI 70 or greater Qualified Code (s): E66.01 - Morbid (severe) obesity due to excess calories; Z68.45 - Body mass index (BMI) 70 or greater, adult; Z68.45 - Body mass index (BMI) 70 or greater, adult; Z68.45 - Body mass index (BMI) 70 or greater, adult; Z68.45 - Body mass index (BMI) 70 or greater, adult (5) HIV disease Code(s): B20 - HUMAN IMMUNODEFICIENCY VIRUS [HIV] DISEASE Status: Chronic (6) Hypertension Code(s): I10 - ESSENTIAL (PRIMARY) HYPERTENSION Status: Chronic QualifierTitle: Hypertension type: essential hypertension Qualified Code( s): I10 - Essential (primary) hypertension - Plan Plan: 1. Acute on chronic hypoxic hypercapneic respiratory failure 2/2 obesity hypoventilation - Stable overnight - Required transition to CCU with need for mechanical ventilation 11/27 - Trach switched to larger trach 11/27 - Code blue called 12/08 evening. thought to be secondary to mucus plug of tracheostomy. - At baseline. Trach collar during day, CPAP at night. - CM working on placement vs. Home vent. - Diamox to reduce bicarbonate. - Q3 day BMP. 2. Seizure activity - Keppra 1500 mg BID PO - Reportedly had seizure activity during/after code event on 12/08. family reports history of seizure disorder but pt was not on any medication. 3. HIV -continue meds per Outpatient ID consultation 4. HTN - continue amlodipine and coreg - BP elevated overnight. Likely due to sleep apnea. Will monitor and consider increasing amlodipine if consistently elevated. 5. MDD -continue sertraline 6. Hypothyroidism -continue levothyroxine 7. Obesity - continues to lose weight in hospital. Now under 500 lbs - placement per CM. Appreciate their help with placement. - Has been walking with single assist with PT and tolerating chair for 2-3 hours at a time. disposition: Pt stable. Safe for PT to treat. Requires CPAP at night and T- collar during the day. Still awaiting Home ventilator approval. All bariatric NH are currently full that would accept patient. Is ready for d/c once one of these options has been approved. <Antonio Martins - Last Filed: 12/15/17 07:16> Attending Addendum - Attending Addendum Date/Time: 12/15/17 1106 I personally evaluated the patient and discussed the management with Dr. Martins I agree with the History, Examination, Assessment and Plan documented above with any addition or exceptions noted below- Patient without complaints. Resting on vent. Afebrile VSS. A/P: 1) Obesity-hypoventilation syndrome- continue current regimen. Awaiting insurance approval/delivery of home vent. 2) Hypothyroidism- stable. <Allison Álvarez - Last Filed: 12/15/17 11:11>
[2017-12-15] MEDS: Aquaphor 30 GM 99 GM, Cholestyramine/Aspartame 4 GM TOP SCH ×2 (08:45→21:21)
[2017-12-15] MEDS: Aquaphor 30 GM 99 GM, Cholestyramine/Aspartame 4 GM TOP PRN ×2 (08:45→21:20)
--- NOTE | 2017-12-15 10:28 | PRG ---
DATE OF SERVICE: 12/15/2017 SUBJECTIVE: She is doing well. She actually got up and walked again yesterday. OBJECTIVE: VITAL SIGNS: Temperature is 97.8, pulse 60, blood pressure 154/66, O2 sat generally running in the l ow 90s. A 24-hour intake 1370, output 1457. Weight yesterday 480 pounds. HEENT: Unremarkable. NECK: Trach in good position. LUNGS: Clear. CARDIAC: S1 and S2 regular. ABDOMEN: Obese. EXTREMITIES: Decreased edema. LABORATORY DATA: She had no labs today. ASSESSMENT: 1. Clinical condition is unchanged. She has obesity hypoventilation syndrome with need for nocturna l ventilation. 2. Human immunodeficiency virus. PLAN: 1. Awaiting acquisition of a Trilogy ventilator so that we can try that on her for a night and get t hings adjusted before she goes home. She is on her HIV medications. Agree with discontinue A[place]illo. 2. Ambulate as tolerated.
[2017-12-15] MEDS: Magnesium Oxide 400 MG TAB PO SCH ×2 (11:20→21:18)
[2017-12-15] MEDS: Aspirin 81 mg Enteric Coated Tablet PO SCH (11:21)
[2017-12-15] MEDS: Amlodipine 5 MG TAB PO SCH (11:21)
[2017-12-15] MEDS: guaiFENesin ER 600 MG TAB PO SCH ×2 (11:22→21:18)
[2017-12-15] MEDS: Multivitamin W/ Minerals 1 TAB PER TUBE SCH (11:22)
[2017-12-15] MEDS: Carvedilol 25 MG TAB PO SCH ×2 (11:24→21:18)
[2017-12-15] MEDS: levETIRAcetam 500 MG TAB PO SCH ×2 (11:34→21:32)
[2017-12-15] MEDS: AcetaZOLAMIDE 250 MG TAB PO SCH (11:34)
[2017-12-15] MEDS: Lopinavir/Ritonavir 80 MG/20 MG per ML Oral Solution PO SCH ×2 (11:51→21:19)
[2017-12-15] MEDS: Enoxaparin Sodium 40 MG/0.4 ML SYRINGE SC SCH (21:18)
--- NOTE | 2017-12-16 06:32 | PDOC.FM ---
- Subjective Subjective: Doing well this AM. Awake and alert, but without speaking valve. Communicates that she got her home vent yesterday. - Objective MAR Reviewed: Yes Vital Signs & Weight: Vital Signs (12 hours) Temp Pulse Resp Pulse Ox 12/16/17 04:00 98.5 F 12/16/17 02:53 73 12/16/17 00:00 98.2 F 23 H 96 12/15/17 23:35 66 12/15/17 20:00 98.2 F 75 18 99 Weight Admit Weight 260.362 kg Weight 218.688 kg Most Recent Monitor Data Heart Rate from ECG 70 NIBP 125/55 NIBP BP-Mean 74 Respiration from ECG 23 SpO2 91 I&O: 12/14/17 12/15/17 12/16/17 06:59 06:59 06:59 Intake Total 1280 1370 640 Output Total 1920 1457 1410 Balance -199 -87 -770 Result Diagrams: 12/03/17 04:09 12/14/17 04:20 <Magdy Jones - Last Filed: 12/16/17 07:16> - Objective Vital Signs & Weight: Vital Signs (12 hours) Temp Pulse Resp Pulse Ox 12/16/17 08:39 79 12/16/17 08:00 98.1 F 12/16/17 04:00 98.5 F 12/16/17 02:53 73 12/16/17 00:00 98.2 F 23 H 96 12/15/17 23:35 66 Weight Admit Weight 260.362 kg Weight 214.821 kg Most Recent Monitor Data Heart Rate from ECG 77 NIBP 123/76 NIBP BP-Mean 83 Respiration from ECG 13 SpO2 99 I&O: 12/15/17 12/16/17 12/17/17 06:59 06:59 06:59 Intake Total 1370 640 240 Output Total 1457 1410 0 Balance -07 -785 240 Result Diagrams: 12/03/17 04:09 12/14/17 04:20 <James Myers - Last Filed: 12/16/17 10:45> Phys Exam - Physical Examination Constitutional: NAD obese HEENT: moist MMs, oral pharynx no lesions trach in place Neck: supple Respiratory: no wheezing, no rhonchi Cardiovascular: RRR, no significant murmur Gastrointestinal: soft, non-tender Musculoskeletal: no edema, pulses present Neurological: normal sensation, moves all 4 limbs Psychiatric: normal affect, A&O x 3 Skin: no rash <Magdy Jones - Last Filed: 12/16/17 07:16> Dx/Plan (1) Acute on chronic respiratory failure with hypoxia and hypercapnia Code(s): J96.21 - ACUTE AND CHRONIC RESPIRATORY FAILURE WITH HYPOXIA; J96.22 - ACUTE AND CHRONIC RESPIRATORY FAILURE WITH HYPERCAPNIA Status: Acute Plan: Continue current course of treatment with CPAP at night and transition to trach collar during daytime. Finally has home vent supplies, will plan on doing training this weekend and hopefully home early next week. (2) Seizure Code(s): R56.9 - UNSPECIFIED CONVULSIONS Status: Acute Plan: Continue keppra after she seized following code blue. (3) Obesity Code(s): E66.9 - OBESITY, UNSPECIFIED Status: Acute QualifierTitle: Obesity type: due to excess calories Obesity classification: adult class 3 (BMI >= 40) Serious obesity comorbidity presence : with serious comorbidity Body mass index: BMI 70 or greater Qualified Code (s): E66.01 - Morbid (severe) obesity due to excess calories; Z68.45 - Body mass index (BMI) 70 or greater, adult; Z68.45 - Body mass index (BMI) 70 or greater, adult; Z68.45 - Body mass index (BMI) 70 or greater, adult; Z68.45 - Body mass index (BMI) 70 or greater, adult Plan: Gradual weight loss has been noted during hospitalization, continue to monitor progress. (4) Hypertension Code(s): I10 - ESSENTIAL (PRIMARY) HYPERTENSION Status: Chronic QualifierTitle: Hypertension type: essential hypertension Qualified Code( s): I10 - Essential (primary) hypertension Plan: BP normal range today. (5) HIV disease Code(s): B20 - HUMAN IMMUNODEFICIENCY VIRUS [HIV] DISEASE Status: Chronic Plan: Continue home medication. (6) MDD (major depressive disorder) Code(s): F32.9 - MAJOR DEPRESSIVE DISORDER, SINGLE EPISODE, UNSPECIFIED Status : Acute Plan: Continue sertraline. <Magdy Jones - Last Filed: 12/16/17 07:16> Attending Addendum - Attending Addendum Date/Time: 12/16/17 1045 I personally evaluated the patient and discussed the management with Dr. Jones. I agree with the History, Examination, Assessment and Plan documented above with any addition or exceptions noted below. Home vent has arrived. Will spend the next few days with RT receiving training on the vent and eventual discharge home. No changes in labs or vital signs today. <James Myers - Last Filed: 12/16/17 10:45>
[2017-12-16] MEDS: Levothyroxine Sodium 25 MCG TAB PO SCH (06:38)
[2017-12-16] MEDS: guaiFENesin ER 600 MG TAB PO SCH ×2 (08:38→21:06)
[2017-12-16] MEDS: Magnesium Oxide 400 MG TAB PO SCH ×2 (08:38→21:05)
[2017-12-16] MEDS: Multivitamin W/ Minerals 1 TAB PER TUBE SCH (08:38)
[2017-12-16] MEDS: levETIRAcetam 500 MG TAB PO SCH ×2 (08:38→21:04)
[2017-12-16] MEDS: Amlodipine 5 MG TAB PO SCH (08:39)
[2017-12-16] MEDS: Carvedilol 25 MG TAB PO SCH ×2 (08:40→21:04)
[2017-12-16] MEDS: Aspirin 81 mg Enteric Coated Tablet PO SCH (08:40)
[2017-12-16] MEDS: Aquaphor 30 GM 99 GM, Cholestyramine/Aspartame 4 GM TOP SCH ×2 (09:00→21:15)
[2017-12-16] MEDS: AcetaZOLAMIDE 250 MG TAB PO SCH (10:14)
[2017-12-16] MEDS: Lopinavir/Ritonavir 80 MG/20 MG per ML Oral Solution PO SCH ×2 (10:14→21:22)
[2017-12-16] MEDS: Enoxaparin Sodium 40 MG/0.4 ML SYRINGE SC SCH (21:10)
--- NOTE | 2017-12-16 21:12 | PRG ---
DATE OF SERVICE: 12/16/2017 OBJECTIVE: VITAL SIGNS: Ms. Bonilla is afebrile, heart rate 69, blood pressure 155/78. LUNGS: Clear. HEART: Regular rhythm. ABDOMEN: Soft. She is down to 473 pounds. There is no lab have been done for a while. Her electrolytes 2 days ago were normal. IMPRESSION: Chronic respiratory failure secondary to life threatening obesity. PLAN: Continue with calorie restriction and her antiretroviral therapy for HIV. Family has told the nurses they want to take her home, but I have seen them taking care of her or helping take care of a t all. The nurses report that when they were changing or cleaning Ms. Bonilla's family usually talkin g or sitting on their cell phone. I am told by the nurses offer to help, so I am not optimistic that they will be able to care for her at home.
[2017-12-16] MEDS: Aquaphor 30 GM 99 GM, Cholestyramine/Aspartame 4 GM TOP PRN (21:22)
[2017-12-17] MEDS: Levothyroxine Sodium 25 MCG TAB PO SCH (06:24)
[2017-12-17] MEDS: Aquaphor 30 GM 99 GM, Cholestyramine/Aspartame 4 GM TOP PRN (06:24)
--- NOTE | 2017-12-17 06:27 | PDOC.FM ---
- Subjective Subjective: Did well yesterday. Unable to complete training on home vent as company will send education courses sales representative of some kind on Monday to do teaching for home use. Pt without any concerns. - Objective MAR Reviewed: Yes Vital Signs & Weight: Vital Signs (12 hours) Temp Pulse Resp Pulse Ox 12/17/17 04:00 98.3 F 12/17/17 02:12 23 H 12/17/17 02:00 66 12/17/17 01:15 20 12/17/17 00:00 98.6 F 12/16/17 20:00 98.1 F 78 18 99 12/16/17 19:00 98.1 F Weight Admit Weight 260.362 kg Weight 214.821 kg Most Recent Monitor Data Heart Rate from ECG 68 NIBP 123/55 NIBP BP-Mean 78 Respiration from ECG 20 SpO2 91 I&O: 12/15/17 12/16/17 12/17/17 06:59 06:59 06:59 Intake Total 1370 640 540 Output Total 1457 1410 1250 Balance -87 -770 -710 Result Diagrams: 12/03/17 04:09 12/14/17 04:20 <Magdy Jones - Last Filed: 12/17/17 07:14> - Objective Vital Signs & Weight: Vital Signs (12 hours) Temp Pulse Resp BP Pulse Ox 12/17/17 09:36 69 148/75 H 12/17/17 08:00 98.5 F 69 19 96 12/17/17 07:04 92 L 12/17/17 04:00 98.3 F 12/17/17 02:12 23 H 12/17/17 02:00 66 12/17/17 01:15 20 12/17/17 00:00 98.6 F Weight Admit Weight 260.362 kg Weight 214.821 kg Most Recent Monitor Data Heart Rate from ECG 75 NIBP 132/78 NIBP BP-Mean 104 Respiration from ECG 17 SpO2 80 I&O: 12/16/17 12/17/17 12/18/17 06:59 06:59 06:59 Intake Total 640 540 120 Output Total 1410 1250 400 Balance -770 -710 -280 Result Diagrams: 12/03/17 04:09 12/14/17 04:20 <James Myers - Last Filed: 12/17/17 10:29> Phys Exam - Physical Examination Constitutional: NAD obese HEENT: PERRLA, moist MMs, oral pharynx no lesions trach with speaking valve in place Respiratory: no wheezing, clear to auscultation bilateral Cardiovascular: RRR, no significant murmur Gastrointestinal: soft, non-tender Neurological: normal sensation, moves all 4 limbs Psychiatric: normal affect, A&O x 3 <RobertMagdy - Last Filed: 12/17/17 07:14> Dx/Plan (1) Acute on chronic respiratory failure with hypoxia and hypercapnia Code(s): J96.21 - ACUTE AND CHRONIC RESPIRATORY FAILURE WITH HYPOXIA; J96.22 - ACUTE AND CHRONIC RESPIRATORY FAILURE WITH HYPERCAPNIA Status: Acute Plan: Continue current course of treatment with CPAP at night and transition to trach collar during daytime. Finally has home vent supplies, will plan on doing training on Monday. (2) Seizure Code(s): R56.9 - UNSPECIFIED CONVULSIONS Status: Acute Plan: Continue keppra after she seized following code blue. (3) Obesity Code(s): E66.9 - OBESITY, UNSPECIFIED Status: Acute QualifierTitle: Obesity type: due to excess calories Obesity classification: adult class 3 (BMI >= 40) Serious obesity comorbidity presence : with serious comorbidity Body mass index: BMI 70 or greater Qualified Code (s): E66.01 - Morbid (severe) obesity due to excess calories; Z68.45 - Body mass index (BMI) 70 or greater, adult; Z68.45 - Body mass index (BMI) 70 or greater, adult; Z68.45 - Body mass index (BMI) 70 or greater, adult; Z68.45 - Body mass index (BMI) 70 or greater, adult Plan: Gradual weight loss has been noted during hospitalization, continue to monitor progress on calorie restriction. (4) Hypertension Code(s): I10 - ESSENTIAL (PRIMARY) HYPERTENSION Status: Chronic QualifierTitle: Hypertension type: essential hypertension Qualified Code( s): I10 - Essential (primary) hypertension Plan: BP normal range today. (5) HIV disease Code(s): B20 - HUMAN IMMUNODEFICIENCY VIRUS [HIV] DISEASE Status: Chronic Plan: Continue home medication. (6) MDD (major depressive disorder) Code(s): F32.9 - MAJOR DEPRESSIVE DISORDER, SINGLE EPISODE, UNSPECIFIED Status : Acute Plan: Continue sertraline, mood stable. <Magdy Jones - Last Filed: 12/17/17 07:14> Attending Addendum - Attending Addendum Date/Time: 12/17/17 1028 I personally evaluated the patient and discussed the management with Dr. Jones. I agree with the History, Examination, Assessment and Plan documented above with any addition or exceptions noted below. Patient stable. Awaiting training on vent before discharge home. <James Myers - Last Filed: 12/17/17 10:29>
[2017-12-17] MEDS: Aquaphor 30 GM 99 GM, Cholestyramine/Aspartame 4 GM TOP SCH ×2 (09:30→20:13)
[2017-12-17] MEDS: AcetaZOLAMIDE 250 MG TAB PO SCH (09:30)
[2017-12-17] MEDS: Magnesium Oxide 400 MG TAB PO SCH ×2 (09:30→20:11)
[2017-12-17] MEDS: Carvedilol 25 MG TAB PO SCH ×2 (09:35→20:12)
[2017-12-17] MEDS: Multivitamin W/ Minerals 1 TAB PER TUBE SCH (09:35)
[2017-12-17] MEDS: Amlodipine 5 MG TAB PO SCH (09:36)
[2017-12-17] MEDS: levETIRAcetam 500 MG TAB PO SCH ×2 (09:36→20:11)
[2017-12-17] MEDS: guaiFENesin ER 600 MG TAB PO SCH ×2 (09:38→20:12)
[2017-12-17] MEDS: Aspirin 81 mg Enteric Coated Tablet PO SCH (09:38)
[2017-12-17] MEDS: Lopinavir/Ritonavir 80 MG/20 MG per ML Oral Solution PO SCH ×2 (10:36→20:12)
--- NOTE | 2017-12-17 13:24 | PRG ---
DATE OF SERVICE: 12/17/2017 SUBJECTIVE: Nelly Bonilla is in no distress. Weight today is 469. She is sitting in bedside chair, off mechanical ventilation. Intake and output is negative 710 mL. OBJECTIVE: LUNGS: Clear and distant. HEART: Regular rhythm. Distant S1 and S2. ABDOMEN: Massive and nontender. DIAGNOSTIC DATA: There is no new lab. IMPRESSION: 1. Acute on chronic respiratory failure. 2. Status post tracheostomy. 3. Life threatening obesity. 4. Obesity. 5. Hypoventilation. 5. HIV positive. PLAN: She says her family is going to take care of her with a home ventilator. I have asked her to ask them to stay at the hospital to learn all the in's and out's and what she requires from a [facility].
[2017-12-17] MEDS: Enoxaparin Sodium 40 MG/0.4 ML SYRINGE SC SCH (20:12)
[2017-12-18] MEDS: Levothyroxine Sodium 25 MCG TAB PO SCH (05:43)
--- NOTE | 2017-12-18 07:07 | PDOC.FM ---
- Subjective Subjective: CC: needs trach suctioned. HPI: No events overnight. Desires trach to be suctioned. Explained she needs her family to be present for vent teaching today before she can be discharged home. She expressed understanding. - Objective MAR Reviewed: Yes Vital Signs & Weight: Vital Signs (12 hours) Temp Pulse Resp Pulse Ox 12/18/17 04:00 98 F 12/18/17 02:00 66 12/18/17 00:00 97.9 F 12/17/17 23:40 20 12/17/17 20:00 98.2 F 82 18 97 Weight Admit Weight 260.362 kg Weight 211.3 kg Most Recent Monitor Data Heart Rate from ECG 69 NIBP 128/84 NIBP BP-Mean 116 Respiration from ECG 19 SpO2 95 I&O: 12/17/17 12/18/17 12/19/17 06:59 06:59 06:59 Intake Total 540 920 Output Total 1250 1680 Balance -710 -760 Result Diagrams: 12/03/17 04:09 12/18/17 07:16 <Antonio Martins - Last Filed: 12/18/17 08:32> - Objective Vital Signs & Weight: Vital Signs (12 hours) Temp Pulse Resp Pulse Ox 12/18/17 07:32 98.4 F 75 21 H 89 L 12/18/17 04:00 98 F 12/18/17 02:00 66 12/18/17 00:00 97.9 F 12/17/17 23:40 20 Weight Admit Weight 260.362 kg Weight 211.3 kg Most Recent Monitor Data Heart Rate from ECG 79 NIBP 101/64 NIBP BP-Mean 80 Respiration from ECG 16 SpO2 95 I&O: 12/17/17 12/18/17 12/19/17 06:59 06:59 06:59 Intake Total 540 920 100 Output Total 1250 1680 0 Balance -710 -760 100 Result Diagrams: 12/03/17 04:09 12/18/17 07:16 <Kd Martino - Last Filed: 12/18/17 10:17> Phys Exam - Physical Examination Constitutional: NAD HEENT: moist MMs, sclera anicteric Respiratory: no wheezing, clear to auscultation bilateral Cardiovascular: RRR, no significant murmur Neurological: non-focal, moves all 4 limbs Psychiatric: normal affect, A&O x 3 <Antonio Martins - Last Filed: 12/18/17 08:32> Dx/Plan (1) Acute on chronic respiratory failure with hypoxia and hypercapnia Code(s): J96.21 - ACUTE AND CHRONIC RESPIRATORY FAILURE WITH HYPOXIA; J96.22 - ACUTE AND CHRONIC RESPIRATORY FAILURE WITH HYPERCAPNIA Status: Acute (2) Obesity Code(s): E66.9 - OBESITY, UNSPECIFIED Status: Acute QualifierTitle: Obesity type: due to excess calories Obesity classification: adult class 3 (BMI >= 40) Serious obesity comorbidity presence : with serious comorbidity Body mass index: BMI 70 or greater Qualified Code (s): E66.01 - Morbid (severe) obesity due to excess calories; Z68.45 - Body mass index (BMI) 70 or greater, adult; Z68.45 - Body mass index (BMI) 70 or greater, adult; Z68.45 - Body mass index (BMI) 70 or greater, adult; Z68.45 - Body mass index (BMI) 70 or greater, adult (3) Seizure Code(s): R56.9 - UNSPECIFIED CONVULSIONS Status: Acute (4) Depression Code(s): F32.9 - MAJOR DEPRESSIVE DISORDER, SINGLE EPISODE, UNSPECIFIED Status : Acute QualifierTitle: Depression Type: major depressive disorder Major depression recurrence: recurrent Active/Remission status: remission status unspecified Qualified Code(s): F33.9 - Major depressive disorder, recurrent, unspecified (5) HIV disease Code(s): B20 - HUMAN IMMUNODEFICIENCY VIRUS [HIV] DISEASE Status: Chronic (6) Hypertension Code(s): I10 - ESSENTIAL (PRIMARY) HYPERTENSION Status: Chronic QualifierTitle: Hypertension type: essential hypertension Qualified Code( s): I10 - Essential (primary) hypertension - Plan Plan: 1. Acute on chronic hypoxic hypercapneic respiratory failure 2/2 obesity hypoventilation - Stable overnight - Required transition to CCU with need for mechanical ventilation 11/27 - Trach switched to larger trach 11/27 - Code blue called 12/08 evening. thought to be secondary to mucus plug of tracheostomy. - At baseline. Trach collar during day, CPAP at night. - Received home vent over weekend, awaiting training from [facility] - Diamox to reduce bicarbonate. - Q3 day BMP. repeat today 2. Seizure activity - Keppra 1500 mg BID PO - Reportedly had seizure activity during/after code event on 12/08. family reports history of seizure disorder but pt was not on any medication. 3. HIV -continue meds per Outpatient ID consultation 4. HTN - continue amlodipine and coreg - BP remains labile. Likely 2/2 sleep apnea. 5. MDD -continue sertraline 6. Hypothyroidism -continue levothyroxine 7. Obesity - continues to lose weight in hospital. Now under 500 lbs - Has been walking with single assist with PT and tolerating chair for 2-3 hours at a time. - continue diet and PT. disposition: Pt stable. Safe for PT to treat. Requires CPAP at night and T- collar during the day. Still awaiting Home ventilator approval. Can d/c once patient and family trained on home ventilator use. However, family frequently does not show up at scheduled times so may be difficult to train them. <Antonio Martins - Last Filed: 12/18/17 08:32> Attending Addendum - Attending Addendum Date/Time: 12/18/17 1010 I personally evaluated the patient and discussed the management with Dr. Martins. I agree with the History, Examination, Assessment and Plan documented above with any addition or exceptions noted below. Sitting up, speaking valve in place. NAD. Lungs CTA. For Home Vent transition tonight; if tolerant, home tomorrow. Needs nutrition ed for home dietary plan for mom and sister (purchasers and providers of meals at home) to assure continued weight loss following measures begun here. <Kd Martino - Last Filed: 12/18/17 10:17>
[2017-12-18 07:46] LABS: Anion Gap 8 mmol/L (10-20); BUN (Urea Nitrogen) 6 mg/dL (7.0-18.7); Calc. Creatinine Clearance 406 mL/min (70-130); Calcium 8.6 mg/dL (7.8-10.44); Carbon Dioxide 26 mmol/L (22-29); Chloride 108 mmol/L (98-107); Estimated GFR-MDRD Greater than 90; Glucose 81 mg/dL (70-105); Magnesium 1.9 mg/dL (1.6-2.6); Potassium 4.1 mmol/L (3.5-5.1); Sodium 138 mmol/L (136-145)
--- NOTE | 2017-12-18 07:56 | PRG ---
DATE OF SERVICE: 12/18/2017 The patient seems to be doing well. She is excited that she has lost over 100 pounds since admission . PHYSICAL EXAMINATION: VITAL SIGNS: Her temperature is 98, pulse 60, blood pressure 144/66. 24 hour intake 920, output 168 0. Weight 465 pounds. HEENT: Unremarkable. NECK: Trach in good position. LUNGS: Clear. CARDIAC: S1 and S2 regular. ABDOMEN: Soft. EXTREMITIES: No edema. ASSESSMENT: 1. Obesity hypoventilation syndrome. 2. Chronic respiratory failure requiring mechanical ventilation at night. 3. Morbid obesity. 4. Human immunodeficiency virus. PLAN: Use Trilogy ventilator at night if she can do that for a night or two then she should be able to go home.
[2017-12-18] MEDS: Lopinavir/Ritonavir 80 MG/20 MG per ML Oral Solution PO SCH ×2 (09:44→20:29)
[2017-12-18] MEDS: Magnesium Oxide 400 MG TAB PO SCH ×2 (09:45→20:30)
[2017-12-18] MEDS: levETIRAcetam 500 MG TAB PO SCH ×2 (09:45→20:30)
[2017-12-18] MEDS: guaiFENesin ER 600 MG TAB PO SCH ×2 (09:46→20:30)
[2017-12-18] MEDS: Carvedilol 25 MG TAB PO SCH ×2 (09:46→20:30)
[2017-12-18] MEDS: Aspirin 81 mg Enteric Coated Tablet PO SCH (09:46)
[2017-12-18] MEDS: Multivitamin W/ Minerals 1 TAB PER TUBE SCH (09:46)
[2017-12-18] MEDS: Amlodipine 5 MG TAB PO SCH (09:46)
[2017-12-18] MEDS: Aquaphor 30 GM 99 GM, Cholestyramine/Aspartame 4 GM TOP PRN ×2 (09:51→20:39)
[2017-12-18] MEDS: AcetaZOLAMIDE 250 MG TAB PO SCH (09:53)
[2017-12-18] MEDS: Aquaphor 30 GM 99 GM, Cholestyramine/Aspartame 4 GM TOP SCH ×2 (09:54→20:40)
[2017-12-18] MEDS: Enoxaparin Sodium 40 MG/0.4 ML SYRINGE SC SCH (20:29)
[2017-12-19] MEDS: Levothyroxine Sodium 25 MCG TAB PO SCH (05:10)
--- NOTE | 2017-12-19 07:15 | PDOC.FM ---
- Subjective Subjective: CC: None offered HPI: Informed patient that we need to get her a new HH agency and still need her to use her home vent at least one night before she can go home. She is getting frustrated that she cannot go home but is still willing to stay until discharge arrangements can be made. - Objective MAR Reviewed: Yes Vital Signs & Weight: Vital Signs (12 hours) Temp Pulse Resp Pulse Ox 12/19/17 06:00 19 12/19/17 04:00 98.3 F 21 H 12/19/17 02:00 22 H 12/19/17 00:49 69 12/19/17 00:00 98.3 F 12/18/17 20:00 98.3 F 80 34 H 94 L Weight Admit Weight 260.362 kg Weight 211.3 kg Most Recent Monitor Data Heart Rate from ECG 65 NIBP 94/39 NIBP BP-Mean 59 Respiration from ECG 20 SpO2 96 I&O: 12/18/17 12/19/17 12/20/17 06:59 06:59 06:59 Intake Total 920 858 Output Total 1680 900 Balance -760 -42 Result Diagrams: 12/03/17 04:09 12/18/17 07:16 <Antonio Martins W - Last Filed: 12/19/17 08:15> - Objective Vital Signs & Weight: Vital Signs (12 hours) Temp Pulse Resp 12/19/17 08:10 70 12/19/17 07:31 98.1 F 70 13 12/19/17 07:00 98.1 F 12/19/17 06:00 19 12/19/17 04:00 98.3 F 21 H 12/19/17 02:00 22 H 12/19/17 00:49 69 12/19/17 00:00 98.3 F Weight Admit Weight 260.362 kg Weight 211.3 kg Most Recent Monitor Data Heart Rate from ECG 73 NIBP 108/55 NIBP BP-Mean 82 Respiration from ECG 15 SpO2 96 I&O: 12/18/17 12/19/17 12/20/17 06:59 06:59 06:59 Intake Total 920 858 240 Output Total 1680 900 300 Balance -760 -42 -60 Result Diagrams: 12/03/17 04:09 12/18/17 07:16 <James Myers R - Last Filed: 12/19/17 10:34> Phys Exam - Physical Examination Constitutional: NAD Respiratory: no wheezing, clear to auscultation bilateral Cardiovascular: RRR, no significant murmur <Antonio Martins - Last Filed: 12/19/17 08:15> Dx/Plan (1) Acute on chronic respiratory failure with hypoxia and hypercapnia Code(s): J96.21 - ACUTE AND CHRONIC RESPIRATORY FAILURE WITH HYPOXIA; J96.22 - ACUTE AND CHRONIC RESPIRATORY FAILURE WITH HYPERCAPNIA Status: Acute (2) Obesity Code(s): E66.9 - OBESITY, UNSPECIFIED Status: Acute QualifierTitle: Obesity type: due to excess calories Obesity classification: adult class 3 (BMI >= 40) Serious obesity comorbidity presence : with serious comorbidity Body mass index: BMI 70 or greater Qualified Code (s): E66.01 - Morbid (severe) obesity due to excess calories; Z68.45 - Body mass index (BMI) 70 or greater, adult; Z68.45 - Body mass index (BMI) 70 or greater, adult; Z68.45 - Body mass index (BMI) 70 or greater, adult; Z68.45 - Body mass index (BMI) 70 or greater, adult (3) Seizure Code(s): R56.9 - UNSPECIFIED CONVULSIONS Status: Acute (4) Depression Code(s): F32.9 - MAJOR DEPRESSIVE DISORDER, SINGLE EPISODE, UNSPECIFIED Status : Acute QualifierTitle: Depression Type: major depressive disorder Major depression recurrence: recurrent Active/Remission status: remission status unspecified Qualified Code(s): F33.9 - Major depressive disorder, recurrent, unspecified (5) HIV disease Code(s): B20 - HUMAN IMMUNODEFICIENCY VIRUS [HIV] DISEASE Status: Chronic (6) Hypertension Code(s): I10 - ESSENTIAL (PRIMARY) HYPERTENSION Status: Chronic QualifierTitle: Hypertension type: essential hypertension Qualified Code( s): I10 - Essential (primary) hypertension - Plan Plan: 1. Acute on chronic hypoxic hypercapneic respiratory failure 2/2 obesity hypoventilation - Stable overnight - Required transition to CCU with need for mechanical ventilation 11/27 - Trach switched to larger trach 11/27 - Code blue called 12/08 evening. thought to be secondary to mucus plug of tracheostomy. - At baseline. Trach collar during day, CPAP at night. - Received home vent over weekend, awaiting training from [employer] - Diamox to reduce bicarbonate. - Q3 day BMP. labs WNL yesterday 2. Seizure activity - Keppra 1500 mg BID PO - Reportedly had seizure activity during/after code event on 12/08. family reports history of seizure disorder but pt was not on any medication. 3. HIV -continue meds per Outpatient ID consultation 4. HTN - continue amlodipine and coreg - BP remains labile. Likely 2/2 sleep apnea. 5. MDD -continue sertraline 6. Hypothyroidism -continue levothyroxine 7. Obesity - continues to lose weight in hospital. Now under 500 lbs - Has been walking with single assist with PT and tolerating chair for 2-3 hours at a time. - continue diet and PT. disposition: Pt stable. Safe for PT to treat. Requires CPAP at night and T- collar during the day. Has home vent but has not used since it arrived. Waiting for maintenance to evaluate before it can be used. CM working on [facility]. Due to home vent, her old [employer] company will no longer see her. <Antonio Martins W - Last Filed: 12/19/17 08:15> Attending Addendum - Attending Addendum Date/Time: 12/19/17 1033 I personally evaluated the patient and discussed the management with Dr. Martins. I agree with the History, Examination, Assessment and Plan documented above with any addition or exceptions noted below. Patient stable. Awaiting home vent training which has apparently not been able to be completed because maintenance will not allow the machine to be plugged in yet. This is currently the only thing keeping her hospitalized. <James Myers - Last Filed: 12/19/17 10:34>
--- NOTE | 2017-12-19 08:03 | PRG ---
DATE OF SERVICE: 12/19/2017 Unfortunately, Merle did not get the Trilogy ventilator last night because apparently it had not bee n cleared by clinical engineering. She is doing well this morning without complaint. PHYSICAL EXAMINATION: VITAL SIGNS: Temperature 98.1, pulse 64, blood pressure 84/37. 24 hour intake 858, output 900. HEENT: Unremarkable. NECK: No JVD. CHEST: Clear. CARDIAC: S1 and S2 regular. ABDOMEN: Soft. EXTREMITIES: Brawny edema. LABORATORY DATA: No labs were done today. ASSESSMENT: 1. Obesity hypoventilation syndrome. 2. Chronic respiratory failure requiring nocturnal ventilation. PLAN: As above, needs to have the Trilogy ventilator approved by clinical engineering and then she n eeds to be tried on that and assure that she can do this at home. Continue ambulation. Hopefully, s he can go home in the next 2-3 days.
[2017-12-19] MEDS: Multivitamin W/ Minerals 1 TAB PER TUBE SCH (08:09)
[2017-12-19] MEDS: Magnesium Oxide 400 MG TAB PO SCH ×2 (08:09→20:31)
[2017-12-19] MEDS: levETIRAcetam 500 MG TAB PO SCH ×2 (08:09→20:31)
[2017-12-19] MEDS: Aspirin 81 mg Enteric Coated Tablet PO SCH (08:10)
[2017-12-19] MEDS: Amlodipine 5 MG TAB PO SCH (08:10)
[2017-12-19] MEDS: Carvedilol 25 MG TAB PO SCH ×2 (08:10→20:31)
[2017-12-19] MEDS: guaiFENesin ER 600 MG TAB PO SCH ×2 (08:10→20:31)
[2017-12-19] MEDS: AcetaZOLAMIDE 250 MG TAB PO SCH (08:10)
[2017-12-19] MEDS: Lopinavir/Ritonavir 80 MG/20 MG per ML Oral Solution PO SCH ×2 (08:11→20:30)
[2017-12-19] MEDS: Aquaphor 30 GM 99 GM, Cholestyramine/Aspartame 4 GM TOP PRN (08:17)
[2017-12-19] MEDS: Aquaphor 30 GM 99 GM, Cholestyramine/Aspartame 4 GM TOP SCH ×2 (08:18→20:32)
[2017-12-19 10:49] VITALS: BMI 77.5
[2017-12-19 15:07] VITALS: BP 131/80
[2017-12-19] MEDS: Enoxaparin Sodium 40 MG/0.4 ML SYRINGE SC SCH (20:30)
--- NOTE | 2017-12-20 06:55 | PDOC.FM ---
- Subjective Subjective: CC: mucous in trach HPI: Patient attempting to suction out her trach during exam. Had lengthy discussion with her regarding taking care of herself at home. Nursing states she did not attach herself to the home vent unit last night. I discussed with her the importance of using the vent unit any time she is going to sleep. She expressed understanding. - Objective MAR Reviewed: Yes Vital Signs & Weight: Vital Signs (12 hours) Temp Pulse Resp Pulse Ox 12/20/17 04:00 98.4 F 12/20/17 00:00 98.1 F 12/19/17 20:00 98.6 F 79 24 H 94 L Weight Admit Weight 260.362 kg Weight 211.3 kg Most Recent Monitor Data Heart Rate from ECG 68 NIBP 106/39 NIBP BP-Mean 72 Respiration from ECG 22 SpO2 93 I&O: 12/18/17 12/19/17 12/20/17 06:59 06:59 06:59 Intake Total 920 858 780 Output Total 2724 380 4124 Balance -760 -42 -270 Result Diagrams: 12/03/17 04:09 12/18/17 07:16 <Antonio Martins - Last Filed: 12/20/17 06:53> - Objective Vital Signs & Weight: Vital Signs (12 hours) Temp Pulse 12/20/17 09:27 79 12/20/17 04:00 98.4 F 12/20/17 00:00 98.1 F Weight Admit Weight 260.362 kg Weight 211.3 kg Most Recent Monitor Data Heart Rate from ECG 68 NIBP 106/39 NIBP BP-Mean 72 Respiration from ECG 22 SpO2 93 I&O: 12/19/17 12/20/17 12/21/17 06:59 06:59 06:59 Intake Total 858 780 Output Total 900 1050 Balance -42 -270 Result Diagrams: 12/03/17 04:09 12/18/17 07:16 <Kd Martino - Last Filed: 12/20/17 10:10> Phys Exam - Physical Examination Constitutional: NAD Respiratory: no wheezing, clear to auscultation bilateral Cardiovascular: RRR, no significant murmur Neurological: non-focal, moves all 4 limbs <Antonio Martins - Last Filed: 12/20/17 06:53> Dx/Plan (1) Acute on chronic respiratory failure with hypoxia and hypercapnia Code(s): J96.21 - ACUTE AND CHRONIC RESPIRATORY FAILURE WITH HYPOXIA; J96.22 - ACUTE AND CHRONIC RESPIRATORY FAILURE WITH HYPERCAPNIA Status: Acute (2) Obesity Code(s): E66.9 - OBESITY, UNSPECIFIED Status: Acute QualifierTitle: Obesity type: due to excess calories Obesity classification: adult class 3 (BMI >= 40) Serious obesity comorbidity presence : with serious comorbidity Body mass index: BMI 70 or greater Qualified Code (s): E66.01 - Morbid (severe) obesity due to excess calories; Z68.45 - Body mass index (BMI) 70 or greater, adult; Z68.45 - Body mass index (BMI) 70 or greater, adult; Z68.45 - Body mass index (BMI) 70 or greater, adult; Z68.45 - Body mass index (BMI) 70 or greater, adult (3) Seizure Code(s): R56.9 - UNSPECIFIED CONVULSIONS Status: Acute (4) Depression Code(s): F32.9 - MAJOR DEPRESSIVE DISORDER, SINGLE EPISODE, UNSPECIFIED Status : Acute QualifierTitle: Depression Type: major depressive disorder Major depression recurrence: recurrent Active/Remission status: remission status unspecified Qualified Code(s): F33.9 - Major depressive disorder, recurrent, unspecified (5) HIV disease Code(s): B20 - HUMAN IMMUNODEFICIENCY VIRUS [HIV] DISEASE Status: Chronic (6) Hypertension Code(s): I10 - ESSENTIAL (PRIMARY) HYPERTENSION Status: Chronic QualifierTitle: Hypertension type: essential hypertension Qualified Code( s): I10 - Essential (primary) hypertension - Plan Plan: 1. Acute on chronic hypoxic hypercapneic respiratory failure 2/2 obesity hypoventilation - Stable overnight - Required transition to CCU with need for mechanical ventilation 11/27 - Trach switched to larger trach 11/27 - Code blue called 12/08 evening. thought to be secondary to mucus plug of tracheostomy. - At baseline. Trach collar during day, CPAP at night. - Received home vent over weekend, awaiting training from [employer] - Diamox to reduce bicarbonate. - Q3 day BMP. 2. Seizure activity - Keppra 1500 mg BID PO - Reportedly had seizure activity during/after code event on 12/08. family reports history of seizure disorder but pt was not on any medication. 3. HIV -continue meds per Outpatient ID consultation 4. HTN - continue amlodipine and coreg - BP remains labile. Likely 2/2 sleep apnea. 5. MDD -continue sertraline 6. Hypothyroidism -continue levothyroxine 7. Obesity - continues to lose weight in hospital. Now under 500 lbs - Has been walking with single assist with PT and tolerating chair for 2-3 hours at a time. - continue diet and PT. disposition: Pt stable. Safe for PT to treat. Requires CPAP at night and T- collar during the day. Has home vent but has not used since it arrived. [employer] working on . Due to home vent, her old [employer] company will no longer see her. As of yesterday, still waiting to hear back from 2 more agencies. Last note from CM was promising for acceptance by HH agency. Now waiting for HH to perform home visit. <Antonio Martins - Last Filed: 12/20/17 06:53> Attending Addendum - Attending Addendum Date/Time: 12/20/17 1010 I personally evaluated the patient and discussed the management with Dr. Martins. I agree with the History, Examination, Assessment and Plan documented above with any addition or exceptions noted below. Has vent for home use. Has demonstrated ability to use vent however compliance is still a concern at home. Awaiting a HH agency and once established she is ready for discharge. Discussed continued weight loss extensively with patient. <Kd Martino - Last Filed: 12/20/17 10:10>
[2017-12-20] MEDS: Levothyroxine Sodium 25 MCG TAB PO SCH (07:38)
--- NOTE | 2017-12-20 08:52 | PRG ---
DATE OF SERVICE: 12/20/2017 SUBJECTIVE: The patient did use her Trilogy ventilator last night. She did show me that she can use it this morning. PHYSICAL EXAMINATION: VITAL SIGNS: On exam, temperature is 98.4, pulse 60, blood pressure 106/39, a 24-intake 780, output 1050. HEENT: Unremarkable. NECK: No JVD. Trach in good position. LUNGS: Clear. CARDIAC: S1 and S2, regular. ABDOMEN: Soft. EXTREMITIES: Morbid obesity. LABORATORY DATA: She had no labs. ASSESSMENT: 1. Obesity hypoventilation syndrome. 2. Chronic respiratory failure. 3. Human immunodeficiency virus. PLAN: There are a few more issues regarding home health. I also need to change her to a cuffless tr ach, as she does not need to have a cuff inflated to the use of Trilogy ventilator. After those cond itions are met, she is stable for discharge.
[2017-12-20] MEDS: Lopinavir/Ritonavir 80 MG/20 MG per ML Oral Solution PO SCH ×2 (09:26→20:29)
[2017-12-20] MEDS: AcetaZOLAMIDE 250 MG TAB PO SCH (09:26)
[2017-12-20] MEDS: Amlodipine 5 MG TAB PO SCH (09:27)
[2017-12-20] MEDS: Multivitamin W/ Minerals 1 TAB PER TUBE SCH (09:27)
[2017-12-20] MEDS: Magnesium Oxide 400 MG TAB PO SCH ×2 (09:27→20:30)
[2017-12-20] MEDS: Aspirin 81 mg Enteric Coated Tablet PO SCH (09:27)
[2017-12-20] MEDS: levETIRAcetam 500 MG TAB PO SCH ×2 (09:27→20:30)
[2017-12-20] MEDS: guaiFENesin ER 600 MG TAB PO SCH ×2 (09:28→20:29)
[2017-12-20] MEDS: Carvedilol 25 MG TAB PO SCH ×2 (09:28→20:29)
[2017-12-20] MEDS: Aquaphor 30 GM 99 GM, Cholestyramine/Aspartame 4 GM TOP PRN (09:29)
[2017-12-20] MEDS: Aquaphor 30 GM 99 GM, Cholestyramine/Aspartame 4 GM TOP SCH ×2 (09:29→20:31)
[2017-12-20] MEDS: Enoxaparin Sodium 40 MG/0.4 ML SYRINGE SC SCH (20:29)
--- NOTE | 2017-12-21 06:13 | PDOC.FM ---
- Subjective Subjective: CC: None offered HPI: Feels well. wants to go home. no events overnight. - Objective MAR Reviewed: Yes Vital Signs & Weight: Vital Signs (12 hours) Temp Pulse Resp Pulse Ox 12/21/17 04:00 98.8 F 12/21/17 00:00 98.5 F 12/20/17 20:00 97.9 F 69 13 100 Weight Admit Weight 260.362 kg Weight 211.3 kg Most Recent Monitor Data Heart Rate from ECG 66 NIBP 114/51 NIBP BP-Mean 76 Respiration from ECG 22 SpO2 94 I&O: 12/19/17 12/20/17 12/21/17 06:59 06:59 06:59 Intake Total 858 780 678 Output Total 900 1050 900 Balance -42 -657 -222 Result Diagrams: 12/03/17 04:09 12/18/17 07:16 <Antonio Martins - Last Filed: 12/21/17 08:19> - Objective Vital Signs & Weight: Vital Signs (12 hours) Temp Pulse Resp 12/21/17 09:17 66 12/21/17 07:30 98.3 F 66 18 12/21/17 07:00 98.3 F 12/21/17 04:00 98.8 F 12/21/17 00:00 98.5 F Weight Admit Weight 260.362 kg Weight 208.743 kg Most Recent Monitor Data Heart Rate from ECG 62 NIBP 111/52 NIBP BP-Mean 66 Respiration from ECG 20 SpO2 93 I&O: 12/20/17 12/21/17 12/22/17 06:59 06:59 06:59 Intake Total 780 678 240 Output Total 1050 1400 Balance -270 -722 240 Result Diagrams: 12/03/17 04:09 12/18/17 07:16 <Kd Martino - Last Filed: 12/21/17 10:33> Phys Exam - Physical Examination Constitutional: NAD Respiratory: no wheezing, clear to auscultation bilateral Cardiovascular: RRR, no significant murmur Gastrointestinal: soft, non-tender <Antonio Martins - Last Filed: 12/21/17 08:19> Dx/Plan (1) Acute on chronic respiratory failure with hypoxia and hypercapnia Code(s): J96.21 - ACUTE AND CHRONIC RESPIRATORY FAILURE WITH HYPOXIA; J96.22 - ACUTE AND CHRONIC RESPIRATORY FAILURE WITH HYPERCAPNIA Status: Acute (2) Obesity Code(s): E66.9 - OBESITY, UNSPECIFIED Status: Acute QualifierTitle: Obesity type: due to excess calories Obesity classification: adult class 3 (BMI >= 40) Serious obesity comorbidity presence : with serious comorbidity Body mass index: BMI 70 or greater Qualified Code (s): E66.01 - Morbid (severe) obesity due to excess calories; Z68.45 - Body mass index (BMI) 70 or greater, adult; Z68.45 - Body mass index (BMI) 70 or greater, adult; Z68.45 - Body mass index (BMI) 70 or greater, adult; Z68.45 - Body mass index (BMI) 70 or greater, adult (3) Seizure Code(s): R56.9 - UNSPECIFIED CONVULSIONS Status: Acute (4) Depression Code(s): F32.9 - MAJOR DEPRESSIVE DISORDER, SINGLE EPISODE, UNSPECIFIED Status : Acute QualifierTitle: Depression Type: major depressive disorder Major depression recurrence: recurrent Active/Remission status: remission status unspecified Qualified Code(s): F33.9 - Major depressive disorder, recurrent, unspecified (5) HIV disease Code(s): B20 - HUMAN IMMUNODEFICIENCY VIRUS [HIV] DISEASE Status: Chronic (6) Hypertension Code(s): I10 - ESSENTIAL (PRIMARY) HYPERTENSION Status: Chronic QualifierTitle: Hypertension type: essential hypertension Qualified Code( s): I10 - Essential (primary) hypertension - Plan Plan: 1. Acute on chronic hypoxic hypercapneic respiratory failure 2/2 obesity hypoventilation - Stable overnight - Required transition to CCU with need for mechanical ventilation 11/27 - Trach switched to larger trach 11/27 - Code blue called 12/08 evening. thought to be secondary to mucus plug of tracheostomy. - At baseline. Trach collar during day, CPAP at night. - Received home vent over weekend, awaiting training from [employer] - Diamox to reduce bicarbonate. - Q3 day BMP. needs repeat tomorrow if still in hospital. - Trach exchanged per Pulm. States this can be done outpatient. 2. Seizure activity - Keppra 1500 mg BID PO - Reportedly had seizure activity during/after code event on 12/08. family reports history of seizure disorder but pt was not on any medication. 3. HIV -continue meds per Outpatient ID consultation 4. HTN - continue amlodipine and coreg - BP remains labile. Likely 2/2 sleep apnea. 5. MDD -continue sertraline 6. Hypothyroidism -continue levothyroxine 7. Obesity - continues to lose weight in hospital. Now under 500 lbs - Has been walking with single assist with PT and tolerating chair for 2-3 hours at a time. - continue diet and PT. disposition: Pt stable. Safe for PT to treat. Requires CPAP at night and T- collar during the day. Has home vent but has not used since it arrived. [employer] working on . Due to home vent, her old [employer] company will no longer see her. As of Monday, still waiting to hear back from 2 more agencies. Last note from CM was promising for acceptance by agency. Now waiting for to perform home visit. Will discuss with today. <Antonio Martins - Last Filed: 12/21/17 08:19> Attending Addendum - Attending Addendum Date/Time: 12/21/17 1032 I personally evaluated the patient and discussed the management with Dr. Martins. I agree with the History, Examination, Assessment and Plan documented above with any addition or exceptions noted below. Pt. slept well on home vent overnight. HHN arranged and pt. stable for d/c today. <Kd Martino - Last Filed: 12/21/17 10:33>
[2017-12-21] MEDS: Levothyroxine Sodium 25 MCG TAB PO SCH (06:14)
[2017-12-21] MEDS: Lopinavir/Ritonavir 80 MG/20 MG per ML Oral Solution PO SCH (09:16)
[2017-12-21] MEDS: levETIRAcetam 500 MG TAB PO SCH (09:16)
[2017-12-21] MEDS: guaiFENesin ER 600 MG TAB PO SCH (09:17)
[2017-12-21] MEDS: Aspirin 81 mg Enteric Coated Tablet PO SCH (09:17)
[2017-12-21] MEDS: AcetaZOLAMIDE 250 MG TAB PO SCH (09:17)
[2017-12-21] MEDS: Multivitamin W/ Minerals 1 TAB PER TUBE SCH (09:17)
[2017-12-21] MEDS: Magnesium Oxide 400 MG TAB PO SCH (09:17)
[2017-12-21] MEDS: Carvedilol 25 MG TAB PO SCH (09:17)
[2017-12-21] MEDS: Amlodipine 5 MG TAB PO SCH (09:17)
[2017-12-21] MEDS: Aquaphor 30 GM 99 GM, Cholestyramine/Aspartame 4 GM TOP PRN (09:24)
[2017-12-21] MEDS: Aquaphor 30 GM 99 GM, Cholestyramine/Aspartame 4 GM TOP SCH (09:24)
--- NOTE | 2017-12-21 10:06 | PRG ---
DATE OF SERVICE: 12/21/2017 SUBJECTIVE: Patient is doing relatively well. She is using a Trilogy ventilator at night. She seem s very educated on its use. PHYSICAL EXAMINATION: VITAL SIGNS: Temperature is 98.3, pulse 66, blood pressure 114/51. HEENT: Unremarkable. NECK: No JVD. CHEST: Clear. CARDIAC: S1 and S2 regular. ABDOMEN: Soft. EXTREMITIES: No edema. ASSESSMENT: 1. Obese hypoventilation syndrome. 2. Human immunodeficiency virus. PLAN: She is cleared to go home from my standpoint as long as home health was arranged. I think she will need someone to checking on her to make sure the components of her machine are clean and that s he can get replacement parts. I do not want to see her sent home in a situation where there is no [facility] in place.
[2017-12-21 16:48] VITALS: TEMP 98.1
--- NOTE | 2017-12-21 22:36 | DIS-2 ---
DATE OF ADMISSION: 11/14/2017 DATE OF DISCHARGE: 12/21/2017 RESIDENT: Antonio Martins MD ADMITTING ATTENDING: Manish Aguirre MD DISCHARGE ATTENDING: Kd Martino MD CONSULTATIONS: 1. Dr. Brandon Ramirez, Pulmonology. 2. Dr. Abilio Arita, Neurology. IMAGING: None pertinent. LABORATORY FINDINGS: None pertinent. MICROBIOLOGY: Respiratory culture showed normal respiratory rangel. ADMITTING DIAGNOSES: 1. Acute on chronic hypoxic-hypercapnic respiratory failure secondary to obesity hypoventilation syn drome. 2. Systolic heart failure exacerbation. SECONDARY DIAGNOSES: 1. Hypertension. 2. Depression. 3. Severe morbid obesity. 4. Human immunodeficiency virus, on antiretroviral therapy. 5. Hypothyroidism. 6. Hypertension. DISCHARGE MEDICATIONS: 1. Keppra 1500 mg twice daily. 2. Kaletra 400 mg b.i.d. 3. Zoloft 50 mg daily. 4. DuoNeb 3 mL q12 hours p.r.n. 5. Multivitamin 1 daily. 6. Mucinex 600 mg q.12 hours p.r.n. 7. Diamox 250 mg t.i.d. 8. Norvasc 5 mg daily. 9. Aspirin 81 mg daily. 10. Lipitor 40 mg at bedtime. 11. Coreg 25 mg b.i.d. 12. Etravirine 200 mg twice daily after meals. 13. Epivir 150 mg twice daily. 14. Synthroid 37.5 mcg daily. 15. Magnesium oxide 400 mg twice daily. 16. Nystatin powder 1 g topical p.r.n. 17. Protonix 40 mg at bedtime. DISCONTINUED MEDICATIONS: 1. Fluconazole 100 mg daily. 2. Lisinopril 40 mg daily. HISTORY OF PRESENT ILLNESS AND HOSPITAL COURSE: On providing care for the patient from 12/11/2017 un til discharge, please refer to Dr. Nacho Alaniz, transition of care notes on 12/10/2017 for details r egarding earlier stages of her hospitalization. By the time I had taken over care of the patient, magdalena edmonds had been placed in the ICU and was requiring consistent nocturnal ventilation. At this point, her chronic medical conditions were stable. She was continued to be diuresed and calorie restricted to p romote weight loss. Initially, case management attempted to find a facility for the patient to go to . However, due to her requiring nocturnal ventilation and her severe morbid obesity, no facilities w ere willing to take her. At this point, orders were placed by Pulmonology to require home Trilogy ve ntilator unit. This patient received this unit on 12/15/2016. However, clinical engineering did not clear the unit for use until 12/18/2017. The patient tolerated the ventilator well. Nursing staff p rovided teaching to the patient and the family regarding use and care of the unit. Once a home venti lator was acquired; however, the patient's current home health agency would no longer accept her. [place]en se management worked to find an additional home health agency. She was set up with [facility] [place], who also provided the home ventilator. The plan is for her home health agency to per form and in-house assessment tomorrow. This was explained to the patient and who was in agreement wi th this plan. It was stressed multiple times throughout the almost 2 weeks I took care of her. The importance of continued weight loss if she desires to prolong her life. She expressed understanding and had made significant progress with this while in the hospital. However, there is concern that magdalena edmonds will continue to be noncompliant with her diet as she has done historically. Vital signs at the ti me of discharge were within normal limits. DISPOSITION: Discharged in stable condition. If she is compliant with weight loss and her medicatio n, she will likely do well. However, if she continues to be noncompliant with medication and regains nearly 150 pounds that she lost during the hospital stay. Her long-term prognosis is guarded. DISCHARGE INSTRUCTIONS: 1. Location: Home with home health, home PT, and home dietary consultation. 2. Diet: Heart healthy, low sodium. Bariatric-calorie restricted, fluid restricted 2000 mL a day. 3. Activity: As tolerated. 4. Followup: The patient was instructed to call and schedule a followup appointment on Monday with her primary care physician. She will need a repeat basic metabolic panel and magnesium level drawn a t that time. Less than 30 minutes spent on discharge.
== END 2017-12-21 16:40 | disposition home or self-care (01) | DRG 208 ==
LOC: ERS 21:46 → 2SE 11-14 02:49 → CCU 11-16 12:20 → IMCU/EMU 11-20 12:03 → CCU 11-26 22:15
PROVIDERS: ADMIT Emergency Medicine; ATTEND Emergency Medicine
PROC: 5A1945Z Respiratory Ventilation, 24-96 Consecutive Hours (ICD-10-PCS; principal; 2017-11-16)
PROC: 0B21XFZ Change Tracheostomy Device in Trachea, External Approach (ICD-10-PCS; 2017-11-16)
PROC: 5A1945Z Respiratory Ventilation, 24-96 Consecutive Hours (ICD-10-PCS; 2017-11-27)
PROC: 0B21XFZ Change Tracheostomy Device in Trachea, External Approach (ICD-10-PCS; 2017-11-27)
PROC: 5A12012 Performance of Cardiac Output, Single, Manual (ICD-10-PCS; 2017-12-08)
PROC: 5A1935Z Respiratory Ventilation, Less than 24 Consecutive Hours (ICD-10-PCS; 2017-12-09)
DX: J96.21 Acute and chronic respiratory failure with hypoxia (principal); I50.23 Acute on chronic systolic (congestive) heart failure; I46.8 Cardiac arrest due to other underlying condition; G93.41 Metabolic encephalopathy; E66.2 Morbid (severe) obesity with alveolar hypoventilation; Z68.45 Body mass index [BMI] 70 or greater, adult; N17.9 Acute kidney failure, unspecified; E87.3 Alkalosis; J95.03 Malfunction of tracheostomy stoma; J96.02 Acute respiratory failure with hypercapnia; I11.0 Hypertensive heart disease with heart failure; E87.5 Hyperkalemia; E03.9 Hypothyroidism, unspecified; F32.9 Major depressive disorder, single episode, unspecified; L30.4 Erythema intertrigo; E88.09 Other disorders of plasma-protein metabolism, not elsewhere classified; G40.909 Epilepsy, unspecified, not intractable, without status epilepticus; Z21 Asymptomatic human immunodeficiency virus [HIV] infection status; Z91.14 Patient's other noncompliance with medication regimen; Z91.018 Allergy to other foods; Z79.82 Long term (current) use of aspirin; Z79.899 Other long term (current) drug therapy
CPT/HCPCS: 36415; 36416; 51702; 71045; 80048; 80053; 82553; 82805; 83690; 83735; 83880; 84100; 84146; 84484; 84703; 85025; 85027; 87070; 87205; 93005; 93010; 94002; 94003; 94640; 94760; 96374; A4216; C1713; C9399; G8978-GP-CL; G8978-GP-CM; G8978-GP-CN; G8979-GP-CK; G8979-GP-CL; G8987-GO-CM; G8988-GO-CK; G8996-GN-CJ; G8997-GN-CJ; G9171-GN-CI; G9172-GN-CH; J0171; J1650; J1940; J1953; J2704; J7620

== ENCOUNTER 2018-07-23 21:56 | Emergency (ER) | payer OTHER | END 2018-07-23 23:18 | disposition home or self-care (01) | LOC: ERS 21:56 | DX: Z43.0 Encounter for attention to tracheostomy (principal); B20 Human immunodeficiency virus [HIV] disease; I50.9 Heart failure, unspecified; D64.9 Anemia, unspecified; F32.9 Major depressive disorder, single episode, unspecified; G47.30 Sleep apnea, unspecified; E66.01 Morbid (severe) obesity due to excess calories | CPT/HCPCS: 99283 ==

== ENCOUNTER 2018-09-08 17:23 | Emergency (ER) | payer OTHER | END 2018-09-08 19:26 | disposition home or self-care (01) | LOC: ERS 17:23 | DX: Z43.0 Encounter for attention to tracheostomy (principal); E03.9 Hypothyroidism, unspecified; B20 Human immunodeficiency virus [HIV] disease; D64.9 Anemia, unspecified; E66.01 Morbid (severe) obesity due to excess calories; G47.30 Sleep apnea, unspecified; I11.0 Hypertensive heart disease with heart failure; I50.9 Heart failure, unspecified; F32.9 Major depressive disorder, single episode, unspecified | CPT/HCPCS: 99283 ==

== ENCOUNTER 2018-11-05 19:50 | Emergency (ER) | payer MEDICAID, OTHER | END 2018-11-05 21:48 | disposition home or self-care (01) | LOC: ERS 19:50 | DX: J95.03 Malfunction of tracheostomy stoma (principal); E03.9 Hypothyroidism, unspecified; B20 Human immunodeficiency virus [HIV] disease; D64.9 Anemia, unspecified; E66.01 Morbid (severe) obesity due to excess calories; I11.0 Hypertensive heart disease with heart failure; I50.9 Heart failure, unspecified; G47.30 Sleep apnea, unspecified; F32.9 Major depressive disorder, single episode, unspecified | CPT/HCPCS: 31502 ==

== ENCOUNTER 2018-12-07 11:11 | Emergency (ER) | payer MEDICAID ==
--- NOTE | 2018-12-07 17:25 | CON ---
DATE OF CONSULTATION: HISTORY OF PRESENT ILLNESS: Merle Bonilla is a 28-year-old morbidly obese female status post permanent trach. She has been in the ER since yesterday evening, presented with a malfunctioning trach. I am not so sure what transpired in the ER at night. I was called this afternoon because the trach was torn. A #8 cuffed Bivona tube was seen, which was broken at the hub. The patient said she was trying to clean the tube and had some problem. So, she was having no other symptoms. No coughing, wheezing, or chest pain. PAST MEDICAL HISTORY: Hypothyroidism, HIV, hypertension, obesity, CHF, cardiomegaly, sleep apnea, trach. PAST SURGICAL HISTORY: Tonsillectomy, access, dialysis, cardiac cath. Past surgeries are outlined extensively in the previous note. MEDICATIONS: She was just recently discharged from the hospital, but a year ago with a discharge list of medications included, 1. Keppra 1500 mg twice a day. 2. Kaletra 400 twice a day. 3. Zoloft 50 nebulizer. 4. Vitamin. 5. Mucinex. 6. Diamox 250 three times a day. 7. Lipitor 40. 8. Coreg 25 b.i.d. 9. Epivir 150 twice a day. 10. Etravirine 200 twice a day. 11. Synthroid 37.5. REVIEW OF SYSTEMS: Otherwise unremarkable. PHYSICAL EXAMINATION: GENERAL: She is in no distress. Trach is clearly broken at the hub, through and through. VITAL SIGNS: Saturations are 96, pulse is 80, blood pressure . CHEST: Decreased breath sounds. No wheezing. CARDIAC: Normal S1 and S2. No gallops. ABDOMEN: No masses. IMPRESSION: 1. Status post malfunctioning tracheostomy. 2. Morbid obesity. 3. Human immunodeficiency virus. #8 Bivona was removed and a new #8 Bivona was placed without much difficulty. She was suctioned with a catheter that confirmed that the tube was in place. Tube was appropriately secured. The patient was given to take with her in case the tube comes out again. Otherwise, she will be discharged home as per the ER physician. Follow up with Dr. Ramirez. This is a consultation note exclusive of the trach placement. Job ID: [id number]
== END 2018-12-07 13:00 | disposition home or self-care (01) ==
LOC: ERS 11:11
DX: M54.6 Pain in thoracic spine (principal); Z43.0 Encounter for attention to tracheostomy; E03.9 Hypothyroidism, unspecified; D64.9 Anemia, unspecified; I11.0 Hypertensive heart disease with heart failure; I50.9 Heart failure, unspecified; G47.30 Sleep apnea, unspecified; B20 Human immunodeficiency virus [HIV] disease; E66.01 Morbid (severe) obesity due to excess calories
CPT/HCPCS: 99283

== ENCOUNTER 2019-01-05 23:10 | Emergency (ER) | payer OTHER ==
[2019-01-06 00:46] LABS: #Eosinphils 0.1 thou/uL (0.0-0.7); #Lymphocytes 1.4 thou/uL (1.20-3.40); #Monocytes 0.5 thou/uL (0.11-0.59); #Neutrophils 1.6 thou/uL (1.40-6.50); %Basophils 0.4 % (0.0-1.0); %Eosinophils 2.1 % (0.0-10.0); %Lymphocytes 39.6 % (21.0-51.0); %Monocytes 12.6 % (0.0-10.0); %Neutrophils 45.2 % (42.0-75.0); Hemoglobin 7.2 g/dL (12.0-16.0); Mean Corpuscular HGB CONC 28.8 g/dL (32.0-36.0); Mean Corpuscular Hemoglobin 20.6 pg (27.0-31.0); Mean Corpuscular Volume 71.8 fL (78.0-98.0); Platelet Count 301 thou/uL (130-400); RBC Distribution Width 19.8 % (11.5-14.5); Red Blood Cell (RBC) Count 3.49 mill/uL (4.20-5.40); White Blood Cell (WBC) Count 3.6 thou/uL (4.8-10.8)
== END 2019-01-06 01:10 | disposition home or self-care (01) ==
LOC: ERS 23:10
DX: J95.03 Malfunction of tracheostomy stoma (principal); E03.9 Hypothyroidism, unspecified; I11.0 Hypertensive heart disease with heart failure; I50.9 Heart failure, unspecified; B20 Human immunodeficiency virus [HIV] disease; Z79.899 Other long term (current) drug therapy
CPT/HCPCS: 36415; 85025; 99283

== ENCOUNTER 2019-01-14 20:18 | Emergency (ER) | payer OTHER | END 2019-01-14 22:10 | disposition home or self-care (01) | LOC: ERS 20:18 | DX: Z43.0 Encounter for attention to tracheostomy (principal) | CPT/HCPCS: 31502 ==

== ENCOUNTER 2020-10-15 02:32 | Emergency (ER) | payer OTHER | END 2020-10-15 03:41 | disposition home or self-care (01) | LOC: ERS 02:32 | DX: B37.2 Candidiasis of skin and nail (principal); E03.9 Hypothyroidism, unspecified; D64.9 Anemia, unspecified; E66.01 Morbid (severe) obesity due to excess calories; I50.9 Heart failure, unspecified; G47.30 Sleep apnea, unspecified; Z21 Asymptomatic human immunodeficiency virus [HIV] infection status | CPT/HCPCS: 99283 ==

== ENCOUNTER 2020-10-25 15:45 | Inpatient (IN) | payer OTHER ==
[2020-10-25] MEDS ORDERED: Morphine 4 MG/ML VIAL SLOW IVP SCH (17:00)
[2020-10-25] MEDS ORDERED: Ondansetron PF 4 MG/2 ML Vial IVP PRN ×2 (17:32→17:35)
[2020-10-25] MEDS ORDERED: Morphine 2 MG/ML VIAL SLOW IVP PRN (18:21)
[2020-10-25] MEDS ORDERED: Promethazine HCl 12.5 MG in Sodium Chloride 0.9% 50 ML IVPB PRN (18:26)
[2020-10-25] MEDS: Micafungin 100 MG in Sodium Chloride 0.9% 100 ML IVPB SCH (18:40)
[2020-10-25] MEDS: Sodium Chloride 0.9% 1,000 ML IV SCH (21:00)
[2020-10-25] MEDS: AcetaZOLAMIDE 250 MG TAB PO SCH (22:06)
[2020-10-25] MEDS: Carvedilol 25 MG TAB PO SCH (22:06)
[2020-10-25] MEDS: Atorvastatin Calcium 40 MG TAB PO SCH (22:06)
[2020-10-25] MEDS: Lopinavir/Ritonavir 200-50mg TAB PO SCH (22:07)
[2020-10-25] MEDS: levETIRAcetam 500 MG TAB PO SCH (22:07)
[2020-10-25] MEDS: Cefepime 1 GM in Sodium Chloride 0.9% 100 ML IVPB SCH (22:17)
[2020-10-25] MEDS: Famotidine/PF 20 mg/2ml Vial SLOW IVP SCH (22:18)
[2020-10-26 00:17] LABS: Vancomycin, Trough 40.9 ug/mL
[2020-10-26] MEDS ORDERED: VANCOMYCIN 2 GRAM/400 ML BAG 2 GM in Premix Bag 1 BAG IVPB SCH (01:00)
[2020-10-26 04:11] LABS: Anion Gap 20 mmol/L (10-20); BUN (Urea Nitrogen) 36 mg/dL (7.0-18.7); Band 48 % (5-11); Calc. Creatinine Clearance 104 mL/min (70-130); Calcium 8.7 mg/dL (7.8-10.44); Carbon Dioxide 16 mmol/L (22-29); Chloride 111 mmol/L (98-107); Glucose 93 mg/dL (70-105); Hemoglobin 12.1 g/dL (12.0-16.0); Lymphocytes 8 % (21-51); MDiff Complete? YES; Mean Corpuscular HGB CONC 29.5 g/dL (32.0-36.0); Mean Corpuscular Hemoglobin 24.9 pg (27.0-31.0); Mean Corpuscular Volume 84.3 fL (78.0-98.0); Mean Platelet Volume 10.7 fL (7.4-10.4); Metamyelocyte 1 % (0-0); Monocytes 5 % (0-10); Myelocyte 2 % (0-0); Neutrophil 36 % (42-75); Nucleated RBC 3 % (0); Platelet Count 248 thou/uL (130-400); Platelet Morphology Comment Appears Adequate; Polychromasia SLIGHT = 2-3 cells (100X) (0-2/hpf); Potassium 5.8 mmol/L (3.5-5.1); Red Blood Cell (RBC) Count 4.87 mill/uL (4.20-5.40); Reflex for Review?? NO; Sodium 141 mmol/L (136-145); White Blood Cell (WBC) Count 23.1 thou/uL (4.8-10.8)
[2020-10-26] MEDS: Levothyroxine Sodium 25 MCG TAB PO SCH (07:30)
[2020-10-26] MEDS: Amlodipine 5 MG TAB PO SCH (07:31)
[2020-10-26] MEDS: AcetaZOLAMIDE 250 MG TAB PO SCH ×3 (07:31→23:02)
[2020-10-26] MEDS: Aspirin 81 mg Enteric Coated Tablet PO SCH (07:31)
[2020-10-26] MEDS: Carvedilol 25 MG TAB PO SCH ×2 (07:31→21:51)
[2020-10-26] MEDS: Lopinavir/Ritonavir 200-50mg TAB PO SCH ×2 (07:32→23:02)
[2020-10-26] MEDS: levETIRAcetam 500 MG TAB PO SCH ×2 (07:32→21:50)
[2020-10-26] MEDS: Sodium Chloride 0.9% 1,000 ML IV SCH (07:43)
[2020-10-26] MEDS: Cefepime 1 GM in Sodium Chloride 0.9% 100 ML IVPB SCH ×2 (07:43→21:49)
[2020-10-26] MEDS: Famotidine/PF 20 mg/2ml Vial SLOW IVP SCH (07:43)
[2020-10-26] MEDS: Enoxaparin Sodium 40 MG/0.4 ML SYRINGE SC SCH (07:47)
[2020-10-26] MEDS: Dextrose 5% in Water 1,000 ML IV SCH ×2 (07:49→21:46)
[2020-10-26] MEDS ORDERED: Albumin 25% 25 GM/100 ML BOT IVPB ONE (09:36)
[2020-10-26] MEDS: Albumin 25% 25 GM/100 ML BOT IVPB SCH ×3 (12:05→23:17)
[2020-10-26] MEDS ORDERED: Heparin 0 ML ONE (13:11)
[2020-10-26] MEDS ORDERED: Lidocaine 2% PF 5 ML VIAL ONE (13:11)
[2020-10-26] MEDS ORDERED: Hetastarch 6% 500 ML 500 ML ONE (13:11)
[2020-10-26] MEDS ORDERED: Heparin 10,000 UNITS/ 10 ML VIAL ONE (13:22)
[2020-10-26] MEDS ORDERED: Sodium Chloride 0.9% 20 ML ONE (13:30)
[2020-10-26] MEDS ORDERED: Midazolam HCl 2 mg/2 ml Vial ONE (13:52)
[2020-10-26] MEDS ORDERED: Ketamine 50 MG/ML (10ML VIAL) ONE (13:52)
[2020-10-26] MEDS ORDERED: Fentanyl 100 MCG/2 ML VIAL ONE (13:52)
[2020-10-26] MEDS ORDERED: PHENYLEPHRINE-NS 100 MCG/ML 10 ML SYRINGE ONE (14:10)
[2020-10-26] MEDS ORDERED: ePHEDrine 50 MG/ML VIAL ONE (14:10)
[2020-10-26] MEDS ORDERED: Rocuronium Bromide 10 MG/ML (10ML VIAL) ONE (14:10)
[2020-10-26] MEDS ORDERED: Albuterol Sulfate HFA (OR ONLY) ONE (14:10)
[2020-10-26 14:27] LABS: SARS-CoV-2 NAA Rapid Test Not Detected (NotDetected)
[2020-10-26] MEDS ORDERED: Rocuronium Bromide 50 MG/5 ML VIAL ONE (14:36)
[2020-10-26] MEDS ORDERED: Phenylephrine 10 MG/ML VIAL ONE ×2 (14:42→15:28)
[2020-10-26] MEDS ORDERED: Albumin 5% 500 ML ONE (14:47)
[2020-10-26] MEDS ORDERED: Norepinephrine 4 MG/4 ML VIAL ONE (15:32)
[2020-10-26] MEDS ORDERED: FLU VACC QS2020-21(6MOS UP)/PF 60 MCG/0.5 ML SYRINGE IM ONE (17:30)
[2020-10-26] MEDS ORDERED: Prevnar 13-Val Conj/PF 0.5 ML SYRINGE IM ONE (17:30)
[2020-10-26] MEDS ORDERED: Morphine 4 MG/ML VIAL SLOW IVP PRN (17:39)
[2020-10-26] MEDS ORDERED: Heparin 5,000 UNITS/ML VIAL SLOW IVP SCH (17:45)
[2020-10-26 19:19] LABS: Lactic Acid 2.1 mmol/L (0.5-2.2)
[2020-10-26] MEDS ORDERED: Fentanyl CADD 100 ML IV SCH (19:45)
[2020-10-26] MEDS ORDERED: Fentanyl BOLUS 250 ML IVPB PRN (19:45)
[2020-10-26] MEDS ORDERED: DISCONTINUE PREVIOUS NARCOTIC PAIN MEDICATIONS AND BENZODIAZEPINES FS SCH (19:45)
[2020-10-26] MEDS ORDERED: Propofol BOLUS 1,000 MG/100 ML VIAL IV PRN (19:45)
[2020-10-26] MEDS: Propofol 1,000 MG/100 ML VIAL IV PRN (21:49)
[2020-10-26] MEDS: Morphine 2 MG/ML VIAL SLOW IVP PRN (21:49)
[2020-10-26] MEDS: Lorazepam 2 MG/ML VIAL SLOW IVP PRN (21:49)
[2020-10-26] MEDS: Atorvastatin Calcium 40 MG TAB PO SCH (21:50)
[2020-10-26] MEDS: Micafungin 100 MG in Sodium Chloride 0.9% 100 ML IVPB SCH (22:24)
[2020-10-27] MEDS ORDERED: VANCOMYCIN 2 GRAM/400 ML BAG 2 GM in Premix Bag 1 BAG IVPB SCH (01:00)
[2020-10-27] MEDS: Propofol 1,000 MG/100 ML VIAL IV PRN ×6 (01:23→23:09)
[2020-10-27 01:34] LABS: Vancomycin, Random 35.2 ug/mL (See Comment)
[2020-10-27] MEDS: Albumin 25% 25 GM/100 ML BOT IVPB SCH ×3 (04:10→23:09)
[2020-10-27] MEDS: Levothyroxine Sodium 25 MCG TAB PO SCH (04:10)
[2020-10-27 07:22] LABS: Anion Gap 17 mmol/L (10-20); BUN (Urea Nitrogen) 46 mg/dL (7.0-18.7); Calc. Creatinine Clearance 63 mL/min (70-130); Calcium 7.3 mg/dL (7.8-10.44); Carbon Dioxide 19 mmol/L (22-29); Chloride 108 mmol/L (98-107); Glucose 213 mg/dL (70-105); Potassium 4.4 mmol/L (3.5-5.1); Sodium 140 mmol/L (136-145)
[2020-10-27 07:26] LABS: Hemoglobin 6.7 g/dL (12.0-16.0); Mean Corpuscular HGB CONC 31.9 g/dL (32.0-36.0); Mean Corpuscular Hemoglobin 26.5 pg (27.0-31.0); Mean Corpuscular Volume 83.1 fL (78.0-98.0); Mean Platelet Volume 9.7 fL (7.4-10.4); Platelet Count 181 thou/uL (130-400); RBC Distribution Width 19.7 % (11.5-14.5); Red Blood Cell (RBC) Count 2.52 mill/uL (4.20-5.40); White Blood Cell (WBC) Count 14.6 thou/uL (4.8-10.8)
[2020-10-27 07:28] LABS: Actual Bicarbonate (HCO3a) 22.1 mEq/L (22-28); Base Excess (BEa) -3.4 mEq/L (-2.0 to +3.0); CO2 Tension 41.8 mmHg (35.0-45.0); Calcium, Ionized (arterial) 1.04 mmol/L (1.12-1.30); Carboxyhemoglobin (COHb) 1.1 gm% (0.0-3.0); Hemoglobin (Hb) 7.1 g/dL (12.0-16.0); O2 Tension (PaO2), arterial 86.1 mmHg (80.0-100.0); Potassium - ABG Lab 4.36 mmol/L (3.70-5.30); pH, Arterial 7.34 (7.35-7.45)
[2020-10-27 07:31] LABS: Puncture Site RRA
[2020-10-27] MEDS: Dextrose 5% in Water 1,000 ML IV SCH ×2 (07:31→16:23)
[2020-10-27] MEDS ORDERED: Dextrose 5% in Water 1,000 ML IV PRN (08:20)
[2020-10-27 09:15] LABS: Anisocytosis MODERATE=16-30 cells (100X) (0-5/hpf); Band 16 % (5-11); Hypochromia SLIGHT = 6-15 cells (100X) (0-5/hpf); Lymphocytes 12 % (21-51); MDiff Complete? YES; Metamyelocyte 1 % (0-0); Monocytes 6 % (0-10); Myelocyte 2 % (0-0); Neutrophil 58 % (42-75); Nucleated RBC 1 % (0); Platelet Morphology Comment Appears Adequate; Polychromasia SLIGHT = 2-3 cells (100X) (0-2/hpf); Reactive Lymphocytes 5 % (0-10)
[2020-10-27] MEDS: Cefepime 1 GM in Sodium Chloride 0.9% 100 ML IVPB SCH ×2 (09:45→20:23)
[2020-10-27] MEDS: levETIRAcetam 500 MG TAB PO SCH ×2 (09:46→20:22)
[2020-10-27] MEDS: Amlodipine 5 MG TAB PO SCH (09:46)
[2020-10-27] MEDS: Aspirin 81 mg Enteric Coated Tablet PO SCH (09:46)
[2020-10-27] MEDS: Lopinavir/Ritonavir 200-50mg TAB PO SCH (09:47)
[2020-10-27] MEDS: Enoxaparin Sodium 40 MG/0.4 ML SYRINGE SC SCH (09:47)
[2020-10-27] MEDS: Pantoprazole 40 MG VIAL IVP SCH ×2 (09:48→20:21)
[2020-10-27] MEDS: Sodium Chloride 0.9% (PF) 10 ML VIAL FS PRN (09:48)
[2020-10-27] MEDS: Carvedilol 25 MG TAB PO SCH ×2 (09:48→20:22)
[2020-10-27 10:15] LABS: Bilirubin Negative (Negative); Blood, Urine 2+ (Negative); Clarity Extra Turbid (Clear); Glucose, Urine (Dipstick) 50 mg/dL (Negative); Ketone, Urine 10 mg/dL (Negative); Leukocyte 500 Leu/uL (Negative); Nitrite Negative (Negative); Protein, Urine (Dipstick) 100 mg/dL (Neg-Trace); RBC/HPF 21-50 HPF (0-3); Specific Gravity, Urine 1.037 (1.002-1.036); Squamous Epithelial 0-3 HPF (0-3); Urobilinogen Normal mg/dL (Less than 2); WBC/HPF Greater than 50 HPF (0-3)
[2020-10-27 10:25] LABS: Bacteria/HPF 1+ HPF (None Seen)
[2020-10-27] MEDS: Heparin 25,000 units/D5W 500 ML IVPB SCH ×2 (11:12→20:29)
[2020-10-27] MEDS: Hetastarch 6% 500 ML 500 ML IVPB SCH ×2 (11:53→20:28)
[2020-10-27] MEDS ORDERED: Heparin 10,000 UNITS/ 10 ML VIAL SLOW IVP SCH (12:45)
[2020-10-27] MEDS: HumaLOG 300 UNITS/3 ML VIAL SC PRN ×3 (13:14→23:19)
[2020-10-27] MEDS ORDERED: Fentanyl CADD 100 ML ONE (14:39)
[2020-10-27 17:15] LABS: %CD4 (Helper/Inducer) 17.6 % (30.8-58.5); Absolute CD4 440 /uL (359-1519); Lymphocytes/Gated Cell Count 2.5 x10E3/uL (0.7-3.1); Total Lymphocyte 12 % (Not Estab.); WBC Total Count 21.3 x10E3/uL (3.4-10.8); nRBC 5 % (0 - 0)
[2020-10-27] MEDS: Micafungin 100 MG in Sodium Chloride 0.9% 100 ML IVPB SCH (18:07)
[2020-10-27 19:00] LABS: SARS-CoV-2 IgG Ab Non-Reactive (NonReactive); SARS-CoV-2 IgG Index 0.08 S/CO (< 1.40)
[2020-10-27 19:39] LABS: Hemoglobin 8.1 g/dL (12.0-16.0)
[2020-10-27] MEDS: Lantus 1000 UNITS/10 ML VIAL SC SCH (20:21)
[2020-10-27] MEDS: Atorvastatin Calcium 40 MG TAB PO SCH (20:22)
[2020-10-27] MEDS: Lopinavir/Ritonavir 80 MG/20 MG per ML Oral Solution PO SCH (20:52)
[2020-10-27] MEDS ORDERED: Insulin Glargine 10 UNITS in Pre-Filled Syringe 1 EACH SC SCH (21:00)
[2020-10-28] MEDS: Propofol 1,000 MG/100 ML VIAL IV PRN ×5 (01:37→19:38)
[2020-10-28] MEDS: Dextrose 5% in Water 1,000 ML IV SCH (02:03)
[2020-10-28] MEDS: HumaLOG 300 UNITS/3 ML VIAL SC PRN ×2 (03:36→12:30)
[2020-10-28] MEDS: Levothyroxine Sodium 25 MCG TAB PO SCH (04:30)
[2020-10-28] MEDS: Albumin 25% 25 GM/100 ML BOT IVPB SCH ×2 (04:30→13:00)
[2020-10-28 04:50] LABS: Anion Gap 13 mmol/L (10-20); BUN (Urea Nitrogen) 51 mg/dL (7.0-18.7); Calc. Creatinine Clearance 53 mL/min (70-130); Carbon Dioxide 21 mmol/L (22-29); Chloride 105 mmol/L (98-107); Glucose 195 mg/dL (70-105); Potassium 4.2 mmol/L (3.5-5.1); Sodium 135 mmol/L (136-145)
[2020-10-28 04:57] LABS: Band 43 % (5-11); Eosinophils 1 % (0-10); Hemoglobin 7.9 g/dL (12.0-16.0); Lymphocytes 6 % (21-51); MDiff Complete? YES; Mean Corpuscular HGB CONC 32.4 g/dL (32.0-36.0); Mean Corpuscular Hemoglobin 27.8 pg (27.0-31.0); Mean Corpuscular Volume 85.8 fL (78.0-98.0); Mean Platelet Volume 10.4 fL (7.4-10.4); Metamyelocyte 1 % (0-0); Monocytes 7 % (0-10); Neutrophil 42 % (42-75); Nucleated RBC 1 % (0); Platelet Count 125 thou/uL (130-400); Platelet Morphology Comment Appears Decreased; RBC Distribution Width 19.1 % (11.5-14.5); Red Blood Cell (RBC) Count 2.83 mill/uL (4.20-5.40); White Blood Cell (WBC) Count 13.2 thou/uL (4.8-10.8)
[2020-10-28 05:16] LABS: HBSAg Index 0.21 S/CO (0-0.99); Hep B Core Total Ab Non-Reactive (NonReactive); Hep B Core Total Index 0.57 S/CO (0-0.79); Hep B Surf Ag Non-Reactive S/CO (NonReactive); Hep C IgG Ab Non-Reactive (NonReactive); Hep C Index 0.58 S/CO (0-0.79)
[2020-10-28 05:20] LABS: HBSAB Concentration 136.33 mIU/mL; Hep B Surf AB Reactive (NonReactive)
[2020-10-28] MEDS: Hetastarch 6% 500 ML 500 ML IVPB SCH (05:29)
[2020-10-28] MEDS: Cefepime 1 GM in Sodium Chloride 0.9% 100 ML IVPB SCH ×2 (07:29→22:18)
[2020-10-28] MEDS: Enoxaparin Sodium 40 MG/0.4 ML SYRINGE SC SCH ×2 (07:30→08:28)
[2020-10-28] MEDS: Pantoprazole 40 MG VIAL IVP SCH ×2 (07:31→22:18)
[2020-10-28] MEDS: Lopinavir/Ritonavir 80 MG/20 MG per ML Oral Solution PO SCH ×2 (07:32→22:18)
[2020-10-28] MEDS: Carvedilol 25 MG TAB PO SCH ×2 (07:32→22:17)
[2020-10-28] MEDS: levETIRAcetam 500 MG TAB PO SCH ×2 (07:32→22:17)
[2020-10-28] MEDS: Amlodipine 5 MG TAB PO SCH (07:32)
[2020-10-28] MEDS: Lantus 1000 UNITS/10 ML VIAL SC SCH ×2 (07:42→22:20)
[2020-10-28 08:53] LABS: Actual Bicarbonate (HCO3a) 18.5 mEq/L (22-28); Base Excess (BEa) -9.2 mEq/L (-2.0 to +3.0); Calcium, Ionized (arterial) 1.05 mmol/L (1.12-1.30); Carboxyhemoglobin (COHb) 0.6 gm% (0.0-3.0); Hemoglobin (Hb) 8.5 g/dL (12.0-16.0); O2 Tension (PaO2), arterial 133.1 mmHg (80.0-100.0); Potassium - ABG Lab 4.42 mmol/L (3.70-5.30)
[2020-10-28 08:55] LABS: Puncture Site RRA; pH, Arterial 7.19 (7.35-7.45)
[2020-10-28] MEDS ORDERED: Sodium Bicarb 50 MEQ/50 ML Abboject 8.4% SYRINGE IVP SCH (09:15)
[2020-10-28] MEDS: Sodium Bicarbonate 140 MEQ in Dextrose 5% in Water 1,000 ML IV SCH (09:40)
[2020-10-28 14:26] LABS: Hemoglobin 7.8 g/dL (12.0-16.0)
[2020-10-28] MEDS ORDERED: Lidocaine 1% w/Epinephrine 1:100K 20 ML VIAL ONE (14:43)
[2020-10-28] MEDS ORDERED: Sodium Chloride 0.9% 20 ML ONE (14:43)
[2020-10-28] MEDS ORDERED: Heparin 10,000 UNITS/ 10 ML VIAL ONE (14:43)
[2020-10-28] MEDS ORDERED: Bupivacaine PF 0.5% 30 ML VIAL ONE (14:43)
[2020-10-28] MEDS ORDERED: Fentanyl 100 MCG/2 ML VIAL ONE (15:38)
[2020-10-28] MEDS ORDERED: Midazolam HCl 5 mg/5 ml Vial ONE (15:45)
[2020-10-28] MEDS: Micafungin 100 MG in Sodium Chloride 0.9% 100 ML IVPB SCH (18:10)
[2020-10-28] MEDS ORDERED: GoLYTELY 4,000 ml Bottle PO SCH (20:00)
[2020-10-28 20:53] LABS: Hemoglobin 7.5 g/dL (12.0-16.0)
[2020-10-28] MEDS: Atorvastatin Calcium 40 MG TAB PO SCH (22:17)
[2020-10-29] MEDS: Propofol 1,000 MG/100 ML VIAL IV PRN ×4 (00:52→18:59)
[2020-10-29] MEDS: Sodium Bicarbonate 140 MEQ in Dextrose 5% in Water 1,000 ML IV SCH (01:55)
[2020-10-29 04:13] LABS: Vancomycin, Random 23.4 ug/mL (See Comment)
[2020-10-29 04:19] LABS: Anion Gap 17 mmol/L (10-20); BUN (Urea Nitrogen) 57 mg/dL (7.0-18.7); Calc. Creatinine Clearance 44 mL/min (70-130); Calcium 7.1 mg/dL (7.8-10.44); Carbon Dioxide 21 mmol/L (22-29); Chloride 101 mmol/L (98-107); Glucose 159 mg/dL (70-105); Sodium 135 mmol/L (136-145)
[2020-10-29 04:33] LABS: Band 37 % (5-11); Hemoglobin 7.2 g/dL (12.0-16.0); Hypochromia SLIGHT = 6-15 cells (100X) (0-5/hpf); Lymphocytes 5 % (21-51); MDiff Complete? YES; Mean Corpuscular Hemoglobin 28.1 pg (27.0-31.0); Mean Platelet Volume 11.5 fL (7.4-10.4); Monocytes 8 % (0-10); Neutrophil 50 % (42-75); Nucleated RBC 3 % (0); Platelet Count 81 thou/uL (130-400); Platelet Morphology Comment Appears Decreased; RBC Distribution Width 19.5 % (11.5-14.5); Red Blood Cell (RBC) Count 2.58 mill/uL (4.20-5.40); White Blood Cell (WBC) Count 14.7 thou/uL (4.8-10.8)
[2020-10-29] MEDS: Levothyroxine Sodium 25 MCG TAB PO SCH (05:20)
[2020-10-29 07:27] LABS: Actual Bicarbonate (HCO3a) 21.9 mEq/L (22-28); Base Excess (BEa) -4.1 mEq/L (-2.0 to +3.0); CO2 Tension 44.4 mmHg (35.0-45.0); Calcium, Ionized (arterial) 1.02 mmol/L (1.12-1.30); Carboxyhemoglobin (COHb) 0.4 gm% (0.0-3.0); Hemoglobin (Hb) 8.4 g/dL (12.0-16.0); O2 Tension (PaO2), arterial 134.8 mmHg (80.0-100.0); Potassium - ABG Lab 3.82 mmol/L (3.70-5.30); pH, Arterial 7.31 (7.35-7.45)
[2020-10-29 07:34] LABS: Puncture Site RRA
[2020-10-29 08:32] LABS: Hemoglobin 7.1 g/dL (12.0-16.0)
[2020-10-29] MEDS: Amlodipine 5 MG TAB PO SCH (09:29)
[2020-10-29] MEDS: Carvedilol 25 MG TAB PO SCH ×2 (09:30→21:37)
[2020-10-29] MEDS: Enoxaparin Sodium 40 MG/0.4 ML SYRINGE SC SCH (09:30)
[2020-10-29] MEDS: Lantus 1000 UNITS/10 ML VIAL SC SCH ×2 (09:32→21:41)
[2020-10-29] MEDS: levETIRAcetam 500 MG TAB PO SCH ×2 (09:35→21:29)
[2020-10-29] MEDS: Cefepime 1 GM in Sodium Chloride 0.9% 100 ML IVPB SCH ×2 (09:35→21:31)
[2020-10-29] MEDS: Pantoprazole 40 MG VIAL IVP SCH (09:36)
[2020-10-29] MEDS: Lopinavir/Ritonavir 80 MG/20 MG per ML Oral Solution PO SCH ×2 (09:36→21:37)
[2020-10-29] MEDS: Sodium Chloride 0.9% (PF) 10 ML VIAL FS PRN (09:36)
[2020-10-29] MEDS ORDERED: Midazolam HCl 2 mg/2 ml Vial ONE (13:07)
[2020-10-29] MEDS ORDERED: PROPOFOL 20 ML ONE (13:07)
[2020-10-29] MEDS ORDERED: Heparin 10,000 UNITS/ 10 ML VIAL ONE (13:42)
[2020-10-29 16:15] LABS: LOG10 HIV-1 RNA 4.99 (.)
[2020-10-29] MEDS: Micafungin 100 MG in Sodium Chloride 0.9% 100 ML IVPB SCH (17:24)
[2020-10-29] MEDS: Hetastarch 6% 500 ML 500 ML IVPB SCH (17:24)
[2020-10-29] MEDS ORDERED: Heparin 10,000 UNITS/ 10 ML VIAL SLOW IVP SCH (19:30)
[2020-10-29] MEDS: Atorvastatin Calcium 40 MG TAB PO SCH (21:31)
[2020-10-30] MEDS: Propofol 1,000 MG/100 ML VIAL IV PRN ×4 (01:18→22:59)
[2020-10-30] MEDS: Hetastarch 6% 500 ML 500 ML IVPB SCH ×2 (01:35→22:59)
[2020-10-30 05:01] LABS: Anion Gap 16 mmol/L (10-20); BUN (Urea Nitrogen) 57 mg/dL (7.0-18.7); Calc. Creatinine Clearance 46 mL/min (70-130); Calcium 7.2 mg/dL (7.8-10.44); Carbon Dioxide 22 mmol/L (22-29); Chloride 102 mmol/L (98-107); Glucose 135 mg/dL (70-105); Potassium 3.8 mmol/L (3.5-5.1); Sodium 136 mmol/L (136-145)
[2020-10-30] MEDS: Levothyroxine Sodium 25 MCG TAB PO SCH (05:08)
[2020-10-30 05:18] LABS: Anisocytosis SLIGHT = 6-15 cells (100X) (0-5/hpf); Band 15 % (5-11); Eosinophils 2 % (0-10); Hemoglobin 8.7 g/dL (12.0-16.0); Lymphocytes 7 % (21-51); MDiff Complete? YES; Mean Corpuscular HGB CONC 33.5 g/dL (32.0-36.0); Mean Corpuscular Hemoglobin 28.9 pg (27.0-31.0); Mean Corpuscular Volume 86.1 fL (78.0-98.0); Mean Platelet Volume 7.7 fL (7.4-10.4); Monocytes 10 % (0-10); Myelocyte 2 % (0-0); Neutrophil 64 % (42-75); Nucleated RBC 3 % (0); Platelet Count 65 thou/uL (130-400); Platelet Morphology Comment Appears Decreased; Polychromasia SLIGHT = 2-3 cells (100X) (0-2/hpf); RBC Distribution Width 19.2 % (11.5-14.5); Red Blood Cell (RBC) Count 3.02 mill/uL (4.20-5.40); White Blood Cell (WBC) Count 15.9 thou/uL (4.8-10.8)
[2020-10-30 07:33] LABS: Actual Bicarbonate (HCO3a) 21.8 mEq/L (22-28); Base Excess (BEa) -4.6 mEq/L (-2.0 to +3.0); CO2 Tension 46.5 mmHg (35.0-45.0); Calcium, Ionized (arterial) 1.09 mmol/L (1.12-1.30); Carboxyhemoglobin (COHb) 0.3 gm% (0.0-3.0); Hemoglobin (Hb) 8.8 g/dL (12.0-16.0); O2 Tension (PaO2), arterial 73.8 mmHg (80.0-100.0); Potassium - ABG Lab 3.78 mmol/L (3.70-5.30); pH, Arterial 7.29 (7.35-7.45)
[2020-10-30 07:34] LABS: Puncture Site RBA
[2020-10-30 07:35] LABS: ALV-art Gradient 224.575 mmHg (0-20)
[2020-10-30] MEDS: Pantoprazole 40 MG VIAL IVP SCH (08:20)
[2020-10-30] MEDS: levETIRAcetam 500 MG TAB PO SCH ×2 (08:21→21:14)
[2020-10-30] MEDS: Cefepime 1 GM in Sodium Chloride 0.9% 100 ML IVPB SCH ×2 (08:23→21:07)
[2020-10-30] MEDS: Lantus 1000 UNITS/10 ML VIAL SC SCH ×2 (08:39→21:41)
[2020-10-30] MEDS: Carvedilol 25 MG TAB PO SCH ×2 (08:39→21:40)
[2020-10-30] MEDS: Enoxaparin Sodium 40 MG/0.4 ML SYRINGE SC SCH (08:39)
[2020-10-30] MEDS: Amlodipine 5 MG TAB PO SCH (08:42)
[2020-10-30] MEDS: Lopinavir/Ritonavir 80 MG/20 MG per ML Oral Solution PO SCH ×2 (08:50→21:10)
[2020-10-30 10:16] LABS: Fungus Stain Final report (.)
[2020-10-30 10:16] LABS: Fungus Stain Final report (.)
[2020-10-30 10:16] LABS: Fungus Stain Final report (.)
[2020-10-30 10:16] LABS: Fungus Stain Final report (.)
[2020-10-30 10:16] LABS: Fungus Stain Final report (.)
[2020-10-30 10:16] LABS: Fungus Stain Final report (.)
[2020-10-30 10:16] LABS: Fungus Stain Final report (.)
[2020-10-30] MEDS ORDERED: Heparin 10,000 UNITS/ 10 ML VIAL ONE (13:38)
[2020-10-30] MEDS ORDERED: Bacitracin Zinc Ointment 30 gm TUBE TOP SCH (14:30)
[2020-10-30] MEDS ORDERED: Bacitracin 1 PK TOP SCH (14:30)
[2020-10-30] MEDS: Micafungin 100 MG in Sodium Chloride 0.9% 100 ML IVPB SCH (18:47)
[2020-10-30] MEDS: Atorvastatin Calcium 40 MG TAB PO SCH (21:07)
[2020-10-30] MEDS: Nystatin Powder 15 GM BOT TOP SCH (21:11)
[2020-10-30 23:36] LABS: CMV DNA-PCR Test Positive < 200 IU/mL (Negative)
[2020-10-31 05:28] LABS: Anion Gap 16 mmol/L (10-20); BUN (Urea Nitrogen) 49 mg/dL (7.0-18.7); Calc. Creatinine Clearance 50 mL/min (70-130); Calcium 6.9 mg/dL (7.8-10.44); Carbon Dioxide 21 mmol/L (22-29); Chloride 101 mmol/L (98-107); Glucose 144 mg/dL (70-105); Potassium 3.6 mmol/L (3.5-5.1); Sodium 134 mmol/L (136-145)
[2020-10-31] MEDS: Levothyroxine Sodium 25 MCG TAB PO SCH (06:02)
[2020-10-31 06:11] LABS: Band 28 % (5-11); Hemoglobin 8.1 g/dL (12.0-16.0); Lymphocytes 5 % (21-51); MDiff Complete? YES; Mean Corpuscular HGB CONC 32.4 g/dL (32.0-36.0); Mean Corpuscular Hemoglobin 27.9 pg (27.0-31.0); Monocytes 2 % (0-10); Neutrophil 65 % (42-75); Nucleated RBC 1 % (0); Platelet Count 61 thou/uL (130-400); Platelet Morphology Comment Appears Decreased; RBC Distribution Width 20.1 % (11.5-14.5); Red Blood Cell (RBC) Count 2.89 mill/uL (4.20-5.40); White Blood Cell (WBC) Count 15.6 thou/uL (4.8-10.8)
[2020-10-31] MEDS: Propofol 1,000 MG/100 ML VIAL IV PRN ×3 (06:14→22:08)
[2020-10-31 07:00] LABS: Actual Bicarbonate (HCO3a) 22.7 mEq/L (22-28); Base Excess (BEa) -2.9 mEq/L (-2.0 to +3.0); CO2 Tension 42.6 mmHg (35.0-45.0); Calcium, Ionized (arterial) 1.04 mmol/L (1.12-1.30); Carboxyhemoglobin (COHb) 0.4 gm% (0.0-3.0); Hemoglobin (Hb) 8.5 g/dL (12.0-16.0); Potassium - ABG Lab 3.65 mmol/L (3.70-5.30); pH, Arterial 7.34 (7.35-7.45)
[2020-10-31 07:01] LABS: Puncture Site RBA
[2020-10-31] MEDS: Bacitracin Zinc Ointment 30 gm TUBE TOP SCH (08:22)
[2020-10-31] MEDS: Cefepime 1 GM in Sodium Chloride 0.9% 100 ML IVPB SCH ×2 (08:23→21:05)
[2020-10-31] MEDS: Carvedilol 25 MG TAB PO SCH ×2 (08:23→21:06)
[2020-10-31] MEDS: Enoxaparin Sodium 30 MG/0.3 ML SYRINGE SC SCH (08:23)
[2020-10-31] MEDS: levETIRAcetam 500 MG TAB PO SCH ×2 (08:24→21:06)
[2020-10-31] MEDS: Pantoprazole 40 MG VIAL IVP SCH (08:24)
[2020-10-31] MEDS: Nystatin Powder 15 GM BOT TOP SCH ×2 (08:25→21:08)
[2020-10-31] MEDS: Lopinavir/Ritonavir 80 MG/20 MG per ML Oral Solution PO SCH ×2 (08:25→21:05)
[2020-10-31] MEDS: Amlodipine 5 MG TAB PO SCH (08:26)
[2020-10-31] MEDS: Lantus 1000 UNITS/10 ML VIAL SC SCH ×2 (08:26→21:09)
[2020-10-31] MEDS ORDERED: Bacitracin 1 PK TOP SCH (09:00)
[2020-10-31] MEDS ORDERED: Heparin 10,000 UNITS/ 10 ML VIAL ONE (13:45)
[2020-10-31] MEDS: Micafungin 100 MG in Sodium Chloride 0.9% 100 ML IVPB SCH (17:10)
[2020-10-31] MEDS: Atorvastatin Calcium 40 MG TAB PO SCH (21:06)
[2020-11-01] MEDS: Propofol 1,000 MG/100 ML VIAL IV PRN (03:51)
[2020-11-01 05:33] LABS: Hemoglobin 7.7 g/dL (12.0-16.0); Mean Corpuscular HGB CONC 33.6 g/dL (32.0-36.0); Mean Corpuscular Hemoglobin 29.1 pg (27.0-31.0); Mean Corpuscular Volume 86.6 fL (78.0-98.0); Mean Platelet Volume 10.5 fL (7.4-10.4); Platelet Count 56 thou/uL (130-400); RBC Distribution Width 20.5 % (11.5-14.5); Red Blood Cell (RBC) Count 2.63 mill/uL (4.20-5.40); White Blood Cell (WBC) Count 19.1 thou/uL (4.8-10.8)
[2020-11-01] MEDS: Levothyroxine Sodium 25 MCG TAB PO SCH (05:37)
[2020-11-01 05:45] LABS: Anion Gap 14 mmol/L (10-20); BUN (Urea Nitrogen) 38 mg/dL (7.0-18.7); Calc. Creatinine Clearance 58 mL/min (70-130); Calcium 7.3 mg/dL (7.8-10.44); Carbon Dioxide 26 mmol/L (22-29); Chloride 101 mmol/L (98-107); Glucose 127 mg/dL (70-105); Potassium 3.8 mmol/L (3.5-5.1); Sodium 137 mmol/L (136-145)
[2020-11-01 05:57] LABS: Anisocytosis SLIGHT = 6-15 cells (100X) (0-5/hpf); Band 21 % (5-11); Lymphocytes 7 % (21-51); MDiff Complete? YES; Monocytes 6 % (0-10); Myelocyte 1 % (0-0); Neutrophil 65 % (42-75); Nucleated RBC 2 % (0); Polychromasia SLIGHT = 2-3 cells (100X) (0-2/hpf)
[2020-11-01 07:38] LABS: Actual Bicarbonate (HCO3a) 29.1 mEq/L (22-28); Base Excess (BEa) 2.6 mEq/L (-2.0 to +3.0); CO2 Tension 55.9 mmHg (35.0-45.0); Calcium, Ionized (arterial) 1.12 mmol/L (1.12-1.30); Carboxyhemoglobin (COHb) 0.3 gm% (0.0-3.0); Hemoglobin (Hb) 9.1 g/dL (12.0-16.0); O2 Tension (PaO2), arterial 64.2 mmHg (80.0-100.0); Potassium - ABG Lab 4.38 mmol/L (3.70-5.30); pH, Arterial 7.34 (7.35-7.45)
[2020-11-01 07:39] LABS: Puncture Site RRA
[2020-11-01 07:40] LABS: ALV-art Gradient 151.125 mmHg (0-20)
[2020-11-01] MEDS: Amlodipine 5 MG TAB PO SCH (09:13)
[2020-11-01] MEDS: Enoxaparin Sodium 30 MG/0.3 ML SYRINGE SC SCH (09:14)
[2020-11-01] MEDS: Cefepime 1 GM in Sodium Chloride 0.9% 100 ML IVPB SCH ×2 (09:14→21:05)
[2020-11-01] MEDS: Bacitracin Zinc Ointment 30 gm TUBE TOP SCH (09:14)
[2020-11-01] MEDS: Carvedilol 25 MG TAB PO SCH ×2 (09:14→21:22)
[2020-11-01] MEDS: levETIRAcetam 500 MG TAB PO SCH ×2 (09:15→21:04)
[2020-11-01] MEDS: Lantus 1000 UNITS/10 ML VIAL SC SCH ×2 (09:15→21:05)
[2020-11-01] MEDS: Pantoprazole 40 MG VIAL IVP SCH (09:16)
[2020-11-01] MEDS: Nystatin Powder 15 GM BOT TOP SCH ×2 (09:16→21:05)
[2020-11-01] MEDS: Lopinavir/Ritonavir 80 MG/20 MG per ML Oral Solution PO SCH ×2 (09:16→21:05)
[2020-11-01] MEDS: Micafungin 100 MG in Sodium Chloride 0.9% 100 ML IVPB SCH (17:29)
[2020-11-01] MEDS: Hetastarch 6% 500 ML 500 ML IVPB SCH (18:41)
[2020-11-01] MEDS: Atorvastatin Calcium 40 MG TAB PO SCH (21:04)
[2020-11-01] MEDS: Lorazepam 2 MG/ML VIAL SLOW IVP PRN (21:18)
[2020-11-02] MEDS: Lorazepam 2 MG/ML VIAL SLOW IVP PRN (04:13)
[2020-11-02] MEDS: Hetastarch 6% 500 ML 500 ML IVPB SCH ×2 (04:13→14:59)
[2020-11-02 04:18] LABS: Anion Gap 13 mmol/L (10-20); BUN (Urea Nitrogen) 50 mg/dL (7.0-18.7); Calc. Creatinine Clearance 48 mL/min (70-130); Calcium 7.6 mg/dL (7.8-10.44); Carbon Dioxide 25 mmol/L (22-29); Chloride 101 mmol/L (98-107); Glucose 131 mg/dL (70-105); Sodium 135 mmol/L (136-145)
[2020-11-02 05:03] LABS: Band 21 % (5-11); Hemoglobin 6.5 g/dL (12.0-16.0); Lymphocytes 9 % (21-51); MDiff Complete? YES; Mean Corpuscular HGB CONC 33.3 g/dL (32.0-36.0); Mean Corpuscular Hemoglobin 29.1 pg (27.0-31.0); Mean Corpuscular Volume 87.3 fL (78.0-98.0); Mean Platelet Volume 8.4 fL (7.4-10.4); Monocytes 6 % (0-10); Neutrophil 64 % (42-75); Platelet Count 47 thou/uL (130-400); Platelet Morphology Comment Appears Decreased; RBC Distribution Width 19.8 % (11.5-14.5); Red Blood Cell (RBC) Count 2.25 mill/uL (4.20-5.40); White Blood Cell (WBC) Count 20.2 thou/uL (4.8-10.8)
[2020-11-02] MEDS: Levothyroxine Sodium 25 MCG TAB PO SCH (06:15)
[2020-11-02 07:22] LABS: Actual Bicarbonate (HCO3a) 23.7 mEq/L (22-28); Base Excess (BEa) -1.5 mEq/L (-2.0 to +3.0); CO2 Tension 42.1 mmHg (35.0-45.0); Calcium, Ionized (arterial) 1.08 mmol/L (1.12-1.30); Carboxyhemoglobin (COHb) 0.8 gm% (0.0-3.0); Hemoglobin (Hb) 6.2 g/dL (12.0-16.0); O2 Tension (PaO2), arterial 117.3 mmHg (80.0-100.0); Potassium - ABG Lab 3.86 mmol/L (3.70-5.30); pH, Arterial 7.37 (7.35-7.45)
[2020-11-02 07:24] LABS: ALV-art Gradient 115.275 mmHg (0-20); Puncture Site RRA
[2020-11-02] MEDS: Carvedilol 25 MG TAB PO SCH ×2 (09:00→22:32)
[2020-11-02] MEDS: Cefepime 1 GM in Sodium Chloride 0.9% 100 ML IVPB SCH ×2 (09:00→22:31)
[2020-11-02] MEDS: levETIRAcetam 500 MG TAB PO SCH ×2 (09:32→22:33)
[2020-11-02] MEDS: Amlodipine 5 MG TAB PO SCH (09:32)
[2020-11-02] MEDS: Lantus 1000 UNITS/10 ML VIAL SC SCH ×2 (09:33→22:34)
[2020-11-02] MEDS: Pantoprazole 40 MG VIAL IVP SCH (09:35)
[2020-11-02] MEDS: Bacitracin Zinc Ointment 30 gm TUBE TOP SCH (09:40)
[2020-11-02] MEDS: Nystatin Powder 15 GM BOT TOP SCH ×2 (09:41→22:30)
[2020-11-02] MEDS: Lopinavir/Ritonavir 80 MG/20 MG per ML Oral Solution PO SCH ×2 (09:44→22:30)
[2020-11-02] MEDS: Micafungin 100 MG in Sodium Chloride 0.9% 100 ML IVPB SCH (18:07)
[2020-11-02] MEDS: Atorvastatin Calcium 40 MG TAB PO SCH (22:33)
[2020-11-03] MEDS: Hetastarch 6% 500 ML 500 ML IVPB SCH ×3 (02:54→22:43)
[2020-11-03 05:42] LABS: Anisocytosis SLIGHT = 6-15 cells (100X) (0-5/hpf); Band 30 % (5-11); Hemoglobin 6.3 g/dL (12.0-16.0); Lymphocytes 2 % (21-51); MDiff Complete? YES; Mean Corpuscular HGB CONC 33.6 g/dL (32.0-36.0); Mean Corpuscular Hemoglobin 29.3 pg (27.0-31.0); Mean Corpuscular Volume 87.4 fL (78.0-98.0); Mean Platelet Volume 14.1 fL (7.4-10.4); Metamyelocyte 2 % (0-0); Monocytes 5 % (0-10); Myelocyte 1 % (0-0); Neutrophil 60 % (42-75); Nucleated RBC 2 % (0); Platelet Count 38 thou/uL (130-400); Platelet Morphology Comment Appears Decreased; Polychromasia SLIGHT = 2-3 cells (100X) (0-2/hpf); RBC Distribution Width 18.4 % (11.5-14.5); Red Blood Cell (RBC) Count 2.13 mill/uL (4.20-5.40); White Blood Cell (WBC) Count 18.4 thou/uL (4.8-10.8)
[2020-11-03 06:00] LABS: Anion Gap 11 mmol/L (10-20); BUN (Urea Nitrogen) 40 mg/dL (7.0-18.7); Calc. Creatinine Clearance 64 mL/min (70-130); Calcium 7.2 mg/dL (7.8-10.44); Carbon Dioxide 27 mmol/L (22-29); Chloride 102 mmol/L (98-107); Glucose 120 mg/dL (70-105); Potassium 3.7 mmol/L (3.5-5.1); Sodium 136 mmol/L (136-145)
[2020-11-03] MEDS: Levothyroxine Sodium 25 MCG TAB PO SCH (06:00)
[2020-11-03 07:37] LABS: Actual Bicarbonate (HCO3a) 26.1 mEq/L (22-28); Base Excess (BEa) 1.8 mEq/L (-2.0 to +3.0); CO2 Tension 39.5 mmHg (35.0-45.0); Calcium, Ionized (arterial) 1.08 mmol/L (1.12-1.30); Carboxyhemoglobin (COHb) 1.3 gm% (0.0-3.0); Hemoglobin (Hb) 6.2 g/dL (12.0-16.0); O2 Tension (PaO2), arterial 92.9 mmHg (80.0-100.0); Potassium - ABG Lab 3.69 mmol/L (3.70-5.30); pH, Arterial 7.44 (7.35-7.45)
[2020-11-03 07:38] LABS: ALV-art Gradient 142.925 mmHg (0-20); Puncture Site RBA
[2020-11-03] MEDS: Cefepime 1 GM in Sodium Chloride 0.9% 100 ML IVPB SCH ×2 (09:36→21:57)
[2020-11-03] MEDS: Pantoprazole 40 MG VIAL IVP SCH (09:36)
[2020-11-03] MEDS: Lopinavir/Ritonavir 80 MG/20 MG per ML Oral Solution PO SCH ×2 (09:38→21:58)
[2020-11-03] MEDS: levETIRAcetam 500 MG TAB PO SCH ×2 (09:38→21:58)
[2020-11-03] MEDS: Nystatin Powder 15 GM BOT TOP SCH ×2 (09:39→22:35)
[2020-11-03] MEDS: Amlodipine 5 MG TAB PO SCH (09:40)
[2020-11-03] MEDS: Bacitracin Zinc Ointment 30 gm TUBE TOP SCH (09:40)
[2020-11-03] MEDS: Carvedilol 25 MG TAB PO SCH ×2 (09:40→21:58)
[2020-11-03] MEDS: Lantus 1000 UNITS/10 ML VIAL SC SCH ×2 (09:41→21:59)
[2020-11-03] MEDS: Lorazepam 2 MG/ML VIAL SLOW IVP PRN (14:25)
[2020-11-03 15:51] LABS: Hemoglobin 6.8 g/dL (12.0-16.0); Mean Corpuscular HGB CONC 33.8 g/dL (32.0-36.0); Mean Corpuscular Hemoglobin 29.3 pg (27.0-31.0); Mean Corpuscular Volume 86.7 fL (78.0-98.0); Mean Platelet Volume 12.5 fL (7.4-10.4); Platelet Count 53 thou/uL (130-400); RBC Distribution Width 17.1 % (11.5-14.5); Red Blood Cell (RBC) Count 2.31 mill/uL (4.20-5.40); White Blood Cell (WBC) Count 17.9 thou/uL (4.8-10.8)
[2020-11-03 16:02] LABS: Prothrombin Time 16.8 sec (12.0-14.7)
[2020-11-03 16:03] LABS: Fibrinogen 270 mg/dL (253-463); INR-International Normal Ratio 1.3
[2020-11-03 16:42] LABS: FSP-Qualitative ABNORMAL (Normal); FSP-Semiquantitative >=5 & <20 mcg/mL (Less than 5); Platelet Count 52 thou/uL (130-400)
[2020-11-03] MEDS: Micafungin 100 MG in Sodium Chloride 0.9% 100 ML IVPB SCH (16:51)
[2020-11-03] MEDS ORDERED: Norepinephrine 8 MG/0.9% NS 250 ML ONE (17:29)
[2020-11-03] MEDS ORDERED: Thrombin 5000 UNITS/5 ML VIAL ONE (18:41)
[2020-11-03] MEDS ORDERED: Mineral Oil Sterile 10ML 10 ML UDCUP ONE (18:41)
[2020-11-03] MEDS ORDERED: Sodium Chloride 0.9% 0 ML ONE (18:41)
[2020-11-03] MEDS ORDERED: Bacitracin Zinc Ointment 30 gm TUBE ONE (18:41)
[2020-11-03] MEDS ORDERED: Bupivacaine PF 0.5% 30 ML VIAL ONE (18:41)
[2020-11-03] MEDS: Atorvastatin Calcium 40 MG TAB PO SCH (21:58)
[2020-11-04 05:42] LABS: Anion Gap 11 mmol/L (10-20); BUN (Urea Nitrogen) 51 mg/dL (7.0-18.7); Calc. Creatinine Clearance 56 mL/min (70-130); Calcium 7.3 mg/dL (7.8-10.44); Carbon Dioxide 26 mmol/L (22-29); Chloride 104 mmol/L (98-107); Glucose 123 mg/dL (70-105); Sodium 137 mmol/L (136-145)
[2020-11-04] MEDS: Levothyroxine Sodium 25 MCG TAB PO SCH (06:06)
[2020-11-04 06:30] LABS: Band 29 % (5-11); Lymphocytes 9 % (21-51); MDiff Complete? YES; Mean Corpuscular HGB CONC 33.4 g/dL (32.0-36.0); Mean Corpuscular Hemoglobin 29.4 pg (27.0-31.0); Mean Corpuscular Volume 87.9 fL (78.0-98.0); Monocytes 3 % (0-10); Neutrophil 59 % (42-75); Platelet Count 83 thou/uL (130-400); Platelet Morphology Comment Appears Decreased; RBC Distribution Width 16.1 % (11.5-14.5); Red Blood Cell (RBC) Count 3.07 mill/uL (4.20-5.40); White Blood Cell (WBC) Count 21.1 thou/uL (4.8-10.8)
[2020-11-04] MEDS: Norepinephrine 8 MG/0.9% NS 250 ML IVPB SCH ×2 (06:57→15:41)
[2020-11-04 07:37] LABS: Actual Bicarbonate (HCO3a) 22.6 mEq/L (22-28); Base Excess (BEa) -2.4 mEq/L (-2.0 to +3.0); CO2 Tension 39.5 mmHg (35.0-45.0); Calcium, Ionized (arterial) 1.13 mmol/L (1.12-1.30); Carboxyhemoglobin (COHb) 0.3 gm% (0.0-3.0); Hemoglobin (Hb) 9.9 g/dL (12.0-16.0); O2 Tension (PaO2), arterial 74.8 mmHg (80.0-100.0); Potassium - ABG Lab 3.96 mmol/L (3.70-5.30); pH, Arterial 7.38 (7.35-7.45)
[2020-11-04 07:39] LABS: ALV-art Gradient 161.025 mmHg (0-20); Puncture Site RRA
[2020-11-04] MEDS: Morphine 2 MG/ML VIAL SLOW IVP PRN (09:06)
[2020-11-04] MEDS: Hetastarch 6% 500 ML 500 ML IVPB SCH ×2 (11:19→21:39)
[2020-11-04] MEDS: Amlodipine 5 MG TAB PO SCH (11:21)
[2020-11-04] MEDS: Carvedilol 25 MG TAB PO SCH ×2 (11:22→21:27)
[2020-11-04] MEDS: Lantus 1000 UNITS/10 ML VIAL SC SCH ×2 (11:23→22:25)
[2020-11-04] MEDS: Pantoprazole 40 MG VIAL IVP SCH (11:27)
[2020-11-04] MEDS: Lopinavir/Ritonavir 80 MG/20 MG per ML Oral Solution PO SCH ×2 (11:27→22:38)
[2020-11-04] MEDS: levETIRAcetam 500 MG TAB PO SCH ×2 (11:27→22:37)
[2020-11-04] MEDS: Bacitracin Zinc Ointment 30 gm TUBE TOP SCH (11:28)
[2020-11-04] MEDS: Nystatin Powder 15 GM BOT TOP SCH ×2 (11:28→22:25)
[2020-11-04] MEDS: Cefepime 1 GM in Sodium Chloride 0.9% 100 ML IVPB SCH ×2 (11:56→22:37)
[2020-11-04] MEDS ORDERED: Thrombin 5000 UNITS/5 ML VIAL ONE (16:32)
[2020-11-04] MEDS ORDERED: Bupivacaine PF 0.5% 30 ML VIAL ONE (16:32)
[2020-11-04] MEDS ORDERED: Bacitracin Zinc Ointment 30 gm TUBE ONE (16:32)
[2020-11-04] MEDS ORDERED: Midazolam HCl 2 mg/2 ml Vial ONE (16:33)
[2020-11-04] MEDS ORDERED: Fentanyl 100 MCG/2 ML VIAL ONE (16:33)
[2020-11-04] MEDS ORDERED: Norepinephrine 4 MG/4 ML VIAL ONE (16:46)
[2020-11-04] MEDS ORDERED: Rocuronium Bromide 10 MG/ML (10ML VIAL) ONE (17:30)
[2020-11-04] MEDS ORDERED: Sodium Chloride 0.9% 30 ML ONE (18:00)
[2020-11-04] MEDS: Micafungin 100 MG in Sodium Chloride 0.9% 100 ML IVPB SCH (21:25)
[2020-11-04] MEDS: Atorvastatin Calcium 40 MG TAB PO SCH (22:37)
[2020-11-04] MEDS: medroxyPROGESTERone Acetate 5 MG TAB PER TUBE SCH (22:38)
[2020-11-05] MEDS: Norepinephrine 8 MG/0.9% NS 250 ML IVPB SCH ×4 (00:01→22:33)
[2020-11-05 05:23] LABS: Hemoglobin 7.9 g/dL (12.0-16.0); Mean Corpuscular HGB CONC 34.2 g/dL (32.0-36.0); Mean Corpuscular Hemoglobin 30.5 pg (27.0-31.0); Mean Corpuscular Volume 89.1 fL (78.0-98.0); Mean Platelet Volume 11.3 fL (7.4-10.4); Platelet Count 81 thou/uL (130-400); RBC Distribution Width 17.2 % (11.5-14.5); Red Blood Cell (RBC) Count 2.59 mill/uL (4.20-5.40); White Blood Cell (WBC) Count 19.5 thou/uL (4.8-10.8)
[2020-11-05 05:36] LABS: Anion Gap 10 mmol/L (10-20); BUN (Urea Nitrogen) 38 mg/dL (7.0-18.7); Calc. Creatinine Clearance 74 mL/min (70-130); Calcium 7.3 mg/dL (7.8-10.44); Carbon Dioxide 26 mmol/L (22-29); Chloride 104 mmol/L (98-107); Glucose 94 mg/dL (70-105); Sodium 136 mmol/L (136-145)
[2020-11-05 05:47] LABS: Band 9 % (5-11); Lymphocytes 2 % (21-51); MDiff Complete? YES; Monocytes 1 % (0-10); Neutrophil 88 % (42-75); Platelet Morphology Comment Appears Decreased; Polychromasia SLIGHT = 2-3 cells (100X) (0-2/hpf)
[2020-11-05] MEDS: Hetastarch 6% 500 ML 500 ML IVPB SCH ×2 (06:11→16:22)
[2020-11-05] MEDS: Levothyroxine Sodium 25 MCG TAB PO SCH (06:11)
[2020-11-05 06:44] LABS: Actual Bicarbonate (HCO3a) 25.3 mEq/L (22-28); Base Excess (BEa) 0.2 mEq/L (-2.0 to +3.0); CO2 Tension 42.7 mmHg (35.0-45.0); Carboxyhemoglobin (COHb) 0.5 gm% (0.0-3.0); Hemoglobin (Hb) 8.2 g/dL (12.0-16.0); O2 Tension (PaO2), arterial 79.5 mmHg (80.0-100.0); Potassium - ABG Lab 3.94 mmol/L (3.70-5.30); pH, Arterial 7.39 (7.35-7.45)
[2020-11-05 06:45] LABS: ALV-art Gradient 152.325 mmHg (0-20); Puncture Site RRA
[2020-11-05] MEDS: medroxyPROGESTERone Acetate 5 MG TAB PER TUBE SCH ×3 (08:28→21:32)
[2020-11-05] MEDS: Amlodipine 5 MG TAB PO SCH (08:28)
[2020-11-05] MEDS: levETIRAcetam 500 MG TAB PO SCH ×2 (08:28→21:32)
[2020-11-05] MEDS: Carvedilol 25 MG TAB PO SCH ×3 (08:29→22:38)
[2020-11-05] MEDS: Lantus 1000 UNITS/10 ML VIAL SC SCH ×2 (08:29→22:04)
[2020-11-05] MEDS: Pantoprazole 40 MG VIAL IVP SCH (08:29)
[2020-11-05] MEDS: Nystatin Powder 15 GM BOT TOP SCH ×2 (08:30→21:34)
[2020-11-05] MEDS: Bacitracin Zinc Ointment 30 gm TUBE TOP SCH (08:30)
[2020-11-05] MEDS: Lopinavir/Ritonavir 80 MG/20 MG per ML Oral Solution PO SCH ×2 (08:50→21:59)
[2020-11-05] MEDS: Micafungin 100 MG in Sodium Chloride 0.9% 100 ML IVPB SCH (18:12)
[2020-11-05] MEDS: Atorvastatin Calcium 40 MG TAB PO SCH (21:33)
[2020-11-06 04:36] LABS: Hemoglobin 6.4 g/dL (12.0-16.0); Mean Corpuscular HGB CONC 33.2 g/dL (32.0-36.0); Mean Corpuscular Hemoglobin 30.3 pg (27.0-31.0); Mean Corpuscular Volume 91.1 fL (78.0-98.0); Platelet Count 86 thou/uL (130-400); RBC Distribution Width 17.1 % (11.5-14.5); Red Blood Cell (RBC) Count 2.12 mill/uL (4.20-5.40)
[2020-11-06 04:53] LABS: Anion Gap 13 mmol/L (10-20); BUN (Urea Nitrogen) 50 mg/dL (7.0-18.7); Calc. Creatinine Clearance 61 mL/min (70-130); Calcium 7.4 mg/dL (7.8-10.44); Carbon Dioxide 23 mmol/L (22-29); Chloride 104 mmol/L (98-107); Glucose 133 mg/dL (70-105); Potassium 4.2 mmol/L (3.5-5.1); Sodium 136 mmol/L (136-145)
[2020-11-06 04:57] LABS: Eosinophils 1 % (0-10); Lymphocytes 7 % (21-51); MDiff Complete? YES; Monocytes 4 % (0-10); Neutrophil 88 % (42-75); Platelet Morphology Comment Appears Decreased
[2020-11-06 05:13] LABS: Free T4 (Free Thyroxine) 0.52 ng/dL (0.70-1.48); Thyroid Stimulating Hormone 2.7386 uIU/mL (0.35-4.94)
[2020-11-06 06:58] LABS: Actual Bicarbonate (HCO3a) 25.2 mEq/L (22-28); CO2 Tension 50.7 mmHg (35.0-45.0); Calcium, Ionized (arterial) 1.14 mmol/L (1.12-1.30); Carboxyhemoglobin (COHb) 1.5 gm% (0.0-3.0); Hemoglobin (Hb) 6.3 g/dL (12.0-16.0); O2 Tension (PaO2), arterial 96.6 mmHg (80.0-100.0); pH, Arterial 7.31 (7.35-7.45)
[2020-11-06] MEDS: Levothyroxine Sodium 25 MCG TAB PO SCH (07:09)
[2020-11-06] MEDS ORDERED: Fentanyl BOLUS 250 ML IVPB PRN (07:16)
[2020-11-06 07:29] LABS: Puncture Site RRA
[2020-11-06 07:30] LABS: ALV-art Gradient 125.225 mmHg (0-20)
[2020-11-06] MEDS ORDERED: Fentanyl CADD 100 ML IV SCH (07:30)
[2020-11-06] MEDS: levETIRAcetam 500 MG TAB PO SCH ×2 (08:21→20:59)
[2020-11-06] MEDS: medroxyPROGESTERone Acetate 5 MG TAB PER TUBE SCH ×3 (08:22→21:07)
[2020-11-06] MEDS: Bacitracin Zinc Ointment 30 gm TUBE TOP SCH (08:22)
[2020-11-06] MEDS: Pantoprazole 40 MG VIAL IVP SCH (08:22)
[2020-11-06] MEDS: Nystatin Powder 15 GM BOT TOP SCH ×2 (08:22→21:00)
[2020-11-06] MEDS: Lopinavir/Ritonavir 80 MG/20 MG per ML Oral Solution PO SCH ×2 (08:24→20:59)
[2020-11-06] MEDS: Lantus 1000 UNITS/10 ML VIAL SC SCH ×2 (08:32→21:02)
[2020-11-06] MEDS: Carvedilol 25 MG TAB PO SCH ×2 (08:37→20:16)
[2020-11-06] MEDS: Amlodipine 5 MG TAB PO SCH (08:37)
[2020-11-06] MEDS ORDERED: Vancomycin 1.5 GRAM/300 ML BAG 1.5 GM in Premix Bag 1 BAG IVPB SCH (10:00)
[2020-11-06] MEDS ORDERED: Piperacillin/Tazobactam 2.5 GM in Sodium Chloride 0.9% 100 ML IVPB SCH (10:00)
[2020-11-06] MEDS ORDERED: VANCOMYCIN 2 GRAM/400 ML BAG 2 GM in Premix Bag 1 BAG IVPB SCH (12:00)
[2020-11-06] MEDS: Piperacillin/Tazobactam 2.25 GM in Sodium Chloride 0.9% 100 ML IVPB SCH ×2 (13:13→19:56)
[2020-11-06] MEDS ORDERED: Heparin 10,000 UNITS/ 10 ML VIAL ONE (13:36)
[2020-11-06] MEDS: VANCOMYCIN 2 GRAM/400 ML BAG 2 GM in Premix Bag 1 BAG IVPB SCH (14:02)
[2020-11-06] MEDS: Micafungin 100 MG in Sodium Chloride 0.9% 100 ML IVPB SCH (18:13)
[2020-11-06] MEDS: Norepinephrine 8 MG/0.9% NS 250 ML IVPB SCH (19:53)
[2020-11-06] MEDS: Atorvastatin Calcium 40 MG TAB PO SCH (20:59)
[2020-11-07] MEDS: VANCOMYCIN 2 GRAM/400 ML BAG 2 GM in Premix Bag 1 BAG IVPB SCH ×2 (01:28→15:14)
[2020-11-07] MEDS: Piperacillin/Tazobactam 2.25 GM in Sodium Chloride 0.9% 100 ML IVPB SCH ×3 (03:26→19:50)
[2020-11-07 04:15] LABS: #Eosinphils 0.1 thou/uL (0.0-0.7); #Lymphocytes 0.6 thou/uL (1.20-3.40); #Monocytes 0.3 thou/uL (0.11-0.59); #Neutrophils 10.9 thou/uL (1.40-6.50); %Basophils 0.2 % (0.0-1.0); %Eosinophils 0.5 % (0.0-10.0); %Monocytes 2.8 % (0.0-10.0); %Neutrophils 91.4 % (42.0-75.0); Hemoglobin 7.8 g/dL (12.0-16.0); Mean Corpuscular HGB CONC 33.1 g/dL (32.0-36.0); Mean Corpuscular Hemoglobin 30.2 pg (27.0-31.0); Mean Corpuscular Volume 91.4 fL (78.0-98.0); Mean Platelet Volume 9.5 fL (7.4-10.4); Platelet Count 91 thou/uL (130-400); RBC Distribution Width 16.8 % (11.5-14.5); Red Blood Cell (RBC) Count 2.58 mill/uL (4.20-5.40); White Blood Cell (WBC) Count 11.9 thou/uL (4.8-10.8)
[2020-11-07 04:22] LABS: Anion Gap 11 mmol/L (10-20); BUN (Urea Nitrogen) 40 mg/dL (7.0-18.7); Calc. Creatinine Clearance 78 mL/min (70-130); Calcium 7.4 mg/dL (7.8-10.44); Carbon Dioxide 27 mmol/L (22-29); Chloride 103 mmol/L (98-107); Glucose 121 mg/dL (70-105); Potassium 3.9 mmol/L (3.5-5.1); Sodium 137 mmol/L (136-145)
[2020-11-07 04:25] LABS: Fibrinogen 224 mg/dL (253-463)
[2020-11-07 04:26] LABS: FSP-Qualitative ABNORMAL (Normal); FSP-Semiquantitative >=5 & <20 mcg/mL (Less than 5)
[2020-11-07 04:27] LABS: INR-International Normal Ratio 1.4; PTT 35.2 sec (22.9-36.1); Prothrombin Time 17.1 sec (12.0-14.7)
[2020-11-07 04:34] LABS: D-Dimer Test 3.03 *mcg/mL (0.27-0.43)
[2020-11-07] MEDS: Levothyroxine Sodium 25 MCG TAB PO SCH (05:23)
[2020-11-07 07:18] LABS: Actual Bicarbonate (HCO3a) 23.5 mEq/L (22-28); Base Excess (BEa) -2.3 mEq/L (-2.0 to +3.0); CO2 Tension 45.4 mmHg (35.0-45.0); Calcium, Ionized (arterial) 1.15 mmol/L (1.12-1.30); Carboxyhemoglobin (COHb) 0.5 gm% (0.0-3.0); O2 Tension (PaO2), arterial 113.2 mmHg (80.0-100.0); pH, Arterial 7.33 (7.35-7.45)
[2020-11-07 07:39] LABS: Puncture Site RRA
[2020-11-07] MEDS: Pantoprazole 40 MG VIAL IVP SCH (09:41)
[2020-11-07] MEDS: levETIRAcetam 500 MG TAB PO SCH ×2 (09:41→20:49)
[2020-11-07] MEDS: medroxyPROGESTERone Acetate 5 MG TAB PER TUBE SCH ×3 (09:41→20:49)
[2020-11-07] MEDS: Lopinavir/Ritonavir 80 MG/20 MG per ML Oral Solution PO SCH ×2 (09:43→20:49)
[2020-11-07] MEDS: Lantus 1000 UNITS/10 ML VIAL SC SCH ×2 (09:43→20:52)
[2020-11-07] MEDS: Nystatin Powder 15 GM BOT TOP SCH ×2 (09:44→20:50)
[2020-11-07] MEDS: Bacitracin Zinc Ointment 30 gm TUBE TOP SCH (09:44)
[2020-11-07] MEDS: Carvedilol 25 MG TAB PO SCH (09:45)
[2020-11-07] MEDS: Amlodipine 5 MG TAB PO SCH (09:45)
[2020-11-07] MEDS: Micafungin 100 MG in Sodium Chloride 0.9% 100 ML IVPB SCH (17:50)
[2020-11-07] MEDS: Atorvastatin Calcium 40 MG TAB PO SCH (20:49)
[2020-11-08 02:02] LABS: Hemoglobin 7.5 g/dL (12.0-16.0); Mean Corpuscular HGB CONC 32.3 g/dL (32.0-36.0); Mean Corpuscular Hemoglobin 29.9 pg (27.0-31.0); Mean Corpuscular Volume 92.4 fL (78.0-98.0); Platelet Count 83 thou/uL (130-400); RBC Distribution Width 17.5 % (11.5-14.5); Red Blood Cell (RBC) Count 2.51 mill/uL (4.20-5.40); White Blood Cell (WBC) Count 11.4 thou/uL (4.8-10.8)
[2020-11-08 02:05] LABS: INR-International Normal Ratio 1.3; PTT 41.9 sec (22.9-36.1); Prothrombin Time 16.7 sec (12.0-14.7)
[2020-11-08 02:09] LABS: Fibrinogen 344 mg/dL (253-463)
[2020-11-08 02:13] LABS: D-Dimer Test 3.52 *mcg/mL (0.27-0.43)
[2020-11-08 02:24] LABS: Anion Gap 17 mmol/L (10-20); BUN (Urea Nitrogen) 52 mg/dL (7.0-18.7); Calc. Creatinine Clearance 67 mL/min (70-130); Calcium 7.8 mg/dL (7.8-10.44); Carbon Dioxide 21 mmol/L (22-29); Chloride 101 mmol/L (98-107); Glucose 117 mg/dL (70-105); Potassium 4.2 mmol/L (3.5-5.1); Sodium 135 mmol/L (136-145)
[2020-11-08 02:31] LABS: FSP-Qualitative Normal (Normal); FSP-Semiquantitative >=5 & <20 mcg/mL (Less than 5)
[2020-11-08 02:32] LABS: Platelet Count 83 thou/uL (130-400)
[2020-11-08 02:40] LABS: Band 4 % (5-11); Lymphocytes 9 % (21-51); MDiff Complete? YES; Metamyelocyte 1 % (0-0); Monocytes 3 % (0-10); Neutrophil 83 % (42-75); Platelet Morphology Comment Appears Decreased
[2020-11-08] MEDS: Piperacillin/Tazobactam 2.25 GM in Sodium Chloride 0.9% 100 ML IVPB SCH ×3 (03:42→19:59)
[2020-11-08] MEDS: Carvedilol 25 MG TAB PO SCH ×3 (03:42→21:46)
[2020-11-08] MEDS: Levothyroxine Sodium 25 MCG TAB PO SCH (06:04)
[2020-11-08] MEDS: Morphine 2 MG/ML VIAL SLOW IVP PRN (06:05)
[2020-11-08 07:23] LABS: Actual Bicarbonate (HCO3a) 23.6 mEq/L (22-28); Analyzer IN Cardio ER; Base Excess (BEa) -2.7 mEq/L (-2.0 to +3.0); CO2 Tension 48.3 mmHg (35.0-45.0); Calcium, Ionized (arterial) 1.17 mmol/L (1.12-1.30); Carboxyhemoglobin (COHb) 0.3 gm% (0.0-3.0); Hemoglobin (Hb) 8.5 g/dL (12.0-16.0); Potassium - ABG Lab 4.18 mmol/L (3.70-5.30); pH, Arterial 7.31 (7.35-7.45)
[2020-11-08] MEDS: VANCOMYCIN 2 GRAM/400 ML BAG 2 GM in Premix Bag 1 BAG IVPB SCH (07:24)
[2020-11-08 07:55] LABS: ALV-art Gradient 134.825 mmHg (0-20); Puncture Site RRA
[2020-11-08] MEDS: medroxyPROGESTERone Acetate 5 MG TAB PER TUBE SCH ×3 (08:20→21:47)
[2020-11-08] MEDS: levETIRAcetam 500 MG TAB PO SCH ×2 (08:20→21:47)
[2020-11-08] MEDS: Lantus 1000 UNITS/10 ML VIAL SC SCH ×2 (08:21→21:47)
[2020-11-08] MEDS: Bacitracin Zinc Ointment 30 gm TUBE TOP SCH (08:21)
[2020-11-08] MEDS: Pantoprazole 40 MG VIAL IVP SCH (08:21)
[2020-11-08] MEDS: Nystatin Powder 15 GM BOT TOP SCH ×2 (08:22→21:47)
[2020-11-08] MEDS: Amlodipine 5 MG TAB PO SCH (08:22)
[2020-11-08] MEDS: Lopinavir/Ritonavir 80 MG/20 MG per ML Oral Solution PO SCH ×2 (08:29→21:47)
[2020-11-08] MEDS: Micafungin 100 MG in Sodium Chloride 0.9% 100 ML IVPB SCH (17:48)
[2020-11-08] MEDS: Atorvastatin Calcium 40 MG TAB PO SCH (21:46)
[2020-11-08] MEDS: Norepinephrine 8 MG/0.9% NS 250 ML IVPB SCH (23:24)
[2020-11-09] MEDS: Levothyroxine Sodium 25 MCG TAB PO SCH (00:36)
[2020-11-09] MEDS: Piperacillin/Tazobactam 2.25 GM in Sodium Chloride 0.9% 100 ML IVPB SCH ×3 (02:58→19:53)
[2020-11-09 03:59] LABS: Fibrinogen 348 mg/dL (253-463)
[2020-11-09 04:00] LABS: PTT 41.3 sec (22.9-36.1)
[2020-11-09 04:01] LABS: INR-International Normal Ratio 1.3; Prothrombin Time 16.6 sec (12.0-14.7)
[2020-11-09 04:06] LABS: Anion Gap 17 mmol/L (10-20); BUN (Urea Nitrogen) 66 mg/dL (7.0-18.7); Calc. Creatinine Clearance 59 mL/min (70-130); Calcium 7.9 mg/dL (7.8-10.44); Carbon Dioxide 21 mmol/L (22-29); Chloride 100 mmol/L (98-107); Glucose 87 mg/dL (70-105); Potassium 4.3 mmol/L (3.5-5.1); Sodium 134 mmol/L (136-145)
[2020-11-09 04:07] LABS: D-Dimer Test 5.33 *mcg/mL (0.27-0.43)
[2020-11-09 04:21] LABS: Platelet Count 75 thou/uL (130-400)
[2020-11-09 04:22] LABS: FSP-Qualitative ABNORMAL (Normal); FSP-Semiquantitative >=5 & <20 mcg/mL (Less than 5)
[2020-11-09 04:34] LABS: Band 19 % (5-11); Hemoglobin 7.6 g/dL (12.0-16.0); Hypochromia SLIGHT = 6-15 cells (100X) (0-5/hpf); Lymphocytes 7 % (21-51); MDiff Complete? YES; Mean Corpuscular HGB CONC 31.7 g/dL (32.0-36.0); Mean Corpuscular Hemoglobin 29.4 pg (27.0-31.0); Mean Corpuscular Volume 92.6 fL (78.0-98.0); Mean Platelet Volume 11.6 fL (7.4-10.4); Neutrophil 74 % (42-75); Platelet Count 75 thou/uL (130-400); Platelet Morphology Comment Appears Decreased; RBC Distribution Width 17.4 % (11.5-14.5); White Blood Cell (WBC) Count 12.9 thou/uL (4.8-10.8)
[2020-11-09 07:15] LABS: Actual Bicarbonate (HCO3a) 22.3 mEq/L (22-28); Base Excess (BEa) -4.4 mEq/L (-2.0 to +3.0); Calcium, Ionized (arterial) 1.18 mmol/L (1.12-1.30); Hemoglobin (Hb) 8.6 g/dL (12.0-16.0); O2 Tension (PaO2), arterial 80.9 mmHg (80.0-100.0); Potassium - ABG Lab 4.49 mmol/L (3.70-5.30); pH, Arterial 7.28 (7.35-7.45)
[2020-11-09 07:16] LABS: Puncture Site RRA
[2020-11-09] MEDS: Amlodipine 5 MG TAB PO SCH (10:05)
[2020-11-09] MEDS: Carvedilol 25 MG TAB PO SCH ×2 (10:06→19:24)
[2020-11-09] MEDS: levETIRAcetam 500 MG TAB PO SCH (10:06)
[2020-11-09] MEDS: Lantus 1000 UNITS/10 ML VIAL SC SCH ×2 (10:06→19:27)
[2020-11-09] MEDS: medroxyPROGESTERone Acetate 5 MG TAB PER TUBE SCH ×3 (10:07→21:14)
[2020-11-09] MEDS: Pantoprazole 40 MG VIAL IVP SCH (10:07)
[2020-11-09] MEDS: Lopinavir/Ritonavir 80 MG/20 MG per ML Oral Solution PO SCH ×2 (10:07→21:14)
[2020-11-09] MEDS: Norepinephrine 8 MG/0.9% NS 250 ML IVPB SCH (10:08)
[2020-11-09] MEDS: Bacitracin Zinc Ointment 30 gm TUBE TOP SCH (10:09)
[2020-11-09] MEDS: Nystatin Powder 15 GM BOT TOP SCH ×2 (10:09→21:40)
[2020-11-09] MEDS ORDERED: Heparin 10,000 UNITS/ 10 ML VIAL ONE (10:29)
[2020-11-09] MEDS ORDERED: levETIRAcetam in NS 1,500 MG in Premix Bag 1 BAG IVPB SCH (10:45)
[2020-11-09] MEDS: Morphine 2 MG/ML VIAL SLOW IVP PRN ×2 (12:27→15:52)
[2020-11-09] MEDS: Atorvastatin Calcium 40 MG TAB PO SCH (21:14)
[2020-11-09] MEDS: levETIRAcetam in NS 1,500 MG in Premix Bag 1 BAG IVPB SCH (21:14)
[2020-11-09] MEDS: Dextrose 50% Abboject 50 ML SYRINGE SLOW IVP PRN (21:39)
[2020-11-10] MEDS: Levothyroxine Sodium 25 MCG TAB PO SCH (03:38)
[2020-11-10] MEDS: Piperacillin/Tazobactam 2.25 GM in Sodium Chloride 0.9% 100 ML IVPB SCH ×2 (03:45→11:15)
[2020-11-10 04:22] LABS: Hemoglobin 7.8 g/dL (12.0-16.0); Mean Corpuscular HGB CONC 31.7 g/dL (32.0-36.0); Mean Corpuscular Hemoglobin 29.4 pg (27.0-31.0); Mean Corpuscular Volume 92.5 fL (78.0-98.0); Platelet Count 69 thou/uL (130-400); RBC Distribution Width 17.4 % (11.5-14.5); Red Blood Cell (RBC) Count 2.65 mill/uL (4.20-5.40); White Blood Cell (WBC) Count 10.9 thou/uL (4.8-10.8)
[2020-11-10 04:34] LABS: Vancomycin, Random 44.1 ug/mL (See Comment)
[2020-11-10 04:39] LABS: Anion Gap 15 mmol/L (10-20); BUN (Urea Nitrogen) 45 mg/dL (7.0-18.7); Calc. Creatinine Clearance 82 mL/min (70-130); Calcium 7.9 mg/dL (7.8-10.44); Carbon Dioxide 23 mmol/L (22-29); Chloride 98 mmol/L (98-107); Glucose 64 mg/dL (70-105); Potassium 4.3 mmol/L (3.5-5.1); Sodium 132 mmol/L (136-145)
[2020-11-10 04:56] LABS: Eosinophils 1 % (0-10); Lymphocytes 4 % (21-51); MDiff Complete? YES; Monocytes 3 % (0-10); Neutrophil 92 % (42-75); Nucleated RBC 1 % (0); Platelet Morphology Comment Appears Decreased
[2020-11-10] MEDS ORDERED: VANCOMYCIN 2 GRAM/400 ML BAG 2 GM in Premix Bag 1 BAG IVPB SCH (05:00)
[2020-11-10] MEDS: Dextrose 50% Abboject 50 ML SYRINGE SLOW IVP PRN ×2 (06:17→11:10)
[2020-11-10 07:50] LABS: Actual Bicarbonate (HCO3a) 25.1 mEq/L (22-28); Base Excess (BEa) -1.2 mEq/L (-2.0 to +3.0); Calcium, Ionized (arterial) 1.15 mmol/L (1.12-1.30); Carboxyhemoglobin (COHb) 1.2 gm% (0.0-3.0); Hemoglobin (Hb) 7.6 g/dL (12.0-16.0); Potassium - ABG Lab 4.32 mmol/L (3.70-5.30); pH, Arterial 7.31 (7.35-7.45)
[2020-11-10 08:00] LABS: Puncture Site RBA
[2020-11-10] MEDS: Amlodipine 5 MG TAB PO SCH (10:11)
[2020-11-10] MEDS: Carvedilol 25 MG TAB PO SCH ×2 (10:13→20:46)
[2020-11-10] MEDS: medroxyPROGESTERone Acetate 5 MG TAB PER TUBE SCH ×3 (10:13→20:46)
[2020-11-10] MEDS: Lantus 1000 UNITS/10 ML VIAL SC SCH ×2 (10:13→19:30)
[2020-11-10] MEDS: Lopinavir/Ritonavir 80 MG/20 MG per ML Oral Solution PO SCH ×2 (10:13→20:46)
[2020-11-10] MEDS: levETIRAcetam in NS 1,500 MG in Premix Bag 1 BAG IVPB SCH ×2 (10:14→20:46)
[2020-11-10] MEDS: Pantoprazole 40 MG VIAL IVP SCH (10:14)
[2020-11-10] MEDS: Bacitracin Zinc Ointment 30 gm TUBE TOP SCH (10:16)
[2020-11-10] MEDS: Nystatin Powder 15 GM BOT TOP SCH ×2 (10:16→20:47)
[2020-11-10] MEDS ORDERED: Mineral Oil Sterile 10ML 10 ML UDCUP ONE (15:30)
[2020-11-10] MEDS ORDERED: Bacitracin Zinc Ointment 30 gm TUBE ONE (15:30)
[2020-11-10] MEDS ORDERED: diphenhydrAMINE 50 MG/ML VIAL IVP PRN (18:05)
[2020-11-10] MEDS: Morphine 2 MG/ML VIAL SLOW IVP PRN ×2 (18:05→21:35)
[2020-11-10] MEDS ORDERED: diphenhydrAMINE 50 MG/ML VIAL IVP SCH (18:15)
[2020-11-10] MEDS: Atorvastatin Calcium 40 MG TAB PO SCH (20:45)
[2020-11-10] MEDS: Linezolid 600 MG in Premix Bag 1 BAG IVPB SCH (20:46)
[2020-11-10] MEDS: Norepinephrine 8 MG/0.9% NS 250 ML IVPB SCH (21:36)
[2020-11-11] MEDS: Morphine 2 MG/ML VIAL SLOW IVP PRN (04:01)
[2020-11-11] MEDS: Levothyroxine Sodium 25 MCG TAB PO SCH (04:24)
[2020-11-11 05:16] LABS: Band 20 % (5-11); Hemoglobin 7.6 g/dL (12.0-16.0); Hypochromia SLIGHT = 6-15 cells (100X) (0-5/hpf); Lymphocytes 10 % (21-51); MDiff Complete? YES; Mean Corpuscular HGB CONC 32.7 g/dL (32.0-36.0); Mean Corpuscular Hemoglobin 30.5 pg (27.0-31.0); Mean Corpuscular Volume 93.2 fL (78.0-98.0); Mean Platelet Volume 11.9 fL (7.4-10.4); Monocytes 5 % (0-10); Neutrophil 65 % (42-75); Platelet Count 65 thou/uL (130-400); Platelet Morphology Comment Appears Decreased; RBC Distribution Width 17.2 % (11.5-14.5); White Blood Cell (WBC) Count 9.8 thou/uL (4.8-10.8)
[2020-11-11 05:19] LABS: Anion Gap 15 mmol/L (10-20); BUN (Urea Nitrogen) 56 mg/dL (7.0-18.7); Calc. Creatinine Clearance 66 mL/min (70-130); Carbon Dioxide 24 mmol/L (22-29); Chloride 100 mmol/L (98-107); Glucose 118 mg/dL (70-105); Potassium 4.5 mmol/L (3.5-5.1); Sodium 134 mmol/L (136-145)
[2020-11-11] MEDS: Carvedilol 25 MG TAB PO SCH (07:42)
[2020-11-11] MEDS: Lantus 1000 UNITS/10 ML VIAL SC SCH ×2 (07:42→20:44)
[2020-11-11] MEDS: Amlodipine 5 MG TAB PO SCH (07:42)
[2020-11-11] MEDS: Lopinavir/Ritonavir 80 MG/20 MG per ML Oral Solution PO SCH (07:43)
[2020-11-11] MEDS: medroxyPROGESTERone Acetate 5 MG TAB PER TUBE SCH ×2 (07:43→14:22)
[2020-11-11] MEDS ORDERED: Albumin 25% 25 GM/100 ML BOT IVPB SCH (08:00)
[2020-11-11] MEDS: Norepinephrine 8 MG/0.9% NS 250 ML IVPB SCH (10:01)
[2020-11-11] MEDS: Bacitracin Zinc Ointment 30 gm TUBE TOP SCH (10:02)
[2020-11-11] MEDS: Nystatin Powder 15 GM BOT TOP SCH ×2 (10:03→20:46)
[2020-11-11] MEDS: Midodrine HCl 5 MG TAB PER TUBE SCH ×2 (10:03→14:22)
[2020-11-11] MEDS: Pantoprazole 40 MG VIAL IVP SCH (10:04)
[2020-11-11] MEDS ORDERED: Heparin 10,000 UNITS/ 10 ML VIAL ONE (11:48)
[2020-11-11] MEDS: levETIRAcetam in NS 1,500 MG in Premix Bag 1 BAG IVPB SCH ×2 (13:40→20:27)
[2020-11-11] MEDS: Linezolid 600 MG in Premix Bag 1 BAG IVPB SCH (13:40)
[2020-11-11] MEDS ORDERED: Sodium Chloride 0.9% 30 ML ONE (19:32)
[2020-11-11] MEDS ORDERED: Mineral Oil Sterile 10ML 10 ML UDCUP ONE (19:32)
[2020-11-11] MEDS ORDERED: Bacitracin Zinc Ointment 30 gm TUBE ONE (19:32)
[2020-11-11] MEDS ORDERED: Fentanyl 100 MCG/2 ML VIAL ONE (20:36)
[2020-11-11] MEDS ORDERED: Midazolam HCl 5 mg/5 ml Vial ONE (20:36)
[2020-11-11] MEDS ORDERED: Rocuronium Bromide 50 MG/5 ML VIAL ONE (20:36)
[2020-11-11] MEDS ORDERED: Rocuronium Bromide 10 MG/ML (10ML VIAL) ONE (21:09)
[2020-11-11] MEDS ORDERED: Ketamine 50 MG/ML (10ML VIAL) ONE (22:54)
[2020-11-12] MEDS: Norepinephrine 8 MG/0.9% NS 250 ML IVPB SCH ×3 (00:03→18:48)
[2020-11-12] MEDS: Atorvastatin Calcium 40 MG TAB PO SCH ×2 (00:08→22:03)
[2020-11-12] MEDS: Linezolid 600 MG in Premix Bag 1 BAG IVPB SCH ×3 (00:09→22:02)
[2020-11-12] MEDS: Lopinavir/Ritonavir 80 MG/20 MG per ML Oral Solution PO SCH ×3 (00:09→22:03)
[2020-11-12] MEDS: medroxyPROGESTERone Acetate 5 MG TAB PER TUBE SCH ×4 (00:09→22:04)
[2020-11-12] MEDS: Midodrine HCl 5 MG TAB PER TUBE SCH ×4 (00:10→22:04)
[2020-11-12 05:18] LABS: #Lymphocytes 0.9 thou/uL (1.20-3.40); #Monocytes 0.5 thou/uL (0.11-0.59); #Neutrophils 9.5 thou/uL (1.40-6.50); %Basophils 0.3 % (0.0-1.0); %Eosinophils 0.4 % (0.0-10.0); %Lymphocytes 8.4 % (21.0-51.0); %Monocytes 4.3 % (0.0-10.0); %Neutrophils 86.7 % (42.0-75.0); Hemoglobin 7.9 g/dL (12.0-16.0); Mean Corpuscular HGB CONC 32.4 g/dL (32.0-36.0); Mean Corpuscular Hemoglobin 30.2 pg (27.0-31.0); Mean Corpuscular Volume 93.2 fL (78.0-98.0); Mean Platelet Volume 11.9 fL (7.4-10.4); Platelet Count 76 thou/uL (130-400); Red Blood Cell (RBC) Count 2.61 mill/uL (4.20-5.40)
[2020-11-12 05:40] LABS: Anion Gap 13 mmol/L (10-20); BUN (Urea Nitrogen) 46 mg/dL (7.0-18.7); Calc. Creatinine Clearance 74 mL/min (70-130); Carbon Dioxide 26 mmol/L (22-29); Chloride 99 mmol/L (98-107); Glucose 78 mg/dL (70-105); Potassium 4.2 mmol/L (3.5-5.1); Sodium 134 mmol/L (136-145)
[2020-11-12 07:18] LABS: Actual Bicarbonate (HCO3a) 23.3 mEq/L (22-28); Base Excess (BEa) -2.5 mEq/L (-2.0 to +3.0); CO2 Tension 44.5 mmHg (35.0-45.0); Calcium, Ionized (arterial) 1.13 mmol/L (1.12-1.30); Carboxyhemoglobin (COHb) 1.5 gm% (0.0-3.0); Hemoglobin (Hb) 8.1 g/dL (12.0-16.0); O2 Tension (PaO2), arterial 95.9 mmHg (80.0-100.0); Potassium - ABG Lab 4.18 mmol/L (3.70-5.30); Puncture Site RRA; pH, Arterial 7.34 (7.35-7.45)
[2020-11-12 07:19] LABS: ALV-art Gradient 133.675 mmHg (0-20)
[2020-11-12] MEDS: Levothyroxine Sodium 25 MCG TAB PO SCH (08:46)
[2020-11-12] MEDS: Lantus 1000 UNITS/10 ML VIAL SC SCH ×2 (08:47→21:43)
[2020-11-12] MEDS: levETIRAcetam in NS 1,500 MG in Premix Bag 1 BAG IVPB SCH ×2 (08:47→21:45)
[2020-11-12] MEDS: Bacitracin Zinc Ointment 30 gm TUBE TOP SCH (08:47)
[2020-11-12] MEDS: Pantoprazole 40 MG GRANULES PACKET PER TUBE SCH (08:48)
[2020-11-12] MEDS: Nystatin Powder 15 GM BOT TOP SCH ×2 (08:49→22:04)
[2020-11-12] MEDS: Hydrocortisone Sod Succ/PF 100 mg/2 ml Vial IVP SCH ×3 (11:21→23:39)
[2020-11-12] MEDS ORDERED: Heparin 10,000 UNITS/ 10 ML VIAL ONE (11:51)
[2020-11-13 04:17] LABS: Hemoglobin 7.8 g/dL (12.0-16.0); Mean Corpuscular HGB CONC 33.7 g/dL (32.0-36.0); Mean Corpuscular Hemoglobin 31.4 pg (27.0-31.0); Mean Corpuscular Volume 93.3 fL (78.0-98.0); Mean Platelet Volume 11.2 fL (7.4-10.4); Platelet Count 83 thou/uL (130-400); RBC Distribution Width 16.8 % (11.5-14.5); Red Blood Cell (RBC) Count 2.49 mill/uL (4.20-5.40); White Blood Cell (WBC) Count 12.3 thou/uL (4.8-10.8)
[2020-11-13 04:20] LABS: Anion Gap 19 mmol/L (10-20); BUN (Urea Nitrogen) 56 mg/dL (7.0-18.7); Calc. Creatinine Clearance 64 mL/min (70-130); Calcium 8.1 mg/dL (7.8-10.44); Carbon Dioxide 20 mmol/L (22-29); Chloride 98 mmol/L (98-107); Glucose 109 mg/dL (70-105); Sodium 132 mmol/L (136-145)
[2020-11-13 04:40] LABS: Band 15 % (5-11); Lymphocytes 5 % (21-51); MDiff Complete? YES; Monocytes 1 % (0-10); Neutrophil 78 % (42-75); Platelet Morphology Comment Appears Decreased; Reactive Lymphocytes 1 % (0-10)
[2020-11-13] MEDS: Hydrocortisone Sod Succ/PF 100 mg/2 ml Vial IVP SCH ×3 (06:40→16:56)
[2020-11-13] MEDS: Levothyroxine Sodium 25 MCG TAB PO SCH (06:42)
[2020-11-13 07:16] LABS: Actual Bicarbonate (HCO3a) 19.7 mEq/L (22-28); Base Excess (BEa) -6.2 mEq/L (-2.0 to +3.0); Calcium, Ionized (arterial) 1.13 mmol/L (1.12-1.30); Hemoglobin (Hb) 7.2 g/dL (12.0-16.0); O2 Tension (PaO2), arterial 96.1 mmHg (80.0-100.0); Potassium - ABG Lab 4.89 mmol/L (3.70-5.30)
[2020-11-13 07:40] LABS: Puncture Site RRA
[2020-11-13] MEDS: levETIRAcetam in NS 1,500 MG in Premix Bag 1 BAG IVPB SCH ×2 (08:21→21:50)
[2020-11-13] MEDS: Pantoprazole 40 MG GRANULES PACKET PER TUBE SCH (08:21)
[2020-11-13] MEDS: Linezolid 600 MG in Premix Bag 1 BAG IVPB SCH ×2 (08:21→21:51)
[2020-11-13] MEDS: Lopinavir/Ritonavir 80 MG/20 MG per ML Oral Solution PO SCH ×2 (08:21→21:51)
[2020-11-13] MEDS: Lantus 1000 UNITS/10 ML VIAL SC SCH ×2 (08:22→22:40)
[2020-11-13] MEDS: Bacitracin Zinc Ointment 30 gm TUBE TOP SCH (08:24)
[2020-11-13] MEDS: medroxyPROGESTERone Acetate 5 MG TAB PER TUBE SCH ×3 (08:24→21:52)
[2020-11-13] MEDS: Nystatin Powder 15 GM BOT TOP SCH ×2 (08:25→21:53)
[2020-11-13] MEDS: Midodrine HCl 5 MG TAB PER TUBE SCH ×3 (08:28→21:52)
[2020-11-13] MEDS ORDERED: Heparin 10,000 UNITS/ 10 ML VIAL ONE (10:56)
[2020-11-13 13:12] LABS: Actual Bicarbonate (HCO3v) 21 mEq/L (22-28); Analyzer IN Cardio OR; Base Excess -7.2 mEq/L (-2.0 to +3.0); Calcium, Ionized (venous) 1.12 mmol/L (1.16-1.32); Chloride (VBG) 113 mmol/L (98-106); Hemoglobin (Hb) 10.1 g/dL (11.7-15.5); Potassium (VBG) 4.95 mmol/L (3.70-5.30); Sodium 143.8 mmol/L (133-146)
[2020-11-13] MEDS: Atorvastatin Calcium 40 MG TAB PO SCH (21:50)
[2020-11-14] MEDS: Hydrocortisone Sod Succ/PF 100 mg/2 ml Vial IVP SCH ×4 (01:01→19:12)
[2020-11-14 05:07] LABS: Anion Gap 16 mmol/L (10-20); BUN (Urea Nitrogen) 48 mg/dL (7.0-18.7); Calc. Creatinine Clearance 76 mL/min (70-130); Calcium 8.1 mg/dL (7.8-10.44); Carbon Dioxide 24 mmol/L (22-29); Chloride 98 mmol/L (98-107); Glucose 156 mg/dL (70-105); Potassium 4.4 mmol/L (3.5-5.1); Sodium 134 mmol/L (136-145)
[2020-11-14 05:22] LABS: Band 7 % (5-11); Lymphocytes 2 % (21-51); MDiff Complete? YES; Mean Corpuscular HGB CONC 31.6 g/dL (32.0-36.0); Mean Corpuscular Hemoglobin 29.1 pg (27.0-31.0); Mean Platelet Volume 10.4 fL (7.4-10.4); Monocytes 3 % (0-10); Myelocyte 1 % (0-0); Neutrophil 87 % (42-75); Nucleated RBC 3 % (0); Platelet Count 105 thou/uL (130-400); Platelet Morphology Comment Appears Decreased; Polychromasia SLIGHT = 2-3 cells (100X) (0-2/hpf); RBC Distribution Width 16.6 % (11.5-14.5); White Blood Cell (WBC) Count 10.6 thou/uL (4.8-10.8)
[2020-11-14] MEDS: Levothyroxine Sodium 25 MCG TAB PO SCH (06:49)
[2020-11-14] MEDS: Linezolid 600 MG in Premix Bag 1 BAG IVPB SCH ×2 (09:28→21:09)
[2020-11-14] MEDS: Pantoprazole 40 MG GRANULES PACKET PER TUBE SCH (09:28)
[2020-11-14] MEDS: medroxyPROGESTERone Acetate 5 MG TAB PER TUBE SCH ×3 (09:29→21:10)
[2020-11-14] MEDS: Lantus 1000 UNITS/10 ML VIAL SC SCH ×2 (09:30→21:17)
[2020-11-14] MEDS: Lopinavir/Ritonavir 80 MG/20 MG per ML Oral Solution PO SCH ×2 (09:34→21:52)
[2020-11-14] MEDS: Nystatin Powder 15 GM BOT TOP SCH ×2 (09:34→21:11)
[2020-11-14] MEDS: levETIRAcetam in NS 1,500 MG in Premix Bag 1 BAG IVPB SCH ×2 (09:34→21:09)
[2020-11-14] MEDS: Bacitracin Zinc Ointment 30 gm TUBE TOP SCH (09:35)
[2020-11-14] MEDS: Midodrine HCl 5 MG TAB PER TUBE SCH ×3 (09:37→21:09)
[2020-11-14] MEDS: Lorazepam 2 MG/ML VIAL SLOW IVP PRN ×2 (10:35→14:11)
[2020-11-14] MEDS: Norepinephrine 8 MG/0.9% NS 250 ML IVPB SCH (13:16)
[2020-11-14] MEDS: Morphine 2 MG/ML VIAL SLOW IVP PRN (14:11)
[2020-11-14] MEDS: Atorvastatin Calcium 40 MG TAB PO SCH (21:09)
[2020-11-15] MEDS: Hydrocortisone Sod Succ/PF 100 mg/2 ml Vial IVP SCH ×5 (00:38→23:10)
[2020-11-15] MEDS: Morphine 2 MG/ML VIAL SLOW IVP PRN ×2 (00:59→12:00)
[2020-11-15 04:28] LABS: Anion Gap 20 mmol/L (10-20); BUN (Urea Nitrogen) 64 mg/dL (7.0-18.7); Calc. Creatinine Clearance 65 mL/min (70-130); Calcium 8.5 mg/dL (7.8-10.44); Carbon Dioxide 21 mmol/L (22-29); Chloride 95 mmol/L (98-107); Glucose 177 mg/dL (70-105); Potassium 4.8 mmol/L (3.5-5.1); Sodium 131 mmol/L (136-145)
[2020-11-15 05:50] LABS: #Lymphocytes 1.3 thou/uL (1.20-3.40); #Monocytes 0.6 thou/uL (0.11-0.59); #Neutrophils 12.1 thou/uL (1.40-6.50); %Basophils 0.3 % (0.0-1.0); %Eosinophils 0.2 % (0.0-10.0); %Lymphocytes 9.4 % (21.0-51.0); %Monocytes 4.1 % (0.0-10.0); %Neutrophils 86.1 % (42.0-75.0); Anisocytosis SLIGHT = 6-15 cells (100X) (0-5/hpf); Hemoglobin 7.4 g/dL (12.0-16.0); MDiff Complete? YES; Mean Corpuscular HGB CONC 31.6 g/dL (32.0-36.0); Mean Corpuscular Hemoglobin 29.2 pg (27.0-31.0); Mean Corpuscular Volume 92.5 fL (78.0-98.0); Mean Platelet Volume 9.6 fL (7.4-10.4); Platelet Count 155 thou/uL (130-400); RBC Distribution Width 16.4 % (11.5-14.5); Red Blood Cell (RBC) Count 2.54 mill/uL (4.20-5.40)
[2020-11-15] MEDS: Levothyroxine Sodium 25 MCG TAB PO SCH (06:28)
[2020-11-15] MEDS: medroxyPROGESTERone Acetate 5 MG TAB PER TUBE SCH ×3 (09:38→20:32)
[2020-11-15] MEDS: Linezolid 600 MG in Premix Bag 1 BAG IVPB SCH ×2 (09:38→20:27)
[2020-11-15] MEDS: levETIRAcetam in NS 1,500 MG in Premix Bag 1 BAG IVPB SCH ×2 (09:39→20:27)
[2020-11-15] MEDS: Pantoprazole 40 MG GRANULES PACKET PER TUBE SCH (09:39)
[2020-11-15] MEDS: Lantus 1000 UNITS/10 ML VIAL SC SCH ×2 (09:40→20:47)
[2020-11-15] MEDS: Nystatin Powder 15 GM BOT TOP SCH ×2 (09:40→20:29)
[2020-11-15] MEDS: Bacitracin Zinc Ointment 30 gm TUBE TOP SCH (09:40)
[2020-11-15] MEDS: Lopinavir/Ritonavir 80 MG/20 MG per ML Oral Solution PO SCH ×2 (09:43→20:34)
[2020-11-15] MEDS: Midodrine HCl 5 MG TAB PER TUBE SCH ×3 (10:03→20:28)
[2020-11-15] MEDS: Lorazepam 2 MG/ML VIAL SLOW IVP PRN (12:00)
[2020-11-15] MEDS: Atorvastatin Calcium 40 MG TAB PO SCH (20:28)
[2020-11-16 04:24] LABS: Anion Gap 19 mmol/L (10-20); BUN (Urea Nitrogen) 80 mg/dL (7.0-18.7); Calc. Creatinine Clearance 55 mL/min (70-130); Calcium 8.5 mg/dL (7.8-10.44); Carbon Dioxide 22 mmol/L (22-29); Chloride 94 mmol/L (98-107); Glucose 165 mg/dL (70-105); Potassium 5.3 mmol/L (3.5-5.1); Sodium 130 mmol/L (136-145)
[2020-11-16 05:28] LABS: Band 2 % (5-11); Hemoglobin 7.3 g/dL (12.0-16.0); Lymphocytes 7 % (21-51); MDiff Complete? YES; Mean Corpuscular HGB CONC 31.5 g/dL (32.0-36.0); Mean Corpuscular Hemoglobin 29.3 pg (27.0-31.0); Mean Corpuscular Volume 92.9 fL (78.0-98.0); Mean Platelet Volume 9.6 fL (7.4-10.4); Monocytes 5 % (0-10); Neutrophil 85 % (42-75); Nucleated RBC 4 % (0); Platelet Count 152 thou/uL (130-400); Polychromasia SLIGHT = 2-3 cells (100X) (0-2/hpf); RBC Distribution Width 16.6 % (11.5-14.5); Red Blood Cell (RBC) Count 2.48 mill/uL (4.20-5.40); White Blood Cell (WBC) Count 13.1 thou/uL (4.8-10.8)
[2020-11-16] MEDS: Hydrocortisone Sod Succ/PF 100 mg/2 ml Vial IVP SCH ×2 (05:58→09:08)
[2020-11-16] MEDS: Levothyroxine Sodium 25 MCG TAB PO SCH (05:59)
[2020-11-16] MEDS ORDERED: Albumin 25% 25 GM/100 ML BOT IVPB ONE (09:00)
[2020-11-16] MEDS: Linezolid 600 MG in Premix Bag 1 BAG IVPB SCH (09:07)
[2020-11-16] MEDS: Bacitracin Zinc Ointment 30 gm TUBE TOP SCH (09:08)
[2020-11-16] MEDS: Lantus 1000 UNITS/10 ML VIAL SC SCH (09:09)
[2020-11-16] MEDS: Midodrine HCl 5 MG TAB PER TUBE SCH ×2 (09:11→15:21)
[2020-11-16] MEDS: medroxyPROGESTERone Acetate 5 MG TAB PER TUBE SCH ×2 (09:11→15:23)
[2020-11-16] MEDS: Lopinavir/Ritonavir 80 MG/20 MG per ML Oral Solution PO SCH (09:11)
[2020-11-16] MEDS: levETIRAcetam in NS 1,500 MG in Premix Bag 1 BAG IVPB SCH (09:11)
[2020-11-16] MEDS: Nystatin Powder 15 GM BOT TOP SCH (09:12)
[2020-11-16] MEDS: Pantoprazole 40 MG GRANULES PACKET PER TUBE SCH (09:12)
[2020-11-16] MEDS ORDERED: Heparin 10,000 UNITS/ 10 ML VIAL ONE (10:36)
[2020-11-16] MEDS ORDERED: Sodium Chloride 0.9% 30 ML ONE (13:00)
[2020-11-16] MEDS ORDERED: Bupivacaine PF 0.5% 30 ML VIAL ONE (13:00)
[2020-11-16] MEDS ORDERED: Lidocaine 1% w/Epinephrine 1:100K 20 ML VIAL ONE (13:00)
[2020-11-16 13:35] VITALS: BMI 77.4
[2020-11-16] MEDS ORDERED: Fentanyl 100 MCG/2 ML VIAL ONE (13:40)
[2020-11-16] MEDS ORDERED: PROPOFOL 200 MG/20 ML VIAL ONE (13:43)
[2020-11-16] MEDS ORDERED: Rocuronium Bromide 10 MG/ML (10ML VIAL) ONE (13:43)
[2020-11-16] MEDS ORDERED: Dexamethasone 20 MG/5 ML VIAL ONE (13:43)
[2020-11-16] MEDS ORDERED: Ondansetron PF 4 MG/2 ML Vial ONE (13:43)
[2020-11-16] MEDS ORDERED: Phenylephrine 10 MG/ML VIAL ONE (13:51)
[2020-11-16 15:02] VITALS: BP 82/50
[2020-11-16] MEDS: Norepinephrine 8 MG/0.9% NS 250 ML IVPB SCH (15:20)
[2020-11-16 16:49] VITALS: TEMP 98.7
[2020-11-17] MEDS ORDERED: Vasopressin 20 UNIT, Admixture Fee 1 EACH in Sodium Chloride 0.9% 50 ML IV SCH (03:00)
[2020-11-17 03:37] LABS: BUN (Urea Nitrogen) 62 mg/dL (7.0-18.7); Calc. Creatinine Clearance 65 mL/min (70-130); Calcium 8.5 mg/dL (7.8-10.44); Chloride 94 mmol/L (98-107); Sodium 130 mmol/L (136-145)
[2020-11-17 03:40] LABS: Carbon Dioxide Less than 8 mmol/L (22-29); Glucose 59 mg/dL (70-105)
[2020-11-17] MEDS ORDERED: Sodium Bicarb 50 MEQ/50 ML Abboject 8.4% SYRINGE ONE ×2 (03:44→03:48)
[2020-11-17] MEDS ORDERED: Insulin Regular 300 UNITS/3 ML VIAL IVP SCH (03:45)
[2020-11-17] MEDS ORDERED: EPINEPHrine 1 MG/10 ML Abboject SYRINGE ONE (03:48)
[2020-11-17] MEDS ORDERED: Calcium Chloride 1 GM/10 ML Abboject SYRINGE ONE (03:48)
[2020-11-17] MEDS ORDERED: Dextrose 50% Abboject 50 ML SYRINGE ONE (03:48)
[2020-11-17] MEDS ORDERED: Amiodarone 150 MG/3 ML VIAL ONE (03:48)
[2020-11-17 04:08] LABS: Anisocytosis MODERATE=16-30 cells (100X) (0-5/hpf); Band 14 % (5-11); Hemoglobin 8.2 g/dL (12.0-16.0); Lymphocytes 8 % (21-51); MDiff Complete? YES; Mean Corpuscular HGB CONC 30.4 g/dL (32.0-36.0); Mean Corpuscular Hemoglobin 30.2 pg (27.0-31.0); Mean Corpuscular Volume 99.6 fL (78.0-98.0); Mean Platelet Volume 9.2 fL (7.4-10.4); Monocytes 3 % (0-10); Neutrophil 75 % (42-75); Nucleated RBC 9 % (0); Platelet Count 156 thou/uL (130-400); RBC Distribution Width 17.3 % (11.5-14.5); Red Blood Cell (RBC) Count 2.71 mill/uL (4.20-5.40); White Blood Cell (WBC) Count 16.7 thou/uL (4.8-10.8)
[2020-11-17] MEDS: Linezolid 600 MG in Premix Bag 1 BAG IVPB SCH (06:21)
[2020-11-17] MEDS: levETIRAcetam in NS 1,500 MG in Premix Bag 1 BAG IVPB SCH (06:22)
[2020-11-17] MEDS: Atorvastatin Calcium 40 MG TAB PO SCH (06:23)
[2020-11-17] MEDS: Lopinavir/Ritonavir 80 MG/20 MG per ML Oral Solution PO SCH (06:23)
[2020-11-17] MEDS: Hydrocortisone Sod Succ/PF 100 mg/2 ml Vial IVP SCH (06:23)
[2020-11-17] MEDS: Nystatin Powder 15 GM BOT TOP SCH (06:24)
[2020-11-17] MEDS: medroxyPROGESTERone Acetate 5 MG TAB PER TUBE SCH (06:24)
[2020-11-17] MEDS: Midodrine HCl 5 MG TAB PER TUBE SCH (06:24)
[2020-11-17] MEDS: Lantus 1000 UNITS/10 ML VIAL SC SCH (06:25)
[2020-11-25 10:16] LABS: Fungus Culture Final report (.)
[2020-11-25 10:16] LABS: Fungus Culture Final report (.)
[2020-11-25 10:16] LABS: Fungus Culture Final report (.)
[2020-11-25 10:16] LABS: Fungus Culture Final report (.)
[2020-11-25 10:16] LABS: Fungus Culture Final report (.)
[2020-11-25 10:16] LABS: Fungus Culture Final report (.)
[2020-11-25 10:16] LABS: Fungus Culture Final report (.)
== END 2020-11-17 13:24 | disposition expired | DRG 3 ==
LOC: CCU 16:37 → IMCU/EMU 20:47 → CCU 10-26 17:08
PROVIDERS: ADMIT Internal Medicine; ATTEND Internal Medicine
PROC: 02H633Z Insertion of Infusion Device into Right Atrium, Percutaneous Approach (ICD-10-PCS; principal; 2020-10-26)
PROC: 0KNB0ZZ Release Left Lower Arm and Wrist Muscle, Open Approach (ICD-10-PCS; 2020-10-26)
PROC: 0KNB0ZZ Release Left Lower Arm and Wrist Muscle, Open Approach (ICD-10-PCS; 2020-10-26)
PROC: 0KNB0ZZ Release Left Lower Arm and Wrist Muscle, Open Approach (ICD-10-PCS; 2020-10-26)
PROC: 0KNB0ZZ Release Left Lower Arm and Wrist Muscle, Open Approach (ICD-10-PCS; 2020-10-26)
PROC: 0KNB0ZZ Release Left Lower Arm and Wrist Muscle, Open Approach (ICD-10-PCS; 2020-10-26)
PROC: 3E033XZ Introduction of Vasopressor into Peripheral Vein, Percutaneous Approach (ICD-10-PCS; 2020-10-26)
PROC: 0KND0ZZ Release Left Hand Muscle, Open Approach (ICD-10-PCS; 2020-10-26)
PROC: 0KND0ZZ Release Left Hand Muscle, Open Approach (ICD-10-PCS; 2020-10-26)
PROC: 0KND0ZZ Release Left Hand Muscle, Open Approach (ICD-10-PCS; 2020-10-26)
PROC: 0KND0ZZ Release Left Hand Muscle, Open Approach (ICD-10-PCS; 2020-10-26)
PROC: 0KND0ZZ Release Left Hand Muscle, Open Approach (ICD-10-PCS; 2020-10-26)
PROC: 01N50ZZ Release Median Nerve, Open Approach (ICD-10-PCS; 2020-10-26)
PROC: 0BH17EZ Insertion of Endotracheal Airway into Trachea, Via Natural or Artificial Opening (ICD-10-PCS; 2020-10-27)
PROC: 5A1955Z Respiratory Ventilation, Greater than 96 Consecutive Hours (ICD-10-PCS; 2020-10-27)
PROC: 30233N1 Transfusion of Nonautologous Red Blood Cells into Peripheral Vein, Percutaneous Approach (ICD-10-PCS; 2020-10-27)
PROC: 0BC78ZZ Extirpation of Matter from Left Main Bronchus, Via Natural or Artificial Opening Endoscopic (ICD-10-PCS; 2020-10-28)
PROC: 0BC38ZZ Extirpation of Matter from Right Main Bronchus, Via Natural or Artificial Opening Endoscopic (ICD-10-PCS; 2020-10-28)
PROC: 0BC18ZZ Extirpation of Matter from Trachea, Via Natural or Artificial Opening Endoscopic (ICD-10-PCS; 2020-10-28)
PROC: 0JH63XZ Insertion of Tunneled Vascular Access Device into Chest Subcutaneous Tissue and Fascia, Percutaneous Approach (ICD-10-PCS; 2020-10-28)
PROC: 06H033Z Insertion of Infusion Device into Inferior Vena Cava, Percutaneous Approach (ICD-10-PCS; 2020-10-28)
PROC: B5191ZA Fluoroscopy of Inferior Vena Cava using Low Osmolar Contrast, Guidance (ICD-10-PCS; 2020-10-28)
PROC: 0DJ08ZZ Inspection of Upper Intestinal Tract, Via Natural or Artificial Opening Endoscopic (ICD-10-PCS; 2020-10-29)
PROC: 0DJD8ZZ Inspection of Lower Intestinal Tract, Via Natural or Artificial Opening Endoscopic (ICD-10-PCS; 2020-10-29)
PROC: 5A1D70Z Performance of Urinary Filtration, Intermittent, Less than 6 Hours Per Day (ICD-10-PCS; 2020-10-29)
PROC: 30233R1 Transfusion of Nonautologous Platelets into Peripheral Vein, Percutaneous Approach (ICD-10-PCS; 2020-11-03)
PROC: 0KBD0ZZ Excision of Left Hand Muscle, Open Approach (ICD-10-PCS; 2020-11-04)
PROC: 0KBB0ZZ Excision of Left Lower Arm and Wrist Muscle, Open Approach (ICD-10-PCS; 2020-11-04)
PROC: 0KBD0ZZ Excision of Left Hand Muscle, Open Approach (ICD-10-PCS; 2020-11-11)
PROC: 0B113F4 Bypass Trachea to Cutaneous with Tracheostomy Device, Percutaneous Approach (ICD-10-PCS; 2020-11-16)
PROC: 05H533Z Insertion of Infusion Device into Right Subclavian Vein, Percutaneous Approach (ICD-10-PCS; 2020-11-16)
DX: A41.9 Sepsis, unspecified organism (principal); N18.6 End stage renal disease; J96.21 Acute and chronic respiratory failure with hypoxia; J96.22 Acute and chronic respiratory failure with hypercapnia; G93.41 Metabolic encephalopathy; N17.0 Acute kidney failure with tubular necrosis; M72.6 Necrotizing fasciitis; D65 Disseminated intravascular coagulation [defibrination syndrome]; I50.23 Acute on chronic systolic (congestive) heart failure; R65.21 Severe sepsis with septic shock; B20 Human immunodeficiency virus [HIV] disease; E66.2 Morbid (severe) obesity with alveolar hypoventilation; I42.9 Cardiomyopathy, unspecified; L03.319 Cellulitis of trunk, unspecified; L02.219 Cutaneous abscess of trunk, unspecified; E87.2 Acidosis; J95.09 Other tracheostomy complication; J98.11 Atelectasis; I13.2 Hypertensive heart and chronic kidney disease with heart failure and with stage 5 chronic kidney disease, or end stage renal disease; J98.19 Other pulmonary collapse; F33.9 Major depressive disorder, recurrent, unspecified; M79.A12 Nontraumatic compartment syndrome of left upper extremity; Z68.45 Body mass index [BMI] 70 or greater, adult; D62 Acute posthemorrhagic anemia; K92.1 Melena; Z16.21 Resistance to vancomycin; J98.09 Other diseases of bronchus, not elsewhere classified; D63.1 Anemia in chronic kidney disease; L98.419 Non-pressure chronic ulcer of buttock with unspecified severity; E88.81 Metabolic syndrome and other insulin resistance; G40.909 Epilepsy, unspecified, not intractable, without status epilepticus; E03.9 Hypothyroidism, unspecified; I07.1 Rheumatic tricuspid insufficiency; L98.499 Non-pressure chronic ulcer of skin of other sites with unspecified severity; B37.2 Candidiasis of skin and nail; E87.5 Hyperkalemia; S60.222A Contusion of left hand, initial encounter; S60.032A Contusion of left middle finger without damage to nail, initial encounter; Z53.29 Procedure and treatment not carried out because of patient's decision for other reasons; A49.1 Streptococcal infection, unspecified site; N93.8 Other specified abnormal uterine and vaginal bleeding; A41.81 Sepsis due to Enterococcus; I95.2 Hypotension due to drugs; Z91.018 Allergy to other foods; Z79.82 Long term (current) use of aspirin; Z79.51 Long term (current) use of inhaled steroids; Z79.899 Other long term (current) drug therapy; Z99.2 Dependence on renal dialysis; Z91.19 Patient's noncompliance with other medical treatment and regimen; Z20.822 Contact with and (suspected) exposure to COVID-19
CPT/HCPCS: 36415; 36416; 36430; 36600; 71045; 74018; 76856; 80048; 80202; 81001; 82550; 82805; 83605; 84439; 84443; 85025; 85048; 85049; 85300; 85362; 85379; 85384; 85610; 85730; 86361; 86704; 86706; 86769; 86803; 86850; 86900; 86901; 87040; 87070; 87077; 87086; 87102; 87186; 87205; 87206; 87340; 87449; 87497; 87536; 87899; 88112; 88305; 88312; 90935; 93005; 93010; 93306; 93970; 94002; 94003; 94660; C1751; C1752; C9113; C9399; G0257; J0171; J0282; J0692; J1100; J1200; J1644; J1650; J1720; J1815; J1953; J2001; J2020; J2060; J2248; J2250; J2270; J2370; J2405; J2543; J2704; J3010; J3370; J3490; J7070; P9016; P9035; P9045; P9047; S0020; S0028; U0002